=== PATIENT | male | born 1950 | race Caucasian/White ===

== ENCOUNTER 2016-10-13 21:40 | Inpatient (IN) | payer MEDICARE, MEDICAID ==
[~2016-10-13] VITALS: Ht 172.7 cm; Wt 80.0 kg
--- NOTE | 2016-10-13 23:33 | ERD ---
ER Documentation Chief Complaint Date/Time DATE: 10/13/16 TIME: 23:32 Chief Complaint painful/burning urination/retention x 3 weeks HPI Patient is a 66-year-old male with history of unknown prostate condition who presents to the ER with 3 weeks of gradual onset, constant, moderate, progressive generalized abdominal pain. He reports a few episodes of vomiting intermittently. He denies fever. He states that he is having increased urinary frequency and difficulty emptying his bladder. He denies hematuria. The patient was seen in a hospital in [facility] approximately 1 week ago. He just arrived by plane today from [facility]. He denies acute change of symptoms, but states that they have been getting progressively worse over the last week. ROS All systems reviewed and are negative except as per history of present illness. Medications Home Meds No Active Prescriptions or Reported Meds Allergies Allergies: Coded Allergies: No Known Drug Allergies (Verified Allergy, Unknown, 10/13/16) PMhx/Soc Past medical history: Unknown prostate condition Past surgical history: Denies Social history: Denies tobacco or alcohol Medical and Surgical Hx: pt denies Surgical Hx Hx Cardiac Disorders: Yes (HTN) Hx Alcohol Use: Yes (used to drink heavily ) Hx Substance Use: No Hx Tobacco Use: No Smoking Status: Never smoker FmHx Family History: No coronary disease, No diabetes Physical Exam Vitals Vital Signs Date Time Temp Pulse Resp B/P Pulse Ox O2 Delivery O2 Flow Rate FiO2 10/14/16 01:05 98.2 74 20 178/79 100 10/13/16 22:11 98.2 90 20 203/89 100 Physical Exam Const: Alert, no acute distress Head: Atraumatic Eyes: Normal Conjunctiva, no pallor, no icterus ENT: Normal External Ears, Nose and Mouth. Mucous membranes moist Neck: Full range of motion. No JVD Resp: Clear to auscultation bilaterally, no wheezes, no rales Cardio: Regular rate and rhythm, no murmurs Abd: Soft, non tender, non distended. No guarding, no rebound Skin: No petechiae or rashes Back: No midline or flank tenderness Ext: No cyanosis, 2+ pitting edema bilateral shins Neur: Awake and alert, cranial nerves II through XII intact bilaterally, strength and sensation full in 4 extremities. Psych: Normal Mood and Affect Result Diagram: 7/20/17 2325 7/20/17 2325 Results 24 hrs Laboratory Tests Test 10/13/16 23:25 White Blood Count 11.610^3/ul Red Blood Count 3.2010^6/ul Hemoglobin 9.6g/dl Hematocrit 25.5% Mean Corpuscular Volume 79.7fl Mean Corpuscular Hemoglobin 30.0pg Mean Corpuscular Hemoglobin Concent 37.6g/dl Red Cell Distribution Width 11.8% Platelet Count 40672^3/UL Mean Platelet Volume 8.1fl Neutrophils % 83.4% Lymphocytes % 8.6% Monocytes % 7.1% Eosinophils % 0.3% Basophils % 0.3% Neutrophils # 9.710^3/ul Lymphocytes # 1.010^3/ul Monocytes # 0.810^3/ul Eosinophils # 0.010^3/ul Basophils # 0.010^3/ul Nucleated Red Blood Cells # 0.010^3/ul Urine Color STRAW Urine Clarity CLEAR Urine pH 7.0 Urine Specific [place] 1.003 Urine Ketones NEGATIVEmg/dL Urine Nitrite NEGATIVEmg/dL Urine Bilirubin NEGATIVEmg/dL Urine Urobilinogen NEGATIVEmg/dL Urine Leukocyte Esterase NEGATIVELeu/ul Urine Microscopic RBC 2/HPF Urine Microscopic WBC 2/HPF Urine Hemoglobin 1+mg/dL Urine Glucose 1+mg/dL Urine Total Protein 3+mg/dl Sodium Level 122mmol/L Potassium Level 2.6mmol/L Chloride Level 85mmol/L Carbon Dioxide Level 25mmol/L Anion Gap 15 Blood Urea Nitrogen 17mg/dl Creatinine 2.12mg/dl Glucose Level 113mg/dl Calcium Level 8.3mg/dl Total Bilirubin 0.1mg/dl Direct Bilirubin 0.00mg/dl Indirect Bilirubin 0.1mg/dl Aspartate Amino Transf (AST/SGOT) 33IU/L Alanine Aminotransferase (ALT/SGPT) 33IU/L Alkaline Phosphatase 129IU/L Total Protein 6.4g/dl Albumin 2.9g/dl Globulin 3.50g/dl Albumin/Globulin Ratio 0.82 Lipase 371U/L Current Medications Medications (Trade) Dose Ordered Sig/Saul Route PRN Reason Start Time Stop Time Status Last Admin Dose Admin Potassium Chloride 250 ml @ 62.5 mls/hr ONCE ONCE IVPB 10/14/16 01:00 10/14/16 04:59 10/14/16 01:46 Magnesium Sulfate 50 ml @ 25 mls/hr ONCE ONCE IVPB 10/14/16 01:00 10/14/16 02:59 10/14/16 01:46 Sodium Chloride (NS) 500 ml @ 500 mls/hr Q1H ONCE IV 10/14/16 01:30 10/14/16 02:29 10/14/16 01:46 Ondansetron HCl (Zofran Inj) 4 mg ER BRIDGE PRN IV NAUSEA AND/OR VOMITING 10/14/16 01:30 10/15/16 01:29 Acetaminophen (Tylenol Tab) 650 mg ER BRIDGE PRN PO MILD PAIN/FEVER 10/14/16 01:30 10/15/16 01:29 Procedures/MDM MDM: Patient is a 66-year-old male who presents with complaint of lower abdominal pain and difficulty urinating for several weeks. He is found to have urinary retention with a PVR of 750 cc after Castelan placement. He has significant electrolyte abnormalities, including low potassium and sodium. His creatinine is elevated without significant BUN elevation, suggestive of obstructive uropathy. He was given judicious IV saline in case of other conditions contributing to his hyponatremia. He was given IV potassium and magnesium repletion. He will be admitted for further workup and treatment of his electrolyte abnormalities. He will need urologic consultation either during his admission or as an outpatient to address his urinary obstruction, which is likely due to BPH. Urinalysis is pending to assess for UTI. Departure Diagnosis: Primary Impression: Hyponatremia Additional Impressions: Hyperkalemia Urinary retention Ileus Prostatic hypertrophy Obstructive uropathy Condition: Stable SHELBY LUND MD Oct 13, 2016 23:33
[2016-10-13 23:59] LABS: ADD SCAN DIFF NO
[2016-10-14] VITALS (14 sets, daily range): BP systolic 133–181; BP diastolic 61–88; PULSE 65–78; RESP 18; TEMP 98.2; Ht 172.7 cm; Wt 80.0 kg
[2016-10-14 00:03] LABS: BASOPHILS % 0.3 % (0.0-2.0); EOSINOPHILS % 0.3 % (0.0-7.0); HEMATOCRIT 25.5 % (42.0-52.0); HEMOGLOBIN 9.6 g/dl (14.0-18.0); LYMPHOCYTES % 8.6 % (15.0-51.0); MEAN CORPUSCULAR VOLUME 79.7 fl (82.0-101.0); MEAN PLATELET VOLUME 8.1 fl (7.4-10.4); MONOCYTE # 0.8 10^3/ul (0.3-0.9); MONOCYTES % 7.1 % (0.0-11.0); NEUTROPHIL # 9.7 10^3/ul (1.6-7.5); NEUTROPHILS % 83.4 % (39.0-77.0); PLATELET COUNT 293 10^3/UL (140-415); RED CELL DISTRIBUTION WIDTH 11.8 % (11.5-14.5); WHITE BLOOD COUNT 11.6 10^3/ul (4.8-10.8)
[2016-10-14 00:13] LABS: MEAN CORPUSCULAR HGB CONC 37.6 g/dl (32.0-37.0)
[2016-10-14 00:45] LABS: ALBUMIN 2.9 g/dl (3.3-4.9); ALBUMIN/GLOBULIN RATIO 0.82; BILIRUBIN,INDIRECT 0.1 mg/dl (0-1.1); BILIRUBIN,TOTAL 0.1 mg/dl (0.2-1.3); CALCIUM 8.3 mg/dl (8.4-10.2); CREATININE 2.12 mg/dl (0.61-1.24); TOTAL PROTEIN 6.4 g/dl (6.1-8.1)
[2016-10-14 00:49] LABS: POTASSIUM 2.6 mmol/L (3.5-5.1)
[2016-10-14] MEDS ORDERED: MAGNESIUM SULFATE 2 GM/50 ML 50 ML IVPB ONE (01:00)
[2016-10-14] MEDS ORDERED: POTASSIUM CHLORIDE 250 ML IVPB ONE ×2 (01:00→11:00)
--- NOTE | 2016-10-14 01:10 | RADRPT ---
PROCEDURE: Abdomen x-ray CLINICAL INDICATION: Abdominal pain. TECHNIQUE: 2 frontal views of the abdomen. COMPARISON: None. FINDINGS: Mild to moderate small bowel ileus in the left abdomen. Recommend close radiographic follow up. So lid stool in the cecum and right colon. There is air in the rectum. Lung bases are clear. No unus ual calcifications are identified over the abdomen. IMPRESSION: Mild to moderate small bowel ileus. Recommend close radiographic follow up RPTAT: UU Physician Mili Date Time Electronically viewed and signed by Physician Mili on 10/14/2016 01:10 RS/
[2016-10-14 01:13] LABS: ADD UMIC YES; UR ASCORBIC ACID NEGATIVE (NEGATIVE); UR BILIRUBIN (Dip) NEGATIVE (NEGATIVE); UR BLOOD (Dip) 1+ mg/dL (NEGATIVE); UR CLARITY CLEAR (CLEAR); UR COLOR STRAW (YELLOW); UR GLUCOSE (Dip) 1+ mg/dL (NEGATIVE); UR KETONES (Dip) NEGATIVE (NEGATIVE); UR LEUKOCYTE ESTERASE (Dip) NEGATIVE Leu/ul (NEGATIVE); UR NITRITE (Dip) NEGATIVE (NEGATIVE); UR RBC 2 /HPF (0-5); UR SPECIFIC GRAVITY (Dip) 1.003 (1.003-1.030); UR TOTAL PROTEIN (Dip) 3+ mg/dl (NEGATIVE); UR UROBILINOGEN (Dip) NEGATIVE (NEGATIVE)
[2016-10-14] MEDS ORDERED: SOD CHLORIDE 0.9% 500 ML IV ONE ×2 (01:30→02:30)
[2016-10-14] MEDS ORDERED: ACETAMINOPHEN 325 MG TAB PO PRN (01:30)
[2016-10-14] MEDS ORDERED: ONDANSETRON 4 MG INJ IV PRN ×2 (01:30→05:30)
[2016-10-14] MEDS ORDERED: NACL 0.9% 3 ML SYG IV SCH (05:30)
[2016-10-14] MEDS ORDERED: BARIUM SULF 2% 450 ML BTL (BERRY SMOOTHIE) PO ONE (05:30)
[2016-10-14] MEDS ORDERED: DEXTROSE 5%-0.9% NACL 1,000 ML IV SCH (05:30)
[2016-10-14] MEDS ORDERED: ALBUTEROL/IPRATROPIUM (NEB) 3 ML AMP HHN PRN (05:30)
[2016-10-14] MEDS ORDERED: VITAMIN A & D 5 GM OINT PACKET TOP ONE (05:55)
[2016-10-14] MEDS: morphine 2 MG INJ IV PRN ×2 (05:56→10:07)
--- NOTE | 2016-10-14 06:53 | HP ---
Date/Time of Note Date/Time of Note DATE: 10/14/16 TIME: 06:41 Assessment/Plan VTE Prophylaxis VTE Prophylaxis Intervention: SCD's Lines/Catheters IV Catheter Type (from Nrs): Peripheral IV Assessment/Plan Assessment/Plan 1. Abdominal pain, likely secondary to ileus, and possibly pancreatitis given elevated lipase -Likely cause of ileus is his hypokalemia. His abdomen is soft and there is no physical exam finding of bowel obstruction. Plan however is to obtain a CT abdomen/pelvis with oral and IV contrast. In the meantime we will correct his potassium and that will provide pain medication as needed. 2. Mild pancreatitis -We will keep n.p.o. with IV fluid. Pain medications will be provided as needed 3. Urinary hesitation, likely secondary to BPH - will start him on Flomax and will await the results of the CAT scan which will probably going to show an enlarged prostate. 3. Hypertensive urgency -Blood pressure is better controlled and we will continue to adjust antihypertensives as needed. 4. Hypokalemia -Replete 5. Hyponatremia -Continue normal saline IV fluid for now HPI/ROS Admit Date/Time Admit Date/Time Oct 14, 2016 at 01:16 Hx of Present Illness This is a 66-year-old male with a history of hypertension who presented to the emergency department complaining of abdominal pain and urinary symptoms. He said he is symptoms started a month ago while he was in [place], [facility]. His abdominal pain is mainly localized in the lower abdominal region. He said he has been, at times having difficulty with urination, mainly hesitation. When asked about he has been vomiting, he initially said no but then he said only small amounts. He denied fever, chills, hematuria, shortness of breath. He said that his last bowel movement was 2 days ago. It is not clear whether or not he was evaluated by a doctor when he was in [facility] but he stated that it costs too much money to be evaluated over there and that why he decided to come here. When he presented to the ER here at [facility], he was found to have a potassium of 2.6. KUB shows ileus. Currently he said he is almost completely pain-free and he actually looks comfortable. PMH/Family/Social Past Medical History Medical History: hypertension Social History Smoking Status: Former smoker Exam/Review of Systems Vital Signs Vitals Vital Signs Date Time Temp Pulse Resp B/P Pulse Ox O2 Delivery O2 Flow Rate FiO2 10/14/16 04:51 75 10/14/16 04:34 98.2 20 161/74 100 Intake and Output 10/13/16 10/13/16 10/14/16 15:00 23:00 07:00 Output Total 2200 ml Balance -2200 ml Exam Constitutional: alert, oriented, well developed Head: atraumatic, normocephalic Eyes: EOMI, PERRL Respiratory: clear to auscultation, normal air movement Cardiovascular: nl pulses, regular rate and rhythm Gastrointestinal: non-tender, soft Extremities: normal pulses Labs Result Diagram: 10/13/16232410/13/162324 Medications Medications Current Medications Ondansetron HCl (Zofran Inj) 4 mg Q6H PRN IV NAUSEA AND/OR VOMITING; Start at 05:30 Morphine Sulfate (morphine) 2 mg Q4H PRN IV PAIN LEVEL 7-10 Last administered on 10/14/16 05:56; Admin Dose 2 MG; Start 10/14/16 at 05:30 Famotidine 20 mg 20 mg DAILY IV ; Start 10/14/16 at 09:00 Dextrose/Sodium Chloride (D5-NS) 1,000 ml @ 100 mls/hr Q10H IV Last administered on 10/14/16 05:38; Admin Dose 100 MLS/HR; Start 10/14/16 at 05:30 Hydralazine HCl (Apresoline) 10 mg Q4H PRN IV SBP > 160; Start 10/14/16 at 05: 30 CHIRAG FITZPATRICK MD Oct 14, 2016 06:53
[2016-10-14 08:40] LABS: ADD SCAN DIFF NO
[2016-10-14 08:47] LABS: BASOPHILS % 0.4 % (0.0-2.0); EOSINOPHILS % 0.4 % (0.0-7.0); HEMATOCRIT 24.2 % (42.0-52.0); HEMOGLOBIN 9.1 g/dl (14.0-18.0); LYMPHOCYTES # 0.8 10^3/ul (0.8-2.9); LYMPHOCYTES % 9.9 % (15.0-51.0); MEAN CORPUSCULAR HEMOGLOBIN 30.2 pg (29.0-33.0); MEAN CORPUSCULAR VOLUME 80.4 fl (82.0-101.0); MEAN PLATELET VOLUME 8.3 fl (7.4-10.4); MONOCYTE # 0.7 10^3/ul (0.3-0.9); NEUTROPHIL # 6.8 10^3/ul (1.6-7.5); NEUTROPHILS % 80.9 % (39.0-77.0); PLATELET COUNT 297 10^3/UL (140-415); RED BLOOD COUNT 3.01 10^6/ul (4.70-6.10); RED CELL DISTRIBUTION WIDTH 11.9 % (11.5-14.5); WHITE BLOOD COUNT 8.4 10^3/ul (4.8-10.8)
[2016-10-14 08:56] LABS: MEAN CORPUSCULAR HGB CONC 37.6 g/dl (32.0-37.0)
[2016-10-14] MEDS ORDERED: FAMOTIDINE 20 MG INJ IV SCH (09:00)
[2016-10-14 09:17] LABS: ALBUMIN 2.7 g/dl (3.3-4.9); ALBUMIN/GLOBULIN RATIO 0.81; BILIRUBIN,INDIRECT 0.1 mg/dl (0-1.1); BILIRUBIN,TOTAL 0.1 mg/dl (0.2-1.3); CALCIUM 8.5 mg/dl (8.4-10.2); CREATININE 2.02 mg/dl (0.61-1.24); MAGNESIUM 2.1 mg/dl (1.7-2.5); POTASSIUM 3.3 mmol/L (3.5-5.1)
[2016-10-14] MEDS: hydrALAzine 20 MG INJ IV PRN ×2 (09:27→13:52)
[2016-10-14 10:35] LABS: THYROID STIMULATING HORMONE 0.922 MIU/L (0.465-4.680)
[2016-10-14 11:09] LABS: POTASSIUM,URINE RANDOM 11.6 mmol/L (25-125)
[2016-10-14] MEDS ORDERED: LABETALOL HCL 20MG INJ IV PRN (11:30)
[2016-10-14 12:45] LABS: IRON 15 ug/dl (35-150)
[2016-10-14 12:54] LABS: TOTAL IRON BINDING CAPACITY 198 ug/dl (241-421)
--- NOTE | 2016-10-14 14:03 | RADRPT ---
PROCEDURE: CT abdomen and pelvis without intravenous contrast. CLINICAL INDICATION: Abdominal pain, evaluate for bowel obstruction TECHNIQUE: CT of the abdomen/pelvis was performed utilizing axial images with reconstructions in s agittal and coronal planes. The administered radiation dose is CTDI 9.91 mGy, DLP 631.37 mGy-cm. One or more of the following dose reduction techniques were used: Automated exposure control, Adjustmen t of the mA and/or kV according to patient size, or Use of iterative reconstruction technique. COMPARISON: There are no similar studies submitted for comparison. FINDINGS: Lung bases: Respiratory motion artifact limits evaluation of the lung bases. The lung bases demonst rate mild posterior dependent atelectasis and mild nonspecific posterior pleural thickening. Trace l eft pleural effusion is also suspected. .The heart is normal size without pericardial effusion. CT ABDOMEN: Evaluation of the abdominal viscera is limited without intravenous contrast. Gastrointestinal tract: There is no bowel obstruction. A normal-appearing appendix is seen in the ri ght lower quadrant. No abnormal colonic wall thickening is identified.There is no pneumoperitoneum. There are a few scattered colonic diverticuli without evidence of acute diverticulitis. Liver: The liver is normal in size.There is no intrahepatic ductal dilatation. Gallbladder: The gallbladder contains small dependent gallstones. Pancreas: The pancreas is grossly unremarkable. Spleen: The spleen is normal in size. Kidneys: The kidneys are normal in size and contour. Punctate calcification is seen in the interpola r left kidney near the corticomedullary junction and in the left kidney superior pole; possibly ollie l stones versus vascular calcifications. There is no evidence of hydronephrosis. Adrenal glands: The bilateral adrenal glands are unremarkable. Retroperitoneum: There are increased number of slightly prominent, but sub centimeter para-aortic ly mph nodes. The aorta is normal in caliber. There are scattered atherosclerotic calcifications of th e aorta and iliac arteries bilaterally. CT PELVIS: Pelvic organs: The prostate gland is mildly enlarged, but otherwise unremarkable. Bladder: Urinary bladder contains a Castelan catheter. Air fluid level within the urinary bladder is p resumably related to recent Castelan catheter insertion. There is no pelvic free fluid.No pelvic adenopathy is identified. Osseous structures: No destructive lytic or blastic osseous lesion is identified. There are multilev el degenerative changes of the visualized spine. Degenerative disk disease related osteophytes and ligamentous calcification combine to cause moderate bony spinal canal stenosis at L2-L3 and L3-L4. IMPRESSION: Evaluation of the abdominal viscera is limited without intravenous contrast. 1. No evidence of acute abdominal pathology. 2. Increased number of prominent, but subcentimeter short axis para-aortic lymph nodes, possibly re active in etiology. 3. Degenerative changes of the spine. Degenerative disk disease related posterior osteophytes and l igamentous hypertrophy and calcification combine to cause moderate bony spinal canal stenosis at L2- L3 and L3-L4. 4. Two punctate left renal calcifications which may represent small calculi versus vascular calcifi cations. No hydronephrosis. 5. Nonspecific pleural thickening in the bilateral posterior lower lung regions with trace pleural f luid on the left. RPTAT: PP Physician Debbie Date Time Electronically viewed and signed by Physician Debbie on 10/14/2016 14:03 MIKO/
--- NOTE | 2016-10-14 14:30 | PN ---
Date/Time of Note Date/Time of Note DATE: 10/14/16 TIME: 14:28 Assessment/Plan VTE Prophylaxis VTE Prophylaxis Intervention: SCD's Lines/Catheters IV Catheter Type (from Nrsg): Peripheral IV Urinary Cath still in place: Yes Reason Cath still needed: urinary retention Assessment/Plan Chief Complaint/Hosp Course Patient is a 66-year-old [place] and male who presents to [facility] for abdominal pain and urinary hesitation. Assessment Left upper quadrant abdominal pain, questionable gastritis Elevated lipase Urinary hesitation BPH, confirmed with CT scan Hypertensive urgency, possible chronic issue Acute kidney injury versus chronic kidney disease, Hypokalemia Hyponatremia Plan -CT scan negative for bowel obstruction, will allow patient to start with clears -Left upper quadrant pain consistent with area of the stomach and with nausea and vomiting, questionable gastritis -Nephrology consulted for acute kidney injury versus chronic kidney disease, fractional excretion of sodium is 4.8 and may be explained by patient's urinary retention and BPH -Castelan catheter in for now, starting Flomax, reevaluate tomorrow -Pain medication necessary -Protonix twice daily for possible gastritis for now -Electrolytes now within normal limits -Follow-up with repeat labs tomorrow morning Anastacio Reddy DO Problems: Exam/Review of Systems Vital Signs Vitals Vital Signs Date Time Temp Pulse Resp B/P Pulse Ox O2 Delivery O2 Flow Rate FiO2 10/14/16 13:37 69 170/79 10/14/16 12:07 97.8 18 100 Intake and Output 10/13/16 10/13/16 10/14/16 15:00 23:00 07:00 Output Total 2200 ml Balance -2200 ml Results Result Diagram: 10/14/1623 10/14/16 0723 Results 24 hrs Laboratory Tests Test 10/13/16 23:25 10/14/16 07:23 10/14/16 10:00 10/14/16 11:54 White Blood Count 11.6 H 8.4 # Red Blood Count 3.20 L 3.01 L Hemoglobin 9.6 L 9.1 L Hematocrit 25.5 L 24.2 L Mean Corpuscular Volume 79.7 L 80.4 L Mean Corpuscular Hemoglobin 30.0 30.2 Mean Corpuscular Hemoglobin Concent 37.6 H 37.6 H Red Cell Distribution Width 11.8 11.9 Platelet Count 293 297 Mean Platelet Volume 8.1 8.3 Neutrophils % 83.4 H 80.9 H Lymphocytes % 8.6 L 9.9 L Monocytes % 7.1 8.0 Eosinophils % 0.3 0.4 Basophils % 0.3 0.4 Neutrophils # 9.7 H 6.8 Lymphocytes # 1.0 0.8 Monocytes # 0.8 0.7 Eosinophils # 0.0 0.0 Basophils # 0.0 0.0 Nucleated Red Blood Cells # 0.0 0.0 Urine Color STRAW Urine Clarity CLEAR Urine pH 7.0 Urine Specific [place] 1.003 Urine Ketones NEGATIVE Urine Nitrite NEGATIVE Urine Bilirubin NEGATIVE Urine Urobilinogen NEGATIVE Urine Leukocyte Esterase NEGATIVE Urine Microscopic RBC 2 Urine Microscopic WBC 2 Urine Hemoglobin 1+ H Urine Glucose 1+ H Urine Total Protein 3+ H Sodium Level 122 L 130 L Potassium Level 2.6 *L 3.3 L Chloride Level 85 L 91 L Carbon Dioxide Level 25 27 Anion Gap 15 15 Blood Urea Nitrogen 17 16 Creatinine 2.12 H 2.02 H Glucose Level 113 103 Calcium Level 8.3 L 8.5 Total Bilirubin 0.1 L 0.1 L Direct Bilirubin 0.00 0.00 Indirect Bilirubin 0.1 0.1 Aspartate Amino Transf (AST/SGOT) 33 30 Alanine Aminotransferase (ALT/SGPT) 33 30 Alkaline Phosphatase 129 H 116 Total Protein 6.4 6.0 L Albumin 2.9 L 2.7 L Globulin 3.50 H 3.30 H Albumin/Globulin Ratio 0.82 0.81 Lipase 371 H Hemoglobin A1c 5.5 Magnesium Level 2.1 Thyroid Stimulating Hormone (TSH) 0.922 Urine Osmolality 147 L Urine Random Creatinine 16.36 L Urine Random Sodium 49 Urine Random Potassium 11.6 L Osmolality 271 L Iron Level 15 L Total Iron Binding Capacity 198 L Percent Iron Saturation 8 L Carcinoembryonic Antigen 1.6 Medications Medications Current Medications Ondansetron HCl (Zofran Inj) 4 mg Q6H PRN IV NAUSEA AND/OR VOMITING; Start at 05:30 Hydralazine HCl 10 mg 10 mg Q4H PRN IV SBP > 160 Last administered on t 13:52; Admin Dose 10 MG; Start 10/14/16 at 05:30 Potassium Chloride (KCl 40 MEQ/250 ML NS) 250 ml @ 62.5 mls/hr ONCE ONCE IVPB Last administered on 10/14/16 12:21; Admin Dose 62.5 MLS/HR; Start 10/14/16 at 11:00; Stop 10/14/16 at 14:59 Labetalol HCl (Labetalol) 10 mg Q4H PRN IV SBP>160 ; hold if HR <60 Last administered on 10/14/16 12:21; Admin Dose 10 MG; Start 10/14/16 at 11:30 Tamsulosin HCl (Flomax) 0.4 mg HS PO ; Start 10/14/16 at 21:00 Amlodipine Besylate (Norvasc) 10 mg DAILY PO ; Start 10/14/16 at 14:30 Acetaminophen/ Hydrocodone Bitart ([place] (5/325)) 1 tab Q4H PRN PO pain 4-10; Start 10/14/16 at 14:30 Pantoprazole (Protonix Tab) 40 mg BID@06,18 PO ; Start 10/14/16 at 14:30 ANASTACIO REDDY Oct 14, 2016 14:30
[2016-10-14] MEDS: PANTOPRAZOLE (EC) 40 MG TAB PO SCH ×2 (15:11→21:05)
[2016-10-14] MEDS: AMLODIPINE 10 MG TAB PO SCH (15:11)
[2016-10-14] MEDS: HYDROCODONE/APAP (5/325) TAB PO PRN (15:17)
[2016-10-14] MEDS: TAMSULOSIN (SR) 0.4 MG CAP PO SCH (21:05)
[2016-10-14] MEDS ORDERED: SOD FERRIC GLUC COMPLX 125 MG in SOD CHLORIDE 0.9% 100 ML IVPB SCH (23:00)
[2016-10-15] VITALS (13 sets, daily range): BP systolic 112–162; BP diastolic 50–77; PULSE 61–72; RESP 16–20
[2016-10-15] MEDS ORDERED: MAGNESIUM CITRATE 300 ML BTL PO ONE (06:00)
[2016-10-15] MEDS: PANTOPRAZOLE (EC) 40 MG TAB PO SCH ×2 (06:01→17:27)
[2016-10-15 07:50] LABS: CALCIUM 7.9 mg/dl (8.4-10.2); CREATININE 2.25 mg/dl (0.61-1.24); MAGNESIUM 1.6 mg/dl (1.7-2.5); PHOSPHORUS 4.2 mg/dl (2.5-4.9)
[2016-10-15] MEDS: AMLODIPINE 10 MG TAB PO SCH (09:03)
[2016-10-15] MEDS: BENAZEPRIL 20 MG TAB GTB SCH (09:03)
[2016-10-15] MEDS ORDERED: POTASSIUM CHLORIDE (SR) 20 MEQ TAB PO STA (09:40)
[2016-10-15 09:59] LABS: BASOPHILS % 0.5 % (0.0-2.0); EOSINOPHILS # 0.1 10^3/ul (0.0-0.5); HEMATOCRIT 23.7 % (42.0-52.0); HEMOGLOBIN 8.3 g/dl (14.0-18.0); LYMPHOCYTES # 0.8 10^3/ul (0.8-2.9); MEAN CORPUSCULAR HEMOGLOBIN 29.4 pg (29.0-33.0); MEAN PLATELET VOLUME 8.5 fl (7.4-10.4); MONOCYTE # 0.5 10^3/ul (0.3-0.9); MONOCYTES % 8.4 % (0.0-11.0); NEUTROPHIL # 4.5 10^3/ul (1.6-7.5); NEUTROPHILS % 75.8 % (39.0-77.0); PLATELET COUNT 265 10^3/UL (140-415); RED BLOOD COUNT 2.82 10^6/ul (4.70-6.10); RED CELL DISTRIBUTION WIDTH 12.4 % (11.5-14.5); WHITE BLOOD COUNT 5.9 10^3/ul (4.8-10.8)
[2016-10-15 13:04] LABS: ANA SCREEN NEGATIVE (NEGATIVE)
[2016-10-15] MEDS ORDERED: MAGNESIUM HYDROXIDE 30ML CUP PO ONE (14:00)
[2016-10-15] MEDS ORDERED: MAGNESIUM HYDROXIDE 30ML CUP PO PRN (14:00)
--- NOTE | 2016-10-15 14:00 | PN ---
Date/Time of Note Date/Time of Note DATE: 10/15/16 TIME: 13:57 Assessment/Plan VTE Prophylaxis VTE Prophylaxis Intervention: SCD's Lines/Catheters IV Catheter Type (from Nrs): Peripheral IV Urinary Cath still in place: Yes Reason Cath still needed: urinary retention Assessment/Plan Chief Complaint/Hosp Course Patient is a 66-year-old [place] and male who presents to [facility] for abdominal pain and urinary hesitation. Assessment Left upper quadrant abdominal pain, questionable gastritis Elevated lipase Urinary hesitation BPH, confirmed with CT scan Hypertensive urgency, possible chronic issue Acute kidney injury versus chronic kidney disease, Hypokalemia Hyponatremia Plan -Abdominal pain has significantly improved, very likely gastritis, continue Protonix for now. -Patient likely has chronic kidney disease and was unaware. Patient will need renal follow-up in the outpatient setting -We will DC Castelan, will attempt to let patient urinate on his own, however if patient is able unable to urinate well reinsert Castelan and patient may need urology follow-up. -Pain medication as necessary -Follow-up with repeat labs in the morning -Monitor patient's blood pressure overnight as patient's blood pressure was uncontrolled yesterday. -Likely DC tomorrow if blood pressure remains stable. Anastacio Reddy DO Problems: Subjective 24 Hr Interval Summary Free Text/Dictation no more abdominal pain. constipated. Exam/Review of Systems Vital Signs Vitals Vital Signs Date Time Temp Pulse Resp B/P Pulse Ox O2 Delivery O2 Flow Rate FiO2 10/15/16 12:12 65 10/15/16 12:11 97.2 18 130/66 100 Intake and Output 10/14/16 10/14/16 10/15/16 15:00 23:00 07:00 Intake Total 900 ml 770 ml 300 ml Output Total 2250 ml 800 ml 800 ml Balance -1350 ml -30 ml -500 ml Exam Physical exam General: Patient is laying in bed and answers questions appropriately Mentation: Patient is alert and oriented 4, Head: Normocephalic atraumatic Eyes: EOMI, pupils reactive to light Neck: Supple, nontender, midline Respiratory: Clear to auscultation bilaterally Cardiovascular: regular rate, no obvious murmurs Gastrointestinal: non-tender to palpation, bowel sounds heard. Neurological: Moves all extremities spontaneously Skin: No new skin lesions Results Result Diagram: 10/15/16 0629 10/15/16 0629 Results 24 hrs Laboratory Tests Test 10/15/16 06:29 10/15/16 12:40 White Blood Count 5.9 # Red Blood Count 2.82 L Hemoglobin 8.3 L Hematocrit 23.7 L Mean Corpuscular Volume 84.0 Mean Corpuscular Hemoglobin 29.4 Mean Corpuscular Hemoglobin Concent 35.0 Red Cell Distribution Width 12.4 Platelet Count 265 Mean Platelet Volume 8.5 Neutrophils % 75.8 Lymphocytes % 14.0 L Monocytes % 8.4 Eosinophils % 1.0 Basophils % 0.5 Nucleated Red Blood Cells % 0.0 Neutrophils # 4.5 Lymphocytes # 0.8 Monocytes # 0.5 Eosinophils # 0.1 Basophils # 0.0 Nucleated Red Blood Cells # 0.0 Sodium Level 131 L Potassium Level 3.0 L Chloride Level 96 L Carbon Dioxide Level 25 Anion Gap 13 Blood Urea Nitrogen 14 Creatinine 2.25 H Glucose Level 101 Calcium Level 7.9 L Phosphorus Level 4.2 Magnesium Level 1.6 L Stool Occult Blood NEGATIVE Medications Medications Current Medications Ondansetron HCl (Zofran Inj) 4 mg Q6H PRN IV NAUSEA AND/OR VOMITING; Start at 05:30 Hydralazine HCl (Apresoline) 10 mg Q4H PRN IV SBP > 160 Last administered on 13:52; Admin Dose 10 MG; Start 10/14/16 at 05:30 Labetalol HCl (Labetalol) 10 mg Q4H PRN IV SBP>160 ; hold if HR <60 Last administered on 10/14/16 12:21; Admin Dose 10 MG; Start 10/14/16 at 11:30 Tamsulosin HCl (Flomax) 0.4 mg HS PO Last administered on 10/14/16 21:05; Admin Dose 0.4 MG; Start 10/14/16 at 21:00 Amlodipine Besylate (Norvasc) 10 mg DAILY PO Last administered on 10/15/16 09: 03; Admin Dose 10 MG; Start 10/14/16 at 14:30 Acetaminophen/ Hydrocodone Bitart ([place] (5/325)) 1 tab Q4H PRN PO pain 4-10 Last administered on 10/14/16 15:17; Admin Dose 1 TAB; Start 10/14/16 at 14:30 Pantoprazole (Protonix Tab) 40 mg BID@06,18 PO Last administered on 10/15/16 06:01; Admin Dose 40 MG; Start 10/14/16 at 14:30 Benazepril HCl 20 mg 20 mg DAILY GTB Last administered on 10/15/16 09:03; Admin Dose 20 MG; Start 10/15/16 at 09:00 Ferric Sodium Gluconate Complex/ Sodium Chloride ([place]/NS) 110 ml @ 100 mls/hr Q24H IVPB Last administered on 10/15/16 06:00; Admin Dose 100 MLS/HR; Start 10/14/16 at 23:00; Stop 10/17/16 at 00:05 Clonidine (Catapres) 0.1 mg Q6 PO Last administered on 10/15/16 11:34; Admin Dose 0.1 MG; Start 10/15/16 at 06:00 ANASTACIO REDDY Oct 15, 2016 14:00
--- NOTE | 2016-10-15 18:30 | CONS ---
Date/Time of Note Date/Time of Note DATE: 10/15/16 TIME: 18:22 Assessment/Plan Assessment/Plan Chief Complaint/Hosp Course Hbg has dropped with Hydration MUST R/O MALIGNANCY Problems: Additional Assessment/Plan DC IV, Pt started on EPO, May need TX Cont'd Hospitalization Reason: CT ABD: pARAAORTIC lYMPH nODES, fURTHER PLANS PER PMD Consultation Date/Type/Reason Admit Date/Time Oct 14, 2016 at 01:16 Initial Consult Date October 12, 2016 Reason for Consultation CKD Referring Provider: JONY CARRION Exam/Review of Systems Vital Signs Vitals Vital Signs Date Time Temp Pulse Resp B/P Pulse Ox O2 Delivery O2 Flow Rate FiO2 10/15/16 17:26 65 122/60 10/15/16 16:02 98.2 19 100 Intake and Output 10/14/16 10/14/16 10/15/16 15:00 23:00 07:00 Intake Total 900 ml 770 ml 300 ml Output Total 2250 ml 800 ml 800 ml Balance -1350 ml -30 ml -500 ml Exam Constitutional: alert, oriented, well developed Psych: confusion (less so), nl mood/affect, no complaints Head: atraumatic, normocephalic Eyes: EOMI, PERRL, nl conjunctiva, nl lids, nl sclera ENMT: nl external ears & nose, nl lips & teeth, nl nasal mucosa & septum Neck: non-tender, supple Respiratory: clear to auscultation, normal air movement Cardiovascular: nl pulses, regular rate and rhythm Gastrointestinal: nl liver, spleen, non-tender, soft Musculoskeletal: nl extremities to inspection, nl gait and stance Extremities: normal pulses Neurological: WASH TEST CHECKER II-XII intact, nl mental status, nl speech, nl strength Skin: nl turgor, No rash or lesions Lymph: nl lymph nodes Results Hc has dropped, Creat did not change with IVF MG HAS DROPPED, WILL BE REPLACED Result Diagram: 10/15/1662810/15/16 0629 Results 24 hrs Laboratory Tests Test 10/15/16 06:29 10/15/16 12:40 White Blood Count 5.9 # Red Blood Count 2.82 L Hemoglobin 8.3 L Hematocrit 23.7 L Mean Corpuscular Volume 84.0 Mean Corpuscular Hemoglobin 29.4 Mean Corpuscular Hemoglobin Concent 35.0 Red Cell Distribution Width 12.4 Platelet Count 265 Mean Platelet Volume 8.5 Neutrophils % 75.8 Lymphocytes % 14.0 L Monocytes % 8.4 Eosinophils % 1.0 Basophils % 0.5 Nucleated Red Blood Cells % 0.0 Neutrophils # 4.5 Lymphocytes # 0.8 Monocytes # 0.5 Eosinophils # 0.1 Basophils # 0.0 Nucleated Red Blood Cells # 0.0 Sodium Level 131 L Potassium Level 3.0 L Chloride Level 96 L Carbon Dioxide Level 25 Anion Gap 13 Blood Urea Nitrogen 14 Creatinine 2.25 H Glucose Level 101 Calcium Level 7.9 L Phosphorus Level 4.2 Magnesium Level 1.6 L Stool Occult Blood NEGATIVE Medications Medications Current Medications Ondansetron HCl (Zofran Inj) 4 mg Q6H PRN IV NAUSEA AND/OR VOMITING; Start at 05:30 Hydralazine HCl (Apresoline) 10 mg Q4H PRN IV SBP > 160 Last administered on 13:52; Admin Dose 10 MG; Start 10/14/16 at 05:30 Labetalol HCl (Labetalol) 10 mg Q4H PRN IV SBP>160 ; hold if HR <60 Last administered on 10/14/16 12:21; Admin Dose 10 MG; Start 10/14/16 at 11:30 Tamsulosin HCl (Flomax) 0.4 mg HS PO Last administered on 10/14/16 21:05; Admin Dose 0.4 MG; Start 10/14/16 at 21:00 Amlodipine Besylate (Norvasc) 10 mg DAILY PO Last administered on 10/15/16 09: 03; Admin Dose 10 MG; Start 10/14/16 at 14:30 Acetaminophen/ Hydrocodone Bitart ([place] (5/325)) 1 tab Q4H PRN PO pain 4-10 Last administered on 10/14/16 15:17; Admin Dose 1 TAB; Start 10/14/16 at 14:30 Pantoprazole (Protonix Tab) 40 mg BID@06,18 PO Last administered on 10/15/16 17:27; Admin Dose 40 MG; Start 10/14/16 at 14:30 Benazepril HCl 20 mg 20 mg DAILY GTB Last administered on 10/15/16 09:03; Admin Dose 20 MG; Start 7/22/17 at 09:00 Ferric Sodium Gluconate Complex/ Sodium Chloride (Ferrlecit/NS) 110 ml @ 100 mls/hr Q24H IVPB Last administered on 10/15/16 06:00; Admin Dose 100 MLS/HR; Start 10/14/16 at 23:00; Stop 10/17/16 at 00:05 Clonidine (Catapres) 0.1 mg Q6 PO Last administered on 10/15/16 17:27; Admin Dose 0.1 MG; Start 10/15/16 at 06:00 Magnesium Hydroxide (Milk Of Mag) 30 ml DAILY PRN PO CONSTIPATION; Start at 14:00 CLARISSE BLUE MD Oct 15, 2016 18:30
[2016-10-15] MEDS ORDERED: MAGNESIUM SULFATE 4 GM/100 ML 100 ML IVPB ONE (20:00)
[2016-10-15] MEDS: TAMSULOSIN (SR) 0.4 MG CAP PO SCH (20:45)
[2016-10-16] VITALS (11 sets, daily range): BP systolic 106–123; BP diastolic 57–85; PULSE 58–88; RESP 16–20
[2016-10-16] MEDS: PANTOPRAZOLE (EC) 40 MG TAB PO SCH ×2 (05:08→18:05)
[2016-10-16 07:23] LABS: BASOPHILS % 0.7 % (0.0-2.0); EOSINOPHILS # 0.1 10^3/ul (0.0-0.5); EOSINOPHILS % 2.8 % (0.0-7.0); HEMATOCRIT 22.3 % (42.0-52.0); HEMOGLOBIN 7.7 g/dl (14.0-18.0); LYMPHOCYTES # 0.9 10^3/ul (0.8-2.9); LYMPHOCYTES % 20.4 % (15.0-51.0); MEAN CORPUSCULAR HEMOGLOBIN 29.1 pg (29.0-33.0); MEAN CORPUSCULAR HGB CONC 34.5 g/dl (32.0-37.0); MEAN CORPUSCULAR VOLUME 84.2 fl (82.0-101.0); MEAN PLATELET VOLUME 8.5 fl (7.4-10.4); MONOCYTE # 0.4 10^3/ul (0.3-0.9); NEUTROPHIL # 2.8 10^3/ul (1.6-7.5); NEUTROPHILS % 65.6 % (39.0-77.0); PLATELET COUNT 255 10^3/UL (140-415); RED BLOOD COUNT 2.65 10^6/ul (4.70-6.10); RED CELL DISTRIBUTION WIDTH 12.9 % (11.5-14.5); WHITE BLOOD COUNT 4.3 10^3/ul (4.8-10.8)
[2016-10-16 08:12] LABS: CREATININE 2.57 mg/dl (0.61-1.24); MAGNESIUM 2.9 mg/dl (1.7-2.5); POTASSIUM 3.7 mmol/L (3.5-5.1)
[2016-10-16] MEDS: BENAZEPRIL 20 MG TAB GTB SCH (09:25)
[2016-10-16] MEDS: AMLODIPINE 10 MG TAB PO SCH (09:25)
[2016-10-16] MEDS ORDERED: SODIUM CHLORIDE 1 GM TAB PO SCH (13:00)
[2016-10-16] MEDS ORDERED: CLON0.1T14 PO (14:18)
[2016-10-16] MEDS ORDERED: BENA20TA48 PO (14:18)
[2016-10-16] MEDS ORDERED: AMLO2.5T78 PO (14:18)
[2016-10-16] MEDS ORDERED: PANT40TA4 PO (14:18)
[2016-10-16] MEDS ORDERED: TAMS-14 PO (14:18)
--- NOTE | 2016-10-16 14:23 | PDOCDIS ---
Discharge Instructions DIAGNOSIS Discharge Diagnosis Gastritis, Urinary retention, BPH, chronic kidney disease, hypertension CONDITION Patient Condition: Stable HOME CARE INSTRUCTIONS: Diet Instructions: Reduced Sodium ACTIVITY: Activity Restrictions: Slowly Increase Activity FOLLOW UP/APPOINTMENTS Follow-up Plan Please follow up with a primary care physician as well as a glass checker/ oncologist. enlarged para-aortic lymph nodes were seen on CT. Take flomax for urinary rentention, pantoprazole for gastritis, (clonidine, amlodipine, benazepril) for hypertension. JONY CARRION Oct 16, 2016 14:23
[2016-10-16] MEDS ORDERED: CEPH500C PO (14:30)
--- NOTE | 2016-10-16 14:36 | DS ---
Date/Time of Note Date/Time of Note DATE: 10/16/16 TIME: 14:34 Discharge Summary Admission/Discharge Info Admit Date/Time Oct 14, 2016 at 01:16 Discharge Date/Time Discharge Diagnosis Gastritis, Urinary retention, BPH, chronic kidney disease, hypertension Patient Condition: Stable Hx of Present Illness This is a 66-year-old male with a history of hypertension who presented to the emergency department complaining of abdominal pain and urinary symptoms. He said he is symptoms started a month ago [place] [facility]. His abdominal pain is mainly localized in the lower abdominal region. He said he has been, at times having difficulty with urination, mainly hesitation. When asked about he has been vomiting, he initially said no but then he said only small amounts. He denied fever, chills, hematuria, shortness of breath. He said that his last bowel movement was 2 days ago. It is not clear whether or not he was evaluated by a doctor when he was in [facility] but he stated that it costs too much money to be evaluated over there and that why he decided to come here. When he presented to the ER here at [facility], he was found to have a potassium of 2.6. KUB shows ileus. Currently he said he is almost completely pain-free and he actually looks comfortable. Hospital Course Patient is a 66-year-old male presents to [facility] for abdominal pain and urinary hesitation. Nephrology was consulted for patient 's hyponatremia as well as acute kidney injury versus CKD. Patient initially had a Castelan catheter but which was eventually removed after initiation of Flomax. Patient's hypokalemia and hyponatremia also improved significantly with supplementation. Patient's abdominal pain also went away upon initiation of pantoprazole. It is highly likely that the patient's abdominal pain in the left upper quadrant is gastritis and will be discharged with a course of pantoprazole. CT findings did not find BPH as well as enlarged subcentimeter short axis para-aortic lymph nodes, possibly reactive in etiology. A hematology and oncology consultation was offered to the patient who stated that he would rather follow up in the outpatient setting. It was explained to the patient's daughter that the patient would need prompt urological and oncological follow-up to evaluate for elevated PSA as well as enlarged lymph nodes. Patient's daughter does understand and will work on getting patient insurance as soon as possible. Patient apparently had [employer] but was [place] of the [place] for [place] long and it was revoked. Upon discharge patient is urinating well with no issue and hemodynamically stable and will be discharged with medications for BPH, hypertension, gastritis. Home Meds Active Scripts Cephalexin* (Cephalexin*) 500 Mg Capsule, 500 MG PO Q12 for 7 Days, #14 CAP Prov:JONY CARRION 10/16/16 Clonidine Hcl* (Catapres*) 0.1 Mg Tablet, 0.1 MG PO Q12 for 30 Days, #60 TAB 2 Refills Prov:JONY CARRION 10/16/16 Amlodipine Besylate* (Amlodipine Besylate*) 2.5 Mg Tablet, 2.5 MG PO BID for 30 Days, #60 TAB Prov:JONY CARRION 10/16/16 Pantoprazole* (Pantoprazole*) 40 Mg Tablet.dr, 40 MG PO BID@06,18 for 30 Days, # 60 2 Refills Prov:JONY CARRION 10/16/16 Benazepril Hcl* (Benazepril Hcl*) 20 Mg Tablet, 20 MG PO DAILY for 30 Days, #30 TAB 2 Refills Prov:MURALIJONY 10/16/16 Tamsulosin Hcl* (Flomax*) 0.4 Mg Cap.er.24h, 0.4 MG PO HS for 30 Days, #30 CAP 2 Refills Prov:JONY CARRION J 10/16/16 Follow-up Plan Please follow up with your primary care provider for nephrology, oncology, and urology referrals. Primary Care Provider Care Physician No Primary Time spent on discharge: > 30 minutes Pending Labs Laboratory Tests Test 10/16/16 06:19 White Blood Count 4.310^3/ul (4.8-10.8) Red Blood Count 2.6510^6/ul (4.70-6.10) Hemoglobin 7.7g/dl (14.0-18.0) Hematocrit 22.3% (42.0-52.0) Mean Corpuscular Volume 84.2fl (82.0-101.0) Mean Corpuscular Hemoglobin 29.1pg (29.0-33.0) Mean Corpuscular Hemoglobin Concent 34.5g/dl (32.0-37.0) Red Cell Distribution Width 12.9% (11.5-14.5) Platelet Count 12986^3/UL (140-415) Mean Platelet Volume 8.5fl (7.4-10.4) Neutrophils % 65.6% (39.0-77.0) Lymphocytes % 20.4% (15.0-51.0) Monocytes % 10.0% (0.0-11.0) Eosinophils % 2.8% (0.0-7.0) Basophils % 0.7% (0.0-2.0) Nucleated Red Blood Cells % 0.0/100WBC (0.0-0.0) Neutrophils # 2.810^3/ul (1.6-7.5) Lymphocytes # 0.910^3/ul (0.8-2.9) Monocytes # 0.410^3/ul (0.3-0.9) Eosinophils # 0.110^3/ul (0.0-0.5) Basophils # 0.010^3/ul (0.0-0.1) Nucleated Red Blood Cells # 0.010^3/ul (0.0-0.0) Sodium Level 131mmol/L (135-144) Potassium Level 3.7mmol/L (3.5-5.1) Chloride Level 96mmol/L (97-110) Carbon Dioxide Level 26mmol/L (21-31) Anion Gap 13 (8-16) Blood Urea Nitrogen 14mg/dl (7-20) Creatinine 2.57mg/dl (0.61-1.24) Glucose Level 90mg/dl (70-220) Calcium Level 8.0mg/dl (8.4-10.2) Magnesium Level 2.9mg/dl (1.7-2.5) JONY CARRION Oct 16, 2016 14:36
[2016-10-16] MEDS: HYDROCODONE/APAP (5/325) TAB PO PRN (18:05)
--- NOTE | 2016-10-16 20:02 | CONS ---
Date/Time of Note Date/Time of Note DATE: 10/16/16 TIME: 20:02 Assessment/Plan Assessment/Plan Chief Complaint/Hosp Course Hbg has dropped with Hydration MUST R/O MALIGNANCY Problems: Additional Assessment/Plan Would condsider Kidney Bx & Blood Tx Await further plans per PMD Cont'd Hospitalization Reason: Case discussed with Dr Carrion Consultation Date/Type/Reason Admit Date/Time Oct 14, 2016 at 01:16 Initial Consult Date October 12, 2016 Type of Consultation: Renal Referring Provider: JONY CARRION 24 HR Interval Summary Free Text/Dictation Pt seems more responsive and comfortable Exam/Review of Systems Vital Signs Vitals Vital Signs Date Time Temp Pulse Resp B/P Pulse Ox O2 Delivery O2 Flow Rate FiO2 10/16/16 16:04 97.0 64 20 118/64 97 Intake and Output 10/15/16 10/15/16 10/16/16 15:00 23:00 07:00 Intake Total 910 ml 450 ml Output Total 600 ml Balance 910 ml -150 ml Exam Constitutional: alert, oriented, well developed Psych: nl mood/affect, no complaints Head: atraumatic, normocephalic Eyes: EOMI, PERRL, nl conjunctiva, nl lids, nl sclera ENMT: nl external ears & nose, nl lips & teeth, nl nasal mucosa & septum Neck: non-tender, supple Respiratory: clear to auscultation, normal air movement Cardiovascular: nl pulses, regular rate and rhythm Gastrointestinal: nl liver, spleen, non-tender, soft Musculoskeletal: nl extremities to inspection, nl gait and stance Extremities: normal pulses Neurological: LUNG SPLITTER II-XII intact, nl mental status, nl speech, nl strength Skin: nl turgor, No rash or lesions Lymph: nl lymph nodes Additional Comments 24 Hour Urine Study is not yet back Results Further drop in Hct & rise in Screat noted Result Diagram: 10/16/16 0619 10/16/16 0619 Results 24 hrs Laboratory Tests Test 10/16/16 06:19 White Blood Count 4.3 #L Red Blood Count 2.65 L Hemoglobin 7.7 L Hematocrit 22.3 L Mean Corpuscular Volume 84.2 Mean Corpuscular Hemoglobin 29.1 Mean Corpuscular Hemoglobin Concent 34.5 Red Cell Distribution Width 12.9 Platelet Count 255 Mean Platelet Volume 8.5 Neutrophils % 65.6 Lymphocytes % 20.4 Monocytes % 10.0 Eosinophils % 2.8 Basophils % 0.7 Nucleated Red Blood Cells % 0.0 Neutrophils # 2.8 Lymphocytes # 0.9 Monocytes # 0.4 Eosinophils # 0.1 Basophils # 0.0 Nucleated Red Blood Cells # 0.0 Sodium Level 131 L Potassium Level 3.7 Chloride Level 96 L Carbon Dioxide Level 26 Anion Gap 13 Blood Urea Nitrogen 14 Creatinine 2.57 H Glucose Level 90 Calcium Level 8.0 L Magnesium Level 2.9 #H Medications Medications Current Medications Ondansetron HCl (Zofran Inj) 4 mg Q6H PRN IV NAUSEA AND/OR VOMITING; Start at 05:30 Hydralazine HCl (Apresoline) 10 mg Q4H PRN IV SBP > 160 Last administered on 13:52; Admin Dose 10 MG; Start 10/14/16 at 05:30 Labetalol HCl (Labetalol) 10 mg Q4H PRN IV SBP>160 ; hold if HR <60 Last administered on 10/14/16 12:21; Admin Dose 10 MG; Start 10/14/16 at 11:30 Tamsulosin HCl (Flomax) 0.4 mg HS PO Last administered on 10/15/16 20:45; Admin Dose 0.4 MG; Start 10/14/16 at 21:00 Acetaminophen/ Hydrocodone Bitart ([place] (5/325)) 1 tab Q4H PRN PO pain 4-10 Last administered on 10/16/16 18:05; Admin Dose 1 TAB; Start 10/14/16 at 14:30 Pantoprazole (Protonix Tab) 40 mg BID@06,18 PO Last administered on 10/16/16 18:05; Admin Dose 40 MG; Start 10/14/16 at 14:30 Benazepril HCl (Lotensin) 20 mg DAILY GTB Last administered on 10/16/16 09:25 ; Admin Dose 20 MG; Start 10/15/16 at 09:00 Clonidine (Catapres) 0.1 mg Q6 PO Last administered on 10/15/16 17:27; Admin Dose 0.1 MG; Start 10/15/16 at 06:00 Magnesium Hydroxide (Milk Of Mag) 30 ml DAILY PRN PO CONSTIPATION Last administered on 10/16/16 18:05; Admin Dose 30 ML; Start 10/15/16 at 14:00 Amlodipine Besylate (Norvasc) 2.5 mg BID PO ; Start 10/17/16 at 09:00 Sodium Chloride (Nacl) 1 gm TID PO Last administered on 10/16/16 13:54; Admin Dose 1 GM; Start 10/16/16 at 13:00; Stop 10/19/16 at 09:00 CLARISSE BLUE MD Oct 16, 2016 20:02
[2016-10-17] MEDS ORDERED: AMLODIPINE 2.5 MG TAB PO SCH (09:00)
== END 2016-10-16 20:35 | disposition home or self-care (01) | DRG 392 ==
LOC: E/R 21:40 → MS4 10-14 01:16
PROVIDERS: ADMIT Internal Medicine; ATTEND Internal Medicine
DX: K29.70 Gastritis, unspecified, without bleeding (principal); E87.1 Hypo-osmolality and hyponatremia; I12.9 Hypertensive chronic kidney disease with stage 1 through stage 4 chronic kidney disease, or unspecified chronic kidney disease; K56.7 Ileus, unspecified; I16.0 Hypertensive urgency; N40.1 Benign prostatic hyperplasia with lower urinary tract symptoms; R39.11 Hesitancy of micturition; E87.6 Hypokalemia; N18.9 Chronic kidney disease, unspecified
CPT/HCPCS: 36415; 74000; 74176; 80048; 80053; 81001; 82270; 82378; 82436; 82533; 83036; 83540; 83690; 83735; 83930; 83935; 84100; 84133; 84153; 84154; 84155; 84300; 84443; 85025; 86038; 96374; 96375; J0360; J2270; J2916; J3475; J3480; J7040; J7042

== ENCOUNTER 2017-03-10 00:56 | Inpatient (IN) | payer BC, MEDICAID ==
[~2017-03-10] VITALS: Ht 180.3 cm; Wt 84.1 kg
[2017-03-10] VITALS (10 sets, daily range): BP systolic 119–143; BP diastolic 57–68; PULSE 68–85; RESP 17–20; TEMP 98; Ht 180.3 cm; Wt 84.1 kg
[~2017-03-10 00:56] MED LIST: AMLO2.5T78 PO; BENA20TA48 PO; CEPH500C PO; CLON0.1T14 PO; PANT40TA4 PO; TAMS-14 PO
--- NOTE | 2017-03-10 01:50 | RADRPT ---
PROCEDURE: XR Chest. CLINICAL INDICATION: Shortness of breath. TECHNIQUE: Single frontal chest x-ray. COMPARISON: None. FINDINGS: Show heart is enlarged.. Pulmonary vessels are top normal caliber. There is bibasilar atelectasis v ersus infiltrate. There is no pleural effusion. There is no pneumothorax. There are degenerative c hanges of the thoracic spine.. IMPRESSION: Cardiomegaly. No definite CHF. Bibasilar atelectasis versus infiltrates. RPTAT: HMVK .Sam Brunson MD, Date Time Electronically viewed and signed by .Sam Brunson MD, on 03/10/2017 01:50 .K/
[2017-03-10 02:12] LABS: BASOPHILS % 0.7 % (0.0-2.0); EOSINOPHILS # 0.1 10^3/ul (0.0-0.5); EOSINOPHILS % 2.5 % (0.0-7.0); HEMATOCRIT 25.6 % (42.0-52.0); HEMOGLOBIN 8.6 g/dl (14.0-18.0); LYMPHOCYTES # 0.9 10^3/ul (0.8-2.9); LYMPHOCYTES % 16.6 % (15.0-51.0); MEAN CORPUSCULAR HEMOGLOBIN 29.1 pg (29.0-33.0); MEAN CORPUSCULAR HGB CONC 33.6 g/dl (32.0-37.0); MEAN CORPUSCULAR VOLUME 86.5 fl (82.0-101.0); MEAN PLATELET VOLUME 8.7 fl (7.4-10.4); MONOCYTE # 0.6 10^3/ul (0.3-0.9); MONOCYTES % 9.9 % (0.0-11.0); NEUTROPHILS % 69.9 % (39.0-77.0); PLATELET COUNT 286 10^3/UL (140-415); RED BLOOD COUNT 2.96 10^6/ul (4.70-6.10); RED CELL DISTRIBUTION WIDTH 12.5 % (11.5-14.5); WHITE BLOOD COUNT 5.7 10^3/ul (4.8-10.8)
[2017-03-10 02:39] LABS: ALBUMIN 2.5 g/dl (3.3-4.9); ALBUMIN/GLOBULIN RATIO 0.83; BILIRUBIN,INDIRECT 0.1 mg/dl (0-1.1); BILIRUBIN,TOTAL 0.1 mg/dl (0.2-1.3); CALCIUM 7.8 mg/dl (8.4-10.2); CREATININE 5.7 mg/dl (0.61-1.24); POTASSIUM 4.8 mmol/L (3.5-5.1); TOTAL PROTEIN 5.5 g/dl (6.1-8.1)
[2017-03-10 02:50] LABS: TROPONIN-I 0.032 ng/ml (0.00-0.12)
[2017-03-10] MEDS ORDERED: METOCLOPRAMIDE 10 MG INJ IV ONE (03:00)
[2017-03-10] MEDS ORDERED: ACETAMINOPHEN 325 MG TAB PO PRN ×2 (04:30)
[2017-03-10] MEDS ORDERED: DOCUSATE SODIUM 100 MG CAP PO PRN (04:30)
[2017-03-10] MEDS ORDERED: ONDANSETRON 4 MG TAB PO PRN (04:30)
[2017-03-10] MEDS ORDERED: BISACODYL (EC) 5 MG TAB PO PRN (04:30)
[2017-03-10] MEDS ORDERED: ONDANSETRON 4 MG INJ IV PRN (04:30)
[2017-03-10] MEDS ORDERED: FUROSEMIDE 40 MG INJ IV ONE (04:30)
[2017-03-10] MEDS ORDERED: NACL 0.9% 3 ML SYG IV SCH (04:30)
--- NOTE | 2017-03-10 04:45 | ERD ---
ER Documentation Chief Complaint Chief Complaint SOB HPI 66-year-old male with a history of hypertension, CKD, and BPH presenting to the ER complaining of progressive shortness of breath, worse today. He denies any associated chest pain. He complains of decreased urine output with no urine output today. He recently had an AV fistula surgery about 1 month ago on the left upper extremity. He denies fevers, chills, cough, hemoptysis. He is unable to lay flat secondary to shortness of breath. ROS All systems reviewed and are negative except as per history of present illness. Medications Home Meds Active Scripts Cephalexin* (Cephalexin*) 500 Mg Capsule, 500 MG PO Q12 for 7 Days, #14 CAP Prov:JONY CARRION 10/16/16 Clonidine Hcl* (Catapres*) 0.1 Mg Tablet, 0.1 MG PO Q12 for 30 Days, #60 TAB 2 Refills Prov:JONY CARRION 10/16/16 Amlodipine Besylate* (Amlodipine Besylate*) 2.5 Mg Tablet, 2.5 MG PO BID for 30 Days, #60 TAB Prov:JONY CARRION 10/16/16 Pantoprazole* (Pantoprazole*) 40 Mg Tablet.dr, 40 MG PO BID@06,18 for 30 Days, # 60 2 Refills Prov:JONY CARRION 10/16/16 Benazepril Hcl* (Benazepril Hcl*) 20 Mg Tablet, 20 MG PO DAILY for 30 Days, #30 TAB 2 Refills Prov:JONY CARRION 10/16/16 Tamsulosin Hcl* (Flomax*) 0.4 Mg Cap.er.24h, 0.4 MG PO HS for 30 Days, #30 CAP 2 Refills Prov:JONY CARRION 10/16/16 Allergies Allergies: Coded Allergies: No Known Drug Allergies (Verified Allergy, Unknown, 10/13/16) PMhx/Soc History of Surgery: Yes (BACK, LEFT AV FISTULA) Anesthesia Reaction: No Hx Neurological Disorder: No Hx Respiratory Disorders: No Hx Cardiac Disorders: Yes (HTN) Hx Psychiatric Problems: No Hx Miscellaneous Medical Probl: Yes (PROSTATE) Hx Alcohol Use: No Hx Substance Use: No Hx Tobacco Use: Yes (25 YEARS AGO) Smoking Status: Former smoker FmHx Family History: No diabetes Physical Exam Vitals Vital Signs Date Time Temp Pulse Resp B/P Pulse Ox O2 Delivery O2 Flow Rate FiO2 03/10/17 03:52 98.0 89 14 152/85 100 Nasal Cannula 03/10/17 02:39 83 18 159/81 98 Room Air 03/10/17 01:17 98.0 -17.7792 15 152/74 98 03/10/17 01:01 Nasal Cannula 2 03/10/17 00:59 98.0 78 15 152/74 98 Physical Exam Const: Mild respiratory distress. Ill-appearing. Nontoxic. Not diaphoretic Head: Atraumatic Eyes: Normal Conjunctiva ENT: Normal External Ears, Nose and Mouth. Neck: Full range of motion..~ No meningismus. Resp: Clear to auscultation bilaterally, however diminished breath sounds Cardio: Regular rate and rhythm, no murmurs Abd: Soft, non tender, mildly distended. Normal bowel sounds Skin: No petechiae or rashes Back: No midline or flank tenderness Ext: No cyanosis, 2+ pitting edema to bilateral lower extremities. Left upper extremity AV fistula with palpable thrill Neur: Awake and alert Psych: Normal Mood and Affect Result Diagram: 03/10/179 03/10/17 013 Results 24 hrs Laboratory Tests Test 03/10/17 01:39 White Blood Count 5.710^3/ul Red Blood Count 2.9610^6/ul Hemoglobin 8.6g/dl Hematocrit 25.6% Mean Corpuscular Volume 86.5fl Mean Corpuscular Hemoglobin 29.1pg Mean Corpuscular Hemoglobin Concent 33.6g/dl Red Cell Distribution Width 12.5% Platelet Count 98965^3/UL Mean Platelet Volume 8.7fl Neutrophils % 69.9% Lymphocytes % 16.6% Monocytes % 9.9% Eosinophils % 2.5% Basophils % 0.7% Nucleated Red Blood Cells % 0.0/100WBC Neutrophils # 4.010^3/ul Lymphocytes # 0.910^3/ul Monocytes # 0.610^3/ul Eosinophils # 0.110^3/ul Basophils # 0.010^3/ul Nucleated Red Blood Cells # 0.010^3/ul Sodium Level 127mmol/L Potassium Level 4.8mmol/L Chloride Level 93mmol/L Carbon Dioxide Level 28mmol/L Anion Gap 11 Blood Urea Nitrogen 63mg/dl Creatinine 5.70mg/dl Glucose Level 98mg/dl Calcium Level 7.8mg/dl Phosphorus Level 5.1mg/dl Magnesium Level 4.1mg/dl Iron Level 59ug/dl Total Iron Binding Capacity 270ug/dl Percent Iron Saturation 22% SAT Ferritin 58.1ng/ml Total Bilirubin 0.1mg/dl Direct Bilirubin 0.00mg/dl Indirect Bilirubin 0.1mg/dl Aspartate Amino Transf (AST/SGOT) 29IU/L Alanine Aminotransferase (ALT/SGPT) 29IU/L Alkaline Phosphatase 86IU/L Troponin I 0.032ng/ml B-Type Natriuretic Peptide 2190PG/ML Total Protein 5.5g/dl Albumin 2.5g/dl Globulin 3.00g/dl Albumin/Globulin Ratio 0.83 Current Medications Medications (Trade) Dose Ordered Sig/Saul Route PRN Reason Start Time Stop Time Status Last Admin Dose Admin Metoclopramide HCl (Reglan) 10 mg ONCE ONCE IV 03/10/17 03:00 03/10/17 03:01 DC 03/10/17 02:36 Procedures/MDM Labs CBC: Anemia, likely of chronic disease CMP: Hyponatremia, hypochloremia, elevated BUN and creatinine. Troponin within normal limits BNP elevated UA: no evidence of infection EKG: Rate/Rhythm: Atrial flutter at 77 bpm QRS, ST, T-waves: No changes consistent w/ acute ischemia Impression: Atrial flutter, normal rate, no evidence of ischemia MDM Patient is presenting with signs of fluid overload and respiratory distress.Vitals are unremarkable other than mild hypertension Based on my workup, I do believe the patient likely needs dialysis, especially secondary to his oliguria. Since he was making some urine, the admitting physician, Dr. Adorno, requested we attempt a dose of IV Lasix to see if he can make more urine. I have a lower suspicion for pulmonary embolism or acute coronary syndrome at this time. However patient not stable and will need further inpatient workup and management for his fluid overload. Critical Care Time: 35 minutes Treatments/Evaluations: Close monitoring and treatment of unstable vital signs, cardiorespiratory, and neurologic status, while maintaining tight balance of fluid, respiratory, and cardiac interventions. This time includes discussing the case with the patient and the patients family. This time does not include all procedures stated elsewhere in this record. This time also includes reviewing old records, labs and radiological studies. This time includes examining and re-examining the patient. Additionally, this time also includes arranging care with admitting and consulting physicians. Departure Diagnosis: Primary Impression: Dyspnea Dyspnea type: orthopnea Qualified Code: R06.01 - Orthopnea Additional Impressions: Fluid overload Hypervolemia type: other Qualified Code: E87.79 - Other hypervolemia Hyponatremia with excess extracellular fluid volume Chronic kidney disease Chronic kidney disease stage: unspecified stage Qualified Code: N18.9 - Chronic kidney disease, unspecified CKD stage Oliguria Condition: Serious BETHANY WILCOX MD Mar 10, 2017 04:45 Bisacodyl (Dulcolax) 5 mg DAILY PRN PO CONSTIPATION 03/10/17 04:30 UNV BETHANY WILCOX MD Mar 10, 2017 04:45
[2017-03-10 05:05] LABS: IRON 59 ug/dl (35-150)
[2017-03-10 05:06] LABS: MAGNESIUM 4.1 mg/dl (1.7-2.5); PHOSPHORUS 5.1 mg/dl (2.5-4.9)
[2017-03-10 05:14] LABS: TOTAL IRON BINDING CAPACITY 270 ug/dl (241-421)
[2017-03-10 05:28] LABS: ADD UMIC YES; UR ASCORBIC ACID NEGATIVE (NEGATIVE); UR BILIRUBIN (Dip) NEGATIVE (NEGATIVE); UR BLOOD (Dip) NEGATIVE (NEGATIVE); UR CLARITY CLEAR (CLEAR); UR COLOR STRAW (YELLOW); UR GLUCOSE (Dip) 2+ mg/dL (NEGATIVE); UR KETONES (Dip) NEGATIVE (NEGATIVE); UR LEUKOCYTE ESTERASE (Dip) NEGATIVE Leu/ul (NEGATIVE); UR NITRITE (Dip) NEGATIVE (NEGATIVE); UR RBC 5 /HPF (0-5); UR SPECIFIC GRAVITY (Dip) 1.011 (1.003-1.030); UR TOTAL PROTEIN (Dip) 3+ mg/dl (NEGATIVE); UR UROBILINOGEN (Dip) NEGATIVE (NEGATIVE)
[2017-03-10] MEDS ORDERED: PANTOPRAZOLE (EC) 40 MG TAB PO SCH (06:00)
[2017-03-10] MEDS: AMLODIPINE 2.5 MG TAB PO SCH ×2 (08:25→20:35)
--- NOTE | 2017-03-10 09:08 | RADRPT ---
PROCEDURE: Renal US. CLINICAL INDICATION: Acute on chronic renal insufficiency TECHNIQUE: Multiple sonographic images of the kidneys were obtained. COMPARISON: No prior studies are available for comparison. FINDINGS: The kidneys are well visualized. The right kidney measures 10.0 cm. The left kidney measures 10.5 cm . Increased renal cortical echogenicity. No evidence of shadowing renal calculi. No hydronephrosis. Nondistended urinary bladder with Castelan catheter. IMPRESSION: Echogenic kidneys consistent with medical renal disease. RPTAT:AAJJ Physician Veronica Date Time Electronically viewed and signed by Physician Veronica on 03/10/2017 09:07 /
--- NOTE | 2017-03-10 09:16 | HP ---
Date/Time of Note Date/Time of Note DATE: 03/10/17 TIME: 08:57 Assessment/Plan VTE Prophylaxis VTE Prophylaxis Intervention: SCD's Lines/Catheters IV Catheter Type (from [facility] Saline Lock Urinary Cath still in place: Yes Assessment/Plan Chief Complaint/Hosp Course This is a 58-year-old male being admitted to the telemetry floor for: #1 acute urinary retention: Intrinsic versus postrenal. Patient does have a history of chronic kidney disease however at the current time I do feel like there is a 2 component to him not being able to urinate especially there is been a significant worsening of his renal function since his last admission. Castelan catheter was inserted which resulted in approximately 300 cc of dilute urine and prior to the patient did have a distended abdomen according to the patient. At the current time will order urgent renal ultrasound. Will obtain urine studies. Will consult nephrology as well as urology. Patient did have an elevated PSA level of 9.6 during his last admission in September 2016. We will repeat the level. Continue Flomax. #2 chronic kidney disease: Patient's renal function is significantly worse from his last admission creatinine which was 2.57 at that time. At the current time will avoid nephrotoxic agents. Will hold benazepril. Will consult nephrology. Patient has a left AV fistula will need to discuss with nephrology regarding its maturation. #3 questionable history of BPH: On previous CAT scan which was done in September 2016 there were no signs of any prostate enlargement. Patient did though have an elevated PSA of 9.6. As he is having urinary symptoms at this time which do appear to be multifactorial nature I will consult urology and nephrology. Will continue Flomax and continuous Castelan catheter. #4 hypertension: We will continue patient's home blood pressure medications however we will hold the HAMLET inhibitor at this time secondary to patient's worsening renal function. #5 elevated BNP: Patient has a BNP level approximately 2000. He does not appear to be in any respiratory distress at this time and on auscultation appears to be very mild rales at the bases. I do not feel like he is any overt heart failure at this time. Nonetheless we will order echocardiogram. Will consult cardiology. #6 abnormal chest x-ray: There is signs of possible atelectasis versus infiltrates. The current time patient is afebrile and normal white blood cell count. I do not think he has any pneumonia at this time and I will hold off on antibiotics however we will continue to monitor for any worsening of his symptoms. #7 DVT GI prophylaxis: SCDs, no GI prophylaxis, continue home PPI Further treatment strategy will be implemented as per the clinical course Problems: HPI/ROS Admit Date/Time Admit Date/Time Mar 10, 2017 at 04:09 Hx of Present Illness Chief complaint: Unable to urinate, swelling of hands and feet This is a 66-year-old male who presents to the ED complaining of unable to urinate and swelling of the hands and feet. Patient reports that he has been having difficulty urinating despite the use of Flomax. He had a left upper extremity AV fistula placed approximately 1 month ago however he has not required dialysis at this point. He states that he is still producing urine however it is been difficult for him to push out. Upon his arrival to the ED a Castelan catheter was placed resulting in approximately 200-300 cc of clear urine. He stated that his abdomen was distended as well and it has now improved since he was able to urinate. Denies any fevers chills or nausea vomiting or diarrhea Allergies: NKDA Medications: See May Const: As per HPI Eyes : No pain discharge or redness or change in visual acuity ENT: No pain, sore throat, congestion, congestion, dysphagia or discharge Respiratory: No shortness of breath, cough, sputum, wheezing, or pleuritic pain Cardiovascular: No chest pain, palpitation, PND, or edema GI : no change in appetite, abdominal pain, nausea, vomiting, diarrhea, constipation, or change in the color his stool Genitourinary: As per HPI Musculoskeletal: No joint pain, back pain, neck pain, restricted range of motion in neck or joints Skin: No rash, bruising or hives Neuro: No headache, dizziness, syncope, seizure, focal weakness Endocrine: No polyuria, polydipsia, temperature intolerance Psych: No hallucination, depression, anxiety or suicidal ideation PMH/Family/Social Past Medical History Chronic kidney disease, questionable BPH, hypertension, history of elevated PSA level Past Surgical History Left AV fistula, back surgery Family History Significant Family History: no pertinent family hx Social History Alcohol Use: none Smoking Status: Former smoker Drug Use: none Exam/Review of Systems Vital Signs Vitals Vital Signs Date Time Temp Pulse Resp B/P Pulse Ox O2 Delivery O2 Flow Rate FiO2 12/15/17 08:07 78 03/10/17 07:54 97.8 17 139/66 98 03/10/17 05:15 Nasal Cannula 2.0 Exam Exam General: Lying in bed in no acute distress HEENT: Atraumatic, normocephalic. The pupils are equal, round and reactive. Extraocular motor are intact Neck: Supple with full range of motion. No rigidity or meningismus Chest: Nontender Lungs: Clear to auscultation bilaterally no crackles rales or wheezing Heart: Normal S1-S2, Regular rhythm and rate. No overt murmurs appreciated Abdomen: Soft , nontender, nondistended , bowel sounds are present. No guarding no rebound tenderness , No masses or organomegaly. No costovertebral temporal angle mass Extremities: Nonpitting edema noted of the bilateral hands as well as feet up to the level of the ankles, left AV fistula Neurologic: Normal mental status, speech normal, cranial nerves II through XII are intact, motor and sensory are intact, no focal weakness Additional Comments PROCEDURE: XR Chest. CLINICAL INDICATION: Shortness of breath. TECHNIQUE: Single frontal chest x-ray. COMPARISON: None. FINDINGS: Show heart is enlarged.. Pulmonary vessels are top normal caliber. There is bibasilar atelectasis versus infiltrate. There is no pleural effusion. There is no pneumothorax. There are degenerative changes of the thoracic spine.. IMPRESSION: Cardiomegaly. No definite CHF. Bibasilar atelectasis versus infiltrates. RPTAT: HMVK .Sam Brunson MD, Date Time Electronically viewed and signed by .Sam Brunson MD, on 03/10/2017 01:50 .K/ CC: BETHANY WILCOX MD Labs Result Diagram: 03/10/17 0139 03/10/179 Medications Medications Current Medications Amlodipine Besylate (Norvasc) 2.5 mg BID PO Last administered on 03/10/17t 08: 25; Admin Dose 2.5 MG; Start 03/10/17 at 09:00 Clonidine (Catapres) 0.1 mg Q12 PO Last administered on 03/10/17 08:26; Admin Dose 0.1 MG; Start 03/10/17 at 09:00 Pantoprazole (Protonix Tab) 40 mg BID@06,18 PO Last administered on 03/10/17 08:25; Admin Dose 40 MG; Start 03/10/17 at 06:00 Tamsulosin HCl (Flomax) 0.4 mg HS PO ; Start 03/10/17 at 21:00 Ondansetron HCl (Zofran Tab) 4 mg Q6H PRN PO NAUSEA AND/OR VOMITING; Start at 04:30 Acetaminophen (Tylenol Tab) 650 mg Q6H PRN PO PAIN LEVEL 1-3 OR FEVER; Start 03/10/17 at 04:30 Docusate Sodium (Colace) 100 mg Q12H PRN PO CONSTIPATION; Start 03/10/17 at 04 :30 Bisacodyl (Dulcolax) 5 mg DAILY PRN PO CONSTIPATION; Start 03/10/17 at 04:30 Influenza Virus Vaccine (Fluzone) 0.5 ml ONCE ONCE IM* ; Start 03/12/17 at 09: 00; Stop 03/12/17 at 09:01 KASEY DUFFY Mar 10, 2017 09:07
--- NOTE | 2017-03-10 16:36 | DS ---
Date/Time of Note Date/Time of Note DATE: 03/10/17 TIME: 16:32 Discharge Summary Admission/Discharge Info Admit Date/Time Mar 10, 2017 at 04:09 Discharge Date/Time Discharge Diagnosis acute on chronic renal failure, acute urinary retention likely 2/2 BPH Patient Condition: Stable Consults nephrology Procedures . MICHAEL IMPRESSION: Echogenic kidneys consistent with medical renal disease. OF NOTE: Pt had a TTE performed but the results were pending at time of discharge LABS Cr 5.6 BNP 2000 PSA 0.4 UA with 3+ protein, 2+ glucose. urine p/c pending at time of discharge Hx of Present Illness Chief complaint: Unable to urinate, swelling of hands and feet This is a 66-year-old male who presents to the ED complaining of unable to urinate and swelling of the hands and feet. Patient reports that he has been having difficulty urinating despite the use of Flomax. He had a left upper extremity AV fistula placed approximately 1 month ago however he has not required dialysis at this point. He states that he is still producing urine however it is been difficult for him to push out. Upon his arrival to the ED a Oreilly catheter was placed resulting in approximately 200-300 cc of clear urine. He stated that his abdomen was distended as well and it has now improved since he was able to urinate. Denies any fevers chills or nausea vomiting or diarrhea Allergies: NKDA Medications: See [facility] Hospital Course Pt had oreilly placed in the ER, abd pain resolved. For some reason UOP not checked. Pt had TTE the results of which were still pending at transfer. Unclear what pt's baseline Cr is. Home ACEI and PPI are on hold. Of note, pt without any swelling by the afternoon of 03.10. Given possible TIO on CKD, no dieresis for possible CHF was done. Urine p/c and urine lytes ordered, results pending at time of transfer. For hyponatremia, pt is on total FW restriction and TSH and cortisol are pending, as are serum and urine osms. After ~10 hours in the hospital, I was contacted by the case liner that pt is capitated to another hospital. He is medically stable for xfer to another acute care hospital for further management Patient is medically stable for transfer Home Meds Active Scripts Cephalexin* (Cephalexin*) 500 Mg Capsule, 500 MG PO Q12 for 7 Days, #14 CAP Prov:JONY CARRION 10/16/16 Clonidine Hcl* (Catapres*) 0.1 Mg Tablet, 0.1 MG PO Q12 for 30 Days, #60 TAB 2 Refills Prov:JONY CARRION 10/16/16 Amlodipine Besylate* (Amlodipine Besylate*) 2.5 Mg Tablet, 2.5 MG PO BID for 30 Days, #60 TAB Prov:JONY CARRION 10/16/16 Pantoprazole* (Pantoprazole*) 40 Mg Tablet.dr, 40 MG PO BID@06,18 for 30 Days, # 60 2 Refills Prov:JONY CARRION 10/16/16 Benazepril Hcl* (Benazepril Hcl*) 20 Mg Tablet, 20 MG PO DAILY for 30 Days, #30 TAB 2 Refills Prov:JONY CARRION 10/16/16 Tamsulosin Hcl* (Flomax*) 0.4 Mg Cap.er.24h, 0.4 MG PO HS for 30 Days, #30 CAP 2 Refills Prov:JONY CARRION 10/16/16 Follow-up Plan Pt to be transferred to where he is [facility] Primary Care Provider Care Physician No Primary Pending Labs Laboratory Tests Test 03/10/17 01:39 03/10/17 04:55 03/10/17 10:15 White Blood Count 5.710^3/ul (4.8-10.8) Red Blood Count 2.9610^6/ul (4.70-6.10) Hemoglobin 8.6g/dl (14.0-18.0) Hematocrit 25.6% (42.0-52.0) Mean Corpuscular Volume 86.5fl (82.0-101.0) Mean Corpuscular Hemoglobin 29.1pg (29.0-33.0) Mean Corpuscular Hemoglobin Concent 33.6g/dl (32.0-37.0) Red Cell Distribution Width 12.5% (11.5-14.5) Platelet Count 07281^3/UL (140-415) Mean Platelet Volume 8.7fl (7.4-10.4) Neutrophils % 69.9% (39.0-77.0) Lymphocytes % 16.6% (15.0-51.0) Monocytes % 9.9% (0.0-11.0) Eosinophils % 2.5% (0.0-7.0) Basophils % 0.7% (0.0-2.0) Nucleated Red Blood Cells % 0.0/100WBC (0.0-0.0) Neutrophils # 4.010^3/ul (1.6-7.5) Lymphocytes # 0.910^3/ul (0.8-2.9) Monocytes # 0.610^3/ul (0.3-0.9) Eosinophils # 0.110^3/ul (0.0-0.5) Basophils # 0.010^3/ul (0.0-0.1) Nucleated Red Blood Cells # 0.010^3/ul (0.0-0.0) Sodium Level 127mmol/L (135-144) Potassium Level 4.8mmol/L (3.5-5.1) Chloride Level 93mmol/L (97-110) Carbon Dioxide Level 28mmol/L (21-31) Anion Gap 11 (8-16) Blood Urea Nitrogen 63mg/dl (7-20) Creatinine 5.70mg/dl (0.61-1.24) Glucose Level 98mg/dl (70-220) Calcium Level 7.8mg/dl (8.4-10.2) Phosphorus Level 5.1mg/dl (2.5-4.9) Magnesium Level 4.1mg/dl (1.7-2.5) Iron Level 59ug/dl (35-150) Total Iron Binding Capacity 270ug/dl (241-421) Percent Iron Saturation 22% SAT (22-52) Ferritin 58.1ng/ml (11.1-264.0) Total Bilirubin 0.1mg/dl (0.2-1.3) Direct Bilirubin 0.00mg/dl (0.00-0.20) Indirect Bilirubin 0.1mg/dl (0-1.1) Aspartate Amino Transf (AST/SGOT) 29IU/L (15-46) Alanine Aminotransferase (ALT/SGPT) 29IU/L (13-69) Alkaline Phosphatase 86IU/L (42-121) Troponin I 0.032ng/ml (0.00-0.12) B-Type Natriuretic Peptide 2190PG/ML (0-125) Total Protein 5.5g/dl (6.1-8.1) Albumin 2.5g/dl (3.3-4.9) Globulin 3.00g/dl (1.3-3.2) Albumin/Globulin Ratio 0.83 Urine Color STRAW (YELLOW) Urine Clarity CLEAR (CLEAR) Urine pH 8.0 (5.0-9.0) Urine Specific [place] 1.011 (1.003-1.030) Urine Ketones NEGATIVEmg/dL (NEGATIVE) Urine Nitrite NEGATIVEmg/dL (NEGATIVE) Urine Bilirubin NEGATIVEmg/dL (NEGATIVE) Urine Urobilinogen NEGATIVEmg/dL (NEGATIVE) Urine Leukocyte Esterase NEGATIVELeu/ul (NEGATIVE) Urine Microscopic RBC 5/HPF (0-5) Urine Microscopic WBC 0/HPF (0-5) Urine Hemoglobin NEGATIVEmg/dL (NEGATIVE) Urine Glucose 2+mg/dL (NEGATIVE) Urine Total Protein 3+mg/dl (NEGATIVE) Prostate Specific Antigen 0.4ng/ml (0.0-4.0) CURTIS DUBOSE MD Mar 10, 2017 16:36
--- NOTE | 2017-03-10 19:03 | RADRPT ---
Echocardiogram Report Patient Name: NATASHA BATISTA Gender: Male Date: 1950 Study Date: 10-Mar-2017 Algebra Teacher: [facility] Location: 5537 Ref. Physician: KASEY DUFFY Quality: Good Procedures: Transthoracic echocardiogram with complete 2D, M-Mode, and doppler examination. Indications: Elevated BNP, volume overload. 2D/M Mode Doppler Measurement Value Normal Ranges Measurement Value Normal Ranges LVIDd 2D 4.8 3.5 - 5.6 cm AV Peak Kwan 1.8 m/sec LVIDs 2D 2.7 2.1 - 4.1 cm AV Peak PG 12.8 mmHg LVPWd 2D 0.9 0.6 - 1.1 cm LVOT Peak Kwan 1.2 m/sec IVSd 2D 0.9 0.6 - 1.1 cm LVOT Peak PG 5.4 mmHg AoR Diam 2D 3.0 2.0 - 3.7 cm MV E Peak Kwan 1.1 m/sec EDV 2D 109.7 cm3 MV A Peak Kwan 1.2 m/sec ESV 2D 20.6 cm3 MV E/A 0.9 LA Dimen 2D 3.8 2.3 - 4.0 cm MV Decel Time 161 msec MV Decel [place] 7 MV E/A 0.9 TR Peak Kwan 3.2 m/sec TR Peak PG 39.9 mmHg RVSP 43.0 mmHg Findings Left Ventricle: Lower limits of normal systolic function. Normal left ventricular cavity size. Normal left ventricular wall thickness. Ejection fraction is visually estimated at 5055 %. Tissue Doppler/Mitral Doppler indices are consistent with impaired relaxation (Stage I diastolic dysfunction). Right Ventricle: Normal right ventricular size. Normal right ventricular systolic function. Left Atrium: The left atrium is normal in size. Right Atrium: The right atrium is normal in size. Mitral Valve: Mitral valve leaflets appear mildly thickened. Mild mitral annular calcification. Mild mitral valve regurgitation. Aortic Valve: No significant aortic stenosis or insufficiency. Aortic cusps appear mildly calcified. Tricuspid Valve: Normal appearance of the tricuspid valve. Estimated peak PA systolic pressure 43 mmHg. There is mild tricuspid regurgitation. Pulmonic Valve: Pulmonic valve not well visualized. Pericardium: Normal pericardium with no significant pericardial effusion. Aorta: Normal aortic root. IVC: Normal size and normal respiratory collapse consistent with normal right atrial pressure. Conclusions 1.Lower limits of normal systolic function. Normal left ventricular cavity size. Normal left ventricular wall thickness. Ejection fraction is visually estimated at 50-55 %. Tissue Doppler/Mitral Doppler indices are consistent with impaired relaxation (Stage I diastolic dysfunction). 2.Mitral valve leaflets appear mildly thickened. Mild mitral annular calcification. Mild mitral valve regurgitation. 3.Normal appearance of the tricuspid valve. Estimated peak PA systolic pressure 43 mmHg. There is mild tricuspid regurgitation. Electronically Signed By: David Tidwell 10-Mar-2017 19:02:29 -0800 Patient Name: NATASHA BATISTA Study Date: 10-Mar-2017 [id number]
[2017-03-10 19:58] LABS: TROPONIN-I 0.029 ng/ml (0.00-0.12)
[2017-03-10 20:05] LABS: CK-MB 0.86 ng/ml (0.0-2.4)
[2017-03-10] MEDS ORDERED: TAMSULOSIN (SR) 0.4 MG CAP PO SCH (21:00)
--- NOTE | 2017-03-11 11:24 | CONS ---
DATE OF ADMISSION: 03/10/2017 DATE OF CONSULTATION: 03/10/2017 REASON FOR CONSULTATION: Shortness of breath, congestive heart failure. REQUESTING PHYSICIAN: ____ from the hospitalist service. HISTORY OF PRESENT ILLNESS: Mr. Rojas is a 66-year-old male with a history of chronic kidney disea se, possible BPH, hypertension who initially presented with complaints of abdominal pain, swelling o f the upper and lower extremities, difficulty urinating. Initially upon arrival in the emergency de partment, temperature of 98, blood pressure 153/74, pulse 78, respiratory 15, saturating 98%. Patie nt's labs showed white count 5.7, hemoglobin 8.6, platelet count 286, Sodium 127, potassium 4.8, cre atinine 5.7, BUN of 63. Troponin negative. PSA 0.4. UA negative. The patient underwent a chest x -ray revealing cardiomegaly, no definite CHF, bibasilar atelectasis versus infiltrate and a renal ul trasound that revealed echogenic kidneys consistent with medical renal disease. The patient's elect rocardiogram revealed sinus rhythm at a rate of 77 with first degree AV block with nonspecific ST-T wave abnormalities. The patient, of note, has had an AV fistula placed, but has not been initiated on dialysis at this point and upon EEG did have a catheter placed with initial 200 to 300 mL of uri ne that came out. Patient denied chest pain. The patient subsequently has been admitted to the city hospital or and since admit to the floor continues to have mild shortness of breath and abdominal pain. Mustapha es chest pains and on telemetry revealing sinus rhythm, no significant arrhythmias or pauses. PAST MEDICAL HISTORY: As above in HPI. MEDICATIONS CURRENTLY IN HOSPITAL: 1. Tamsulosin 0.4 mg at bedtime. 2. Norvasc 2.5 mg p.o. b.i.d. 3. Clonidine 0.1 q.12h. 4. Zofran p.r.n. 5. Tylenol p.r.n. 6. Zofran p.r.n. 7. Tylenol p.r.n. 8. Colace p.r.n. 9. Dulcolax p.r.n. ALLERGIES: NO KNOWN DRUG ALLERGIES. SOCIAL HISTORY: No tobacco, social ETOH, no illicit drug use. FAMILY HISTORY: No history of sudden cardiac or early CAD. REVIEW OF SYSTEMS: As above in HPI. CONSTITUTIONAL: No fevers, chills. PULMONARY: Positive shortness of breath. CARDIOVASCULAR: No current chest pain. GASTROINTESTINAL: No vomiting. GENITOURINARY: No hematuria. MUSCULOSKELETAL: Degenerative joint disease. PSYCHIATRIC: The patient denies depression. NEUROLOGIC: No documented history of CVA. ENDOCRINE: No documented history of diabetes mellitus. PHYSICAL EXAMINATION: VITAL SIGNS: Temperature of 98, blood pressure 119/57, pulse 78, respiratory 20, saturating 94%. GENERAL: The patient is alert, awake, in no acute distress. NECK: JVP approximately 8 cm water. CHEST: Fair air movement throughout. HEART: Regular rate and rhythm. Normal S1, S2, I/ systolic murmur, nondisplaced PMI. ABDOMEN: Positive bowel sounds, soft. EXTREMITIES: 1 to 2+ edema bilaterally, 1+ pulses bilaterally, posterior tibial. LABORATORIES: Most recently from today, magnesium of 4.1, PSA level 0.4. IMAGING STUDIES: As above in HPI, no further imaging studies for my review at this time. ECG: As above in HPI. No further electrocardiograms for my review at this time. IMPRESSION: 1. Shortness of breath and increased BNP, assess for congestive heart failure. 2. Abnormal electrocardiogram, assess for acute coronary syndrome. 3. Hypertension, currently under reasonable control on current antihypertensive regimen. 4. Benign prostatic hypertrophy. 5. Chronic kidney disease. Appears to be acute on chronic renal failure and not initiated yet on h emodialysis. 6. Increased BNP, associated with increased volume state. 7. Hyponatremia likely hypovolemic, hyponatremia given patient's physical exam. RECOMMENDATIONS: 1. At this time, would maintain the patient on telemetry monitoring. Follow rhythm and rate control closely. 2. Would complete patient's rule out for myocardial infarction to ensure the patient's EKG abnormal ities are chronic in nature and not due to any recent acute coronary syndromes. 3. Check a 2D echo to further assess patient's ejection fraction, wall motion and major HI. We charis l continue the patient's current antihypertensives at this time during further evaluation of his hea rt function. 4. The patient will likely require initiation of hemodialysis today for removal of volume with gent le Lasix diuresis as possible. 5. Nephrology consultation. 6. Check serial EKGs to assess ____ ongoing changes. EKG in the morning, EKG for any complaints of chest pain or change in rhythm. 7. Check a fasting lipid panel for general risk stratification and initiate lipid-lowering medicati on as necessary. Thank you for allowing me to take part in the care of this patient. I will continue to follow very closely with you with further recommendations to be made as the patient progresses through his [facility] clinical course. Dictated By: DILIP ORDAZ/SHMUEL Conf#: [id number] DID#: [id number] CC: KASEY DUFFY MD;*EndCC*
[2017-03-12] MEDS ORDERED: INFLUENZA VIRUS VACCINE 0.5 ML (DISPENSING) IM* ONE (09:00)
[2017-03-13 20:42] LABS: PSA, FREE 0.2 ng/mL
== END 2017-03-10 22:35 | disposition short-term general hospital (02) | DRG 683 ==
LOC: E/R 00:56 → MS4 04:09
PROVIDERS: ADMIT Family Medicine; ATTEND Family Medicine
DX: N17.9 Acute kidney failure, unspecified (principal); I13.0 Hypertensive heart and chronic kidney disease with heart failure and stage 1 through stage 4 chronic kidney disease, or unspecified chronic kidney disease; I50.9 Heart failure, unspecified; I12.9 Hypertensive chronic kidney disease with stage 1 through stage 4 chronic kidney disease, or unspecified chronic kidney disease; N18.9 Chronic kidney disease, unspecified; Z87.891 Personal history of nicotine dependence; N40.1 Benign prostatic hyperplasia with lower urinary tract symptoms; R33.8 Other retention of urine
CPT/HCPCS: 36415; 71010; 76775; 80053; 81001; 82550; 82553; 82728; 83540; 83735; 83880; 84100; 84153; 84154; 84484; 85025; 93005; 93306; 96374; J1940; J2765

== ENCOUNTER 2017-08-07 04:07 | Emergency (ER) | END 2017-08-07 07:05 | disposition home or self-care (01) ==

== ENCOUNTER 2018-05-15 16:10 | Inpatient (IN) | payer BC ==
[~2018-05-15] VITALS: Ht 165.1 cm; Wt 58.9 kg
[~2018-05-15 16:10] MED LIST changes: +BALS60OI TOP; +BENA20TA4 PO; -BENA20TA48 PO; +NAPR-688 PO; +Vancomycin Oral Syringe PO
[2018-05-16] VITALS (40 sets, daily range): BP systolic 125–185; BP diastolic 62–93; PULSE 86–119; RESP 13–28; Ht 165.1 cm; Wt 58.9 kg
--- NOTE | 2018-05-16 05:13 | HP ---
Date/Time of Note Date/Time of Note DATE: 05/16/18 TIME: 04:57 Assessment/Plan VTE Prophylaxis Pharmacological prophylaxis: heparin Assessment/Plan Hospital Course 67 yo male with h/o A Fib, dementia, ESRD multiple recent admissions for pneumonia who has been transferred from [facility] for management of acute respiratory failure. He was intubated there for respiratory distress 2/2 volume overload and possible pneumonia. He was found to have new onset systolic CHF PULM: Acute respiratory failure 2/2 volume overload and pneumonia - Wean mechanical ventilation per pulm CV: Systolic CHF, new onset - Continue Toprol 25, losartan 25 - Ischemia evaluation if possible eventually Atrial Fibrillation - Continue heparin drip RENAL: ESRD - HD per renal ID: Pneumonia - Continue vanco/zosyn NEURO - Dementia, known from prior admission. CT head at [facility] unremarkable HEME Anemia of CKD Poor prognosis. We should attempt to find collateral HPI/ROS Admit Date/Time Admit Date/Time May 16, 2018 at 04:30 Hx of Present Illness 67 yo male with h/o dementia, ESRD, A Fib, systolic CHF transferred for management of respiratory failure and new onset heart failure Patient was admitted to [facility] 05/11 after presenting in fluid overload with respiratory failure. He was intubated in the emergency room. Imaging showed bilateral pulmonary effusions. He was in atrial fibrillation. He was treated with broad spectrum antibiotics (vanco/zosyn) and given HD t reatments. TTE showed EF of 35%. This is new for him as notes mention EF was previously normal. He has been unable to be extubated. He has been transferred her for further management and consideration of revascularization This patinet is know to this hosptial from previous admission one month ago where he was treated for severe pneumoina and C Diff colitis. He was noted to have severe encephelopathy/dementia during that visit. He was discharged to a long-term facility at that time. Currently, the patient is intubated and on a heparin drip for atrial fibrillation. He is off of sedation. Does not respond to commands. PMH/Family/Social Past Medical History Dementia ESRD A Fib Coded Allergies: No Known Allergy (Unverified , 03/15/18) Past Surgical History Past Surgical Hx: no surgical history Family History Significant Family History: no pertinent family hx, other Social History Alcohol Use: none Smoking Status: Unknown if ever smoked Drug Use: none Exam/Review of Systems Exam Exam Intubated on MV NG in place Permacath in chest RUE is swollen Patient does not respond to commands. Responds to noxious stimlui Breath sounds clear b/l Tachy, irreg irreg No leg edema Abdomen soft nt hayder ROSE,SHELBY Granado MD May 16, 2018 05:11
[2018-05-16] MEDS ORDERED: NACL 0.9% 3 ML SYG IV SCH (05:30)
[2018-05-16] MEDS ORDERED: HEPARIN 25000 UNITS/250 ML 250 ML IV SCH (05:30)
[2018-05-16] MEDS ORDERED: VANCOMYCIN IV PER PHARMACY XX SCH (05:30)
[2018-05-16] MEDS ORDERED: PIPER-TAZO 2.25 GM (PMX) 50 ML IVPB SCH (06:54)
[2018-05-16] MEDS ORDERED: VANCOMYCIN 1 GM 250 ML IVPB SCH ×3 (07:00→12:00)
[2018-05-16] MEDS ORDERED: HEPARIN 1000 UNITS/ML 10 ML INJ IV PRN ×2 (07:30)
[2018-05-16] MEDS ORDERED: HEPARIN 25000 UNITS/D5W 250 ML IV SCH (07:30)
[2018-05-16] MEDS ORDERED: FAMOTIDINE 20 MG INJ IV SCH (09:00)
--- NOTE | 2018-05-16 09:22 | RADRPT ---
Echocardiogram Report Patient Name: SHARLA CASTILLOatient ID: [id number] : 1950 (67y 12m)Study Date: 05/16/2018 7:36:43 AM Gender: MAccession #: [id number] Tech: Julian Laird MILY Location: Ref.Physician: SHELBY ROSE Height(Cm): BSA: Weight(Kg): Quality: AdequateAccount #: Procedures: Echocardiographic Report: Transthoracic echocardiogram with complete 2D, M-Mode, and doppler examination. Indications: Congestive Heart Failure. Measurements: 2D/M Mode Doppler Measurement Value Normal Range Measurement Value Normal Range LVIDd 2D 4.2 [ 4.2 - 5.8 ] cm AV Peak Kwan 1.4 [ 100.0 - 170.0 ] cm/sec LVIDs 2D 3.1 [ 2.5 - 4.0 ] cm AV Peak PG 8.0 [ 2.0 - 9.0 ] mmHg LVPWd 2D 1.1 [ 0.6 - 1.0 ] cm LVOT Peak Kwan 0.9 [ 70.0 - 110.0 ] cm/sec IVSd 2D 1.1 [ 0.6 - 1.0 ] cm LVOT Peak PG 3.0 [ 2.0 - 6.0 ] mmHg AoR Diam 2D 3.1 [ 2.6 - 3.4 ] cm TR Peak Kwan 3.0 [ 100.0 - 280.0 ] cm/sec EDV 2D 77.3 [ 62.0 - 150.0 ] ml TR Peak PG 35.0 mmHg ESV 2D 39.1 [ 21.0 - 61.0 ] ml RVSP 45.0 [ 10.0 - 36.0 ] mmHg EF 2D 49.4 [ 52.0 - 72.0 ] percent RA Pressure 10.0 mmHg LA Dimen 2D 3.2 [ 3.0 - 4.0 ] cm Findings: Left Ventricle: Normal left ventricular cavity size. Mild concentric left ventricular hypertrophy. Ejection fraction is visually estimated at 40-45 %. Multiple segmental wall motion abnormalities. Right Ventricle: Normal right ventricular size. Normal right ventricular systolic function. Left Atrium: The left atrium is normal in size. Right Atrium: The right atrium is normal in size. Mitral Valve: Mitral valve leaflets appear mildly thickened. Mild mitral annular calcification. Trace mitral regurgitation. Aortic Valve: No significant aortic stenosis or insufficiency. Aortic cusps appear mildly calcified. Tricuspid Valve: Normal appearance of the tricuspid valve. Estimated peak PA systolic pressure 45 mmHg. There is mild tricuspid regurgitation. Pulmonic Valve: Normal pulmonic valve appearance. Pericardium: Normal pericardium with no significant pericardial effusion. Aorta: Normal aortic root. IVC: Normal size and normal respiratory collapse consistent with normal right atrial pressure. Inferior vena cava without respiratory collapse, however, patient on ventilator. Conclusions: Normal left ventricular cavity size. Mild concentric left ventricular hypertrophy. Ejection fraction is visually estimated at 40-45 %. Multiple segmental wall motion abnormalities. Mitral valve leaflets appear mildly thickened. Mild mitral annular calcification. Trace mitral regurgitation. No significant aortic stenosis or insufficiency. Aortic cusps appear mildly calcified. Normal appearance of the tricuspid valve. Estimated peak PA systolic pressure 45 mmHg. There is mild tricuspid regurgitation. Electronically Signed By: Gen Rodas 2018-05-16 09:21:55 PST
--- NOTE | 2018-05-16 11:14 | CONS ---
Assessment/Plan Assessment/Plan Hospital Course (Demo Recall) Chronic afib with RVR: Rates ~100-110 off meds here. On heparin drip during transfer Acute on chronic systolic CHF/cardiomyopathy: EF at [facility] 35%, here 40- 45%. Possible ischemic component vs tachycardia induced. Currently not a candidate for cardiac cath as he did not have ACS/HI and we need to see if his mentation improves to provide any real termite treater benefit. Acute on chronic respiratory failure: due to CHF. Remains intubated ESRD on HD Alcoholic liver cirrhosis HTN -start coreg 6.25mg BID -stop heparin drip -start Eliquis 2.5mg BID tonight -no ASA for now -no statin with liver cirrhosis unless proven CAD or ACS -ischemia workup depending on recovery of mental status after extubation Consultation Date/Type/Reason Admit Date/Time May 16, 2018 at 04:30 Date of Consultation: May 16, 2018 Type of Consult Cardiology Reason for Consultation CHF, afib Requesting Provider: MYRIAM WRAY NP Date/Time of Note DATE: 05/16/18 TIME: 11:02 Hx of Present Illness 67 yo M with a h/o chronic afib not on anticoagulation, chronic CHF, ESRD on HD, alcoholic liver cirrhosis, HTN, dementia, who presented from his living facility to [facility] where he was found to have afib with RVR, CHF, respiratory failure requiring intubation. Per notes his EF was found to be 35% at that time (previously reported to be normal). Here the echo was read as EF of 40-45%. He was hospitalized here 02/2018 for similar presentation and per notes his mentation never recovered. He is currently intubated. He is not on sedation. He opens his eyes and moves his extremities but not to command. unable to obtain Past Medical History per [facility] Home Meds Active Scripts Balsam Ramya/[place] Oil (Venelex Ointment) 60 Gm Oint..gm., 1 APPLIC TOP DAILY, #1 TUB Prov:PABLO JULES 04/10/18 [Vancomycin Oral Syringe] 50 MG/ML SOLN No Conflict Check, 250 MG PO Q6 for 5 Days Prov:PABLO JULES 04/10/18 Medications Current Medications IV Flush (NS 3 ml) 3 ml PER PROTOCOL IV ; Start 05/16/18 at 05:30 Hydromorphone HCl (Dilaudid) 0.5 mg Q4H PRN IV .SEVERE PAIN 7-10; Start 05/16/18 at 05:30 Vancomycin HCl (Vanco Iv Per Pharmacy) VANCOMYCIN PER PHARMACY PER PROTOCOL XX ; Start 05/16/18 at 05:30 Piperacillin Sod/ Tazobactam Sod 50 ml @ 100 mls/hr Q12 IVPB Last administered on 05/16/18at 08:05; Admin Dose 100 MLS/HR; Start 05/16/18 at 06:54 Heparin Sodium (Porcine) 250 ml @ 7 mls/hr Q24H IV Last administered on 05/16/18at 08:16; Admin Dose 7 MLS/HR; Start 05/16/18 at 07:30 Heparin Sodium (Porcine) (Heparin (1000 Units/ml)) 3,500 unit PRN PRN IV PENDING LAB VALUE; Start 05/16/18 at 07:30 Famotidine (Pepcid Iv) 20 mg DAILY IV ; Start 05/17/18 at 09:00 Allergies: Coded Allergies: No Known Allergy (Unverified , 03/15/18) Past Surgical History Past Surgical Hx: no surgical history Social History Alcohol Use: none Smoking Status: Unknown if ever smoked Drug Use: none Exam/Review of Systems Exam Vitals Vital Signs Date Temp Pulse Resp B/P (MAP) Pulse Ox O2 O2 Flow FiO2 Time Delivery Rate 05/16/18 102 22 100 30 09:55 05/16/18 143/84 Mechanical 06:00 (103) Ventilator 05/16/18 97.1 05:00 Constitutional: No alert, No distress Head: normocephalic, atraumatic ENMT: intubated Neck: supple; No jvd Respiratory: diminished breath sounds; No clear to auscultation Cardiovascular: No regular rate and rhythm (IRIR, tachycardic low 100s), No edema, No systolic murmur Gastrointestinal: soft, non-tender; No distended Neurological: No nl mental status, No nl speech Skin: No rash or lesions Results Result Diagram: 05/16/1831 05/16/1831 Results 24hrs Laboratory Tests Test 05/16/18 05:18 05/16/18 05:30 05/16/18 05:31 05/16/18 10:03 Blood Gas Blood arterial Specimen Source Arterial Blood 05/16/2018 6:00:4 Date Drawn 8 AM Arterial Blood pH 7.390 (Temp corrected) Arterial Blood 46.3 H pCO2 (Temp correct) Arterial Blood 104.6 H pO2 (Temp corrected) Arterial Blood 27.4 H HCO3 Arterial Blood 2.0 Base Excess Arterial Blood 97.5 Oxygen Saturation Kayden Test ACCEPTAB Arterial Blood Left Radial Gas Puncture Site Arterial 0.3 Blood Carboxyhemo globin Arterial Blood 0.5 Methemoglobin Blood Gas A-a O2 54.9 H Differential Oxyhemoglobin 96.7 Percent Blood Gas 37.0 Temperature Blood Gas 18.0 Respiration Rate Blood Gas Actual 20 Respiration Rate Blood Gas VENT - AC Modality FiO2 30.0 Blood Gas Tidal 450.0 Volume Blood Gas Low 5.0 PEEP Setting Blood Gas D YING [facility] Notified Whom Blood Gas 05/16/2018 6:11:1 Notified Time 9 AM Hepatitis B NEGATIVE Surface Antigen White Blood Count 5.7 # Red Blood Count 3.49 L Hemoglobin 9.5 L Hematocrit 30.8 L Mean Corpuscular 88.3 Volume Mean Corpuscular 27.2 L Hemoglobin Mean Corpuscular 30.8 L Hemoglobin Concen t Red Cell 19.7 H Distribution Width Platelet Count 159 Mean Platelet 9.3 Volume Immature 0.400 Granulocytes % Neutrophils % 80.4 H Lymphocytes % 6.3 L Monocytes % 7.9 Eosinophils % 4.6 Basophils % 0.4 Nucleated Red 0.0 Blood Cells % Immature 0.020 Granulocytes # Neutrophils # 4.6 Lymphocytes # 0.4 L Monocytes # 0.5 Eosinophils # 0.3 Basophils # 0.0 Nucleated Red 0.0 Blood Cells # Prothrombin Time 13.8 # Prothrombin Time 1.1 Ratio INR International 1.05 Normalized Ratio Activated 40.5 H Partial Thrombopl ast Time Sodium Level 138 Potassium Level 4.2 Chloride Level 98 Carbon Dioxide 26 Level Anion Gap 14 H Blood Urea 21 H Nitrogen Creatinine 3.11 H Est Glomerular 20 L Filtrat Rate mL/min Glucose Level 91 Calcium Level 8.5 Total Bilirubin 0.0 L Direct Bilirubin 0.00 Indirect 0.0 Bilirubin Aspartate Amino 19 Transf (AST/SGOT) Alanine 21 Aminotransferase (ALT/SGPT) Alkaline 76 Phosphatase Total Protein 6.3 Albumin 2.9 L Globulin 3.40 H Albumin/Globulin 0.85 Ratio Random Vancomycin 5.3 Level Medications Medication Current Medications IV Flush (NS 3 ml) 3 ml PER PROTOCOL IV ; Start 05/16/18 at 05:30 Hydromorphone HCl (Dilaudid) 0.5 mg Q4H PRN IV .SEVERE PAIN 7-10; Start 05/16/18 at 05:30 Vancomycin HCl (Vanco Iv Per Pharmacy) VANCOMYCIN PER PHARMACY PER PROTOCOL XX ; Start 05/16/18 at 05:30 Piperacillin Sod/ Tazobactam Sod 50 ml @ 100 mls/hr Q12 IVPB Last administered on 05/16/18at 08:05; Admin Dose 100 MLS/HR; Start 05/16/18 at 06:54 Heparin Sodium (Porcine) 250 ml @ 7 mls/hr Q24H IV Last administered on 05/16/18at 08:16; Admin Dose 7 MLS/HR; Start 05/16/18 at 07:30 Heparin Sodium (Porcine) (Heparin (1000 Units/ml)) 3,500 unit PRN PRN IV PENDING LAB VALUE; Start 05/16/18 at 07:30 Famotidine (Pepcid Iv) 20 mg DAILY IV ; Start 05/17/18 at 09:00 GERARDO STALLWORTH May 16, 2018 11:14
--- NOTE | 2018-05-16 11:18 | PN ---
Date/Time of Note Date/Time of Note DATE: 05/16/18 TIME: 11:14 Assessment/Plan VTE Prophylaxis Risk score (from Ns)>0 risk: 11 SCD applied (from Ns): Yes Pharmacological prophylaxis: apixaban Assessment/Plan Hospital Course SUBJECTIVE: The patient remains mechanically ventilated. Remains off sedation. OBJECTIVE: Physical Exam General: Adequately build 67 year-old male lying in bed in no apparent distress. HEENT: Normocephalic, atraumatic. Eyes: Anicteric sclerae, conjunctivae clear. ENT: Nasal septum midline, oral mucosa is dry. Neck supple. Respiratory: Bilaterally clear breath sounds. No use of accessory muscles of respiration. No adventitious breath sounds. Cardiovascular: S1, S2 heard. Irregular. Abdomen: Soft, nontender, and nondistended. Bowel sounds positive in all 4 quadrants. Genitourinary: Deferred. Extremities: No cyanosis, no clubbing, no edema. Peripheral pulses palpable. Neurologic: The patient is somnolent. Labs & Vitals per chart ASSESSMENT & PLAN 67-year-old male with comorbidities including paroxysmal atrial fibrillation, hypertension, cirrhosis, end-stage renal disease on hemodialysis, and substance abuse. The patient was transferred from [facility] where he was intubated for respiratory failure. The patient was transferred to [facility] because of insurance reasons. 1. Acute respiratory failure. -Hypoxic. -Etiology could be multifactorial including underlying congestive heart failure and possible underlying pneumonia. -Ventilator management as per pulmonary. -Continue inhaled bronchodilators. -Empiric antimicrobials for any aspiration pneumonitis. 2. Paroxysmal atrial fibrillation. -Started on Eliquis for stroke prophylaxis. -Cardiology consult has been obtained. 3. Acute on chronic congestive heart failure exacerbation, systolic dysfunction. -Continue ultrafiltration. 4. End-stage renal disease on hemodialysis. -Hemodialysis as per nephrology. 5. Cardiomyopathy. -Ejection fraction of 40-45% -Continue the patient on beta-blockers and ARB's. 6. Hypertension -Continue antihypertensives. 7. History of liver cirrhosis. 8. History of substance abuse -Obtain urine drug screen. 9. Normocytic anemia -Most probably anemia chronic disease. -Monitor H&H closely. 9. Fluids, electrolytes, and nutrition. -N.p.o. 10. DVT prophylaxis. -Factor Xa inhibitors. 11. Plan. -Continue antimicrobials -Ventilator weaning as per pulmonary. -Continue cardiology recommendations. The patient was seen in collaboration with Dr. Medina. Critical care time: 35 minutes. Result Diagram: 05/16/18 0531 05/16/18 0531 Results 24hrs Laboratory Tests Test 05/16/18 05:18 05/16/18 05:30 05/16/18 05:31 05/16/18 10:03 Blood Gas Blood arterial Specimen Source Arterial Blood 05/16/2018 6:00:4 Date Drawn 8 AM Arterial Blood pH 7.390 (Temp corrected) Arterial Blood 46.3 H pCO2 (Temp correct) Arterial Blood 104.6 H pO2 (Temp corrected) Arterial Blood 27.4 H HCO3 Arterial Blood 2.0 Base Excess Arterial Blood 97.5 Oxygen Saturation Kayden Test ACCEPTAB Arterial Blood Left Radial Gas Puncture Site Arterial 0.3 Blood Carboxyhemo globin Arterial Blood 0.5 Methemoglobin Blood Gas A-a O2 54.9 H Differential Oxyhemoglobin 96.7 Percent Blood Gas 37.0 Temperature Blood Gas 18.0 Respiration Rate Blood Gas Actual 20 Respiration Rate Blood Gas VENT - AC Modality FiO2 30.0 Blood Gas Tidal 450.0 Volume Blood Gas Low 5.0 PEEP Setting Blood Gas D YING [facility] Notified Whom Blood Gas 05/16/2018 6:11:1 Notified Time 9 AM Hepatitis B NEGATIVE Surface Antigen White Blood Count 5.7 # Red Blood Count 3.49 L Hemoglobin 9.5 L Hematocrit 30.8 L Mean Corpuscular 88.3 Volume Mean Corpuscular 27.2 L Hemoglobin Mean Corpuscular 30.8 L Hemoglobin Concen t Red Cell 19.7 H Distribution Width Platelet Count 159 Mean Platelet 9.3 Volume Immature 0.400 Granulocytes % Neutrophils % 80.4 H Lymphocytes % 6.3 L Monocytes % 7.9 Eosinophils % 4.6 Basophils % 0.4 Nucleated Red 0.0 Blood Cells % Immature 0.020 Granulocytes # Neutrophils # 4.6 Lymphocytes # 0.4 L Monocytes # 0.5 Eosinophils # 0.3 Basophils # 0.0 Nucleated Red 0.0 Blood Cells # Prothrombin Time 13.8 # Prothrombin Time 1.1 Ratio INR International 1.05 Normalized Ratio Activated 40.5 H Partial Thrombopl ast Time Sodium Level 138 Potassium Level 4.2 Chloride Level 98 Carbon Dioxide 26 Level Anion Gap 14 H Blood Urea 21 H Nitrogen Creatinine 3.11 H Est Glomerular 20 L Filtrat Rate mL/min Glucose Level 91 Calcium Level 8.5 Total Bilirubin 0.0 L Direct Bilirubin 0.00 Indirect 0.0 Bilirubin Aspartate Amino 19 Transf (AST/SGOT) Alanine 21 Aminotransferase (ALT/SGPT) Alkaline 76 Phosphatase Total Protein 6.3 Albumin 2.9 L Globulin 3.40 H Albumin/Globulin 0.85 Ratio Random Vancomycin 5.3 Level Exam/Review of Systems Exam Vitals Vital Signs Date Temp Pulse Resp B/P (MAP) Pulse Ox O2 O2 Flow FiO2 Time Delivery Rate 05/16/18 102 22 100 30 09:55 05/16/18 143/84 Mechanical 06:00 (103) Ventilator 05/16/18 97.1 05:00 Results Results 24hrs Laboratory Tests Test 05/16/18 05:18 05/16/18 05:30 05/16/18 05:31 05/16/18 10:03 Blood Gas Blood arterial Specimen Source Arterial Blood 05/16/2018 6:00:4 Date Drawn 8 AM Arterial Blood pH 7.390 (Temp corrected) Arterial Blood 46.3 H pCO2 (Temp correct) Arterial Blood 104.6 H pO2 (Temp corrected) Arterial Blood 27.4 H HCO3 Arterial Blood 2.0 Base Excess Arterial Blood 97.5 Oxygen Saturation Kayden Test ACCEPTAB Arterial Blood Left Radial Gas Puncture Site Arterial 0.3 Blood Carboxyhemo globin Arterial Blood 0.5 Methemoglobin Blood Gas A-a O2 54.9 H Differential Oxyhemoglobin 96.7 Percent Blood Gas 37.0 Temperature Blood Gas 18.0 Respiration Rate Blood Gas Actual 20 Respiration Rate Blood Gas VENT - AC Modality FiO2 30.0 Blood Gas Tidal 450.0 Volume Blood Gas Low 5.0 PEEP Setting Blood Gas D YING [facility] Notified Whom Blood Gas 05/16/2018 6:11:1 Notified Time 9 AM Hepatitis B NEGATIVE Surface Antigen White Blood Count 5.7 # Red Blood Count 3.49 L Hemoglobin 9.5 L Hematocrit 30.8 L Mean Corpuscular 88.3 Volume Mean Corpuscular 27.2 L Hemoglobin Mean Corpuscular 30.8 L Hemoglobin Concen t Red Cell 19.7 H Distribution Width Platelet Count 159 Mean Platelet 9.3 Volume Immature 0.400 Granulocytes % Neutrophils % 80.4 H Lymphocytes % 6.3 L Monocytes % 7.9 Eosinophils % 4.6 Basophils % 0.4 Nucleated Red 0.0 Blood Cells % Immature 0.020 Granulocytes # Neutrophils # 4.6 Lymphocytes # 0.4 L Monocytes # 0.5 Eosinophils # 0.3 Basophils # 0.0 Nucleated Red 0.0 Blood Cells # Prothrombin Time 13.8 # Prothrombin Time 1.1 Ratio INR International 1.05 Normalized Ratio Activated 40.5 H Partial Thrombopl ast Time Sodium Level 138 Potassium Level 4.2 Chloride Level 98 Carbon Dioxide 26 Level Anion Gap 14 H Blood Urea 21 H Nitrogen Creatinine 3.11 H Est Glomerular 20 L Filtrat Rate mL/min Glucose Level 91 Calcium Level 8.5 Total Bilirubin 0.0 L Direct Bilirubin 0.00 Indirect 0.0 Bilirubin Aspartate Amino 19 Transf (AST/SGOT) Alanine 21 Aminotransferase (ALT/SGPT) Alkaline 76 Phosphatase Total Protein 6.3 Albumin 2.9 L Globulin 3.40 H Albumin/Globulin 0.85 Ratio Random Vancomycin 5.3 Level Medications Medication Current Medications IV Flush (NS 3 ml) 3 ml PER PROTOCOL IV ; Start 05/16/18 at 05:30 Hydromorphone HCl (Dilaudid) 0.5 mg Q4H PRN IV .SEVERE PAIN 7-10; Start 05/16/18 at 05:30 Vancomycin HCl (Vanco Iv Per Pharmacy) VANCOMYCIN PER PHARMACY PER PROTOCOL XX ; Start 05/16/18 at 05:30 Piperacillin Sod/ Tazobactam Sod 50 ml @ 100 mls/hr Q12 IVPB Last administered on 05/16/18at 08:05; Admin Dose 100 MLS/HR; Start 05/16/18 at 06:54 Famotidine (Pepcid Iv) 20 mg DAILY IV ; Start 05/17/18 at 09:00 Apixaban (Eliquis) 2.5 mg BID PO ; Start 05/16/18 at 21:00; Status UNV Carvedilol (Coreg) 6.25 mg BID PO ; Start 05/16/18 at 11:30; Status UNV Losartan Potassium (Cozaar) 25 mg DAILY PO ; Start 05/16/18 at 11:30; Status UNV MYRIAM WRAY NP May 16, 2018 11:18
[2018-05-16] MEDS ORDERED: LOSARTAN 25 MG TAB PO SCH (11:30)
--- NOTE | 2018-05-16 12:06 | CONS ---
DATE OF ADMISSION: 05/16/2018 DATE OF CONSULTATION: 05/16/2018 TYPE OF CONSULTATION: Nephrology. REASON FOR CONSULTATION: End-stage renal disease. PHYSICIAN REQUESTING CONSULT: Dr. Cardenas HISTORY OF PRESENT ILLNESS: This is a 67-year-old male with a past medical history of end-stage ollie l disease, access of a PermCath and left AV fistula, history of dementia, AFib, heart failure who was brought into [facility] emergency room for respiratory failure. The patient was initially admitted to [facility] on 05/11 after presenting with fluid overload respiratory status. The patient was intubated in the emergency room, showed bilateral pleural effusions. He was in fibrillat ion. The patient was treated with antibiotics, had hemodialysis. Patient had an echo at that time t hat showed ejection fraction 35%. The patient is unable to be extubated and was transferred to [facility] for further management. In terms of patient's renal history, the patient has end-stage renal disease on hemodialysis 3 times weekly. Last dialysis was yesterday. The patient is currently intubated, unable to provide history. History is obtained by reviewing medical records and speaking to hospital staff. PAST MEDICAL HISTORY: History of end-stage renal disease, history of hypertension, history of heart failure, previous history of sepsis, history of Clostridium difficile, history of dementia. PAST SURGICAL HISTORY: Status post AV fistula, status post PermCath placement. FAMILY HISTORY: No family history of kidney disease. SOCIAL HISTORY: Lives in a skilled nurse facility. MEDICATIONS: The patient's medications have been reviewed. REVIEW OF SYSTEMS: Unable to do adequate review of systems. The patient is altered. Pertinent posi tives stated in HPI, as obtained by reviewing medical records, speaking to hospital staff, otherwise negative. PHYSICAL EXAMINATION: VITAL SIGNS: Blood pressure is 143/84, respirations 16, pulse 110, temperature 97.1. HEENT: Head is normocephalic. NECK: Supple. HEART: Regular rate. LUNGS: Show diminished breath sounds at the base. ABDOMEN: Soft, nontender to palpation. No rebound or guarding. EXTREMITIES: Negative for clubbing, cyanosis, no edema. DERMATOLOGIC: No rashes. MUSCULOSKELETAL: No joint effusion. NEUROLOGIC: No change in exam. MEDICATIONS: The patient's medications have been reviewed. LABORATORY DATA: Shows white count 5.7, hemoglobin 9.5, platelet count 159. Sodium 138, potassium 4 .2, BUN 21, creatinine 3.11. ASSESSMENT AND PLAN: This is a 67-year-old male who presents with: 1. End-stage renal disease. The patient's access is a Perm-A-Cath. Plan is for hemodialysis today. We will dialyze for 3 hours 2k bath, calcium 2.5. Will ultrafiltrate as tolerated. 2. Anemia. Monitor hemoglobin and hematocrit levels. Will give Epogen as needed. 3. Mineral bone disorder, monitor calcium and phosphorus levels. 4. Hypertension. Continue current blood pressure regimen. Continue ultrafiltration dialysis. 5. Ventilator dependent respiratory failure. Vent settings have been reviewed. Continue to monitor . Follow up with pulmonary. 6. Volume overload. Etiology is secondary to end-stage renal disease, congestive heart failure. Co ntinue ultrafiltration dialysis. 7. Heart failure. Etiology may be ischemic. Continue medical management. Follow up with cardiolog y. 8. Sepsis secondary to pneumonia. Continue current antibiotic regimen. 9. Acute encephalopathy and dementia, etiology toxic metabolic. Continue to monitor. 10. History of arrhythmia. Continue current treatment plan. 11. The patient has right upper extremity swelling. Will check a Doppler ultrasound to rule out DVT . Thank you Dr. Herrera, for this interesting consult. It will be a pleasure to follow patient with yo u throughout the hospital course. Dictated By: SHERRY CONCEPCION DO NR/NTS Conf#: [id number] DID#: [id number] CC: GERARDO STALLWORTH MD; DILIP OSUNA MD;*EndCC*
[2018-05-16] MEDS: APIXABAN 5 MG TABLET PO SCH ×2 (12:16→21:22)
[2018-05-16] MEDS ORDERED: LIDOCAINE 1% (MPF) 5 ML VIAL SC ONE (15:00)
[2018-05-16] MEDS: PIPER-TAZO 2.25 GM (PMX) 50 ML IVPB SCH ×2 (16:40→21:23)
--- NOTE | 2018-05-16 18:59 | CONS ---
DATE OF ADMISSION: 05/16/2018 DATE OF CONSULTATION: 05/16/2018 REASON FOR CONSULT: Ventilator management. Thank you, Dr. Osuna, for this consultation. HISTORY OF PRESENT ILLNESS: This is a 67-year-old gentleman with end-stage renal failure on hemodial ysis, AFib, CHF, who was originally admitted to [facility] where he required intubation, mechanical ventilation on 05/11/2018. The patient now transferred here to [facility] for continuing care on mechanical ventilation this morning. He was awake and alert, placed on CP AP trial and safely extubated. PAST MEDICAL HISTORY: As above. MEDICATIONS: Per chart. ALLERGIES: NONE. SOCIAL HISTORY: Nonsmoker. No alcohol. REVIEW OF SYSTEMS: A 12-point review of systems negative other than that mentioned above. PHYSICAL EXAMINATION: GENERAL: Well-nourished, well-developed gentleman, comfortable at rest. VITAL SIGNS: Currently afebrile, pulse is 100, blood pressure of 170/70, O2 sat 96% on now 2 L nasal cannula, previously on mechanical ventilation. NECK: Supple. No JVD. No lymphadenopathy. CARDIAC: S1, S2. No added sounds. No murmurs. CHEST: Diminished air entry bilaterally. ABDOMEN: Soft, nontender. No guarding or rebound. EXTREMITIES: No cyanosis, clubbing or edema. NEUROLOGIC: Generalized weakness. No focal deficits. LABORATORY DATA: White count 5.7, hemoglobin 9.5, platelets of 159. BUN 21, creatinine 3.11. INR 1 .05. IMPRESSION: 1. Status post hypoxemic respiratory failure secondary to possible volume overload and pneumonia. 2. Ischemic cardiomyopathy. 3. End-stage renal failure. RECOMMENDATIONS: 1. Extubation and incentive spirometry. 2. Advance diet as tolerated. 3. Physical therapy eval. 4. Hemodialysis per Nephrology. 5. DVT and GI prophylaxis. 6. Establish outpatient dialysis schedule again. Dictated By: LALIT TYLER MD SV/SHMUEL Conf#: [id number] DID#: [id number] CC: DILIP OSUNA MD;*EndCC*
[2018-05-16] MEDS ORDERED: HEPARIN 1000 UNITS/ML 10 ML INJ CATHETER ONE (21:30)
[2018-05-17] VITALS (22 sets, daily range): BP systolic 97–180; BP diastolic 53–86; PULSE 80–102; RESP 14–31
[2018-05-17] MEDS: PIPER-TAZO 2.25 GM (PMX) 50 ML IVPB SCH ×2 (05:26→13:30)
--- NOTE | 2018-05-17 07:51 | PN ---
DATE: 05/17/2018 SUBJECTIVE: The patient had hemodialysis yesterday, tolerated well. The patient was noted to be hyp ertensive overnight. No other acute events noted. No hemoptysis, hematemesis, or hematochezia. OBJECTIVE: VITAL SIGNS: Blood pressure is 159/63, respirations 19, pulse 94, temperature 98.2. HEENT: Head is normocephalic. NECK: Supple. HEART: Regular rate. LUNGS: Show diminished breath sounds at the base. ABDOMEN: Soft, nontender to palpation. No rebound or guarding. EXTREMITIES: Negative for clubbing, cyanosis, no edema. DERMATOLOGIC: No rashes. MUSCULOSKELETAL: No joint effusion. NEUROLOGIC: No change in exam. MEDICATIONS: Reviewed. LABORATORY DATA: Shows a white count of 6.6, hemoglobin 10.2, platelet count 178. Sodium 140, potas sium 3.6, BUN 15, creatinine 2.43. ASSESSMENT AND PLAN: 1. End-stage renal disease. The patient had dialysis yesterday, tolerated well. Plan is for dialys is again tomorrow. 2. Anemia. Continue to monitor hemoglobin and hematocrit level. We will give Epogen as needed. 3. Mineral bone disorder, monitor calcium and phosphorus levels. 4. Hypertension. We will start the patient on Norvasc. Continue Coreg. Continue ultrafiltration d ialysis. Continue Cozaar. 5. Respiratory failure. The patient is status post extubation, currently stable. Continue to monit or. Follow up with pulmonary. 6. Volume overload. Continue ultrafiltration dialysis. 7. Heart failure, possibly ischemic. Continue to monitor. Follow up with Cardiology. 8. Sepsis secondary to pneumonia. The patient is completing antibiotic course. 9. Acute encephalopathy and dementia, etiology is toxic metabolic. 10. Arrhythmia. Continue current treatment plan. 11. Right upper extremity swelling. The patient is status post Doppler ultrasound negative for deep vein thrombosis. Please note I spent over 30 minutes of critical care time with this patient. Dictated By: SHERRY CONCEPCION DO NR/NTS Conf#: [id number] DID#: [id number] CC: DILIP OSUNA MD; GERARDO STALLWORTH MD;*EndCC*
--- NOTE | 2018-05-17 08:44 | PN ---
Date/Time of Note Date/Time of Note DATE: 05/17/18 TIME: 08:43 Assessment/Plan VTE Prophylaxis Risk score (from Ns)>0 risk: 8 SCD applied (from Ns): Yes Pharmacological prophylaxis: apixaban Lines/Catheters IV C[facility]ter Type (from [facility]): PERMACATH Urinary Cath still in place: No Assessment/Plan Hospital Course SUBJECTIVE: The patient was extubated on 05/16/2018. The patient is awake and alert. Follows commands. Denies any pain. OBJECTIVE: Physical Exam General: Adequately build 67 year-old male lying in bed in no apparent distress. HEENT: Normocephalic, atraumatic. Eyes: Anicteric sclerae, conjunctivae clear. ENT: Nasal septum midline, oral mucosa is dry. Neck supple. Respiratory: Bilaterally diminished breath sounds. No use of accessory muscles of respiration. No adventitious breath sounds. Cardiovascular: S1, S2 heard. Irregular. Abdomen: Soft, nontender, and nondistended. Bowel sounds positive in all 4 quadrants. Genitourinary: Deferred. Extremities: No cyanosis, no clubbing, no edema. Peripheral pulses palpable. Neurologic: Patient is awake and alert. Moves all 4 extremities. Follows commands. Labs & Vitals per chart ASSESSMENT & PLAN 67-year-old male with comorbidities including paroxysmal atrial fibrillation, hypertension, cirrhosis, end-stage renal disease on hemodialysis, and substance abuse. The patient was transferred from [facility] where he was intubated for respiratory failure. The patient was transferred to [facility] because of insurance reasons. 1. Acute respiratory failure. -Hypoxic. -Etiology could be multifactorial including underlying congestive heart failure and possible underlying pneumonia. -S/P intubation at the transferring facility. Extubated on 05/16/2018. -Continue inhaled bronchodilators. -Empiric antimicrobials for any aspiration pneumonitis. 2. Paroxysmal atrial fibrillation. -Started on Eliquis for stroke prophylaxis. -Cardiology following. 3. Acute on chronic congestive heart failure exacerbation, systolic dysfunction. -Continue ultrafiltration. 4. End-stage renal disease on hemodialysis. -Hemodialysis as per nephrology. 5. Cardiomyopathy. -Ejection fraction of 40-45% -Continue the patient on beta-blockers and ARB's. 6. Hypertension -Continue antihypertensives. 7. History of liver cirrhosis. 8. History of substance abuse -Urine drug screen pending. 9. Normocytic anemia -Most probably anemia chronic disease. -Monitor H&H closely. 9. Fluids, electrolytes, and nutrition. -Await swallow evaluation. 10. DVT prophylaxis. -Factor Xa inhibitors. 11. Plan. -Continue antimicrobials. -Speech therapy for swallow evaluation. -Physical therapy evaluation. -Continue cardiology recommendations. -May transfer out of ICU for cleared by cardiology. The patient was seen in collaboration with Dr. Medina. Critical care time: 35 minutes. Result Diagram: 05/17/18 0434 05/17/18 0434 Results 24hrs Laboratory Tests Test 05/16/18 10:03 05/16/18 13:30 05/17/18 04:34 Random Vancomycin Level 5.3 Blood Gas Specimen Source Blood arterial Arterial Blood Date Drawn 05/16/2018 1:26:39 PM Arterial Blood pH 7.418 (Temp corrected) Arterial Blood pCO2 42.6 (Temp correct) Arterial Blood pO2 123.4 H (Temp corrected) Arterial Blood HCO3 26.9 H Arterial Blood Base Excess 2.1 Arterial Blood 98.1 H Oxygen Saturation Kayden Test ACCEPTAB Arterial Blood Gas Right Radial Puncture Site Arterial 0.3 Blood Carboxyhemoglobin Arterial Blood Methemoglobin 0.4 Blood Gas A-a O2 40.4 H Differential Oxyhemoglobin Percent 97.4 Blood Gas Temperature 37.0 Blood Gas Actual 17 Respiration Rate Blood Gas Modality VENT - CPAP FiO2 30.0 Blood Gas Low PEEP Setting 5.0 Blood Gas Pressure Support 10 Blood Gas Notified Whom TM Blood Gas Notified Time 05/16/2018 1:35:20 PM White Blood Count 6.6 Red Blood Count 3.77 L Hemoglobin 10.2 L Hematocrit 33.2 L Mean Corpuscular Volume 88.1 Mean Corpuscular Hemoglobin 27.1 L Mean Corpuscular 30.7 L Hemoglobin Concent Red Cell Distribution Width 19.9 H Platelet Count 178 Mean Platelet Volume 9.0 Immature Granulocytes % 0.600 H Neutrophils % 80.5 H Lymphocytes % 8.4 L Monocytes % 8.1 Eosinophils % 1.8 Basophils % 0.6 Nucleated Red Blood Cells % 0.0 Immature Granulocytes # 0.040 H Neutrophils # 5.3 Lymphocytes # 0.6 L Monocytes # 0.5 Eosinophils # 0.1 Basophils # 0.0 Nucleated Red Blood Cells # 0.0 Prothrombin Time 15.0 H Prothrombin Time Ratio 1.2 INR International 1.17 Normalized Ratio Activated 43.3 H Partial Thromboplast Time Sodium Level 140 Potassium Level 3.7 Chloride Level 105 Carbon Dioxide Level 25 Anion Gap 10 Blood Urea Nitrogen 15 Creatinine 2.43 H Est Glomerular Filtrat 27 L Rate mL/min Glucose Level 72 Hemoglobin A1c 4.9 Calcium Level 8.5 Phosphorus Level 2.9 Magnesium Level 2.4 Total Bilirubin 0.2 Direct Bilirubin 0.00 Indirect Bilirubin 0.2 Aspartate Amino 27 Transf (AST/SGOT) Alanine 21 Aminotransferase (ALT/SGPT) Alkaline Phosphatase 100 Ammonia < 9 L Total Protein 6.3 Albumin 2.8 L Globulin 3.50 H Albumin/Globulin Ratio 0.80 Exam/Review of Systems Exam Vitals Vital Signs Date Temp Pulse Resp B/P (MAP) Pulse Ox O2 O2 Flow FiO2 Time Delivery Rate 05/17/18 94 19 159/63 100 Room Air 07:00 (95) 05/17/18 98.2 04:00 05/16/18 3.0 16:00 05/16/18 30 13:34 Intake and Output 05/16/18 05/16/18 05/17/18 1515:00 23:00 07:00 IntakeIntake Total 150 ml 100 ml 0 ml OutputOutput Total 0 ml 2500 ml 0 ml BalanceBalance 150 ml -2400 ml 0 ml Results Results 24hrs Laboratory Tests Test 05/16/18 10:03 05/16/18 13:30 05/17/18 04:34 Random Vancomycin Level 5.3 Blood Gas Specimen Source Blood arterial Arterial Blood Date Drawn 05/16/2018 1:26:39 PM Arterial Blood pH 7.418 (Temp corrected) Arterial Blood pCO2 42.6 (Temp correct) Arterial Blood pO2 123.4 H (Temp corrected) Arterial Blood HCO3 26.9 H Arterial Blood Base Excess 2.1 Arterial Blood 98.1 H Oxygen Saturation Kayden Test ACCEPTAB Arterial Blood Gas Right Radial Puncture Site Arterial 0.3 Blood Carboxyhemoglobin Arterial Blood Methemoglobin 0.4 Blood Gas A-a O2 40.4 H Differential Oxyhemoglobin Percent 97.4 Blood Gas Temperature 37.0 Blood Gas Actual 17 Respiration Rate Blood Gas Modality VENT - CPAP FiO2 30.0 Blood Gas Low PEEP Setting 5.0 Blood Gas Pressure Support 10 Blood Gas Notified Whom TM Blood Gas Notified Time 05/16/2018 1:35:20 PM White Blood Count 6.6 Red Blood Count 3.77 L Hemoglobin 10.2 L Hematocrit 33.2 L Mean Corpuscular Volume 88.1 Mean Corpuscular Hemoglobin 27.1 L Mean Corpuscular 30.7 L Hemoglobin Concent Red Cell Distribution Width 19.9 H Platelet Count 178 Mean Platelet Volume 9.0 Immature Granulocytes % 0.600 H Neutrophils % 80.5 H Lymphocytes % 8.4 L Monocytes % 8.1 Eosinophils % 1.8 Basophils % 0.6 Nucleated Red Blood Cells % 0.0 Immature Granulocytes # 0.040 H Neutrophils # 5.3 Lymphocytes # 0.6 L Monocytes # 0.5 Eosinophils # 0.1 Basophils # 0.0 Nucleated Red Blood Cells # 0.0 Prothrombin Time 15.0 H Prothrombin Time Ratio 1.2 INR International 1.17 Normalized Ratio Activated 43.3 H Partial Thromboplast Time Sodium Level 140 Potassium Level 3.7 Chloride Level 105 Carbon Dioxide Level 25 Anion Gap 10 Blood Urea Nitrogen 15 Creatinine 2.43 H Est Glomerular Filtrat 27 L Rate mL/min Glucose Level 72 Hemoglobin A1c 4.9 Calcium Level 8.5 Phosphorus Level 2.9 Magnesium Level 2.4 Total Bilirubin 0.2 Direct Bilirubin 0.00 Indirect Bilirubin 0.2 Aspartate Amino 27 Transf (AST/SGOT) Alanine 21 Aminotransferase (ALT/SGPT) Alkaline Phosphatase 100 Ammonia < 9 L Total Protein 6.3 Albumin 2.8 L Globulin 3.50 H Albumin/Globulin Ratio 0.80 Medications Medication Current Medications IV Flush (NS 3 ml) 3 ml PER PROTOCOL IV ; Start 05/16/18 at 05:30 Hydromorphone HCl (Dilaudid) 0.5 mg Q4H PRN IV .SEVERE PAIN 7-10; Start 05/16/18 at 05:30 Vancomycin HCl (Vanco Iv Per Pharmacy) VANCOMYCIN PER PHARMACY PER PROTOCOL XX ; Start 05/16/18 at 05:30 Famotidine (Pepcid Iv) 20 mg DAILY IV ; Start 05/17/18 at 09:00 Apixaban (Eliquis) 2.5 mg BID PO Last administered on 05/16/18at 21:22; Admin Dose 2.5 MG; Start 05/16/18 at 11:30 Carvedilol (Coreg) 6.25 mg BID PO Last administered on 05/16/18at 21:22; Admin Dose 6.25 MG; Start 05/16/18 at 11:30 Piperacillin Sod/ Tazobactam Sod 50 ml @ 100 mls/hr Q8 IVPB Last administered on 05/17/18at 05:26; Admin Dose 100 MLS/HR; Start 05/16/18 at 15:00 Amlodipine Besylate (Norvasc) 10 mg DAILY NGT ; Start 05/17/18 at 09:00 Losartan Potassium (Cozaar) 100 mg DAILY PO ; Start 05/17/18 at 09:00 MYRIAM WRAY NP May 17, 2018 08:44
[2018-05-17] MEDS: AMLODIPINE 10 MG TAB NGT SCH (09:09)
[2018-05-17] MEDS: LOSARTAN 25 MG TAB PO SCH (09:10)
[2018-05-17] MEDS: APIXABAN 5 MG TABLET PO SCH (09:10)
[2018-05-17] MEDS: FAMOTIDINE 20 MG INJ IV SCH (09:10)
--- NOTE | 2018-05-17 12:27 | CONS ---
Consult Date/Type/Reason Admit Date/Time May 16, 2018 at 04:30 Initial Consult Date 05/16/18 Type of Consult Pulmonary Requesting Provider: MYRIAM WRAY NP Date/Time of Note DATE: 05/17/18 TIME: 12:25 Subjective Patient remained stable. No new events. Comfortable post extubation. Chest x- ray shows moderate left pleural effusion. Objective Vital Signs Date Temp Pulse Resp B/P (MAP) Pulse Ox O2 O2 Flow FiO2 Time Delivery Rate 05/17/18 96 19 153/83 100 Room Air 10:00 (106) 05/17/18 98.3 08:00 05/16/18 3.0 16:00 05/16/18 30 13:34 Intake and Output 05/16/18 05/16/18 05/17/18 1515:00 23:00 07:00 IntakeIntake Total 150 ml 100 ml 0 ml OutputOutput Total 0 ml 2500 ml 0 ml BalanceBalance 150 ml -2400 ml 0 ml Exam PHYSICAL EXAMINATION: GENERAL: Well-nourished, well-developed gentleman, comfortable at rest. VITAL SIGNS: NECK: Supple. No JVD. No lymphadenopathy. CARDIAC: S1, S2. No added sounds. No murmurs. CHEST: Diminished air entry bilaterally. ABDOMEN: Soft, nontender. No guarding or rebound. EXTREMITIES: No cyanosis, clubbing or edema. NEUROLOGIC: Generalized weakness. No focal deficits. Vent Setting Ventilator Support Mode: CPAP, PS, SPONT Fraction of Inspired Oxygen pe: 30 Positive End Expiratory Pressu: 5.0 Results/Medications Result Diagram: 05/17/18 0434 05/17/18 0434 Results 24 hrs Laboratory Tests Test 05/16/18 13:30 05/17/18 04:34 Blood Gas Specimen Source Blood arterial Arterial Blood Date Drawn 05/16/2018 1:26:39 PM Arterial Blood pH (Temp corrected) 7.418 Arterial Blood pCO2 (Temp correct) 42.6 Arterial Blood pO2 (Temp corrected) 123.4 H Arterial Blood HCO3 26.9 H Arterial Blood Base Excess 2.1 Arterial Blood Oxygen Saturation 98.1 H Kayden Test ACCEPTAB Arterial Blood Gas Puncture Site Right Radial Arterial Blood Carboxyhemoglobin 0.3 Arterial Blood Methemoglobin 0.4 Blood Gas A-a O2 Differential 40.4 H Oxyhemoglobin Percent 97.4 Blood Gas Temperature 37.0 Blood Gas Actual Respiration Rate 17 Blood Gas Modality VENT - CPAP FiO2 30.0 Blood Gas Low PEEP Setting 5.0 Blood Gas Pressure Support 10 Blood Gas Notified Whom TM Blood Gas Notified Time 05/16/2018 1:35:20 PM White Blood Count 6.6 Red Blood Count 3.77 L Hemoglobin 10.2 L Hematocrit 33.2 L Mean Corpuscular Volume 88.1 Mean Corpuscular Hemoglobin 27.1 L Mean Corpuscular Hemoglobin Concent 30.7 L Red Cell Distribution Width 19.9 H Platelet Count 178 Mean Platelet Volume 9.0 Immature Granulocytes % 0.600 H Neutrophils % 80.5 H Lymphocytes % 8.4 L Monocytes % 8.1 Eosinophils % 1.8 Basophils % 0.6 Nucleated Red Blood Cells % 0.0 Immature Granulocytes # 0.040 H Neutrophils # 5.3 Lymphocytes # 0.6 L Monocytes # 0.5 Eosinophils # 0.1 Basophils # 0.0 Nucleated Red Blood Cells # 0.0 Prothrombin Time 15.0 H Prothrombin Time Ratio 1.2 INR International Normalized Ratio 1.17 Activated Partial Thromboplast Time 43.3 H Sodium Level 140 Potassium Level 3.7 Chloride Level 105 Carbon Dioxide Level 25 Anion Gap 10 Blood Urea Nitrogen 15 Creatinine 2.43 H Est Glomerular Filtrat Rate mL/min 27 L Glucose Level 72 Hemoglobin A1c 4.9 Calcium Level 8.5 Phosphorus Level 2.9 Magnesium Level 2.4 Total Bilirubin 0.2 Direct Bilirubin 0.00 Indirect Bilirubin 0.2 Aspartate Amino Transf (AST/SGOT) 27 Alanine Aminotransferase (ALT/SGPT) 21 Alkaline Phosphatase 100 Ammonia < 9 L Total Protein 6.3 Albumin 2.8 L Globulin 3.50 H Albumin/Globulin Ratio 0.80 Medications Current Medications IV Flush (NS 3 ml) 3 ml PER PROTOCOL IV ; Start 05/16/18 at 05:30 Hydromorphone HCl (Dilaudid) 0.5 mg Q4H PRN IV .SEVERE PAIN 7-10; Start 05/16/18 at 05:30 Vancomycin HCl (Vanco Iv Per Pharmacy) VANCOMYCIN PER PHARMACY PER PROTOCOL XX ; Start 05/16/18 at 05:30 Famotidine (Pepcid Iv) 20 mg DAILY IV Last administered on 05/17/18at 09:10; Admin Dose 20 MG; Start 05/17/18 at 09:00 Apixaban (Eliquis) 2.5 mg BID PO Last administered on 05/17/18 09:10; Admin Dose 2.5 MG; Start 05/16/18 at 11:30 Carvedilol (Coreg) 6.25 mg BID PO Last administered on 05/17/18 09:10; Admin Dose 6.25 MG; Start 05/16/18 at 11:30 Piperacillin Sod/ Tazobactam Sod 50 ml @ 100 mls/hr Q8 IVPB Last administered on 05/17/18 05:26; Admin Dose 100 MLS/HR; Start 05/16/18 at 15:00 Amlodipine Besylate (Norvasc) 10 mg DAILY NGT Last administered on 05/17/18 09:09; Admin Dose 10 MG; Start 05/17/18 at 09:00 Losartan Potassium (Cozaar) 100 mg DAILY PO Last administered on 05/17/18 09:10; Admin Dose 100 MG; Start 05/17/18 at 09:00 Assessment/Plan Hospital Course (Demo Recall) IMPRESSION: 1. Status post hypoxemic respiratory failure secondary to possible volume overload and pneumonia. Left pleural effusion on x-ray today. 2. Ischemic cardiomyopathy. 3. End-stage renal failure. RECOMMENDATIONS: 1. Extubation and incentive spirometry. 2. Advance diet as tolerated. 3. Physical therapy eval. 4. Hemodialysis per Nephrology. 5. DVT and GI prophylaxis. 6. Thoracentesis right pleural effusion. Stable for transfer to telemetry. Critical care time 40 minutes. LALIT TYLER MD, [facility] May 17, 2018 12:27
--- NOTE | 2018-05-17 16:04 | CONS ---
Assessment/Plan Assessment/Plan Hospital Course (Demo Recall) Chronic afib with RVR: Rates controlled. Will be on Eliquis once procedures are completed Acute on chronic systolic CHF/cardiomyopathy: EF at [facility] 35%, here 40-45%. Possible ischemic component vs tachycardia induced. Currently not a candidate for cardiac cath as he did not have ACS/MO and we need to see if his mentation improves to provide any real custodial benefit. Acute on chronic respiratory failure: due to CHF. Now extubated 05/17 ESRD on HD Alcoholic liver cirrhosis HTN -coreg 6.25mg BID -losartan 100mg -amlodipine 10mg -hold Eliquis 2.5mg BID until thoracentesis is completed -no statin with liver cirrhosis unless proven CAD or ACS -ischemia workup depending on recovery of mental status, can also be done as outpt Consultation Date/Type/Reason Admit Date/Time May 16, 2018 at 04:30 Initial Consult Date 05/16/18 Type of Consult Cardiology Requesting Provider: MYRIAM WRAY NP Date/Time of Note DATE: 05/17/18 TIME: 16:02 24 HR Interval Summary Free Text/Dictation Extubated this am. Doing well. Pleasantly confused. Exam/Review of Systems Exam Vitals Vital Signs Date Temp Pulse Resp B/P (MAP) Pulse Ox O2 O2 Flow FiO2 Time Delivery Rate 05/17/18 88 15 147/79 100 Room Air 13:00 (101) 05/17/18 97.7 12:00 05/16/18 3.0 16:00 05/16/18 30 13:34 Intake and Output 05/16/18 05/16/18 05/17/18 1515:00 23:00 07:00 IntakeIntake Total 150 ml 100 ml 0 ml OutputOutput Total 0 ml 2500 ml 0 ml BalanceBalance 150 ml -2400 ml 0 ml Constitutional: alert; No oriented Neck: supple; No jvd Respiratory: diminished breath sounds; No clear to auscultation Cardiovascular: systolic murmur (2/6 LARRY); No regular rate and rhythm (IRIR), No edema Gastrointestinal: soft, non-tender; No distended Neurological: No nl mental status, No nl speech Results Result Diagram: 05/17/18 0434 05/17/18 0434 Results 24hrs Laboratory Tests Test 05/17/18 04:34 White Blood Count 6.6 Red Blood Count 3.77 L Hemoglobin 10.2 L Hematocrit 33.2 L Mean Corpuscular Volume 88.1 Mean Corpuscular Hemoglobin 27.1 L Mean Corpuscular Hemoglobin Concent 30.7 L Red Cell Distribution Width 19.9 H Platelet Count 178 Mean Platelet Volume 9.0 Immature Granulocytes % 0.600 H Neutrophils % 80.5 H Lymphocytes % 8.4 L Monocytes % 8.1 Eosinophils % 1.8 Basophils % 0.6 Nucleated Red Blood Cells % 0.0 Immature Granulocytes # 0.040 H Neutrophils # 5.3 Lymphocytes # 0.6 L Monocytes # 0.5 Eosinophils # 0.1 Basophils # 0.0 Nucleated Red Blood Cells # 0.0 Prothrombin Time 15.0 H Prothrombin Time Ratio 1.2 INR International Normalized Ratio 1.17 Activated Partial Thromboplast Time 43.3 H Sodium Level 140 Potassium Level 3.7 Chloride Level 105 Carbon Dioxide Level 25 Anion Gap 10 Blood Urea Nitrogen 15 Creatinine 2.43 H Est Glomerular Filtrat Rate mL/min 27 L Glucose Level 72 Hemoglobin A1c 4.9 Calcium Level 8.5 Phosphorus Level 2.9 Magnesium Level 2.4 Total Bilirubin 0.2 Direct Bilirubin 0.00 Indirect Bilirubin 0.2 Aspartate Amino Transf (AST/SGOT) 27 Alanine Aminotransferase (ALT/SGPT) 21 Alkaline Phosphatase 100 Ammonia < 9 L Total Protein 6.3 Albumin 2.8 L Globulin 3.50 H Albumin/Globulin Ratio 0.80 Medications Medication Current Medications IV Flush (NS 3 ml) 3 ml PER PROTOCOL IV ; Start 05/16/18 at 05:30 Hydromorphone HCl (Dilaudid) 0.5 mg Q4H PRN IV .SEVERE PAIN 7-10; Start 05/16/18 at 05:30 Vancomycin HCl (Vanco Iv Per Pharmacy) VANCOMYCIN PER PHARMACY PER PROTOCOL XX ; Start 05/16/18 at 05:30 Famotidine (Pepcid Iv) 20 mg DAILY IV Last administered on 05/17/18at 09:10; Admin Dose 20 MG; Start 05/17/18 at 09:00 Apixaban (Eliquis) 2.5 mg BID PO Last administered on 05/17/18at 09:10; Admin Dose 2.5 MG; Start 05/16/18 at 11:30 Carvedilol (Coreg) 6.25 mg BID PO Last administered on 05/17/18 09:10; Admin Dose 6.25 MG; Start 05/16/18 at 11:30 Piperacillin Sod/ Tazobactam Sod 50 ml @ 100 mls/hr Q8 IVPB Last administered on 05/17/18 13:30; Admin Dose 100 MLS/HR; Start 05/16/18 at 15:00 Amlodipine Besylate (Norvasc) 10 mg DAILY NGT Last administered on 05/17/18 09:09; Admin Dose 10 MG; Start 05/17/18 at 09:00 Losartan Potassium (Cozaar) 100 mg DAILY PO Last administered on 05/17/18 09:10; Admin Dose 100 MG; Start 05/17/18 at 09:00 GERARDO STALLWORTH May 17, 2018 16:04
[2018-05-17] MEDS ORDERED: LIDOCAINE 1% (MPF) 5 ML VIAL ONE (19:46)
[2018-05-18] VITALS (27 sets, daily range): BP systolic 118–188; BP diastolic 56–85; PULSE 73–109; RESP 16–22
[2018-05-18] MEDS: PIPER-TAZO 2.25 GM (PMX) 50 ML IVPB SCH ×4 (00:10→22:16)
[2018-05-18] MEDS ORDERED: LORAZEPAM 2 MG INJ IV PRN (06:00)
--- NOTE | 2018-05-18 07:56 | PN ---
Date/Time of Note Date/Time of Note DATE: 05/18/18 TIME: 07:54 Assessment/Plan VTE Prophylaxis Risk score (from Ns)>0 risk: 8 SCD applied (from Ns): Yes Pharmacological prophylaxis: apixaban Lines/Catheters IV Catheter Type (from [facility]): Permacath Urinary Cath still in place: No Assessment/Plan Hospital Course SUBJECTIVE: The patient was extubated on 05/16/2018. The patient is awake and alert. Follows commands. Denies any pain. OBJECTIVE: Physical Exam General: Adequately build 67 year-old male lying in bed in no apparent distress. HEENT: Normocephalic, atraumatic. Eyes: Anicteric sclerae, conjunctivae clear. ENT: Nasal septum midline, oral mucosa is dry. Neck supple. Respiratory: Bilaterally diminished breath sounds. No use of accessory muscles of respiration. No adventitious breath sounds. Cardiovascular: S1, S2 heard. Irregular. Abdomen: Soft, nontender, and nondistended. Bowel sounds positive in all 4 quadrants. Genitourinary: Deferred. Extremities: No cyanosis, no clubbing, no edema. Peripheral pulses palpable. Neurologic: Patient is awake and alert. Moves all 4 extremities. Follows commands. Labs & Vitals per chart ASSESSMENT & PLAN 67-year-old male with comorbidities including paroxysmal atrial fibrillation, hypertension, cirrhosis, end-stage renal disease on hemodialysis, and substance abuse. The patient was transferred from [facility] where he was intubated for respiratory failure. The patient was transferred to [facility] because of insurance reasons. 1. Acute respiratory failure. -Hypoxic. -Etiology could be multifactorial including underlying congestive heart failure and possible underlying pneumonia. -S/P intubation at the transferring facility. Extubated on 05/16/2018. -Continue inhaled bronchodilators. -Empiric antimicrobials for any aspiration pneumonitis. 2. Paroxysmal atrial fibrillation. -Started on Eliquis for stroke prophylaxis. -Cardiology following. 3. Acute on chronic congestive heart failure exacerbation, systolic dysfunction. -Continue ultrafiltration. 4. End-stage renal disease on hemodialysis. -Hemodialysis as per nephrology. 5. Cardiomyopathy. -Ejection fraction of 40-45% -Continue the patient on beta-blockers and ARB's. 6. Hypertension -Continue antihypertensives. 7. History of liver cirrhosis. 8. Dysphagia. -NPO. 9. Normocytic anemia -Most probably anemia chronic disease. -Monitor H&H closely. 10. Right pleural effusion. -Status post right-sided thoracentesis with drainage of 1 L of fluid on 05/17/2018. 11. Right-sided pneumothorax status post thoracentesis. -Improving with conservative management. 12. Fluids, electrolytes, and nutrition. -NPO. 13. DVT prophylaxis. -Factor Xa inhibitors. 14. Plan. -Continue antimicrobials. -Physical therapy evaluation. -Continue cardiology recommendations. -Continue speech therapy. The patient was seen in collaboration with Dr. Medina. Result Diagram: 05/18/1851805/18/18518 Results 24hrs Laboratory Tests Test 05/17/18 17:45 05/18/18 05:19 Body Fluid Type PLEURAL FLUID Body Fluid Volume 950.0 Body Fluid Color YELLOW Body Fluid Appearance SLIGHTLY HAZY Body Fluid WBC 76 Body Fluid RBC (Auto) 0 Body Fluid Polynuclear WBCs (%) 10.6 Body Fluid Mononuclear Cells % Auto 89.4 Body Fluid Glucose 66 Body Fluid Total Protein 2.2 Body Fluid Lactate Dehydrogenase 376 White Blood Count 9.7 # Red Blood Count 4.39 L Hemoglobin 12.2 L Hematocrit 39.4 L Mean Corpuscular Volume 89.7 Mean Corpuscular Hemoglobin 27.8 L Mean Corpuscular Hemoglobin Concent 31.0 L Red Cell Distribution Width 19.9 H Platelet Count 240 # Mean Platelet Volume 9.2 Immature Granulocytes % 0.800 H Neutrophils % 77.8 H Lymphocytes % 12.6 L Monocytes % 7.5 Eosinophils % 0.4 Basophils % 0.9 Nucleated Red Blood Cells % 0.0 Immature Granulocytes # 0.080 H Neutrophils # 7.6 H Lymphocytes # 1.2 Monocytes # 0.7 Eosinophils # 0.0 Basophils # 0.1 Nucleated Red Blood Cells # 0.0 Sodium Level 141 Potassium Level 4.2 Chloride Level 107 Carbon Dioxide Level 17 L Anion Gap 17 #H Blood Urea Nitrogen 29 #H Creatinine 3.61 #H Est Glomerular Filtrat Rate mL/min 17 L Glucose Level 59 #L Calcium Level 9.0 Phosphorus Level 5.3 #H Magnesium Level 2.7 H Exam/Review of Systems Exam Vitals Vital Signs Date Temp Pulse Resp B/P (MAP) Pulse Ox O2 O2 Flow FiO2 Time Delivery Rate 05/18/18 108 04:00 05/18/18 98.5 18 124/60 98 04:00 (81) 2/21/19 Room Air 18:44 05/17/18 2.0 07:00 05/16/18 30 13:34 Intake and Output 05/17/18 05/17/18 05/18/18 1515:00 23:00 07:00 IntakeIntake Total 90 ml 50 ml OutputOutput Total 0 ml BalanceBalance 90 ml 50 ml Results Results 24hrs Laboratory Tests Test 05/17/18 17:45 05/18/18 05:19 Body Fluid Type PLEURAL FLUID Body Fluid Volume 950.0 Body Fluid Color YELLOW Body Fluid Appearance SLIGHTLY HAZY Body Fluid WBC 76 Body Fluid RBC (Auto) 0 Body Fluid Polynuclear WBCs (%) 10.6 Body Fluid Mononuclear Cells % Auto 89.4 Body Fluid Glucose 66 Body Fluid Total Protein 2.2 Body Fluid Lactate Dehydrogenase 376 White Blood Count 9.7 # Red Blood Count 4.39 L Hemoglobin 12.2 L Hematocrit 39.4 L Mean Corpuscular Volume 89.7 Mean Corpuscular Hemoglobin 27.8 L Mean Corpuscular Hemoglobin Concent 31.0 L Red Cell Distribution Width 19.9 H Platelet Count 240 # Mean Platelet Volume 9.2 Immature Granulocytes % 0.800 H Neutrophils % 77.8 H Lymphocytes % 12.6 L Monocytes % 7.5 Eosinophils % 0.4 Basophils % 0.9 Nucleated Red Blood Cells % 0.0 Immature Granulocytes # 0.080 H Neutrophils # 7.6 H Lymphocytes # 1.2 Monocytes # 0.7 Eosinophils # 0.0 Basophils # 0.1 Nucleated Red Blood Cells # 0.0 Sodium Level 141 Potassium Level 4.2 Chloride Level 107 Carbon Dioxide Level 17 L Anion Gap 17 #H Blood Urea Nitrogen 29 #H Creatinine 3.61 #H Est Glomerular Filtrat Rate mL/min 17 L Glucose Level 59 #L Calcium Level 9.0 Phosphorus Level 5.3 #H Magnesium Level 2.7 H Medications Medication Current Medications IV Flush (NS 3 ml) 3 ml PER PROTOCOL IV ; Start 05/16/18 at 05:30 Hydromorphone HCl (Dilaudid) 0.5 mg Q4H PRN IV .SEVERE PAIN 7-10; Start 05/16/18 at 05:30 Vancomycin HCl (Vanco Iv Per Pharmacy) VANCOMYCIN PER PHARMACY PER PROTOCOL XX ; Start 05/16/18 at 05:30 Famotidine (Pepcid Iv) 20 mg DAILY IV Last administered on 05/17/18 09:10; Admin Dose 20 MG; Start 05/17/18 at 09:00 Carvedilol (Coreg) 6.25 mg BID PO Last administered on 05/17/18 09:10; Admin Dose 6.25 MG; Start 05/16/18 at 11:30 Piperacillin Sod/ Tazobactam Sod 50 ml @ 100 mls/hr Q8 IVPB Last administered on 05/18/18 00:10; Admin Dose 100 MLS/HR; Start 05/16/18 at 15:00 Amlodipine Besylate (Norvasc) 10 mg DAILY NGT Last administered on 05/17/18 09 :09; Admin Dose 10 MG; Start 05/17/18 at 09:00 Losartan Potassium (Cozaar) 100 mg DAILY PO Last administered on 05/17/18 09:10; Admin Dose 100 MG; Start 05/17/18 at 09:00 Lorazepam (Ativan) 0.5 mg ONCE PRN IV agitation; Start 05/18/18 at 06:00; Stop 05/18/18 at 10:00 MYRIAM WRAY NP May 18, 2018 07:56
--- NOTE | 2018-05-18 08:16 | PN ---
DATE: 05/18/2018 SUBJECTIVE: The patient was transferred from the intensive care unit to telemetry. No other events noted. The patient remains confused. NG tube was out. Pending replacement. No other events noted. OBJECTIVE: VITAL SIGNS: Blood pressure is 124/80, respirations 18, pulse 108, temperature 98.5. HEENT: Head is normocephalic. NECK: Supple. HEART: Regular rate. LUNGS: Show diminished breath sounds at the base. ABDOMEN: Soft, nontender to palpation without rebound or guarding. EXTREMITIES: Negative for clubbing, cyanosis, no edema. DERMATOLOGIC: No rashes. MUSCULOSKELETAL: No joint effusion. NEUROLOGIC: No change in exam. MEDICATIONS: The patient's medications have been reviewed. LABORATORY DATA: Shows a white count 9.7, hemoglobin 12.2, platelet count 240. Sodium 141, potassiu m 4.2, BUN 29, creatinine 3.61, phosphorus 5.3, magnesium 2.7. ASSESSMENT AND PLAN: 1. End-stage renal disease. The patient had hemodialysis yesterday, tolerated well. Plan is for di alysis again today. We will dialyze 3 hours 3k bath, calcium 2.5, ultrafiltrate as tolerated. 2. Anemia. Monitor hemoglobin and hematocrit levels. Continue Epogen. 3. Mineral bone disorder. Monitor calcium and phosphorus levels. 4. Hypertension. Blood pressure has improved. Continue blood pressure regimen. Continue ultrafilt ration with hemodialysis. 5. Respiratory failure, currently status post extubation, stable. Continue to monitor. 6. Volume overload secondary to end-stage renal disease. Continue ultrafiltration dialysis. 7. Heart failure possible ischemic. Continue to monitor. Follow up with Cardiology. 8. Sepsis secondary to pneumonia. Continue current antibiotic regimen. 9. Acute encephalopathy and dementia, etiology is toxic metabolic. 10. Chronic atrial fibrillation. Continue medical management. Dictated By: SHERRY CONCEPCION DO NR/NTS Conf#: [id number] DID#: [id number] CC: GERARDO STALLWORTH MD; DILIP OSUNA MD; SHERRY CONCEPCOIN DO;*EndCC*
[2018-05-18] MEDS: LOSARTAN 25 MG TAB PO SCH (09:00)
[2018-05-18] MEDS: AMLODIPINE 10 MG TAB NGT SCH (09:00)
[2018-05-18] MEDS: FAMOTIDINE 20 MG INJ IV SCH (09:26)
--- NOTE | 2018-05-18 10:03 | CONS ---
Assessment/Plan Assessment/Plan Hospital Course (Demo Recall) Chronic afib with RVR: Rates controlled. Will be on Eliquis once procedures are completed Acute on chronic systolic CHF/cardiomyopathy: EF at [facility] 35%, here 40-45%. Possible ischemic component vs tachycardia induced. Currently not a candidate for cardiac cath as he did not have ACS/NE and we need to see if his mentation improves to provide any real assisted benefit. Acute on chronic respiratory failure: due to CHF. Now extubated 05/17 ESRD on HD Alcoholic liver cirrhosis HTN -coreg 6.25mg BID -losartan 100mg -amlodipine 10mg -hold Eliquis 2.5mg BID. If pneumothorax stable and no chest tube needed, can restart tomorrow -no statin with liver cirrhosis unless proven CAD or ACS -ischemia workup depending on recovery of mental status, can also be done as outpt Consultation Date/Type/Reason Admit Date/Time May 16, 2018 at 04:30 Initial Consult Date 05/16/18 Type of Consult Cardiology Requesting Provider: MYRIAM WRAY NP Date/Time of Note DATE: 05/18/18 TIME: 10:01 24 HR Interval Summary Free Text/Dictation s/p thora with small pneumothorax. Confused overnight and pulled out NG tube. Not getting meds due to this. Remains confused Exam/Review of Systems Exam Vitals Vital Signs Date Temp Pulse Resp B/P (MAP) Pulse Ox O2 O2 Flow FiO2 Time Delivery Rate 05/18/18 105 08:43 05/18/18 98.0 22 142/65 Room Air 08:04 (90) 05/18/18 98 04:00 05/17/18 2.0 07:00 05/16/18 30 13:34 Intake and Output 05/17/18 05/17/18 05/18/18 1515:00 23:00 07:00 IntakeIntake Total 90 ml 50 ml OutputOutput Total 0 ml BalanceBalance 90 ml 50 ml Constitutional: alert; No oriented Head: normocephalic, atraumatic Neck: supple; No jvd Respiratory: diminished breath sounds; No clear to auscultation Cardiovascular: systolic murmur (2/6 LARRY); No regular rate and rhythm (IRIR), No edema Gastrointestinal: soft, non-tender Neurological: nl mental status, nl speech Results Result Diagram: 05/18/1851805/18/18518 Results 24hrs Laboratory Tests Test 05/17/18 17:45 05/18/18 05:19 Body Fluid Type PLEURAL FLUID Body Fluid Volume 950.0 Body Fluid Color YELLOW Body Fluid Appearance SLIGHTLY HAZY Body Fluid WBC 76 Body Fluid RBC (Auto) 0 Body Fluid Polynuclear WBCs (%) 10.6 Body Fluid Mononuclear Cells % Auto 89.4 Body Fluid Glucose 66 Body Fluid Total Protein 2.2 Body Fluid Lactate Dehydrogenase 376 White Blood Count 9.7 # Red Blood Count 4.39 L Hemoglobin 12.2 L Hematocrit 39.4 L Mean Corpuscular Volume 89.7 Mean Corpuscular Hemoglobin 27.8 L Mean Corpuscular Hemoglobin Concent 31.0 L Red Cell Distribution Width 19.9 H Platelet Count 240 # Mean Platelet Volume 9.2 Immature Granulocytes % 0.800 H Neutrophils % 77.8 H Lymphocytes % 12.6 L Monocytes % 7.5 Eosinophils % 0.4 Basophils % 0.9 Nucleated Red Blood Cells % 0.0 Immature Granulocytes # 0.080 H Neutrophils # 7.6 H Lymphocytes # 1.2 Monocytes # 0.7 Eosinophils # 0.0 Basophils # 0.1 Nucleated Red Blood Cells # 0.0 Sodium Level 141 Potassium Level 4.2 Chloride Level 107 Carbon Dioxide Level 17 L Anion Gap 17 #H Blood Urea Nitrogen 29 #H Creatinine 3.61 #H Est Glomerular Filtrat Rate mL/min 17 L Glucose Level 59 #L Calcium Level 9.0 Phosphorus Level 5.3 #H Magnesium Level 2.7 H Medications Medication Current Medications IV Flush (NS 3 ml) 3 ml PER PROTOCOL IV ; Start 05/16/18 at 05:30 Hydromorphone HCl (Dilaudid) 0.5 mg Q4H PRN IV .SEVERE PAIN 7-10; Start 05/16/18 at 05:30 Vancomycin HCl (Vanco Iv Per Pharmacy) VANCOMYCIN PER PHARMACY PER PROTOCOL XX ; Start 05/16/18 at 05:30 Famotidine (Pepcid Iv) 20 mg DAILY IV Last administered on 05/18/18at 09:26; Admin Dose 20 MG; Start 05/17/18 at 09:00 Carvedilol (Coreg) 6.25 mg BID PO Last administered on 05/17/18at 09:10; Admin Dose 6.25 MG; Start 05/16/18 at 11:30 Piperacillin Sod/ Tazobactam Sod 50 ml @ 100 mls/hr Q8 IVPB Last administered on 05/18/18at 09:20; Admin Dose 100 MLS/HR; Start 05/16/18 at 15:00 Amlodipine Besylate (Norvasc) 10 mg DAILY NGT Last administered on 05/17/18at 09:09; Admin Dose 10 MG; Start 05/17/18 at 09:00 Losartan Potassium (Cozaar) 100 mg DAILY PO Last administered on 05/17/18at 09:10; Admin Dose 100 MG; Start 05/17/18 at 09:00 GERARDO STALLWORTH May 18, 2018 10:03
--- NOTE | 2018-05-18 15:05 | CONS ---
Consult Date/Type/Reason Admit Date/Time May 16, 2018 at 04:30 Initial Consult Date 05/16/18 Type of Consult Pulmonary Requesting Provider: MYRIAM WRAY NP Date/Time of Note DATE: 05/18/18 TIME: 15:02 Subjective Remains stable, breathing better. Objective Vital Signs Date Temp Pulse Resp B/P (MAP) Pulse Ox O2 O2 Flow FiO2 Time Delivery Rate 05/18/18 101 130/66 13:04 (87) 05/18/18 98.4 20 96 Room Air 11:21 05/17/18 2.0 07:00 05/16/18 30 13:34 Intake and Output 05/17/18 05/17/18 05/18/18 1515:00 23:00 07:00 IntakeIntake Total 90 ml 50 ml OutputOutput Total 0 ml BalanceBalance 90 ml 50 ml Exam PHYSICAL EXAMINATION: GENERAL: Well-nourished, well-developed gentleman, comfortable at rest. VITAL SIGNS: NECK: Supple. No JVD. No lymphadenopathy. CARDIAC: S1, S2. No added sounds. No murmurs. CHEST: Diminished air entry bilaterally. ABDOMEN: Soft, nontender. No guarding or rebound. EXTREMITIES: No cyanosis, clubbing or edema. NEUROLOGIC: Generalized weakness. No focal deficits. Vent Setting Ventilator Support Mode: CPAP, PS, SPONT Fraction of Inspired Oxygen pe: 30 Positive End Expiratory Pressu: 5.0 Results/Medications Result Diagram: 05/18/1851805/18/18518 Results 24 hrs Laboratory Tests Test 05/17/18 17:45 05/18/18 05:19 Body Fluid Type PLEURAL FLUID Body Fluid Volume 950.0 Body Fluid Color YELLOW Body Fluid Appearance SLIGHTLY HAZY Body Fluid WBC 76 Body Fluid RBC (Auto) 0 Body Fluid Polynuclear WBCs (%) 10.6 Body Fluid Mononuclear Cells % Auto 89.4 Body Fluid Glucose 66 Body Fluid Total Protein 2.2 Body Fluid Lactate Dehydrogenase 376 White Blood Count 9.7 # Red Blood Count 4.39 L Hemoglobin 12.2 L Hematocrit 39.4 L Mean Corpuscular Volume 89.7 Mean Corpuscular Hemoglobin 27.8 L Mean Corpuscular Hemoglobin Concent 31.0 L Red Cell Distribution Width 19.9 H Platelet Count 240 # Mean Platelet Volume 9.2 Immature Granulocytes % 0.800 H Neutrophils % 77.8 H Lymphocytes % 12.6 L Monocytes % 7.5 Eosinophils % 0.4 Basophils % 0.9 Nucleated Red Blood Cells % 0.0 Immature Granulocytes # 0.080 H Neutrophils # 7.6 H Lymphocytes # 1.2 Monocytes # 0.7 Eosinophils # 0.0 Basophils # 0.1 Nucleated Red Blood Cells # 0.0 Sodium Level 141 Potassium Level 4.2 Chloride Level 107 Carbon Dioxide Level 17 L Anion Gap 17 #H Blood Urea Nitrogen 29 #H Creatinine 3.61 #H Est Glomerular Filtrat Rate mL/min 17 L Glucose Level 59 #L Calcium Level 9.0 Phosphorus Level 5.3 #H Magnesium Level 2.7 H Medications Current Medications IV Flush (NS 3 ml) 3 ml PER PROTOCOL IV ; Start 05/16/18 at 05:30 Hydromorphone HCl (Dilaudid) 0.5 mg Q4H PRN IV .SEVERE PAIN 7-10; Start 05/16/18 at 05:30 Vancomycin HCl (Vanco Iv Per Pharmacy) VANCOMYCIN PER PHARMACY PER PROTOCOL XX ; Start 05/16/18 at 05:30 Famotidine (Pepcid Iv) 20 mg DAILY IV Last administered on 05/18/18at 09:26; Admin Dose 20 MG; Start 05/17/18 at 09:00 Carvedilol (Coreg) 6.25 mg BID PO Last administered on 05/17/18at 09:10; Admin Dose 6.25 MG; Start 05/16/18 at 11:30 Piperacillin Sod/ Tazobactam Sod 50 ml @ 100 mls/hr Q8 IVPB Last administered on 05/18/18at 09:20; Admin Dose 100 MLS/HR; Start 05/16/18 at 15:00 Amlodipine Besylate (Norvasc) 10 mg DAILY NGT Last administered on 05/17/18at 09:09; Admin Dose 10 MG; Start 05/17/18 at 09:00 Losartan Potassium (Cozaar) 100 mg DAILY PO Last administered on 05/17/18at 09:10; Admin Dose 100 MG; Start 05/17/18 at 09:00 Assessment/Plan Hospital Course (Demo Recall) IMPRESSION: 1. Status post hypoxemic respiratory failure secondary to possible volume overload and pneumonia. s/p left thoracentesis. 2. Ischemic cardiomyopathy. 3. End-stage renal failure. RECOMMENDATIONS: 1. Extubation and incentive spirometry. 2. Advance diet as tolerated. 3. Physical therapy eval. 4. Hemodialysis per Nephrology. 5. DVT and GI prophylaxis. 6. pleural fluid studies noted. Cytology pending. Stable for transfer to telemetry. Critical care time 40 minutes. LALIT TYLER MD, [facility] May 18, 2018 15:05
[2018-05-18] MEDS ORDERED: HEPARIN 1000 UNITS/ML 10 ML INJ CATHETER SCH (20:30)
[2018-05-19] VITALS (11 sets, daily range): BP systolic 142–198; BP diastolic 71–88; PULSE 87–99; RESP 16–22
[2018-05-19] MEDS: PIPER-TAZO 2.25 GM (PMX) 50 ML IVPB SCH ×3 (05:20→22:46)
[2018-05-19] MEDS: AMLODIPINE 10 MG TAB NGT SCH (08:16)
[2018-05-19] MEDS: LOSARTAN 25 MG TAB PO SCH (08:16)
--- NOTE | 2018-05-19 08:16 | PN ---
Date/Time of Note Date/Time of Note DATE: 05/19/18 TIME: 08:16 Assessment/Plan VTE Prophylaxis Risk score (from Nsg)>0 risk: 8 SCD applied (from Nsg): Yes Pharmacological prophylaxis: apixaban Lines/Catheters IV Catheter Type (from Nrsg): permacath Urinary Cath still in place: No Assessment/Plan Hospital Course SUBJECTIVE: The patient is awake and alert. Follows commands. Denies any pain. OBJECTIVE: Physical Exam General: Adequately build 67 year-old male lying in bed in no apparent distress. HEENT: Normocephalic, atraumatic. Eyes: Anicteric sclerae, conjunctivae clear. ENT: Nasal septum midline, oral mucosa is dry. Neck supple. Respiratory: Bilaterally diminished breath sounds. No use of accessory muscles of respiration. No adventitious breath sounds. Cardiovascular: S1, S2 heard. Irregular. Abdomen: Soft, nontender, and nondistended. Bowel sounds positive in all 4 quadrants. Genitourinary: Deferred. Extremities: No cyanosis, no clubbing, no edema. Peripheral pulses palpable. Neurologic: Patient is awake and alert. Moves all 4 extremities. Follows commands. Labs & Vitals per chart ASSESSMENT & PLAN 67-year-old male with comorbidities including paroxysmal atrial fibrillation, hypertension, cirrhosis, end-stage renal disease on hemodialysis, and substance abuse. The patient was transferred from [facility] where he was intubated for respiratory failure. The patient was transferred to [facility] because of insurance reasons. 1. Acute respiratory failure. -Hypoxic. -Etiology could be multifactorial including underlying congestive heart failure and possible underlying pneumonia. -S/P intubation at the transferring facility. Extubated on 05/16/2018. -Continue inhaled bronchodilators. 2. Paroxysmal atrial fibrillation. -Started on Eliquis for stroke prophylaxis. -Cardiology following. 3. Acute on chronic congestive heart failure exacerbation, systolic dysfunction. -Continue ultrafiltration. 4. End-stage renal disease on hemodialysis. -Hemodialysis as per nephrology. 5. Cardiomyopathy. -Ejection fraction of 40-45% -Continue the patient on beta-blockers and ARB's. 6. Hypertension -Continue antihypertensives. 7. History of liver cirrhosis. 8. Dysphagia. -Pured diet. 9. Normocytic anemia -Most probably anemia chronic disease. -Monitor H&H closely. 10. Right pleural effusion. -Status post right-sided thoracentesis with drainage of 1 L of fluid on 05/17. 11. Right-sided pneumothorax status post thoracentesis. -Improving with conservative management. 12. Fluids, electrolytes, and nutrition. -Pured diet. 13. DVT prophylaxis. -Factor Xa inhibitors. 14. Plan. -Continue antimicrobials. -Continue cardiology recommendations. -Poor progress with physical therapy. -May need placement upon discharge. The patient was seen in collaboration with Dr. Medina. Result Diagram: 05/19/1819 05/19/1819 Results 24hrs Laboratory Tests Test 05/19/18 05:19 White Blood Count 6.1 # Red Blood Count 3.82 L Hemoglobin 10.3 L Hematocrit 33.4 L Mean Corpuscular Volume 87.4 Mean Corpuscular Hemoglobin 27.0 L Mean Corpuscular Hemoglobin Concent 30.8 L Red Cell Distribution Width 19.7 H Platelet Count 237 Mean Platelet Volume 8.9 Immature Granulocytes % 0.700 H Neutrophils % 69.1 Lymphocytes % 16.0 Monocytes % 10.6 Eosinophils % 2.8 Basophils % 0.8 Nucleated Red Blood Cells % 0.0 Immature Granulocytes # 0.040 H Neutrophils # 4.2 Lymphocytes # 1.0 Monocytes # 0.6 Eosinophils # 0.2 Basophils # 0.1 Nucleated Red Blood Cells # 0.0 Sodium Level 138 Potassium Level 3.7 Chloride Level 102 Carbon Dioxide Level 24 Anion Gap 12 Blood Urea Nitrogen 17 # Creatinine 2.95 H Est Glomerular Filtrat Rate mL/min 21 L Glucose Level 75 Calcium Level 9.0 Phosphorus Level 4.1 Magnesium Level 2.3 Random Vancomycin Level 10.4 Exam/Review of Systems Exam Vitals Vital Signs Date Temp Pulse Resp B/P (MAP) Pulse Ox O2 O2 Flow FiO2 Time Delivery Rate 05/19/18 98.4 99 19 198/88 96 07:31 (124) 05/18/18 Room Air 20:57 05/17/18 2.0 07:00 05/16/18 30 13:34 Intake and Output 05/18/18 05/18/18 05/19/18 1515:00 23:00 07:00 IntakeIntake Total 150 ml 50 ml OutputOutput Total 2600 ml 0 ml BalanceBalance -2450 ml 50 ml Results Results 24hrs Laboratory Tests Test 05/19/18 05:19 White Blood Count 6.1 # Red Blood Count 3.82 L Hemoglobin 10.3 L Hematocrit 33.4 L Mean Corpuscular Volume 87.4 Mean Corpuscular Hemoglobin 27.0 L Mean Corpuscular Hemoglobin Concent 30.8 L Red Cell Distribution Width 19.7 H Platelet Count 237 Mean Platelet Volume 8.9 Immature Granulocytes % 0.700 H Neutrophils % 69.1 Lymphocytes % 16.0 Monocytes % 10.6 Eosinophils % 2.8 Basophils % 0.8 Nucleated Red Blood Cells % 0.0 Immature Granulocytes # 0.040 H Neutrophils # 4.2 Lymphocytes # 1.0 Monocytes # 0.6 Eosinophils # 0.2 Basophils # 0.1 Nucleated Red Blood Cells # 0.0 Sodium Level 138 Potassium Level 3.7 Chloride Level 102 Carbon Dioxide Level 24 Anion Gap 12 Blood Urea Nitrogen 17 # Creatinine 2.95 H Est Glomerular Filtrat Rate mL/min 21 L Glucose Level 75 Calcium Level 9.0 Phosphorus Level 4.1 Magnesium Level 2.3 Random Vancomycin Level 10.4 Medications Medication Current Medications IV Flush (NS 3 ml) 3 ml PER PROTOCOL IV ; Start 05/16/18 at 05:30 Hydromorphone HCl (Dilaudid) 0.5 mg Q4H PRN IV .SEVERE PAIN 7-10; Start 05/16/18 at 05:30 Vancomycin HCl (Vanco Iv Per Pharmacy) VANCOMYCIN PER PHARMACY PER PROTOCOL XX ; Start 05/16/18 at 05:30 Famotidine (Pepcid Iv) 20 mg DAILY IV Last administered on 05/18/18at 09:26; Admin Dose 20 MG; Start 05/17/18 at 09:00 Carvedilol (Coreg) 6.25 mg BID PO Last administered on 05/18/18at 22:15; Admin Dose 6.25 MG; Start 05/16/18 at 11:30 Piperacillin Sod/ Tazobactam Sod 50 ml @ 100 mls/hr Q8 IVPB Last administered on 05/19/18at 05:20; Admin Dose 100 MLS/HR; Start 05/16/18 at 15:00 Amlodipine Besylate (Norvasc) 10 mg DAILY NGT Last administered on 05/17/18at 09:09; Admin Dose 10 MG; Start 05/17/18 at 09:00 Losartan Potassium (Cozaar) 100 mg DAILY PO Last administered on 05/17/18at 09:10; Admin Dose 100 MG; Start 05/17/18 at 09:00 MYRIAM WRAY NP May 19, 2018 08:16
[2018-05-19] MEDS: FAMOTIDINE 20 MG INJ IV SCH (08:17)
[2018-05-19] MEDS ORDERED: VANCOMYCIN 1 GM 250 ML IVPB ONE (10:00)
--- NOTE | 2018-05-19 10:51 | CONS ---
Consult Date/Type/Reason Admit Date/Time May 16, 2018 at 04:30 Initial Consult Date 05/16/18 Requesting Provider: MYRIAM WRAY DIRECTOR OF AGRONOMY Date/Time of Note DATE: 05/19/18 TIME: 10:50 Subjective The patient remains confused. tolerated hd last night. poc reviewed with dr. chandler and hd nurse. OBJECTIVE: HEENT: Head is normocephalic. NECK: Supple. HEART: Regular rate. LUNGS: Show diminished breath sounds at the base. ABDOMEN: Soft, nontender to palpation without rebound or guarding. EXTREMITIES: Negative for clubbing, cyanosis, no edema. DERMATOLOGIC: No rashes. MUSCULOSKELETAL: No joint effusion. NEUROLOGIC: No change in exam. Objective Vitals Vital Signs Date Temp Pulse Resp B/P (MAP) Pulse Ox O2 O2 Flow FiO2 Time Delivery Rate 05/19/18 99 147/71 10:15 (96) 05/19/18 98.4 19 96 07:31 05/18/18 Room Air 20:57 05/17/18 2.0 07:00 05/16/18 30 13:34 Intake and Output 05/18/18 05/18/18 05/19/18 1515:00 23:00 07:00 IntakeIntake Total 150 ml 50 ml OutputOutput Total 2600 ml 0 ml BalanceBalance -2450 ml 50 ml Results/Medications Result Diagram: 05/19/1851805/19/18518 Results 24 hrs Laboratory Tests Test 05/19/18 05:19 White Blood Count 6.1 # Red Blood Count 3.82 L Hemoglobin 10.3 L Hematocrit 33.4 L Mean Corpuscular Volume 87.4 Mean Corpuscular Hemoglobin 27.0 L Mean Corpuscular Hemoglobin Concent 30.8 L Red Cell Distribution Width 19.7 H Platelet Count 237 Mean Platelet Volume 8.9 Immature Granulocytes % 0.700 H Neutrophils % 69.1 Lymphocytes % 16.0 Monocytes % 10.6 Eosinophils % 2.8 Basophils % 0.8 Nucleated Red Blood Cells % 0.0 Immature Granulocytes # 0.040 H Neutrophils # 4.2 Lymphocytes # 1.0 Monocytes # 0.6 Eosinophils # 0.2 Basophils # 0.1 Nucleated Red Blood Cells # 0.0 Sodium Level 138 Potassium Level 3.7 Chloride Level 102 Carbon Dioxide Level 24 Anion Gap 12 Blood Urea Nitrogen 17 # Creatinine 2.95 H Est Glomerular Filtrat Rate mL/min 21 L Glucose Level 75 Calcium Level 9.0 Phosphorus Level 4.1 Magnesium Level 2.3 Random Vancomycin Level 10.4 Home Meds Active Scripts Naproxen* (Naproxen*) 500 Mg Tablet, 500 MG PO BID PRN for PAIN AND/OR INFLAMMATION, #60 TAB Prov:JONY FIGUEROA MD 08/07/17 Cephalexin* (Cephalexin*) 500 Mg Capsule, 500 MG PO Q12 for 7 Days, #14 CAP Prov:JONY CARRION 10/16/16 Clonidine Hcl* (Catapres*) 0.1 Mg Tablet, 0.1 MG PO Q12 for 30 Days, #60 TAB 2 Refills Prov:JONY CARRION 10/16/16 Amlodipine Besylate* (Amlodipine Besylate*) 2.5 Mg Tablet, 2.5 MG PO BID for 30 Days, #60 TAB Prov:JONY CARRION 10/16/16 Pantoprazole* (Pantoprazole*) 40 Mg Tablet.dr, 40 MG PO BID@,18 for 30 Days, #60 2 Refills Prov:JONY CARRION 10/16/16 Benazepril Hcl* (Benazepril Hcl*) 20 Mg Tablet, 20 MG PO DAILY for 30 Days, #30 TAB 2 Refills Prov:JONY CARRION 10/16/16 Tamsulosin Hcl* (Flomax*) 0.4 Mg Cap.er.24h, 0.4 MG PO HS for 30 Days, #30 CAP 2 Refills Prov:JONY CARRION 10/16/16 Medications Current Medications IV Flush (NS 3 ml) 3 ml PER PROTOCOL IV ; Start 05/16/18 at 05:30 Hydromorphone HCl (Dilaudid) 0.5 mg Q4H PRN IV .SEVERE PAIN 7-10; Start 05/16/18 at 05:30 Vancomycin HCl (Vanco Iv Per Pharmacy) VANCOMYCIN PER PHARMACY PER PROTOCOL XX ; Start 05/16/18 at 05:30 Famotidine (Pepcid Iv) 20 mg DAILY IV Last administered on 05/19/18at 08:17; Admin Dose 20 MG; Start 05/17/18 at 09:00 Carvedilol (Coreg) 6.25 mg BID PO Last administered on 05/19/18at 08:16; Admin Dose 6.25 MG; Start 05/16/18 at 11:30 Piperacillin Sod/ Tazobactam Sod 50 ml @ 100 mls/hr Q8 IVPB Last administered on 05/19/18at 05:20; Admin Dose 100 MLS/HR; Start 05/16/18 at 15:00 Amlodipine Besylate (Norvasc) 10 mg DAILY NGT Last administered on 05/19/18at 08:16; Admin Dose 10 MG; Start 05/17/18 at 09:00 Losartan Potassium (Cozaar) 100 mg DAILY PO Last administered on 05/19/18at 08:16; Admin Dose 100 MG; Start 05/17/18 at 09:00 Vancomycin HCl 250 ml @ 125 mls/hr ONCE ONCE IVPB ; Start 05/19/18 at 10:00; Stop 05/19/18 at 11:59 Assessment/Plan Hospital Course (Demo Recall) 1. End-stage renal disease. The patient had hemodialysis yesterday, tolerated well. Plan is for dialysis again tomorrow. We will dialyze 3 hours 3k bath, calcium 2.5, ultrafiltrate as tolerated. 2. Anemia. Monitor hemoglobin and hematocrit levels. Continue Epogen. 3. Mineral bone disorder. Monitor calcium and phosphorus levels. 4. Hypertension. Blood pressure has improved. Continue blood pressure re gimen. Continue ultrafiltration with hemodialysis. 5. Respiratory failure, currently status post extubation, stable. Continue to monitor. 6. Volume overload secondary to end-stage renal disease. Continue ultrafiltration dialysis. 7. Heart failure possible ischemic. Continue to monitor. Follow up with Cardiology. 8. Sepsis secondary to pneumonia. Continue current antibiotic regimen. 9. Acute encephalopathy and dementia, etiology is toxic metabolic. 10. Chronic atrial fibrillation. Continue medical management. JOSE M AVERY MD May 19, 2018 10:51
--- NOTE | 2018-05-19 11:52 | CONS ---
Consult Date/Type/Reason Admit Date/Time May 16, 2018 at 04:30 Initial Consult Date 05/16/18 Type of Consult Pulmonary Requesting Provider: MYRIAM WRAY NP Date/Time of Note DATE: 05/19/18 TIME: 11:51 Subjective Patient stable no new events. Objective Vital Signs Date Temp Pulse Resp B/P (MAP) Pulse Ox O2 O2 Flow FiO2 Time Delivery Rate 05/19/18 98.4 90 19 167/75 96 11:25 (105) 05/18/18 Room Air 20:57 05/17/18 2.0 07:00 05/16/18 30 13:34 Intake and Output 05/18/18 05/18/18 05/19/18 1515:00 23:00 07:00 IntakeIntake Total 150 ml 50 ml OutputOutput Total 2600 ml 0 ml BalanceBalance -2450 ml 50 ml Exam PHYSICAL EXAMINATION: GENERAL: Well-nourished, well-developed gentleman, comfortable at rest. VITAL SIGNS: NECK: Supple. No JVD. No lymphadenopathy. CARDIAC: S1, S2. No added sounds. No murmurs. CHEST: Diminished air entry bilaterally. ABDOMEN: Soft, nontender. No guarding or rebound. EXTREMITIES: No cyanosis, clubbing or edema. NEUROLOGIC: Generalized weakness. No focal deficits. Vent Setting Ventilator Support Mode: CPAP, PS, SPONT Fraction of Inspired Oxygen pe: 30 Positive End Expiratory Pressu: 5.0 Results/Medications Result Diagram: 05/19/18 0519 05/19/18 0519 Results 24 hrs Laboratory Tests Test 05/19/18 05:19 White Blood Count 6.1 # Red Blood Count 3.82 L Hemoglobin 10.3 L Hematocrit 33.4 L Mean Corpuscular Volume 87.4 Mean Corpuscular Hemoglobin 27.0 L Mean Corpuscular Hemoglobin Concent 30.8 L Red Cell Distribution Width 19.7 H Platelet Count 237 Mean Platelet Volume 8.9 Immature Granulocytes % 0.700 H Neutrophils % 69.1 Lymphocytes % 16.0 Monocytes % 10.6 Eosinophils % 2.8 Basophils % 0.8 Nucleated Red Blood Cells % 0.0 Immature Granulocytes # 0.040 H Neutrophils # 4.2 Lymphocytes # 1.0 Monocytes # 0.6 Eosinophils # 0.2 Basophils # 0.1 Nucleated Red Blood Cells # 0.0 Sodium Level 138 Potassium Level 3.7 Chloride Level 102 Carbon Dioxide Level 24 Anion Gap 12 Blood Urea Nitrogen 17 # Creatinine 2.95 H Est Glomerular Filtrat Rate mL/min 21 L Glucose Level 75 Calcium Level 9.0 Phosphorus Level 4.1 Magnesium Level 2.3 Random Vancomycin Level 10.4 Medications Current Medications IV Flush (NS 3 ml) 3 ml PER PROTOCOL IV ; Start 05/16/18 at 05:30 Hydromorphone HCl (Dilaudid) 0.5 mg Q4H PRN IV .SEVERE PAIN 7-10; Start 05/16/18 at 05:30 Vancomycin HCl (Vanco Iv Per Pharmacy) VANCOMYCIN PER PHARMACY PER PROTOCOL XX ; Start 05/16/18 at 05:30 Famotidine (Pepcid Iv) 20 mg DAILY IV Last administered on 05/19/18at 08:17; Admin Dose 20 MG; Start 05/17/18 at 09:00 Carvedilol (Coreg) 6.25 mg BID PO Last administered on 05/19/18at 08:16; Admin Dose 6.25 MG; Start 05/16/18 at 11:30 Piperacillin Sod/ Tazobactam Sod 50 ml @ 100 mls/hr Q8 IVPB Last administered on 05/19/18at 05:20; Admin Dose 100 MLS/HR; Start 05/16/18 at 15:00 Amlodipine Besylate (Norvasc) 10 mg DAILY NGT Last administered on 05/19/18at 08:16; Admin Dose 10 MG; Start 05/17/18 at 09:00 Losartan Potassium (Cozaar) 100 mg DAILY PO Last administered on 05/19/18at 08:16; Admin Dose 100 MG; Start 05/17/18 at 09:00 Vancomycin HCl 250 ml @ 125 mls/hr ONCE ONCE IVPB Last administered on 05/19/18at 10:58; Admin Dose 125 MLS/HR; Start 05/19/18 at 10:00; Stop 05/19/18 at 11:59 Assessment/Plan Hospital Course (Demo Recall) IMPRESSION: 1. Status post hypoxemic respiratory failure secondary to possible volume overload and pneumonia. s/p left thoracentesis. 2. Ischemic cardiomyopathy. 3. End-stage renal failure. RECOMMENDATIONS: 1. Extubation and incentive spirometry. 2. Advance diet as tolerated. 3. Physical therapy eval. 4. Hemodialysis per Nephrology. 5. DVT and GI prophylaxis. 6. pleural fluid studies noted. Cytology pending. PT encourage out of bed LALIT TYLER MD, [facility] May 19, 2018 11:52
--- NOTE | 2018-05-19 12:52 | CONS ---
Assessment/Plan Assessment/Plan Hospital Course (Demo Recall) Chronic afib with RVR: Rates controlled. Now on Eliquis Acute on chronic systolic CHF/cardiomyopathy: EF at [facility] 35%, here 40- 45%. Possible ischemic component vs tachycardia induced. Currently not a candidate for cardiac cath as he did not have ACS/NV and we need to see if his mentation improves to provide any real correction benefit. Acute on chronic respiratory failure: due to CHF. Now extubated 05/17 ESRD on HD Alcoholic liver cirrhosis HTN -coreg 6.25mg BID -losartan 100mg -amlodipine 10mg -restart Eliquis 2.5mg BID -no statin with liver cirrhosis unless proven CAD or ACS -doubt significant recovery of mental status and pt is not cooperative so he is not a cath candidate. Can be reevaluated as outpt Consultation Date/Type/Reason Admit Date/Time May 16, 2018 at 04:30 Initial Consult Date 05/16/18 Type of Consult Cardiology Requesting Provider: MYRIAM WRAY NP Date/Time of Note DATE: 05/19/18 TIME: 12:50 24 HR Interval Summary Free Text/Dictation No events. Pneumothorax stable. No plan for procedures per notes. Still confused. Now taking PO Exam/Review of Systems Exam Vitals Vital Signs Date Temp Pulse Resp B/P (MAP) Pulse Ox O2 O2 Flow FiO2 Time Delivery Rate 05/19/18 98.4 90 19 167/75 96 11:25 (105) 05/18/18 Room Air 20:57 05/17/18 2.0 07:00 05/16/18 30 13:34 Intake and Output 05/18/18 05/18/18 05/19/18 1515:00 23:00 07:00 IntakeIntake Total 150 ml 50 ml OutputOutput Total 2600 ml 0 ml BalanceBalance -2450 ml 50 ml Constitutional: alert; No oriented Neck: No jvd Respiratory: diminished breath sounds; No clear to auscultation Cardiovascular: systolic murmur (2/6 LARRY); No regular rate and rhythm, No edema Gastrointestinal: soft, non-tender; No distended Neurological: nl mental status; No nl speech Results Result Diagram: 05/19/1851805/19/18518 Results 24hrs Laboratory Tests Test 05/19/18 05:19 White Blood Count 6.1 # Red Blood Count 3.82 L Hemoglobin 10.3 L Hematocrit 33.4 L Mean Corpuscular Volume 87.4 Mean Corpuscular Hemoglobin 27.0 L Mean Corpuscular Hemoglobin Concent 30.8 L Red Cell Distribution Width 19.7 H Platelet Count 237 Mean Platelet Volume 8.9 Immature Granulocytes % 0.700 H Neutrophils % 69.1 Lymphocytes % 16.0 Monocytes % 10.6 Eosinophils % 2.8 Basophils % 0.8 Nucleated Red Blood Cells % 0.0 Immature Granulocytes # 0.040 H Neutrophils # 4.2 Lymphocytes # 1.0 Monocytes # 0.6 Eosinophils # 0.2 Basophils # 0.1 Nucleated Red Blood Cells # 0.0 Sodium Level 138 Potassium Level 3.7 Chloride Level 102 Carbon Dioxide Level 24 Anion Gap 12 Blood Urea Nitrogen 17 # Creatinine 2.95 H Est Glomerular Filtrat Rate mL/min 21 L Glucose Level 75 Calcium Level 9.0 Phosphorus Level 4.1 Magnesium Level 2.3 Random Vancomycin Level 10.4 Medications Medication Current Medications IV Flush (NS 3 ml) 3 ml PER PROTOCOL IV ; Start 05/16/18 at 05:30 Hydromorphone HCl (Dilaudid) 0.5 mg Q4H PRN IV .SEVERE PAIN 7-10; Start 05/16/18 at 05:30 Vancomycin HCl (Vanco Iv Per Pharmacy) VANCOMYCIN PER PHARMACY PER PROTOCOL XX ; Start 05/16/18 at 05:30 Famotidine (Pepcid Iv) 20 mg DAILY IV Last administered on 05/19/18 08:17; Admin Dose 20 MG; Start 05/17/18 at 09:00 Carvedilol (Coreg) 6.25 mg BID PO Last administered on 05/19/18 08:16; Admin Dose 6.25 MG; Start 05/16/18 at 11:30 Piperacillin Sod/ Tazobactam Sod 50 ml @ 100 mls/hr Q8 IVPB Last administered on 05/19/18 05:20; Admin Dose 100 MLS/HR; Start 05/16/18 at 15:00 Amlodipine Besylate (Norvasc) 10 mg DAILY NGT Last administered on 05/19/18 08:16; Admin Dose 10 MG; Start 05/17/18 at 09:00 Losartan Potassium (Cozaar) 100 mg DAILY PO Last administered on 2/23/19at 08:16; Admin Dose 100 MG; Start 05/17/18 at 09:00 Apixaban (Eliquis) 2.5 mg BID PO ; Start 05/19/18 at 21:00 GERARDO STALLWORTH May 19, 2018 12:52
[2018-05-19] MEDS ORDERED: hydrALAzine 20 MG INJ IV ONE (19:00)
[2018-05-19] MEDS: APIXABAN 5 MG TABLET PO SCH (21:39)
[2018-05-19] MEDS: HYDROmorphONE 0.5 MG/0.5 ML SYG IV PRN (23:28)
[2018-05-20] VITALS (9 sets, daily range): BP systolic 102–142; BP diastolic 58–75; PULSE 72–100; RESP 18
[2018-05-20] MEDS: PIPER-TAZO 2.25 GM (PMX) 50 ML IVPB SCH ×3 (06:36→21:33)
--- NOTE | 2018-05-20 06:42 | PN ---
Date/Time of Note Date/Time of Note DATE: 05/20/18 TIME: 06:40 Assessment/Plan VTE Prophylaxis Risk score (from Nsg)>0 risk: 10 SCD applied (from Nsg): Yes Pharmacological prophylaxis: apixaban Lines/Catheters IV Catheter Type (from Nrsg): permacath Urinary Cath still in place: No Assessment/Plan Hospital Course SUBJECTIVE: The patient is awake and alert. Follows commands. Denies any pain. OBJECTIVE: Physical Exam General: Adequately build 67 year-old male lying in bed in no apparent distress. HEENT: Normocephalic, atraumatic. Eyes: Anicteric sclerae, conjunctivae clear. ENT: Nasal septum midline, oral mucosa is dry. Neck supple. Respiratory: Bilaterally diminished breath sounds. No use of accessory muscles of respiration. No adventitious breath sounds. Cardiovascular: S1, S2 heard. Irregular. Abdomen: Soft, nontender, and nondistended. Bowel sounds positive in all 4 quadrants. Genitourinary: Deferred. Extremities: No cyanosis, no clubbing, no edema. Peripheral pulses palpable. Neurologic: Patient is awake and alert. Moves all 4 extremities. Follows commands. Labs & Vitals per chart ASSESSMENT & PLAN 67-year-old male with comorbidities including paroxysmal atrial fibrillation, hypertension, cirrhosis, end-stage renal disease on hemodialysis, and substance abuse. The patient was transferred from [facility] where he was intubated for respiratory failure. The patient was transferred to [facility] because of insurance reasons. 1. Acute respiratory failure. -Hypoxic. -Etiology could be multifactorial including underlying congestive heart failure and possible underlying pneumonia. -S/P intubation at the transferring facility. Extubated on 05/16/2018. -Continue inhaled bronchodilators. 2. Paroxysmal atrial fibrillation. -Started on Eliquis for stroke prophylaxis. -Cardiology following. 3. Acute on chronic congestive heart failure exacerbation, systolic dysfunction. -Continue ultrafiltration. 4. End-stage renal disease on hemodialysis. -Hemodialysis as per nephrology. 5. Cardiomyopathy. -Ejection fraction of 40-45% -Continue the patient on beta-blockers and ARB's. 6. Hypertension -Continue antihypertensives. 7. History of liver cirrhosis. 8. Dysphagia. -Pured diet. 9. Normocytic anemia -Most probably anemia chronic disease. -Monitor H&H closely. 10. Right pleural effusion. -Status post right-sided thoracentesis with drainage of 1 L of fluid on 05/17. 11. Right-sided pneumothorax status post thoracentesis. -Improving with conservative management. 12. Fluids, electrolytes, and nutrition. -Pured diet. 13. DVT prophylaxis. -Factor Xa inhibitors. 14. Plan. -Continue antimicrobials for possible underlying pneumonia (likely with aspirat ion). -Continue cardiology recommendations. -Poor progress with physical therapy. -May need placement upon discharge. The patient was seen in collaboration with Dr. Medina. Result Diagram: 05/20/1814 05/19/1819 Results 24hrs Laboratory Tests Test 05/20/18 05:14 White Blood Count 5.3 Red Blood Count 3.86 L Hemoglobin 10.5 L Hematocrit 33.6 L Mean Corpuscular Volume 87.0 Mean Corpuscular Hemoglobin 27.2 L Mean Corpuscular Hemoglobin Concent 31.3 L Red Cell Distribution Width 19.4 H Platelet Count 245 Mean Platelet Volume 8.9 Immature Granulocytes % 0.800 H Neutrophils % 61.1 Lymphocytes % 18.7 Monocytes % 11.2 H Eosinophils % 7.4 H Basophils % 0.8 Nucleated Red Blood Cells % 0.0 Immature Granulocytes # 0.040 H Neutrophils # 3.2 Lymphocytes # 1.0 Monocytes # 0.6 Eosinophils # 0.4 Basophils # 0.0 Nucleated Red Blood Cells # 0.0 Exam/Review of Systems Exam Vitals Vital Signs Date Temp Pulse Resp B/P (MAP) Pulse Ox O2 O2 Flow FiO2 Time Delivery Rate 05/20/18 79 04:00 05/20/18 97.7 18 142/67 99 04:00 (92) 05/18/18 Room Air 20:57 05/17/18 2.0 07:00 05/16/18 30 13:34 Intake and Output 05/19/18 05/19/18 05/20/18 1515:00 23:00 07:00 IntakeIntake Total 50 ml 750 ml 50 ml BalanceBalance 50 ml 750 ml 50 ml Results Results 24hrs Laboratory Tests Test 05/20/18 05:14 White Blood Count 5.3 Red Blood Count 3.86 L Hemoglobin 10.5 L Hematocrit 33.6 L Mean Corpuscular Volume 87.0 Mean Corpuscular Hemoglobin 27.2 L Mean Corpuscular Hemoglobin Concent 31.3 L Red Cell Distribution Width 19.4 H Platelet Count 245 Mean Platelet Volume 8.9 Immature Granulocytes % 0.800 H Neutrophils % 61.1 Lymphocytes % 18.7 Monocytes % 11.2 H Eosinophils % 7.4 H Basophils % 0.8 Nucleated Red Blood Cells % 0.0 Immature Granulocytes # 0.040 H Neutrophils # 3.2 Lymphocytes # 1.0 Monocytes # 0.6 Eosinophils # 0.4 Basophils # 0.0 Nucleated Red Blood Cells # 0.0 Medications Medication Current Medications IV Flush (NS 3 ml) 3 ml PER PROTOCOL IV ; Start 05/16/18 at 05:30 Hydromorphone HCl (Dilaudid) 0.5 mg Q4H PRN IV .SEVERE PAIN 7-10 Last administered on 05/19/18 23:28; Admin Dose 0.5 MG; Start 05/16/18 at 05:30 Vancomycin HCl (Vanco Iv Per Pharmacy) VANCOMYCIN PER PHARMACY PER PROTOCOL XX ; Start 05/16/18 at 05:30 Famotidine (Pepcid Iv) 20 mg DAILY IV Last administered on 05/19/18 08:17; Admin Dose 20 MG; Start 05/17/18 at 09:00 Carvedilol (Coreg) 6.25 mg BID PO Last administered on 05/19/18 21:39; Admin Dose 6.25 MG; Start 05/16/18 at 11:30 Piperacillin Sod/ Tazobactam Sod 50 ml @ 100 mls/hr Q8 IVPB Last administered on 05/20/18 06:36; Admin Dose 100 MLS/HR; Start 05/16/18 at 15:00 Amlodipine Besylate (Norvasc) 10 mg DAILY NGT Last administered on 05/19/18 08:16; Admin Dose 10 MG; Start 05/17/18 at 09:00 Losartan Potassium (Cozaar) 100 mg DAILY PO Last administered on 05/19/18 08:16; Admin Dose 100 MG; Start 05/17/18 at 09:00 Apixaban (Eliquis) 2.5 mg BID PO Last administered on 05/19/18 21:39; Admin Dose 2.5 MG; Start 05/19/18 at 21:00 MYRIAM WRAY NP May 20, 2018 06:42
[2018-05-20] MEDS: FAMOTIDINE 20 MG INJ IV SCH (08:38)
[2018-05-20] MEDS: APIXABAN 5 MG TABLET PO SCH ×2 (08:38→20:18)
[2018-05-20] MEDS: AMLODIPINE 10 MG TAB NGT SCH (08:38)
[2018-05-20] MEDS: LOSARTAN 25 MG TAB PO SCH (08:38)
--- NOTE | 2018-05-20 09:22 | CONS ---
Consult Date/Type/Reason Admit Date/Time May 16, 2018 at 04:30 Initial Consult Date 05/16/18 Requesting Provider: MYRIAM WRAY NP Date/Time of Note DATE: 05/20/18 TIME: 09:21 Subjective The patient remains confused. tolerated hd last monday night. poc reviewed with dr. chandler and hd nurse. OBJECTIVE: HEENT: Head is normocephalic. NECK: Supple. HEART: Regular rate. LUNGS: Show diminished breath sounds at the base. ABDOMEN: Soft, nontender to palpation without rebound or guarding. EXTREMITIES: Negative for clubbing, cyanosis, no edema. DERMATOLOGIC: No rashes. MUSCULOSKELETAL: No joint effusion. NEUROLOGIC: No change in exam. Objective Vitals Vital Signs Date Temp Pulse Resp B/P (MAP) Pulse Ox O2 O2 Flow FiO2 Time Delivery Rate 05/20/18 87 09:03 05/20/18 98.0 18 110/59 98 07:55 (76) 05/18/18 Room Air 20:57 05/17/18 2.0 07:00 05/16/18 30 13:34 Intake and Output 05/19/18 05/19/18 05/20/18 1414:59 22:59 06:59 IntakeIntake Total 50 ml 750 ml 50 ml BalanceBalance 50 ml 750 ml 50 ml Results/Medications Result Diagram: 05/20/18 0514 05/20/18 0514 Results 24 hrs Laboratory Tests Test 05/20/18 05:14 White Blood Count 5.3 Red Blood Count 3.86 L Hemoglobin 10.5 L Hematocrit 33.6 L Mean Corpuscular Volume 87.0 Mean Corpuscular Hemoglobin 27.2 L Mean Corpuscular Hemoglobin Concent 31.3 L Red Cell Distribution Width 19.4 H Platelet Count 245 Mean Platelet Volume 8.9 Immature Granulocytes % 0.800 H Neutrophils % 61.1 Lymphocytes % 18.7 Monocytes % 11.2 H Eosinophils % 7.4 H Basophils % 0.8 Nucleated Red Blood Cells % 0.0 Immature Granulocytes # 0.040 H Neutrophils # 3.2 Lymphocytes # 1.0 Monocytes # 0.6 Eosinophils # 0.4 Basophils # 0.0 Nucleated Red Blood Cells # 0.0 Sodium Level 142 Potassium Level 3.6 Chloride Level 106 Carbon Dioxide Level 26 Anion Gap 10 Blood Urea Nitrogen 24 H Creatinine 3.93 H Est Glomerular Filtrat Rate mL/min 15 L Glucose Level 91 Calcium Level 9.0 Phosphorus Level 5.3 H Magnesium Level 2.4 Home Meds Active Scripts Naproxen* (Naproxen*) 500 Mg Tablet, 500 MG PO BID PRN for PAIN AND/OR INFLAMMATION, #60 TAB Prov:JONY FIGUEROA MD 08/07/17 Cephalexin* (Cephalexin*) 500 Mg Capsule, 500 MG PO Q12 for 7 Days, #14 CAP Prov:JONY CARRION 10/16/16 Clonidine Hcl* (Catapres*) 0.1 Mg Tablet, 0.1 MG PO Q12 for 30 Days, #60 TAB 2 Refills Prov:JONY CARRION 10/16/16 Amlodipine Besylate* (Amlodipine Besylate*) 2.5 Mg Tablet, 2.5 MG PO BID for 30 Days, #60 TAB Prov:JONY CARRION 10/16/16 Pantoprazole* (Pantoprazole*) 40 Mg Tablet.dr, 40 MG PO BID@06,18 for 30 Days, #60 2 Refills Prov:JONY CARRION 10/16/16 Benazepril Hcl* (Benazepril Hcl*) 20 Mg Tablet, 20 MG PO DAILY for 30 Days, #30 TAB 2 Refills Prov:JONY CARRION 10/16/16 Tamsulosin Hcl* (Flomax*) 0.4 Mg Cap.er.24h, 0.4 MG PO HS for 30 Days, #30 CAP 2 Refills Prov:JONY CARRION 10/16/16 Medications Current Medications IV Flush (NS 3 ml) 3 ml PER PROTOCOL IV ; Start 05/16/18 at 05:30 Hydromorphone HCl (Dilaudid) 0.5 mg Q4H PRN IV .SEVERE PAIN 7-10 Last a dministered on 05/19/18at 23:28; Admin Dose 0.5 MG; Start 05/16/18 at 05:30 Vancomycin HCl (Vanco Iv Per Pharmacy) VANCOMYCIN PER PHARMACY PER PROTOCOL XX ; Start 05/16/18 at 05:30 Famotidine (Pepcid Iv) 20 mg DAILY IV Last administered on 05/20/18at 08:38; Admin Dose 20 MG; Start 05/17/18 at 09:00 Carvedilol (Coreg) 6.25 mg BID PO Last administered on 05/20/18 08:38; Admin Dose 6.25 MG; Start 05/16/18 at 11:30 Piperacillin Sod/ Tazobactam Sod 50 ml @ 100 mls/hr Q8 IVPB Last administered on 05/20/18 06:36; Admin Dose 100 MLS/HR; Start 05/16/18 at 15:00 Amlodipine Besylate (Norvasc) 10 mg DAILY NGT Last administered on 05/20/18 08:38; Admin Dose 10 MG; Start 05/17/18 at 09:00 Losartan Potassium (Cozaar) 100 mg DAILY PO Last administered on 05/20/18 08:38; Admin Dose 100 MG; Start 05/17/18 at 09:00 Apixaban (Eliquis) 2.5 mg BID PO Last administered on 05/20/18 08:38; Admin Dose 2.5 MG; Start 05/19/18 at 21:00 Assessment/Plan Hospital Course (Demo Recall) 1. End-stage renal disease. on hd today. We will dialyze 3 hours 3k bath, calcium 2.5, ultrafiltrate as tolerated. assess daily for hd needs. all meds dosed ok. 2. Anemia. Monitor hemoglobin and hematocrit levels. Continue Epogen. 3. Mineral bone disorder. Monitor calcium and phosphorus levels. 4. Hypertension. Blood pressure has improved. Continue blood pressure regimen. Continue ultrafiltration with hemodialysis. 5. Respiratory failure, currently status post extubation, stable. Continue to monitor. 6. Volume overload secondary to end-stage renal disease. Continue ultrafiltration dialysis. 7. Heart failure possible ischemic. Continue to monitor. Follow up with Cardiology. 8. Sepsis secondary to pneumonia. Continue current antibiotic regimen. 9. Acute encephalopathy and dementia, etiology is toxic metabolic. 10. Chronic atrial fibrillation. Continue medical management. JOSE M AVERY MD May 20, 2018 09:22
[2018-05-20] MEDS: HYDROmorphONE 0.5 MG/0.5 ML SYG IV PRN ×2 (10:21→14:55)
--- NOTE | 2018-05-20 12:18 | CONS ---
Assessment/Plan Assessment/Plan Hospital Course (Demo Recall) Chronic afib with RVR: Rates controlled. Now on Eliquis Acute on chronic systolic CHF/cardiomyopathy: EF at [facility] [place] 35%, here 40- 45%. Possible ischemic component vs tachycardia induced. Currently not a candidate for cardiac cath as he did not have ACS/AL and we need to see if his mentation improves to provide any real retirement benefit. Acute on chronic respiratory failure: due to CHF. Now extubated 05/17 ESRD on HD Alcoholic liver cirrhosis HTN -coreg 6.25mg BID -losartan 100mg -amlodipine 10mg -Eliquis 2.5mg BID -no statin with liver cirrhosis unless proven CAD or ACS -doubt significant recovery of mental status and pt is not cooperative so he is not a cath candidate. Can be reevaluated as outpt ok for dispo Consultation Date/Type/Reason Admit Date/Time May 16, 2018 at 04:30 Initial Consult Date 05/16/18 Type of Consult Cardiology Requesting Provider: MYRIAM WRAY NP Date/Time of Note DATE: 05/20/18 TIME: 12:17 24 HR Interval Summary Free Text/Dictation No events. Remains confused Exam/Review of Systems Exam Vitals Vital Signs Date Temp Pulse Resp B/P (MAP) Pulse Ox O2 O2 Flow FiO2 Time Delivery Rate 05/20/18 98.2 76 18 134/74 96 10:55 (94) 05/18/18 Room Air 20:57 05/17/18 2.0 07:00 05/16/18 30 13:34 Intake and Output 05/19/18 05/19/18 05/20/18 1515:00 23:00 07:00 IntakeIntake Total 50 ml 750 ml 450 ml BalanceBalance 50 ml 750 ml 450 ml Constitutional: alert; No oriented Neck: supple; No jvd Respiratory: diminished breath sounds; No clear to auscultation Cardiovascular: systolic murmur (2/6 LARRY); No regular rate and rhythm, No edema Gastrointestinal: soft, non-tender; No distended Neurological: nl mental status; No nl speech Results Result Diagram: 05/20/18 0514 05/20/18 0514 Results 24hrs Laboratory Tests Test 05/20/18 05:14 White Blood Count 5.3 Red Blood Count 3.86 L Hemoglobin 10.5 L Hematocrit 33.6 L Mean Corpuscular Volume 87.0 Mean Corpuscular Hemoglobin 27.2 L Mean Corpuscular Hemoglobin Concent 31.3 L Red Cell Distribution Width 19.4 H Platelet Count 245 Mean Platelet Volume 8.9 Immature Granulocytes % 0.800 H Neutrophils % 61.1 Lymphocytes % 18.7 Monocytes % 11.2 H Eosinophils % 7.4 H Basophils % 0.8 Nucleated Red Blood Cells % 0.0 Immature Granulocytes # 0.040 H Neutrophils # 3.2 Lymphocytes # 1.0 Monocytes # 0.6 Eosinophils # 0.4 Basophils # 0.0 Nucleated Red Blood Cells # 0.0 Sodium Level 142 Potassium Level 3.6 Chloride Level 106 Carbon Dioxide Level 26 Anion Gap 10 Blood Urea Nitrogen 24 H Creatinine 3.93 H Est Glomerular Filtrat Rate mL/min 15 L Glucose Level 91 Calcium Level 9.0 Phosphorus Level 5.3 H Magnesium Level 2.4 Medications Medication Current Medications IV Flush (NS 3 ml) 3 ml PER PROTOCOL IV ; Start 05/16/18 at 05:30 Hydromorphone HCl (Dilaudid) 0.5 mg Q4H PRN IV .SEVERE PAIN 7-10 Last administered on 05/20/18 10:21; Admin Dose 0.5 MG; Start 05/16/18 at 05:30 Vancomycin HCl (Vanco Iv Per Pharmacy) VANCOMYCIN PER PHARMACY PER PROTOCOL XX ; Start 05/16/18 at 05:30 Famotidine (Pepcid Iv) 20 mg DAILY IV Last administered on 05/20/18 08:38; Admin Dose 20 MG; Start 05/17/18 at 09:00 Carvedilol (Coreg) 6.25 mg BID PO Last administered on 05/20/18 08:38; Admin Dose 6.25 MG; Start 05/16/18 at 11:30 Piperacillin Sod/ Tazobactam Sod 50 ml @ 100 mls/hr Q8 IVPB Last administered on 05/20/18 06:36; Admin Dose 100 MLS/HR; Start 05/16/18 at 15:00 Amlodipine Besylate (Norvasc) 10 mg DAILY NGT Last administered on 05/20/18 08:38; Admin Dose 10 MG; Start 05/17/18 at 09:00 Losartan Potassium (Cozaar) 100 mg DAILY PO Last administered on 05/20/18 08:38; Admin Dose 100 MG; Start 05/17/18 at 09:00 Apixaban (Eliquis) 2.5 mg BID PO Last administered on 05/20/18at 08:38; Admin Dose 2.5 MG; Start 05/19/18 at 21:00 GERARDO STALLWORTH May 20, 2018 12:18
--- NOTE | 2018-05-20 12:27 | CONS ---
Consult Date/Type/Reason Admit Date/Time May 16, 2018 at 04:30 Initial Consult Date 05/16/18 Type of Consult Pulmonary Requesting Provider: MYRIAM WRAY NP Date/Time of Note DATE: 05/20/18 TIME: 12:22 Subjective Comfortable. Objective Vital Signs Date Temp Pulse Resp B/P (MAP) Pulse Ox O2 O2 Flow FiO2 Time Delivery Rate 05/20/18 98.2 76 18 134/74 96 10:55 (94) 05/18/18 Room Air 20:57 05/17/18 2.0 07:00 05/16/18 30 13:34 Intake and Output 05/19/18 05/19/18 05/20/18 1515:00 23:00 07:00 IntakeIntake Total 50 ml 750 ml 450 ml BalanceBalance 50 ml 750 ml 450 ml Exam PHYSICAL EXAMINATION: GENERAL: Well-nourished, well-developed gentleman, comfortable at rest. VITAL SIGNS: NECK: Supple. No JVD. No lymphadenopathy. CARDIAC: S1, S2. No added sounds. No murmurs. CHEST: Diminished air entry bilaterally. ABDOMEN: Soft, nontender. No guarding or rebound. EXTREMITIES: No cyanosis, clubbing or edema. NEUROLOGIC: Generalized weakness. No focal deficits. Vent Setting Ventilator Support Mode: CPAP, PS, SPONT Fraction of Inspired Oxygen pe: 30 Positive End Expiratory Pressu: 5.0 Results/Medications Result Diagram: 05/20/1851305/20/1814 Results 24 hrs Laboratory Tests Test 05/20/18 05:14 White Blood Count 5.3 Red Blood Count 3.86 L Hemoglobin 10.5 L Hematocrit 33.6 L Mean Corpuscular Volume 87.0 Mean Corpuscular Hemoglobin 27.2 L Mean Corpuscular Hemoglobin Concent 31.3 L Red Cell Distribution Width 19.4 H Platelet Count 245 Mean Platelet Volume 8.9 Immature Granulocytes % 0.800 H Neutrophils % 61.1 Lymphocytes % 18.7 Monocytes % 11.2 H Eosinophils % 7.4 H Basophils % 0.8 Nucleated Red Blood Cells % 0.0 Immature Granulocytes # 0.040 H Neutrophils # 3.2 Lymphocytes # 1.0 Monocytes # 0.6 Eosinophils # 0.4 Basophils # 0.0 Nucleated Red Blood Cells # 0.0 Sodium Level 142 Potassium Level 3.6 Chloride Level 106 Carbon Dioxide Level 26 Anion Gap 10 Blood Urea Nitrogen 24 H Creatinine 3.93 H Est Glomerular Filtrat Rate mL/min 15 L Glucose Level 91 Calcium Level 9.0 Phosphorus Level 5.3 H Magnesium Level 2.4 Medications Current Medications IV Flush (NS 3 ml) 3 ml PER PROTOCOL IV ; Start 05/16/18 at 05:30 Hydromorphone HCl (Dilaudid) 0.5 mg Q4H PRN IV .SEVERE PAIN 7-10 Last administered on 05/20/18 10:21; Admin Dose 0.5 MG; Start 05/16/18 at 05:30 Vancomycin HCl (Vanco Iv Per Pharmacy) VANCOMYCIN PER PHARMACY PER PROTOCOL XX ; Start 05/16/18 at 05:30 Famotidine (Pepcid Iv) 20 mg DAILY IV Last administered on 05/20/18 08:38; Admin Dose 20 MG; Start 05/17/18 at 09:00 Carvedilol (Coreg) 6.25 mg BID PO Last administered on 05/20/18 08:38; Admin Dose 6.25 MG; Start 05/16/18 at 11:30 Piperacillin Sod/ Tazobactam Sod 50 ml @ 100 mls/hr Q8 IVPB Last administered on 05/20/18 06:36; Admin Dose 100 MLS/HR; Start 05/16/18 at 15:00 Amlodipine Besylate (Norvasc) 10 mg DAILY NGT Last administered on 05/20/18 08:38; Admin Dose 10 MG; Start 05/17/18 at 09:00 Losartan Potassium (Cozaar) 100 mg DAILY PO Last administered on 05/20/18 08:38; Admin Dose 100 MG; Start 05/17/18 at 09:00 Apixaban (Eliquis) 2.5 mg BID PO Last administered on 05/20/18 08:38; Admin Dose 2.5 MG; Start 05/19/18 at 21:00 Assessment/Plan Hospital Course (Demo Recall) IMPRESSION: 1. Status post hypoxemic respiratory failure secondary to possible volume overload and pneumonia. s/p left thoracentesis. 2. Ischemic cardiomyopathy. 3. End-stage renal failure. RECOMMENDATIONS: 1. Extubation and incentive spirometry. 2. Advance diet as tolerated. 3. Physical therapy eval. 4. Hemodialysis per Nephrology. 5. DVT and GI prophylaxis. 6. pleural fluid studies noted. Cytology pending. PT encourage out of bed dc planning ? LALIT TYLER MD, FCCP May 20, 2018 12:27
[2018-05-21] VITALS (18 sets, daily range): BP systolic 105–184; BP diastolic 58–99; PULSE 80–98; RESP 16–20
[2018-05-21] MEDS: PIPER-TAZO 2.25 GM (PMX) 50 ML IVPB SCH ×3 (06:12→21:33)
[2018-05-21] MEDS: AMLODIPINE 10 MG TAB NGT SCH ×2 (09:00→09:42)
[2018-05-21] MEDS: LOSARTAN 25 MG TAB PO SCH ×2 (09:00→09:42)
[2018-05-21] MEDS: APIXABAN 5 MG TABLET PO SCH ×3 (09:00→21:33)
[2018-05-21] MEDS: FAMOTIDINE 20 MG INJ IV SCH ×2 (09:00→09:41)
--- NOTE | 2018-05-21 15:24 | PN ---
Date/Time of Note Date/Time of Note DATE: 05/21/18 TIME: 15:20 Assessment/Plan VTE Prophylaxis Risk score (from Ns)>0 risk: 6 SCD applied (from Ns): Yes SCD contraindicated: low risk/ambulating Pharmacological prophylaxis: LMWH Lines/Catheters IV [facility]from [facility] RCW permacath Urinary Cath still in place: No Assessment/Plan Hospital Course Assessment and plan 1. Acute Hypoxic respiratory failure, stable improved treat comorbidities 2. Pneumonia stable resolved finish antibiotics 3. Fluid overload stable continue medical management 4. Cardiomyopathy EF 35% ischemic versus tachycardia induced, carotid does not need cath. Continue rate control follow-up with cardiology 5. A. fib RVR stable rate controlled continue anticoagulation if adherence is not an issue 6. Alcoholism? 7. Dementia? Versus mild cognitive impairment 8. Acute toxic metabolic encephalopathy. Multifactorial stable follow 9. Failure to thrive transfer back to [facility]. Needs palliative care consider hospice 10. Cirrhosis? 11. Anemia 12. Pneumothorax, right, minimal 10%, serial x-ray as indicated 13. Pl effusion sp thoracentesis appears benign third spacing transudate etc. 14. ESRD mod stable continue dialysis unless adherence is an issue Subjective: Events noted. Not oriented. No fever nausea vomiting or GI bleed Objective: Vital signs stable Physical exam No pallor adenopathy droop Reg no murmur rub gallop Dimin but fairly clear Bs+ nd nt no RRG Mild edema hypotonia Result Diagram: 05/21/1844605/21/187 Results 24hrs Laboratory Tests Test 05/21/18 04:47 White Blood Count 5.5 Red Blood Count 3.52 L Hemoglobin 9.6 L Hematocrit 30.9 L Mean Corpuscular Volume 87.8 Mean Corpuscular Hemoglobin 27.3 L Mean Corpuscular Hemoglobin Concent 31.1 L Red Cell Distribution Width 19.0 H Platelet Count 238 Mean Platelet Volume 8.7 Immature Granulocytes % 0.500 H Neutrophils % 67.4 Lymphocytes % 15.7 Monocytes % 10.3 Eosinophils % 5.6 Basophils % 0.5 Nucleated Red Blood Cells % 0.0 Immature Granulocytes # 0.030 Neutrophils # 3.7 Lymphocytes # 0.9 Monocytes # 0.6 Eosinophils # 0.3 Basophils # 0.0 Nucleated Red Blood Cells # 0.0 Sodium Level 138 Potassium Level 4.0 Chloride Level 103 Carbon Dioxide Level 25 Anion Gap 10 Blood Urea Nitrogen 27 H Creatinine 4.85 H Est Glomerular Filtrat Rate mL/min 12 L Glucose Level 87 Calcium Level 8.5 Phosphorus Level 6.1 H Magnesium Level 2.2 Exam/Review of Systems Exam Vitals Vital Signs Date Temp Pulse Resp B/P (MAP) Pulse Ox O2 O2 Flow FiO2 Time Delivery Rate 05/21/18 98.0 80 20 116/64 96 Room Air 14:14 (81) 05/17/18 2.0 07:00 Intake and Output 05/20/18 05/20/18 05/21/18 1515:00 23:00 07:00 IntakeIntake Total 50 ml 500 ml 50 ml BalanceBalance 50 ml 500 ml 50 ml Results Results 24hrs Laboratory Tests Test 05/21/18 04:47 White Blood Count 5.5 Red Blood Count 3.52 L Hemoglobin 9.6 L Hematocrit 30.9 L Mean Corpuscular Volume 87.8 Mean Corpuscular Hemoglobin 27.3 L Mean Corpuscular Hemoglobin Concent 31.1 L Red Cell Distribution Width 19.0 H Platelet Count 238 Mean Platelet Volume 8.7 Immature Granulocytes % 0.500 H Neutrophils % 67.4 Lymphocytes % 15.7 Monocytes % 10.3 Eosinophils % 5.6 Basophils % 0.5 Nucleated Red Blood Cells % 0.0 Immature Granulocytes # 0.030 Neutrophils # 3.7 Lymphocytes # 0.9 Monocytes # 0.6 Eosinophils # 0.3 Basophils # 0.0 Nucleated Red Blood Cells # 0.0 Sodium Level 138 Potassium Level 4.0 Chloride Level 103 Carbon Dioxide Level 25 Anion Gap 10 Blood Urea Nitrogen 27 H Creatinine 4.85 H Est Glomerular Filtrat Rate mL/min 12 L Glucose Level 87 Calcium Level 8.5 Phosphorus Level 6.1 H Magnesium Level 2.2 Medications Medication Current Medications IV Flush (NS 3 ml) 3 ml PER PROTOCOL IV ; Start 05/16/18 at 05:30 Hydromorphone HCl (Dilaudid) 0.5 mg Q4H PRN IV .SEVERE PAIN 7-10 Last administered on 05/20/18at 14:55; Admin Dose 0.5 MG; Start 05/16/18 at 05:30 Vancomycin HCl (Vanco Iv Per Pharmacy) VANCOMYCIN PER PHARMACY PER PROTOCOL XX ; Start 05/16/18 at 05:30 Famotidine (Pepcid Iv) 20 mg DAILY IV Last administered on 05/20/18 08:38; Admin Dose 20 MG; Start 05/17/18 at 09:00 Carvedilol (Coreg) 6.25 mg BID PO Last administered on 05/20/18 20:18; Admin Dose 6.25 MG; Start 05/16/18 at 11:30 Piperacillin Sod/ Tazobactam Sod 50 ml @ 100 mls/hr Q8 IVPB Last administered on 05/21/18 14:01; Admin Dose 100 MLS/HR; Start 05/16/18 at 15:00 Amlodipine Besylate (Norvasc) 10 mg DAILY NGT Last administered on 05/20/18 08:38; Admin Dose 10 MG; Start 05/17/18 at 09:00 Losartan Potassium (Cozaar) 100 mg DAILY PO Last administered on 05/20/18 08:38; Admin Dose 100 MG; Start 05/17/18 at 09:00 Apixaban (Eliquis) 2.5 mg BID PO Last administered on 05/20/18 20:18; Admin Dose 2.5 MG; Start 05/19/18 at 21:00 PETTY JARAMILLO MD May 21, 2018 15:23
[2018-05-21] MEDS ORDERED: LEVALBUTEROL (NEB) 0.63 MG/3 ML AMP HHN PRN (15:30)
--- NOTE | 2018-05-21 15:30 | PN ---
DATE: 05/21/2018 SUBJECTIVE: The patient is stable. No events overnight. OBJECTIVE: VITAL SIGNS: Blood pressure is 105/58, respiration 18, pulse 98, temperature 97.5. HEENT: Head is normocephalic. NECK: Supple. HEART: Regular rate. LUNGS: Show diminished breath sounds at the base. ABDOMEN: Soft, nontender to palpation without rebound or guarding. EXTREMITIES: Negative for clubbing, cyanosis. No edema. DERMATOLOGIC: No rashes. MUSCULOSKELETAL: No joint effusions. NEUROLOGIC: No change in exam. MEDICATIONS: Have been reviewed. LABORATORY DATA: Have been reviewed. ASSESSMENT AND PLAN: 1. End-stage renal disease. The patient's last hemodialysis was approximately 2 days ago. Plan for dialysis today. We will dialyze for 3 hours of 3k bath, calcium 2.5. 2. Anemia. Monitor hemoglobin and hematocrit levels. We will give Epogen with hemodialysis. 3. Mineral bone disorder. Monitor calcium and phosphorus levels. 4. Hypertension. Continue current blood pressure regimen. Continue ultrafiltration dialysis. 5. Respiratory failure. The patient is status post extubation, currently stable. Continue to monit or. 6. Volume overload secondary to end-stage renal disease. Continue ultrafiltration dialysis. 7. History of heart failure. Continue medical management. 8. Sepsis secondary to pneumonia. Continue current antibiotic regimen. 9. Acute encephalopathy and dementia. Etiology is toxic metabolic. Continue to monitor. 10. Chronic atrial fibrillation. Continue medical management. Dictated By: SHERRY CONCEPCION DO NR/NTS Conf#: [id number] DID#: [id number] CC: GERARDO STALLWORTH MD; PETTY JARAMILLO MD; DILIP OSUNA MD;*EndCC*
[2018-05-21] MEDS: THIAMINE 100 MG TAB PO SCH (18:11)
[2018-05-21] MEDS: SENNA/DOCUSATE NA (8.6MG/50MG) TAB PO SCH (21:33)
[2018-05-21] MEDS ORDERED: LORAZEPAM 2 MG INJ IV ONE (23:00)
[2018-05-21] MEDS ORDERED: HALOPERIDOL 5 MG INJ IM ONE (23:00)
[2018-05-22 02:00] VITALS: BP 152/80; PULSE 89; RESP 18
[2018-05-22] MEDS: PIPER-TAZO 2.25 GM (PMX) 50 ML IVPB SCH ×3 (05:43→21:00)
[2018-05-22 08:03] VITALS: BP 149/73; PULSE 84; RESP 16
[2018-05-22] MEDS: AMLODIPINE 10 MG TAB NGT SCH (08:09)
[2018-05-22] MEDS: FAMOTIDINE 20 MG INJ IV SCH (08:09)
[2018-05-22] MEDS: APIXABAN 5 MG TABLET PO SCH ×2 (08:10→20:59)
[2018-05-22] MEDS: LOSARTAN 25 MG TAB PO SCH (08:10)
[2018-05-22] MEDS: THIAMINE 100 MG TAB PO SCH (08:11)
--- NOTE | 2018-05-22 08:27 | PN ---
DATE: 05/22/2018 SUBJECTIVE: The patient is stable, no events overnight. OBJECTIVE: VITAL SIGNS: Blood pressure is 149/73, respirations 16, pulse 84, temperature 97.9. HEENT: Head is normocephalic. NECK: Supple. HEART: Regular rate. LUNGS: Show diminished breath sounds at the base. ABDOMEN: Soft, nontender to palpation without rebound or guarding. EXTREMITIES: Negative for clubbing, cyanosis, no edema. DERMATOLOGIC: No rashes. MUSCULOSKELETAL: No joint effusion. NEUROLOGIC: No change in exam. MEDICATIONS: Reviewed. LABORATORY DATA: Reviewed. ASSESSMENT AND PLAN: 1. End-stage renal disease. The patient had hemodialysis yesterday, tolerated well. Plan is for di alysis tomorrow. 2. Anemia. Continue to monitor hemoglobin and hematocrit levels. We will give Epogen with dialysis . 3. Mineral bone disorder, monitor calcium and phosphorus levels. 4. Hypertension. Continue current blood pressure regimen. 5. Volume overload, improving. Continue ultrafiltration dialysis. 6. Congestive heart failure. Continue medical management. 7. Sepsis secondary to pneumonia. Continue current antibiotic regimen. 8. Acute respiratory failure, improving. Continue current medical management. 9. Acute encephalopathy on top of dementia, etiology is toxic metabolic. Continue to monitor. 10. Chronic atrial fibrillation. Continue current treatment plan. Dictated By: SHERRY CONCEPCION DO NR/NTS Conf#: [id number] DID#: [id number] CC: DILIP OSUNA MD; PETTY JARAMILLO MD; GERARDO STALLWORTH MD;*EndCC*
--- NOTE | 2018-05-22 08:35 | CONS ---
Assessment/Plan Assessment/Plan Hospital Course (Demo Recall) Chronic afib with RVR: Rates controlled. Now on Eliquis Acute on chronic systolic CHF/cardiomyopathy: EF at [place] 35%, here 40- 45%. Possible ischemic component vs tachycardia induced. Currently not a candidate for cardiac cath as he did not have ACS/ID and he remains confused at baseline. Also refusing meds at times Acute on chronic respiratory failure: due to CHF. Now extubated 05/17 ESRD on HD Alcoholic liver cirrhosis HTN -coreg 6.25mg BID -losartan 100mg -amlodipine 10mg -Eliquis 2.5mg BID -no statin with liver cirrhosis unless proven CAD or ACS -doubt significant recovery of mental status and pt is not cooperative so he is not a cath candidate. Can be reevaluated as outpt -ok for d/c Consultation Date/Type/Reason Admit Date/Time May 16, 2018 at 04:30 Initial Consult Date 05/16/18 Type of Consult Cardiology Requesting Provider: MYRIAM WRAY NP Date/Time of Note DATE: 05/22/18 TIME: 08:34 24 HR Interval Summary Free Text/Dictation No events. Remains confused. Exam/Review of Systems Exam Vitals Vital Signs Date Temp Pulse Resp B/P (MAP) Pulse Ox O2 O2 Flow FiO2 Time Delivery Rate 05/22/18 97.9 84 16 149/73 99 08:03 (98) 05/21/18 Room Air 19:11 Intake and Output 05/21/18 05/21/18 05/22/18 1414:59 22:59 06:59 IntakeIntake Total 610 ml 210 ml 440 ml BalanceBalance 610 ml 210 ml 440 ml Constitutional: alert; No oriented Psych: no complaints Head: normocephalic, atraumatic Neck: No jvd Respiratory: clear to auscultation Cardiovascular: regular rate and rhythm, systolic murmur (2/6 LARRY); No edema Gastrointestinal: soft, non-tender; No distended Neurological: nl mental status, nl speech Results Result Diagram: 05/22/18 0533 05/22/18 0533 Results 24hrs Laboratory Tests Test 05/22/18 05:33 White Blood Count 5.2 Red Blood Count 3.36 L Hemoglobin 9.0 L Hematocrit 29.0 L Mean Corpuscular Volume 86.3 Mean Corpuscular Hemoglobin 26.8 L Mean Corpuscular Hemoglobin Concent 31.0 L Red Cell Distribution Width 19.1 H Platelet Count 230 Mean Platelet Volume 8.8 Immature Granulocytes % 0.400 Neutrophils % 65.9 Lymphocytes % 18.7 Monocytes % 9.4 Eosinophils % 4.8 Basophils % 0.8 Nucleated Red Blood Cells % 0.0 Immature Granulocytes # 0.020 Neutrophils # 3.4 Lymphocytes # 1.0 Monocytes # 0.5 Eosinophils # 0.3 Basophils # 0.0 Nucleated Red Blood Cells # 0.0 Prothrombin Time 15.0 H Prothrombin Time Ratio 1.2 INR International Normalized Ratio 1.17 Sodium Level 138 Potassium Level 3.8 Chloride Level 102 Carbon Dioxide Level 26 Anion Gap 10 Blood Urea Nitrogen 15 # Creatinine 3.30 #H Est Glomerular Filtrat Rate mL/min 19 L Glucose Level 82 Calcium Level 8.2 L Phosphorus Level 4.2 Magnesium Level 2.0 Total Bilirubin 0.2 Direct Bilirubin 0.00 Indirect Bilirubin 0.2 Aspartate Amino Transf (AST/SGOT) 32 Alanine Aminotransferase (ALT/SGPT) 26 Alkaline Phosphatase 79 Ammonia < 9 L Total Protein 6.2 Albumin 2.8 L Globulin 3.40 H Albumin/Globulin Ratio 0.82 Vitamin B12 Level 835 Folate 4.9 Thyroid Stimulating Hormone (TSH) 2.060 Random Vancomycin Level 14.2 Medications Medication Current Medications IV Flush (NS 3 ml) 3 ml PER PROTOCOL IV ; Start 05/16/18 at 05:30 Hydromorphone HCl (Dilaudid) 0.5 mg Q4H PRN IV .SEVERE PAIN 7-10 Last administered on 05/20/18at 14:55; Admin Dose 0.5 MG; Start 05/16/18 at 05:30 Vancomycin HCl (Vanco Iv Per Pharmacy) VANCOMYCIN PER PHARMACY PER PROTOCOL XX ; Start 05/16/18 at 05:30 Famotidine (Pepcid Iv) 20 mg DAILY IV Last administered on 05/22/18at 08:09; Admin Dose 20 MG; Start 05/17/18 at 09:00 Carvedilol (Coreg) 6.25 mg BID PO Last administered on 05/22/18at 08:10; Admin Dose 6.25 MG; Start 05/16/18 at 11:30 Piperacillin Sod/ Tazobactam Sod 50 ml @ 100 mls/hr Q8 IVPB Last administered on 05/22/18 05:43; Admin Dose 100 MLS/HR; Start 05/16/18 at 15:00 Amlodipine Besylate (Norvasc) 10 mg DAILY NGT Last administered on 05/22/18 08:09; Admin Dose 10 MG; Start 05/17/18 at 09:00 Losartan Potassium (Cozaar) 100 mg DAILY PO Last administered on 05/22/18 08:10; Admin Dose 100 MG; Start 05/17/18 at 09:00 Apixaban (Eliquis) 2.5 mg BID PO Last administered on 05/22/18 08:10; Admin Dose 2.5 MG; Start 05/19/18 at 21:00 Senna/Docusate Sodium (Senokot-S) 2 tab HS PO Last administered on 05/21/18 21:33; Admin Dose 2 TAB; Start 05/21/18 at 21:00 Thiamine HCl (Vitamin B1) 100 mg DAILY PO Last administered on 05/22/18 08:11; Admin Dose 100 MG; Start 05/21/18 at 15:30 Levalbuterol (Xopenex Neb) 0.63 mg Q4H RESP THERAPY PRN HHN WHEEZING AND SOB; Start 05/21/18 at 15:30 Epoetin Bhupendra (Epogen (Esrd)) 10,000 units TuTa@17 SC ; Start 05/22/18 at 17:00 GERARDO STALLWORTH May 22, 2018 08:35
--- NOTE | 2018-05-22 10:51 | PN ---
Date/Time of Note Date/Time of Note DATE: 05/22/18 TIME: 10:49 Assessment/Plan VTE Prophylaxis Risk score (from Ns)>0 risk: 9 SCD applied (from Ns): Yes SCD contraindicated: low risk/ambulating Pharmacological prophylaxis: LMWH Lines/Catheters IV Catheter Type (from [facility]): RCW permacath Urinary Cath still in place: No Assessment/Plan Hospital Course Assessment and plan 1. Acute Hypoxic respiratory failure, stable/ improved treat comorbidities 2. Pneumonia stable/ resolved finish antibiotics 3. Fluid overload stable continue medical management 4. Cardiomyopathy EF 35% ischemic vs tachycardia induced, doesnt req cath. Continue rate control follow-up with cardiology 5. A. fib RVR stable, rate controlled cont anticoagulation if adherence is not an issue 6. Alcoholism? 7. Dementia? Vs mild cognitive impairment 8. Acute toxic metabolic encephalopathy. Multifactorial stable follow 9. Failure to thrive transfer back to [facility]. Needs palliative care consider hospice 10. Cirrhosis? 11. Anemia 12. Pneumothorax, right, minimal 10%, serial x-ray as indicated 13. Pl effusion sp thoracentesis appears benign third spacing transudate etc. 14. ESRD mod stable continue dialysis unless adherence is an issue 15. Dysphagia: Subjective: /5 events noted. Not oriented. No fever nausea vomiting or GI bleed 05/22: Impulsive behavior noted. Occasional agitation trying to get out of bed. Tolerating dialysis. Eating no distress. Dysphagia noted to a small extent. Objective: Vital signs stable: ST eval: Suspect delayed initiation of the pharyngeal swallow. Mod red. hyolaryngeal excursion, per palpation. Suspect pharyngeal weakness and residue. Implemented alternating solids /liquids to clear suspected residue. Pt tolerated pureed solids without s/s aspiration, NTL with wet vocal quality x2 and no other s/s aspiration with 6 oz provided by single cup sips. Vocal quality cleared with repeat swallow. Physical exam No pallor Reg no murmur rub gallop Dimin but fairly clear Bs+ nd nt no RRG Mild edema hypotonia Result Diagram: 05/22/1853205/22/1833 Results 24hrs Laboratory Tests Test 05/22/18 05:33 White Blood Count 5.2 Red Blood Count 3.36 L Hemoglobin 9.0 L Hematocrit 29.0 L Mean Corpuscular Volume 86.3 Mean Corpuscular Hemoglobin 26.8 L Mean Corpuscular Hemoglobin Concent 31.0 L Red Cell Distribution Width 19.1 H Platelet Count 230 Mean Platelet Volume 8.8 Immature Granulocytes % 0.400 Neutrophils % 65.9 Lymphocytes % 18.7 Monocytes % 9.4 Eosinophils % 4.8 Basophils % 0.8 Nucleated Red Blood Cells % 0.0 Immature Granulocytes # 0.020 Neutrophils # 3.4 Lymphocytes # 1.0 Monocytes # 0.5 Eosinophils # 0.3 Basophils # 0.0 Nucleated Red Blood Cells # 0.0 Prothrombin Time 15.0 H Prothrombin Time Ratio 1.2 INR International Normalized Ratio 1.17 Sodium Level 138 Potassium Level 3.8 Chloride Level 102 Carbon Dioxide Level 26 Anion Gap 10 Blood Urea Nitrogen 15 # Creatinine 3.30 #H Est Glomerular Filtrat Rate mL/min 19 L Glucose Level 82 Calcium Level 8.2 L Phosphorus Level 4.2 Magnesium Level 2.0 Total Bilirubin 0.2 Direct Bilirubin 0.00 Indirect Bilirubin 0.2 Aspartate Amino Transf (AST/SGOT) 32 Alanine Aminotransferase (ALT/SGPT) 26 Alkaline Phosphatase 79 Ammonia < 9 L Total Protein 6.2 Albumin 2.8 L Globulin 3.40 H Albumin/Globulin Ratio 0.82 Vitamin B12 Level 835 Folate 4.9 Thyroid Stimulating Hormone (TSH) 2.060 Random Vancomycin Level 14.2 Exam/Review of Systems Exam Vitals Vital Signs Date Temp Pulse Resp B/P (MAP) Pulse Ox O2 O2 Flow FiO2 Time Delivery Rate 05/22/18 97.9 84 16 149/73 99 08:03 (98) 05/21/18 Room Air 19:11 Intake and Output 05/21/18 05/21/18 05/22/18 1515:00 23:00 07:00 IntakeIntake Total 610 ml 210 ml 440 ml BalanceBalance 610 ml 210 ml 440 ml Results Results 24hrs Laboratory Tests Test 05/22/18 05:33 White Blood Count 5.2 Red Blood Count 3.36 L Hemoglobin 9.0 L Hematocrit 29.0 L Mean Corpuscular Volume 86.3 Mean Corpuscular Hemoglobin 26.8 L Mean Corpuscular Hemoglobin Concent 31.0 L Red Cell Distribution Width 19.1 H Platelet Count 230 Mean Platelet Volume 8.8 Immature Granulocytes % 0.400 Neutrophils % 65.9 Lymphocytes % 18.7 Monocytes % 9.4 Eosinophils % 4.8 Basophils % 0.8 Nucleated Red Blood Cells % 0.0 Immature Granulocytes # 0.020 Neutrophils # 3.4 Lymphocytes # 1.0 Monocytes # 0.5 Eosinophils # 0.3 Basophils # 0.0 Nucleated Red Blood Cells # 0.0 Prothrombin Time 15.0 H Prothrombin Time Ratio 1.2 INR International Normalized Ratio 1.17 Sodium Level 138 Potassium Level 3.8 Chloride Level 102 Carbon Dioxide Level 26 Anion Gap 10 Blood Urea Nitrogen 15 # Creatinine 3.30 #H Est Glomerular Filtrat Rate mL/min 19 L Glucose Level 82 Calcium Level 8.2 L Phosphorus Level 4.2 Magnesium Level 2.0 Total Bilirubin 0.2 Direct Bilirubin 0.00 Indirect Bilirubin 0.2 Aspartate Amino Transf (AST/SGOT) 32 Alanine Aminotransferase (ALT/SGPT) 26 Alkaline Phosphatase 79 Ammonia < 9 L Total Protein 6.2 Albumin 2.8 L Globulin 3.40 H Albumin/Globulin Ratio 0.82 Vitamin B12 Level 835 Folate 4.9 Thyroid Stimulating Hormone (TSH) 2.060 Random Vancomycin Level 14.2 Medications Medication Current Medications IV Flush (NS 3 ml) 3 ml PER PROTOCOL IV ; Start 05/16/18 at 05:30 Hydromorphone HCl (Dilaudid) 0.5 mg Q4H PRN IV .SEVERE PAIN 7-10 Last administered on 05/20/18at 14:55; Admin Dose 0.5 MG; Start 05/16/18 at 05:30 Vancomycin HCl (Vanco Iv Per Pharmacy) VANCOMYCIN PER PHARMACY PER PROTOCOL XX ; Start 05/16/18 at 05:30 Famotidine (Pepcid Iv) 20 mg DAILY IV Last administered on 05/22/18at 08:09; Admin Dose 20 MG; Start 05/17/18 at 09:00 Carvedilol (Coreg) 6.25 mg BID PO Last administered on 05/22/18 08:10; Admin Dose 6.25 MG; Start 05/16/18 at 11:30 Piperacillin Sod/ Tazobactam Sod 50 ml @ 100 mls/hr Q8 IVPB Last administered on 05/22/18at 05:43; Admin Dose 100 MLS/HR; Start 05/16/18 at 15:00 Amlodipine Besylate (Norvasc) 10 mg DAILY NGT Last administered on 05/22/18at 08:09; Admin Dose 10 MG; Start 05/17/18 at 09:00 Losartan Potassium (Cozaar) 100 mg DAILY PO Last administered on 05/22/18at 08:10; Admin Dose 100 MG; Start 05/17/18 at 09:00 Apixaban (Eliquis) 2.5 mg BID PO Last administered on 05/22/18at 08:10; Admin Dose 2.5 MG; Start 05/19/18 at 21:00 Senna/Docusate Sodium (Senokot-S) 2 tab HS PO Last administered on 05/21/18at 21:33; Admin Dose 2 TAB; Start 05/21/18 at 21:00 Thiamine HCl (Vitamin B1) 100 mg DAILY PO Last administered on 05/22/18at 08:11; Admin Dose 100 MG; Start 05/21/18 at 15:30 Levalbuterol (Xopenex Neb) 0.63 mg Q4H RESP THERAPY PRN HHN WHEEZING AND SOB; Start 05/21/18 at 15:30 Epoetin Bhupendra (Epogen (Esrd)) 10,000 units TuThSa@17 SC ; Start 05/22/18 at 17:00 Vancomycin HCl 250 ml @ 125 mls/hr Q24H IVPB ; Start 05/22/18 at 11:00; Stop 05/22/18 at 23:59 PETTY JARAMILLO MD May 22, 2018 10:51
[2018-05-22] MEDS ORDERED: VANCOMYCIN 1 GM 250 ML IVPB SCH (11:00)
[2018-05-22 14:13] VITALS: BP 110/57; PULSE 83; RESP 18
--- NOTE | 2018-05-22 14:43 | DS ---
Date/Time of Note Date/Time of Note DATE: 05/22/18 TIME: 14:36 Discharge Summary Admission/Discharge Info Admit Date/Time May 16, 2018 at 04:30 Discharge Date/Time Patient Condition: Stable Consults Erika Oleary Procedures CXR #4 05/21 IMPRESSION: 1. Small right apical pneumothorax decreased in size with the examination of 05/18/2018. 2. Increased right lower lobe opacification secondary to the combination of a small to moderate right-sided pleural effusion and atelectasis. 3. Aortic atherosclerosis. 4. Stable position of a right IJ line. Hx of Present Illness 67-year-old gentleman admitted from [facility] with hypoxia Hospital Course Hospitalist coverage/hospital course Admitted with acute respiratory failure intubated ICU presently extubated. Treated for combination of pneumonia and fluid overload. He has finished antibiotics. Due to pleural effusion and thoracentesis was done. Patient did end up having a pneumothorax. This pneumothorax has essentially resolved. Recommend repeating chest x-ray once a week. Patient continued dialysis. Fluid overload is a combination of multiorgan dysfunction. As patient has been optimized medically with medication and diet, I would recommend palliative care involvement. A/P 1. Acute Hypoxic respiratory failure, stable/ improved treat comorbidities 2. Pneumonia stable/ resolved finish antibiotics 3. Fluid overload stable continue medical management 4. Cardiomyopathy EF 35% ischemic vs tachycardia induced, doesnt req cath. Cont rate control follow-up with cardiology 5. A. fib RVR stable, rate controlled cont anticoagulation if adherence is not an issue 6. Alcoholism? 7. Dementia? Vs mild cognitive impairment 8. Acute toxic metabolic encephalopathy. Stable and improved multifactorial stable follow 9. Failure to thrive transfer back to [facility]. Needs palliative care consider hospice 10. Cirrhosis? 11. Anemia 12. Pneumothorax, right, minimal/ 10%, serial x-ray as indicated 13. Pl effusion sp thoracentesis appears benign third spacing transudate etc. 14. ESRD stable cont HD unless adherence is an issue 15. Dysphagia: See below Subjective: 05/21 events noted. Not oriented. No fever nausea vomiting or GI bleed 05/22: Impulsive behavior noted. Occasional agitation trying to get out of bed. Tolerating dialysis. Eating no distress. Dysphagia noted to a small extent. Objective: Vital signs stable: ST eval: Suspect delayed initiation of the pharyngeal swallow. Mod red. hyolaryngeal excursion, per palpation. Suspect pharyngeal weakness and residue. Implemented alternating solids /liquids to clear suspected residue. Pt tolerated pureed solids without s/s aspiration, NTL with wet vocal quality x2 and no other s/s aspiration with 6 oz provided by single cup sips. Vocal quality cleared with repeat swallow. Physical exam No pallor Reg no murmur rub gallop Dimin but fairly clear Bs+ nd nt no RRG Mild edema hypotonia Home Meds Active Scripts Naproxen* (Naproxen*) 500 Mg Tablet, 500 MG PO BID PRN for PAIN AND/OR I NFLAMMATION, #60 TAB Prov:JONY FIGUEROA MD 08/07/17 Cephalexin* (Cephalexin*) 500 Mg Capsule, 500 MG PO Q12 for 7 Days, #14 CAP Prov:JONY CARRION 10/16/16 Clonidine Hcl* (Catapres*) 0.1 Mg Tablet, 0.1 MG PO Q12 for 30 Days, #60 TAB 2 Refills Prov:JONY CARRION 10/16/16 Amlodipine Besylate* (Amlodipine Besylate*) 2.5 Mg Tablet, 2.5 MG PO BID for 30 Days, #60 TAB Prov:JONY CARRION 10/16/16 Pantoprazole* (Pantoprazole*) 40 Mg Tablet.dr, 40 MG PO BID@06,18 for 30 Days, #60 2 Refills Prov:JONY CARRION 10/16/16 Benazepril Hcl* (Benazepril Hcl*) 20 Mg Tablet, 20 MG PO DAILY for 30 Days, #30 TAB 2 Refills Prov:JONY CARRION 10/16/16 Tamsulosin Hcl* (Flomax*) 0.4 Mg Cap.er.24h, 0.4 MG PO HS for 30 Days, #30 CAP 2 Refills Prov:JONY CARRION 10/16/16 Primary Care Provider Time spent on discharge: > 30 minutes Pending Labs Laboratory Tests Test 05/22/18 05:33 White Blood Count 5.2 10^3/ul (4.8-10.8) Red Blood Count 3.36 10^6/ul (4.70-6.10) Hemoglobin 9.0 g/dl (14.0-18.0) Hematocrit 29.0 % (42.0-52.0) Mean Corpuscular Volume 86.3 fl (82.0-101.0) Mean Corpuscular Hemoglobin 26.8 pg (29.0-33.0) Mean Corpuscular Hemoglobin Concent 31.0 g/dl (32.0-37.0) Red Cell Distribution Width 19.1 % (11.5-14.5) Platelet Count 230 10^3/UL (140-415) Mean Platelet Volume 8.8 fl (7.4-10.4) Immature Granulocytes % 0.400 % (0.001-0.429) Neutrophils % 65.9 % (39.0-77.0) Lymphocytes % 18.7 % (15.0-51.0) Monocytes % 9.4 % (0.0-11.0) Eosinophils % 4.8 % (0.0-7.0) Basophils % 0.8 % (0.0-2.0) Nucleated Red Blood Cells % 0.0 /100WBC (0.0-0.0) Immature Granulocytes # 0.020 10^3/ul (0.0-0.031) Neutrophils # 3.4 10^3/ul (1.6-7.5) Lymphocytes # 1.0 10^3/ul (0.8-2.9) Monocytes # 0.5 10^3/ul (0.3-0.9) Eosinophils # 0.3 10^3/ul (0.0-0.5) Basophils # 0.0 10^3/ul (0.0-0.1) Nucleated Red Blood Cells # 0.0 10^3/ul (0.0-0.0) Prothrombin Time 15.0 Sec (11.9-14.9) Prothrombin Time Ratio 1.2 INR International Normalized Ratio 1.17 Sodium Level 138 mmol/L (135-144) Potassium Level 3.8 mmol/L (3.5-5.1) Chloride Level 102 mmol/L (97-110) Carbon Dioxide Level 26 mmol/L (21-31) Anion Gap 10 (5-13) Blood Urea Nitrogen 15 mg/dl (7-20) Creatinine 3.30 mg/dl (0.61-1.24) Est Glomerular Filtrat Rate mL/min 19 mL/min (>60) Glucose Level 82 mg/dl (70-220) Calcium Level 8.2 mg/dl (8.4-10.2) Phosphorus Level 4.2 mg/dl (2.5-4.9) Magnesium Level 2.0 mg/dl (1.7-2.5) Total Bilirubin 0.2 mg/dl (0.2-1.3) Direct Bilirubin 0.00 mg/dl (0.00-0.20) Indirect Bilirubin 0.2 mg/dl (0-1.1) Aspartate Amino Transf (AST/SGOT) 32 IU/L (15-46) Alanine Aminotransferase (ALT/SGPT) 26 IU/L (13-69) Alkaline Phosphatase 79 IU/L (42-121) Ammonia < 9 umol/l (9-30) Total Protein 6.2 g/dl (6.1-8.1) Albumin 2.8 g/dl (3.3-4.9) Globulin 3.40 g/dl (1.3-3.2) Albumin/Globulin Ratio 0.82 Vitamin B12 Level 835 pg/ml (239-931) Folate 4.9 ng/ml (2.8-20.0) Thyroid Stimulating Hormone (TSH) 2.060 MIU/L (0.465-4.680) Random Vancomycin Level 14.2 ug/ml PETTY JARAMILLO MD May 22, 2018 14:43
--- NOTE | 2018-05-22 14:45 | PDOCDIS ---
Discharge Instructions CONDITION [id number] Patient Condition: [id number] Stable HOME CARE INSTRUCTIONS: [id number] Diet Instructions: [id number] Reduced Sodium ACTIVITY: [id number] Activity Restrictions: [id number] Slowly Increase Activity Do not Drive FOLLOW UP/APPOINTMENTS Follow-up Plan continue dialysis as before. appt primary 1wk cardio 1-2wks nephrology 2-3wks Palliative Care referral PETTY JARAMILLO MD May 22, 2018 14:45
[2018-05-22] MEDS ORDERED: METO-335 PO (14:48)
[2018-05-22] MEDS ORDERED: LACT1CAP28 PO (14:48)
[2018-05-22] MEDS ORDERED: LOSA25TA2 PO (14:48)
[2018-05-22] MEDS ORDERED: APIX5TAB PO (14:48)
[2018-05-22] MEDS ORDERED: LEVA0.634 HHN (14:48)
[2018-05-22] MEDS ORDERED: FAMO20TA18 PO (14:48)
[2018-05-22] MEDS ORDERED: THIA100T56 PO (14:48)
[2018-05-22] MEDS ORDERED: SENOKOTS PO (14:48)
[2018-05-22] MEDS ORDERED: AMLO2.5T78 PO (14:49)
[2018-05-22] MEDS ORDERED: CARV6.25 PO (15:04)
[2018-05-22] MEDS: EPOETIN 10000 UNITS/1 ML INJ (ESRD) SC SCH (17:34)
[2018-05-22 20:00] VITALS: BP 156/74; PULSE 90; RESP 18
[2018-05-22] MEDS: SENNA/DOCUSATE NA (8.6MG/50MG) TAB PO SCH (20:59)
[2018-05-22] MEDS: FAMOTIDINE 20 MG TAB PO SCH (21:00)
[2018-05-22] MEDS: LACTOBACILLUS RHAMNOSUS CAP PO SCH (21:00)
[2018-05-22] MEDS: HYDROmorphONE 0.5 MG/0.5 ML SYG IV PRN (23:19)
[2018-05-23] VITALS (18 sets, daily range): BP systolic 128–194; BP diastolic 60–115; PULSE 79–90; RESP 16–20
[2018-05-23] MEDS: PIPER-TAZO 2.25 GM (PMX) 50 ML IVPB SCH ×2 (06:55→14:32)
[2018-05-23] MEDS: APIXABAN 5 MG TABLET PO SCH ×2 (08:27→21:14)
[2018-05-23] MEDS: LACTOBACILLUS RHAMNOSUS CAP PO SCH ×2 (08:27→21:15)
[2018-05-23] MEDS: THIAMINE 100 MG TAB PO SCH (08:27)
[2018-05-23] MEDS: AMLODIPINE 10 MG TAB NGT SCH (09:00)
[2018-05-23] MEDS: LOSARTAN 25 MG TAB PO SCH (09:00)
--- NOTE | 2018-05-23 09:13 | PN ---
DATE: 05/23/2018 SUBJECTIVE: The patient is stable, no events overnight. OBJECTIVE: VITAL SIGNS: Blood pressure is 128/60, respirations 18, pulse 84, temperature 98.3. HEENT: Head is normocephalic. NECK: Supple. HEART: Regular rate. LUNGS: Show diminished breath sounds at the base. ABDOMEN: Soft, nontender to palpation. No rebound or guarding. EXTREMITIES: Negative for clubbing, cyanosis, no edema. DERMATOLOGIC: No rashes. MUSCULOSKELETAL: No joint effusion. NEUROLOGIC: No change in exam. MEDICATIONS: Reviewed. LABORATORY DATA: From 05/23/18 has been reviewed. ASSESSMENT AND PLAN: 1. End-stage renal disease. Plan is for hemodialysis today. We will dialyze 3 hours 3k bath, calci um 2.5. 2. Anemia. Monitor hemoglobin and hematocrit levels. Continue Epogen. 3. Mineral bone disorder. Monitor calcium and phosphorus levels. 4. Hypertension. Continue current blood pressure regimen. 5. Volume overload, improving. Continue ultrafiltration dialysis. 6. Congestive heart failure. Continue medical management. 7. Sepsis secondary to pneumonia. Continue current antibiotic regimen. 8. Acute respiratory failure, improved. 9. Acute encephalopathy and dementia, etiology is toxic metabolic. 10. Chronic atrial fibrillation. Continue current treatment plan. Dictated By: SHERRY CONCEPCION DO NR/NTS Conf#: [id number] DID#: [id number] CC: GERARDO STALLWORTH MD; PETTY JARAMILLO MD; DILIP OSUNA MD;*EndCC*
--- NOTE | 2018-05-23 10:53 | CONS ---
Assessment/Plan Assessment/Plan Hospital Course (Demo Recall) Chronic afib with RVR: Rates controlled. Now on Eliquis Acute on chronic systolic CHF/cardiomyopathy: EF at [facility] 35%, here 40- 45%. Possible ischemic component vs tachycardia induced. Currently not a candidate for cardiac cath as he did not have ACS/OK and he remains confused at baseline. Also refusing meds at times Acute on chronic respiratory failure: due to CHF. Now extubated 05/17 ESRD on HD Alcoholic liver cirrhosis HTN -coreg 6.25mg BID -losartan 100mg -amlodipine 10mg -Eliquis 2.5mg BID -no statin with liver cirrhosis unless proven CAD or ACS -doubt significant recovery of mental status and pt is not cooperative so he is not a cath candidate. Can be reevaluated as outpt -ok for d/c Consultation Date/Type/Reason Admit Date/Time May 16, 2018 at 04:30 Initial Consult Date 05/16/18 Type of Consult Cardiology Requesting Provider: MYRIAM WRAY NP Date/Time of Note DATE: 05/23/18 TIME: 10:52 24 HR Interval Summary Free Text/Dictation No events. Plan for d/c to SNF Exam/Review of Systems Exam Vitals Vital Signs Date Temp Pulse Resp B/P (MAP) Pulse Ox O2 O2 Flow FiO2 Time Delivery Rate 05/23/18 80 156/70 10:29 (98) 05/23/18 97.4 16 99 08:27 05/21/18 Room Air 19:11 Intake and Output 05/22/18 05/22/18 05/23/18 1515:00 23:00 07:00 IntakeIntake Total 250 ml 850 ml BalanceBalance 250 ml 850 ml Constitutional: alert; No oriented Psych: no complaints Head: normocephalic, atraumatic Neck: No jvd Respiratory: clear to auscultation Cardiovascular: regular rate and rhythm, systolic murmur (2/6 LARRY); No edema Gastrointestinal: soft, non-tender; No distended Neurological: nl mental status, nl speech Results Result Diagram: 05/23/18 0507 05/23/18 0507 Results 24hrs Laboratory Tests Test 05/23/18 05:07 White Blood Count 6.1 Red Blood Count 3.27 L Hemoglobin 9.0 L Hematocrit 28.2 L Mean Corpuscular Volume 86.2 Mean Corpuscular Hemoglobin 27.5 L Mean Corpuscular Hemoglobin Concent 31.9 L Red Cell Distribution Width 19.0 H Platelet Count 241 Mean Platelet Volume 8.8 Immature Granulocytes % 0.800 H Neutrophils % 65.9 Lymphocytes % 19.1 Monocytes % 8.6 Eosinophils % 4.9 Basophils % 0.7 Nucleated Red Blood Cells % 0.0 Immature Granulocytes # 0.050 H Neutrophils # 4.1 Lymphocytes # 1.2 Monocytes # 0.5 Eosinophils # 0.3 Basophils # 0.0 Nucleated Red Blood Cells # 0.0 Sodium Level 137 Potassium Level 4.1 Chloride Level 103 Carbon Dioxide Level 24 Anion Gap 10 Blood Urea Nitrogen 25 H Creatinine 4.59 #H Est Glomerular Filtrat Rate mL/min 13 L Glucose Level 71 Calcium Level 8.3 L Medications Medication Current Medications IV Flush (NS 3 ml) 3 ml PER PROTOCOL IV ; Start 05/16/18 at 05:30 Hydromorphone HCl (Dilaudid) 0.5 mg Q4H PRN IV .SEVERE PAIN 7-10 Last administered on 05/22/18at 23:19; Admin Dose 0.5 MG; Start 05/16/18 at 05:30 Vancomycin HCl (Vanco Iv Per Pharmacy) VANCOMYCIN PER PHARMACY PER PROTOCOL XX ; Start 05/16/18 at 05:30 Carvedilol (Coreg) 6.25 mg BID PO Last administered on 05/22/18at 20:59; Admin Dose 6.25 MG; Start 05/16/18 at 11:30 Piperacillin Sod/ Tazobactam Sod 50 ml @ 100 mls/hr Q8 IVPB Last administered on 05/23/18at 06:55; Admin Dose 100 MLS/HR; Start 05/16/18 at 15:00 Amlodipine Besylate (Norvasc) 10 mg DAILY NGT Last administered on 05/22/18 08:09; Admin Dose 10 MG; Start 05/17/18 at 09:00 Losartan Potassium (Cozaar) 100 mg DAILY PO Last administered on 05/22/18at 08:10; Admin Dose 100 MG; Start 05/17/18 at 09:00 Apixaban (Eliquis) 2.5 mg BID PO Last administered on 05/23/18 08:27; Admin Dose 2.5 MG; Start 05/19/18 at 21:00 Senna/Docusate Sodium (Senokot-S) 2 tab HS PO Last administered on 05/22/18at 20:59; Admin Dose 2 TAB; Start 05/21/18 at 21:00 Thiamine HCl (Vitamin B1) 100 mg DAILY PO Last administered on 05/23/18 08:27; Admin Dose 100 MG; Start 05/21/18 at 15:30 Levalbuterol (Xopenex Neb) 0.63 mg Q4H RESP THERAPY PRN HHN WHEEZING AND SOB; Start 05/21/18 at 15:30 Epoetin Bhupendra (Epogen (Esrd)) 10,000 units TuThSa@17 SC Last administered on 05/22/18 17:34; Admin Dose 10,000 UNITS; Start 05/22/18 at 17:00 Famotidine (Pepcid) 20 mg HS PO Last administered on 05/22/18at 21:00; Admin Dose 20 MG; Start 05/22/18 at 21:00 Lactobacillus Acidophilus/ Rhamnosus (Culturelle) 1 cap BID PO Last administered on 05/23/18at 08:27; Admin Dose 1 CAP; Start 05/22/18 at 21:00 GERARDO STALLWORTH May 23, 2018 10:53
[2018-05-23] MEDS ORDERED: ONDANSETRON 4 MG INJ IV PRN ×2 (14:30→16:00)
--- NOTE | 2018-05-23 15:32 | PN ---
Date/Time of Note Date/Time of Note DATE: 05/23/18 TIME: 15:28 Assessment/Plan VTE Prophylaxis Risk score (from Ns)>0 risk: 2 SCD applied (from Nsg): Yes Pharmacological prophylaxis: LMWH Lines/Catheters IV [facility]ter Type (from [facility]): PERMACATH Urinary Cath still in place: No Assessment/Plan Hospital Course Hospitalist coverage/hospital course Admitted with acute respiratory failure intubated ICU presently extubated. Treated for combination of pneumonia and fluid overload. He has finished antibiotics. Due to pleural effusion and thoracentesis was done. Patient did end up having a pneumothorax. This pneumothorax has essentially resolved. Recommend repeating chest x-ray once a week. Patient continued dialysis. Fluid overload is a combination of multiorgan dysfunction. As patient has been optimized medically with medication and diet, I would recommend palliative care involvement. A/P 1. Acute Hypoxic respiratory failure, stable/ improved, treat comorbidities 2. Pneumonia stable/ resolved finished antibiotics 3. Fluid overload stable cont medical management 4. Cardiomyopathy EF 35%, ischemic vs tachycardia induced, doesnt req cath. Cont rate control, follow-up with cardiology 5. A. fib RVR stable, rate controlled, cont anticoagulation, if adherence is not an issue 6. Alcoholism? 7. Dementia? vs mild cognitive impairment 8. Acute toxic metabolic encephalopathy. Stable/ improved. multifactorial, s table follow 9. Failure to thrive transfer back to snf tomorrow. Needs palliative care, consider hospice 10. Cirrhosis? 11. Anemia 12. Pneumothorax, right, minimal/ 10%, serial x-ray as indicated 13. Pl effusion, sp thoracentesis. Appears benign/third spacing transudate etc. 14. ESRD stable cont HD, unless adherence is an issue 15. Dysphagia: See below. Patient for video swallow tomorrow 16. Nonadherence. Would not recommend cardiac cath/ aicd etc. 17. Nausea. Rule out constipation. Doubt uremia or gastritis. Possible reflux S: 05/21 events noted. Not oriented. No fever nausea vomiting or GI bleed 05/22: Impulsive behavior noted. Occasional agitation trying to get out of bed. Tolerating dialysis. Eating no distress. Dysphagia noted to a small extent. 05/23: No distress dyspnea. Positive nausea. No fever or diarrhea. Constipation? O: Vital signs stable: ST eval: Suspect delayed initiation of the pharyngeal swallow. Mod red. hyolaryngeal excursion, per palpation. Suspect pharyngeal weakness and residue. Implemented alternating solids /liquids to clear suspected residue. Pt tolerated pureed solids without s/s aspiration, NTL with wet vocal quality x2 and no other s/s aspiration with 6 oz provided by single cup sips. Vocal quality cleared with repeat swallow. PE No pallor/ icterus Reg no murmur rub gallop ctab Bs+ nd nt no RRG Mild edema hypotonia Result Diagram: 05/23/18 0507 05/23/18 0507 Results 24hrs Laboratory Tests Test 05/23/18 05:07 White Blood Count 6.1 Red Blood Count 3.27 L Hemoglobin 9.0 L Hematocrit 28.2 L Mean Corpuscular Volume 86.2 Mean Corpuscular Hemoglobin 27.5 L Mean Corpuscular Hemoglobin Concent 31.9 L Red Cell Distribution Width 19.0 H Platelet Count 241 Mean Platelet Volume 8.8 Immature Granulocytes % 0.800 H Neutrophils % 65.9 Lymphocytes % 19.1 Monocytes % 8.6 Eosinophils % 4.9 Basophils % 0.7 Nucleated Red Blood Cells % 0.0 Immature Granulocytes # 0.050 H Neutrophils # 4.1 Lymphocytes # 1.2 Monocytes # 0.5 Eosinophils # 0.3 Basophils # 0.0 Nucleated Red Blood Cells # 0.0 Sodium Level 137 Potassium Level 4.1 Chloride Level 103 Carbon Dioxide Level 24 Anion Gap 10 Blood Urea Nitrogen 25 H Creatinine 4.59 #H Est Glomerular Filtrat Rate mL/min 13 L Glucose Level 71 Calcium Level 8.3 L Exam/Review of Systems Exam Vitals Vital Signs Date Temp Pulse Resp B/P (MAP) Pulse Ox O2 O2 Flow FiO2 Time Delivery Rate 05/23/18 86 14:40 05/23/18 16 139/73 98 Room Air 14:25 (95) 05/23/18 97.4 08:27 Intake and Output 05/22/18 05/22/18 05/23/18 1515:00 23:00 07:00 IntakeIntake Total 250 ml 850 ml BalanceBalance 250 ml 850 ml Results Results 24hrs Laboratory Tests Test 05/23/18 05:07 White Blood Count 6.1 Red Blood Count 3.27 L Hemoglobin 9.0 L Hematocrit 28.2 L Mean Corpuscular Volume 86.2 Mean Corpuscular Hemoglobin 27.5 L Mean Corpuscular Hemoglobin Concent 31.9 L Red Cell Distribution Width 19.0 H Platelet Count 241 Mean Platelet Volume 8.8 Immature Granulocytes % 0.800 H Neutrophils % 65.9 Lymphocytes % 19.1 Monocytes % 8.6 Eosinophils % 4.9 Basophils % 0.7 Nucleated Red Blood Cells % 0.0 Immature Granulocytes # 0.050 H Neutrophils # 4.1 Lymphocytes # 1.2 Monocytes # 0.5 Eosinophils # 0.3 Basophils # 0.0 Nucleated Red Blood Cells # 0.0 Sodium Level 137 Potassium Level 4.1 Chloride Level 103 Carbon Dioxide Level 24 Anion Gap 10 Blood Urea Nitrogen 25 H Creatinine 4.59 #H Est Glomerular Filtrat Rate mL/min 13 L Glucose Level 71 Calcium Level 8.3 L Medications Medication Current Medications IV Flush (NS 3 ml) 3 ml PER PROTOCOL IV ; Start 05/16/18 at 05:30 Hydromorphone HCl (Dilaudid) 0.5 mg Q4H PRN IV .SEVERE PAIN 7-10 Last administered on 05/22/18at 23:19; Admin Dose 0.5 MG; Start 05/16/18 at 05:30 Vancomycin HCl (Vanco Iv Per Pharmacy) VANCOMYCIN PER PHARMACY PER PROTOCOL XX ; Start 05/16/18 at 05:30 Carvedilol (Coreg) 6.25 mg BID PO Last administered on 05/22/18at 20:59; Admin Dose 6.25 MG; Start 05/16/18 at 11:30 Piperacillin Sod/ Tazobactam Sod 50 ml @ 100 mls/hr Q8 IVPB Last administered on 05/23/18at 14:32; Admin Dose 100 MLS/HR; Start 05/16/18 at 15:00 Amlodipine Besylate (Norvasc) 10 mg DAILY NGT Last administered on 05/22/18at 08:09; Admin Dose 10 MG; Start 05/17/18 at 09:00 Losartan Potassium (Cozaar) 100 mg DAILY PO Last administered on 05/22/18at 08:10; Admin Dose 100 MG; Start 05/17/18 at 09:00 Apixaban (Eliquis) 2.5 mg BID PO Last administered on 05/23/18at 08:27; Admin Dose 2.5 MG; Start 05/19/18 at 21:00 Senna/Docusate Sodium (Senokot-S) 2 tab HS PO Last administered on 05/22/18 20:59; Admin Dose 2 TAB; Start 05/21/18 at 21:00 Thiamine HCl (Vitamin B1) 100 mg DAILY PO Last administered on 05/23/18 08:27; Admin Dose 100 MG; Start 05/21/18 at 15:30 Levalbuterol (Xopenex Neb) 0.63 mg Q4H RESP THERAPY PRN HHN WHEEZING AND SOB; Start 05/21/18 at 15:30 Epoetin Bhupendra (Epogen (Esrd)) 10,000 units TuThSa@17 SC Last administered on 05/22/18 17:34; Admin Dose 10,000 UNITS; Start 05/22/18 at 17:00 Famotidine (Pepcid) 20 mg HS PO Last administered on 05/22/18 21:00; Admin Dose 20 MG; Start 05/22/18 at 21:00 Lactobacillus Acidophilus/ Rhamnosus (Culturelle) 1 cap BID PO Last administered on 05/23/18 08:27; Admin Dose 1 CAP; Start 05/22/18 at 21:00 Ondansetron HCl (Zofran Inj) 4 mg Q6H PRN IV NAUSEA AND/OR VOMITING Last administered on 05/23/18 14:31; Admin Dose 4 MG; Start 05/23/18 at 14:30 PETTY JARAMILLO MD May 23, 2018 15:32
[2018-05-23] MEDS ORDERED: PROCHLORPERAZINE 10 MG INJ IM ONE (16:00)
[2018-05-23] MEDS: FAMOTIDINE 20 MG TAB PO SCH (21:14)
[2018-05-23] MEDS: SENNA/DOCUSATE NA (8.6MG/50MG) TAB PO SCH (21:14)
[2018-05-23] MEDS: HYDROmorphONE 0.5 MG/0.5 ML SYG IV PRN (21:42)
[2018-05-24 02:00] VITALS: BP 127/63; PULSE 83; RESP 18
[2018-05-24] MEDS: HYDROmorphONE 0.5 MG/0.5 ML SYG IV PRN (02:55)
[2018-05-24 08:21] VITALS: BP 171/71; PULSE 85; RESP 18
--- NOTE | 2018-05-24 08:22 | CONS ---
Assessment/Plan Assessment/Plan Hospital Course (Demo Recall) Chronic afib with RVR: Rates controlled. Now on Eliquis Acute on chronic systolic CHF/cardiomyopathy: EF at [facility] 35%, here 40- 45%. Possible ischemic component vs tachycardia induced. Currently not a candidate for cardiac cath as he did not have ACS/AK and he remains confused at baseline. Also refusing meds at times. Outpt stress testing if mentation normalizes Acute on chronic respiratory failure: due to CHF. Now extubated 05/17 ESRD on HD Alcoholic liver cirrhosis HTN -coreg 6.25mg BID -losartan 100mg -amlodipine 10mg -Eliquis 2.5mg BID -no statin with liver cirrhosis unless proven CAD or ACS -ok for d/c Consultation Date/Type/Reason Admit Date/Time May 16, 2018 at 04:30 Initial Consult Date 05/16/18 Type of Consult Cardiology Requesting Provider: MYRIAM WRAY NP Date/Time of Note DATE: 05/24/18 TIME: 08:21 24 HR Interval Summary Free Text/Dictation More alert and interactive this am. No complaints Exam/Review of Systems Exam Vitals Vital Signs Date Temp Pulse Resp B/P (MAP) Pulse Ox O2 O2 Flow FiO2 Time Delivery Rate 05/24/18 98.5 83 18 127/63 99 02:00 (84) 05/23/18 Room Air 17:25 Intake and Output 05/23/18 05/23/18 05/24/18 1515:00 23:00 07:00 IntakeIntake Total 100 ml 800 ml OutputOutput Total 2000 ml BalanceBalance 100 ml -1200 ml Constitutional: alert; No oriented Psych: no complaints, nl mood/affect Head: normocephalic, atraumatic Neck: supple; No jvd Respiratory: clear to auscultation; No crackles/rales Cardiovascular: regular rate and rhythm; No edema Gastrointestinal: soft, non-tender; No distended Neurological: nl mental status, nl speech Results Result Diagram: 05/24/183 05/24/18 0433 Results 24hrs Laboratory Tests Test 05/24/18 04:33 White Blood Count 6.1 Red Blood Count 3.17 L Hemoglobin 8.9 L Hematocrit 28.5 L Mean Corpuscular Volume 89.9 Mean Corpuscular Hemoglobin 28.1 L Mean Corpuscular Hemoglobin Concent 31.2 L Red Cell Distribution Width 19.4 H Platelet Count 239 Mean Platelet Volume 9.0 Immature Granulocytes % 0.800 H Neutrophils % 68.9 Lymphocytes % 15.8 Monocytes % 9.1 Eosinophils % 4.7 Basophils % 0.7 Nucleated Red Blood Cells % 0.0 Immature Granulocytes # 0.050 H Neutrophils # 4.2 Lymphocytes # 1.0 Monocytes # 0.6 Eosinophils # 0.3 Basophils # 0.0 Nucleated Red Blood Cells # 0.0 Sodium Level 137 Potassium Level 4.2 Chloride Level 105 Carbon Dioxide Level 24 Anion Gap 8 Blood Urea Nitrogen 15 # Creatinine 3.09 #H Est Glomerular Filtrat Rate mL/min 20 L Glucose Level 72 Calcium Level 8.3 L Total Bilirubin 0.0 L Direct Bilirubin 0.00 Indirect Bilirubin 0.0 Aspartate Amino Transf (AST/SGOT) 27 Alanine Aminotransferase (ALT/SGPT) 18 Alkaline Phosphatase 77 Total Protein 6.0 L Albumin 2.8 L Globulin 3.20 Albumin/Globulin Ratio 0.87 Lipase 434 H Medications Medication Current Medications IV Flush (NS 3 ml) 3 ml PER PROTOCOL IV ; Start 05/16/18 at 05:30 Hydromorphone HCl (Dilaudid) 0.5 mg Q4H PRN IV .SEVERE PAIN 7-10 Last administered on 05/24/18at 02:55; Admin Dose 0.5 MG; Start 05/16/18 at 05:30 Vancomycin HCl (Vanco Iv Per Pharmacy) VANCOMYCIN PER PHARMACY PER PROTOCOL XX ; Start 05/16/18 at 05:30 Carvedilol (Coreg) 6.25 mg BID PO Last administered on 05/23/18at 21:16; Admin Dose 6.25 MG; Start 05/16/18 at 11:30 Amlodipine Besylate (Norvasc) 10 mg DAILY NGT Last administered on 05/22/18 08:09; Admin Dose 10 MG; Start 05/17/18 at 09:00 Losartan Potassium (Cozaar) 100 mg DAILY PO Last administered on 05/22/18 08:10; Admin Dose 100 MG; Start 05/17/18 at 09:00 Apixaban (Eliquis) 2.5 mg BID PO Last administered on 05/23/18 21:14; Admin Dose 2.5 MG; Start 05/19/18 at 21:00 Senna/Docusate Sodium (Senokot-S) 2 tab HS PO Last administered on 05/23/18 21:14; Admin Dose 2 TAB; Start 05/21/18 at 21:00 Thiamine HCl (Vitamin B1) 100 mg DAILY PO Last administered on 05/23/18 08:27; Admin Dose 100 MG; Start 05/21/18 at 15:30 Levalbuterol (Xopenex Neb) 0.63 mg Q4H RESP THERAPY PRN HHN WHEEZING AND SOB; Start 05/21/18 at 15:30 Epoetin Bhupendra (Epogen (Esrd)) 10,000 units TuThSa@17 SC Last administered on 05/22/18 17:34; Admin Dose 10,000 UNITS; Start 05/22/18 at 17:00 Famotidine (Pepcid) 20 mg HS PO Last administered on 05/23/18at 21:14; Admin Dose 20 MG; Start 05/22/18 at 21:00 Lactobacillus Acidophilus/ Rhamnosus (Culturelle) 1 cap BID PO Last administered on 05/23/18at 21:15; Admin Dose 1 CAP; Start 05/22/18 at 21:00 Ondansetron HCl (Zofran Inj) 4 mg Q4H PRN IV NAUSEA AND/OR VOMITING; Start 05/23/18 at 16:00 GERARDO STALLWORTH May 24, 2018 08:22
--- NOTE | 2018-05-24 08:39 | PN ---
DATE: 05/24/2018 SUBJECTIVE: The patient is stable, no events overnight. No fevers, chills, nausea, vomiting. OBJECTIVE: VITAL SIGNS: Blood pressure is 127/63, respiration 18, pulse 83, temperature 98.5. HEENT: Head is normocephalic. NECK: Supple. HEART: Regular rate. LUNGS: Show diminished breath sounds at the base. ABDOMEN: Soft, nontender to palpation without rebound or guarding. EXTREMITIES: Negative for clubbing, cyanosis, no edema. DERMATOLOGIC: No rashes. MUSCULOSKELETAL: No joint effusion. NEUROLOGIC: No change in exam. MEDICATIONS: Reviewed. LABORATORY DATA: Has been reviewed. ASSESSMENT AND PLAN: 1. End-stage renal disease. The patient had hemodialysis yesterday, tolerated well. Plan for dialy sis again tomorrow. 2. Anemia. Monitor hemoglobin and hematocrit levels. Will give Epogen as needed. 3. Mineral bone disorder, monitor calcium and phosphorus levels. 4. Hypertension. Continue current blood pressure regimen. 5. , improving, continue ultrafiltration dialysis. 6. Congestive heart failure. Continue medical management. 7. Sepsis secondary to pneumonia. Patient has completed an antibiotic course. 8. Acute respiratory failure, improved. 9. Acute encephalopathy and dementia, etiology is toxic metabolic. Continue to monitor. 10. Atrial fibrillation. Continue current treatment plan. Dictated By: SHERRY CONCEPCION DO NR/NTS Conf#: [id number] DID#: [id number] CC: DILIP OSUNA MD; PETTY JARAMILLO MD; GERARDO STALLWORTH MD;*EndCC*
[2018-05-24] MEDS: AMLODIPINE 10 MG TAB NGT SCH (08:47)
[2018-05-24] MEDS: APIXABAN 5 MG TABLET PO SCH ×2 (08:48→20:27)
[2018-05-24] MEDS: THIAMINE 100 MG TAB PO SCH (08:48)
[2018-05-24] MEDS: LOSARTAN 25 MG TAB PO SCH (08:48)
[2018-05-24] MEDS: LACTOBACILLUS RHAMNOSUS CAP PO SCH ×2 (08:48→20:26)
--- NOTE | 2018-05-24 18:03 | PN ---
Date/Time of Note Date/Time of Note DATE: 05/24/18 TIME: 18:00 Assessment/Plan VTE Prophylaxis Risk score (from Nsg)>0 risk: 9 SCD applied (from Nsg): Yes SCD contraindicated: low risk/ambulating Pharmacological prophylaxis: LMWH Lines/Catheters IV [facility]from [facility] Permacath Urinary Cath still in place: No Assessment/Plan Hospital Course Hospitalist coverage/hospital course Admitted with acute respiratory failure intubated ICU presently extubated. Treated for combination of pneumonia and fluid overload. He has finished anti biotics. Due to pleural effusion and thoracentesis was done. Patient did end up having a pneumothorax. This pneumothorax has essentially resolved. Recommend repeating chest x-ray once a week. Patient continued dialysis. Fluid overload is a combination of multiorgan dysfunction. As patient has been optimized medically with medication and diet, I would recommend palliative care involvement. A/P 1. Acute Hypoxic respiratory failure, stable/ improved, treat comorbidities 2. Pneumonia stable/ resolved finished antibiotics 3. Fluid overload stable cont medical management 4. Cardiomyopathy EF 35%, ischemic vs tachycardia induced, doesnt req cath. Cont rate control, follow-up with cardiology; +/- stress. 5. A. fib RVR stable, rate controlled, cont anticoagulation, if adherence is not an issue 6. Alcoholism? 7. Dementia? vs mild cognitive impairment. was on Hospice?? 8. Acute toxic metabolic encephalopathy. Stable/ improved. multifactorial, stable follow 9. Failure to thrive transfer back to snf once bed available. eloped from prior SNF? Needs palliative care, consider hospice 10. Cirrhosis? 11. Anemia 12. Pneumothorax, right, minimal/ 10%, serial x-ray as indicated 13. Pl effusion, sp thoracentesis. Appears benign/third spacing transudate etc. 14. ESRD stable cont HD, unless adherence is an issue 15. Dysphagia: See below. video swallow ordered 16. Nonadherence. Would not recommend cardiac cath/ aicd etc. 17. Nausea. Rule out constipation. Doubt uremia or gastritis. Possible reflux 18. Diarrhea; 2nd to meds/ lactose S: 05/21 events noted. Not oriented. No fever nausea vomiting or GI bleed 05/22: Impulsive behavior noted. Occasional agitation trying to get out of bed. Tolerating dialysis. Eating no distress. Dysphagia noted to a small extent. 05/23: No distress dyspnea. Positive nausea. No fever or diarrhea. Constipation? 05/24: No distress fever. Now having diarrhea. No abd pain. Having milk/ lactose O: Vital signs stable: ST eval: Suspect delayed initiation of the pharyngeal swallow. Mod red. hyolaryngeal excursion, per palpation. Suspect pharyngeal weakness and residue. Implemented alternating solids /liquids to clear suspected residue. Pt tolerated pureed solids without s/s aspiration, NTL with wet vocal quality x2 and no other s/s aspiration with 6 oz provided by single cup sips. Vocal quality cleared with repeat swallow. PE No pallor/ icterus Reg no murmur rub gallop ctab Bs+ nd nt no RRG Mild edema hypotonia Result Diagram: 05/24/1843205/24/18432 Results 24hrs Laboratory Tests Test 05/24/18 04:33 White Blood Count 6.1 Red Blood Count 3.17 L Hemoglobin 8.9 L Hematocrit 28.5 L Mean Corpuscular Volume 89.9 Mean Corpuscular Hemoglobin 28.1 L Mean Corpuscular Hemoglobin Concent 31.2 L Red Cell Distribution Width 19.4 H Platelet Count 239 Mean Platelet Volume 9.0 Immature Granulocytes % 0.800 H Neutrophils % 68.9 Lymphocytes % 15.8 Monocytes % 9.1 Eosinophils % 4.7 Basophils % 0.7 Nucleated Red Blood Cells % 0.0 Immature Granulocytes # 0.050 H Neutrophils # 4.2 Lymphocytes # 1.0 Monocytes # 0.6 Eosinophils # 0.3 Basophils # 0.0 Nucleated Red Blood Cells # 0.0 Sodium Level 137 Potassium Level 4.2 Chloride Level 105 Carbon Dioxide Level 24 Anion Gap 8 Blood Urea Nitrogen 15 # Creatinine 3.09 #H Est Glomerular Filtrat Rate mL/min 20 L Glucose Level 72 Calcium Level 8.3 L Total Bilirubin 0.0 L Direct Bilirubin 0.00 Indirect Bilirubin 0.0 Aspartate Amino Transf (AST/SGOT) 27 Alanine Aminotransferase (ALT/SGPT) 18 Alkaline Phosphatase 77 Total Protein 6.0 L Albumin 2.8 L Globulin 3.20 Albumin/Globulin Ratio 0.87 Lipase 434 H Exam/Review of Systems Exam Vitals Vital Signs Date Temp Pulse Resp B/P (MAP) Pulse Ox O2 O2 Flow FiO2 Time Delivery Rate 05/24/18 98.4 85 18 171/71 96 Room Air 08:21 (104) Intake and Output 05/23/18 05/23/18 05/24/18 1515:00 23:00 07:00 IntakeIntake Total 100 ml 800 ml OutputOutput Total 2000 ml BalanceBalance 100 ml -1200 ml Results Results 24hrs Laboratory Tests Test 05/24/18 04:33 White Blood Count 6.1 Red Blood Count 3.17 L Hemoglobin 8.9 L Hematocrit 28.5 L Mean Corpuscular Volume 89.9 Mean Corpuscular Hemoglobin 28.1 L Mean Corpuscular Hemoglobin Concent 31.2 L Red Cell Distribution Width 19.4 H Platelet Count 239 Mean Platelet Volume 9.0 Immature Granulocytes % 0.800 H Neutrophils % 68.9 Lymphocytes % 15.8 Monocytes % 9.1 Eosinophils % 4.7 Basophils % 0.7 Nucleated Red Blood Cells % 0.0 Immature Granulocytes # 0.050 H Neutrophils # 4.2 Lymphocytes # 1.0 Monocytes # 0.6 Eosinophils # 0.3 Basophils # 0.0 Nucleated Red Blood Cells # 0.0 Sodium Level 137 Potassium Level 4.2 Chloride Level 105 Carbon Dioxide Level 24 Anion Gap 8 Blood Urea Nitrogen 15 # Creatinine 3.09 #H Est Glomerular Filtrat Rate mL/min 20 L Glucose Level 72 Calcium Level 8.3 L Total Bilirubin 0.0 L Direct Bilirubin 0.00 Indirect Bilirubin 0.0 Aspartate Amino Transf (AST/SGOT) 27 Alanine Aminotransferase (ALT/SGPT) 18 Alkaline Phosphatase 77 Total Protein 6.0 L Albumin 2.8 L Globulin 3.20 Albumin/Globulin Ratio 0.87 Lipase 434 H Medications Medication Current Medications IV Flush (NS 3 ml) 3 ml PER PROTOCOL IV ; Start 05/16/18 at 05:30 Hydromorphone HCl (Dilaudid) 0.5 mg Q4H PRN IV .SEVERE PAIN 7-10 Last administered on 05/24/18at 02:55; Admin Dose 0.5 MG; Start 05/16/18 at 05:30 Carvedilol (Coreg) 6.25 mg BID PO Last administered on 05/24/18at 08:49; Admin Dose 6.25 MG; Start 05/16/18 at 11:30 Amlodipine Besylate (Norvasc) 10 mg DAILY NGT Last administered on 05/24/18at 08:47; Admin Dose 10 MG; Start 05/17/18 at 09:00 Losartan Potassium (Cozaar) 100 mg DAILY PO Last administered on 05/24/18 08:48; Admin Dose 100 MG; Start 05/17/18 at 09:00 Apixaban (Eliquis) 2.5 mg BID PO Last administered on 05/24/18 08:48; Admin Dose 2.5 MG; Start 05/19/18 at 21:00 Senna/Docusate Sodium (Senokot-S) 2 tab HS PO Last administered on 05/23/18 21:14; Admin Dose 2 TAB; Start 05/21/18 at 21:00 Thiamine HCl (Vitamin B1) 100 mg DAILY PO Last administered on 05/24/18 08:48; Admin Dose 100 MG; Start 05/21/18 at 15:30 Levalbuterol (Xopenex Neb) 0.63 mg Q4H RESP THERAPY PRN HHN WHEEZING AND SOB; Start 05/21/18 at 15:30 Epoetin Bhupendra (Epogen (Esrd)) 10,000 units TuThSa@17 SC Last administered on 05/22/18 17:34; Admin Dose 10,000 UNITS; Start 05/22/18 at 17:00 Famotidine (Pepcid) 20 mg HS PO Last administered on 05/23/18 21:14; Admin Dose 20 MG; Start 05/22/18 at 21:00 Lactobacillus Acidophilus/ Rhamnosus (Culturelle) 1 cap BID PO Last administered on 05/24/18 08:48; Admin Dose 1 CAP; Start 05/22/18 at 21:00 Ondansetron HCl (Zofran Inj) 4 mg Q4H PRN IV NAUSEA AND/OR VOMITING; Start 05/23/18 at 16:00 PETTY JARAMILLO MD May 24, 2018 18:03
[2018-05-24] MEDS: EPOETIN 10000 UNITS/1 ML INJ (ESRD) SC SCH (18:20)
[2018-05-24 19:40] VITALS: BP 157/67; PULSE 88; RESP 18
[2018-05-24] MEDS: FAMOTIDINE 20 MG TAB PO SCH (20:26)
[2018-05-24] MEDS: SENNA/DOCUSATE NA (8.6MG/50MG) TAB PO SCH (20:26)
[2018-05-25] VITALS (19 sets, daily range): BP systolic 142–197; BP diastolic 60–84; PULSE 80–95; RESP 17–20
[2018-05-25] MEDS: THIAMINE 100 MG TAB PO SCH (08:35)
[2018-05-25] MEDS: LACTOBACILLUS RHAMNOSUS CAP PO SCH ×2 (08:35→20:41)
[2018-05-25] MEDS: AMLODIPINE 10 MG TAB NGT SCH (08:35)
[2018-05-25] MEDS: APIXABAN 5 MG TABLET PO SCH ×2 (08:35→20:41)
--- NOTE | 2018-05-25 08:54 | PN ---
DATE: 05/25/2018 SUBJECTIVE: The patient is stable, no events overnight. Patient is pending hemodialysis. No other events noted. OBJECTIVE: VITAL SIGNS: Blood pressure is 167/74, respiration 18, pulse 88, temperature 98.2. HEENT: Head is normocephalic. NECK: Supple. HEART: Regular rate. LUNGS: Show diminished breath sounds at base. ABDOMEN: Soft, nontender to palpation without rebound or guarding. EXTREMITIES: Negative for clubbing, cyanosis, no edema. DERMATOLOGIC: No rashes. MUSCULOSKELETAL: No joint effusion. NEUROLOGIC: No change in exam. MEDICATIONS: Reviewed. LABORATORY DATA: Has been reviewed. ASSESSMENT AND PLAN: 1. End-stage renal disease. Plan is for hemodialysis today. We will dialyze 3 hours 3k bath, danellei um 2.5. 2. Anemia. Monitor hemoglobin and hematocrit levels. Will give Epogen as needed. 3. Mineral bone disorder, monitor calcium and phosphorus levels. 4. Hypertension. Continue current blood pressure regimen. 5. Congestive heart failure. Continue medical management. 6. Sepsis secondary to pneumonia. The patient has completed antibiotic course. 7. Acute respiratory failure, improved. 8. Acute encephalopathy on top of dementia, etiology toxic metabolic. Continue to monitor. 9. Atrial fibrillation. Continue current treatment plan. Dictated By: SHERRY ROMERO/NTS Conf#: [id number] DID#: [id number] CC: DILIP OSUNA MD;*EndCC*
[2018-05-25] MEDS: LOSARTAN 25 MG TAB PO SCH (09:00)
--- NOTE | 2018-05-25 13:27 | PN ---
Date/Time of Note Date/Time of Note DATE: 05/25/18 TIME: 13:26 Assessment/Plan VTE Prophylaxis Risk score (from Nsg)>0 risk: 2 SCD applied (from Nsg): Yes SCD contraindicated: low risk/ambulating Pharmacological prophylaxis: LMWH Lines/Catheters IV [facility]ter Type (from [email or web address] Mid Line Urinary Cath still in place: No Assessment/Plan Hospital Course Hospitalist coverage/hospital course Admitted with acute respiratory failure intubated ICU presently extubated. Treated for combination of pneumonia and fluid overload. He has finished antibi otics. Due to pleural effusion and thoracentesis was done. Patient did end up having a pneumothorax. This pneumothorax has essentially resolved. Recommend repeating chest x-ray once a week. Patient continued dialysis. Fluid overload is a combination of multiorgan dysfunction. As patient has been optimized medically with medication and diet, I would recommend palliative care involvement. A/P 1. Acute Hypoxic respiratory failure, stable/ resolved. treat comorbidities 2. Pneumonia stable/ resolved finished antibiotics 3. Fluid overload stable cont medical management 4. Cardiomyopathy EF 35%, ischemic vs tachycardia induced, doesnt req cath. Cont rate control, follow-up with cardiology; +/- stress. 5. A. fib RVR stable, rate controlled, cont anticoagulation, if adherence is not an issue 6. Alcoholism? 7. Dementia? vs [facility]. was on Hospice?? 8. Acute toxic metabolic encephalopathy. Stable/resolved. multifactorial. 9. Failure to thrive transfer back to snf once bed available. eloped from prior SNF? Needs palliative care, consider hospice 10. Cirrhosis? 11. Anemia 12. Pneumothorax, right, minimal/ 10%, serial x-ray as indicated 13. Pl effusion, sp thoracentesis. Appears benign/third spacing transudate etc. 14. ESRD stable cont HD, unless adherence is an issue 15. Dysphagia: See below. video swallow ordered 16. Nonadherence. Would not recommend cardiac cath/ aicd etc. 17. Nausea. Rule out constipation. Doubt uremia or gastritis. Possible reflux 18. Diarrhea; 2nd to meds/ lactose S: 05/21 events noted. Not oriented. No fever nausea vomiting or GI bleed 05/22: Impulsive behavior noted. Occasional agitation trying to get out of bed. Tolerating dialysis. Eating no distress. Dysphagia noted to a small extent. 05/23: No distress dyspnea. Positive nausea. No fever or diarrhea. Constipation? 2/28: No distress fever. Now having diarrhea. No abd pain. Having milk/ lactose 05/25: Multiple episodes of diarrhea overnight. No fever abdominal pain. No diarrhea this morning. C. difficile ordered O: Vital signs stable: ST eval: Suspect delayed initiation of the pharyngeal swallow. Mod red. hyolaryngeal excursion, per palpation. Suspect pharyngeal weakness and residue. Implemented alternating solids /liquids to clear suspected residue. Pt tolerated pureed solids without s/s aspiration, NTL with wet vocal quality x2 and no other s/s aspiration with 6 oz provided by single cup sips. Vocal quality cleared with repeat swallow. PE No pallor/ icterus Reg no murmur rub gallop ctab Bs+ nd nt no RRG Mild edema hypotonia Disposition: Placement pending to sniff Result Diagram: 05/24/1843205/24/18432 Exam/Review of Systems Exam Vitals Vital Signs Date Temp Pulse Resp B/P (MAP) Pulse Ox O2 O2 Flow FiO2 Time Delivery Rate 05/25/18 86 148/66 11:41 (93) 05/25/18 98.3 18 97 Room Air 08:32 Intake and Output 05/24/18 05/24/18 05/25/18 1515:00 23:00 07:00 IntakeIntake Total 840 ml 400 ml BalanceBalance 840 ml 400 ml Medications Medication Current Medications IV Flush (NS 3 ml) 3 ml PER PROTOCOL IV ; Start 05/16/18 at 05:30 Hydromorphone HCl (Dilaudid) 0.5 mg Q4H PRN IV .SEVERE PAIN 7-10 Last administered on 05/24/18at 02:55; Admin Dose 0.5 MG; Start 05/16/18 at 05:30 Carvedilol (Coreg) 6.25 mg BID PO Last administered on 05/25/18at 08:37; Admin Dose 6.25 MG; Start 05/16/18 at 11:30 Amlodipine Besylate (Norvasc) 10 mg DAILY NGT Last administered on 05/25/18at 08:35; Admin Dose 10 MG; Start 05/17/18 at 09:00 Losartan Potassium (Cozaar) 100 mg DAILY PO Last administered on 05/24/18at 08:48; Admin Dose 100 MG; Start 05/17/18 at 09:00 Apixaban (Eliquis) 2.5 mg BID PO Last administered on 05/25/18 08:35; Admin Dose 2.5 MG; Start 05/19/18 at 21:00 Senna/Docusate Sodium (Senokot-S) 2 tab HS PO Last administered on 05/24/18 20:26; Admin Dose 2 TAB; Start 05/21/18 at 21:00 Thiamine HCl (Vitamin B1) 100 mg DAILY PO Last administered on 05/25/18 08:35; Admin Dose 100 MG; Start 05/21/18 at 15:30 Levalbuterol (Xopenex Neb) 0.63 mg Q4H RESP THERAPY PRN HHN WHEEZING AND SOB; Start 05/21/18 at 15:30 Epoetin Bhupendra (Epogen (Esrd)) 10,000 units TuThSa@17 SC Last administered on 05/24/18 18:20; Admin Dose 10,000 UNITS; Start 05/22/18 at 17:00 Famotidine (Pepcid) 20 mg HS PO Last administered on 05/24/18 20:26; Admin Dose 20 MG; Start 05/22/18 at 21:00 Lactobacillus Acidophilus/ Rhamnosus (Culturelle) 1 cap BID PO Last administered on 05/25/18 08:35; Admin Dose 1 CAP; Start 05/22/18 at 21:00 Ondansetron HCl (Zofran Inj) 4 mg Q4H PRN IV NAUSEA AND/OR VOMITING; Start 05/23/18 at 16:00 Loperamide HCl (Imodium Cap) 2 mg QID PRN PO DIARRHEA; Start 05/25/18 at 23:00 PETTY JARAMILLO MD May 25, 2018 13:27
[2018-05-25] MEDS: HYDROmorphONE 0.5 MG/0.5 ML SYG IV PRN ×2 (13:51→20:42)
--- NOTE | 2018-05-25 13:54 | RADRPT ---
Vent Rate: 102 bpm RR Interval: 0 msec ND Interval: 0 msec QRS Duration: 80 msec QT Interval: 396 msec QTC Interval: 516 msec P-R-T Elmer: 0 - 76 - 0 degrees Atrial fibrillation with rapid ventricular response with premature ventricular or aberrantly conducted complexes T wave abnormality, consider inferior ischemia T wave abnormality, consider anterolateral ischemia Abnormal ECG Electronically Signed By: Jaswant Oleary
[2018-05-25] MEDS ORDERED: HEPARIN 1000 UNITS/ML 10 ML INJ CATHETER ONE (15:00)
[2018-05-25] MEDS: SENNA/DOCUSATE NA (8.6MG/50MG) TAB PO SCH (20:41)
[2018-05-25] MEDS: FAMOTIDINE 20 MG TAB PO SCH (20:42)
[2018-05-25] MEDS ORDERED: LOPERAMIDE 2 MG CAP PO PRN (23:00)
[2018-05-26] MEDS: HYDROmorphONE 0.5 MG/0.5 ML SYG IV PRN ×2 (02:13→23:50)
[2018-05-26 02:20] VITALS: BP 178/84; PULSE 90; RESP 18
[2018-05-26 02:40] VITALS: BP 151/71; PULSE 88; RESP 18
[2018-05-26 07:51] VITALS: BP 179/79; PULSE 93; RESP 18
[2018-05-26] MEDS: LOSARTAN 25 MG TAB PO SCH (08:28)
[2018-05-26] MEDS: APIXABAN 5 MG TABLET PO SCH ×2 (08:28→20:32)
[2018-05-26] MEDS: THIAMINE 100 MG TAB PO SCH (08:28)
[2018-05-26] MEDS: AMLODIPINE 10 MG TAB NGT SCH (08:28)
[2018-05-26] MEDS: LACTOBACILLUS RHAMNOSUS CAP PO SCH ×2 (08:28→20:32)
[2018-05-26 10:48] VITALS: BP 151/71; PULSE 86
[2018-05-26] MEDS: ACETAMINOPHEN 325 MG TAB PO PRN ×2 (10:48→18:48)
[2018-05-26] MEDS ORDERED: BARIUM SULFATE 135 ML (E-Z HD) PO ONE (11:29)
[2018-05-26 14:34] VITALS: BP 133/63; PULSE 81; RESP 18
--- NOTE | 2018-05-26 15:52 | PN ---
Date/Time of Note Date/Time of Note DATE: 05/26/18 TIME: 15:49 Assessment/Plan VTE Prophylaxis Risk score (from Nsg)>0 risk: 6 SCD applied (from Nsg): Yes SCD contraindicated: low risk/ambulating Pharmacological prophylaxis: LMWH Lines/Catheters [facility] Mid Line Urinary Cath still in place: No Assessment/Plan Hospital Course Hospitalist coverage/hospital course Admitted with acute respiratory failure intubated ICU presently extubated. Treated for combination of pneumonia and fluid overload. He has finished antibi otics. Due to pleural effusion and thoracentesis was done. Patient did end up having a pneumothorax. This pneumothorax has essentially resolved. Recommend repeating chest x-ray once a week. Patient continued dialysis. Fluid overload is a combination of multiorgan dysfunction. As patient has been optimized medically with medication and diet, I would recommend palliative care involvement. A/P 1. Acute Hypoxic respiratory failure, stable/ resolved. treat comorbidities 2. Pneumonia, resolved finished antibiotics 3. Fluid overload stable, cont medical management 4. Cardiomyopathy EF 35%, ischemic vs tachycardia induced, doesnt req cath. Cont rate control, follow-up with cardiology; +/- stress. 5. A. fib RVR stable, rate controlled, cont anticoagulation if adherence is not an issue 6. Alcoholism? 7. Dementia? vs [facility]. was on [facility]osp[facility]?? 8. Acute toxic metabolic encephalopathy. resolved. multifactorial. 9. Ftt, transfer back to snf once bed available. Needs palliative care, consider hospice 10. Cirrhosis? 11. Anemia 12. Pneumothorax, rt, minimal/ 10%, serial x-ray as indicated 13. Pl effusion, sp thoracentesis. Appears benign/third spacing transudate etc. 14. ESRD stable cont HD, unless adherence is an issue 15. Dysphagia: See below. video swallow done 16. Nonadherence. Would not recommend cardiac cath/ aicd etc. 17. Nausea- 05/23; probably related to constipation. Doubt uremia or gastritis. Possible reflux 18. Diarrhea- 05/24; 2nd to meds/ lactose S: 05/21 events noted. Not oriented. No fever nausea vomiting or GI bleed 05/22: Impulsive behavior noted. Occasional agitation trying to get out of bed. Tolerating dialysis. Eating no distress. Dysphagia noted to a small extent. 05/23: No distress dyspnea. Positive nausea. No fever or diarrhea. Constipation? 05/24: No distress fever. Now having diarrhea. No abd pain. Having milk/ lactose 05/25: Multiple episodes of diarrhea overnight. No fever abdominal pain. No diarrhea this morning. C. difficile ordered 05/26: Tolerating dialysis. Little more delirium today. No distress fever or diarrhea. O: Vss: ST eval: Suspect delayed initiation of the pharyngeal swallow. Mod red. hyolaryngeal excursion, per palpation. Suspect pharyngeal weakness and residue. Implemented alternating solids /liquids to clear suspected residue. Pt tolerated pureed solids without s/s aspiration, NTL with wet vocal quality x2 and no other s/s aspiration with 6 oz provided by single cup sips. Vocal quality cleared with repeat swallow. pt with mild/mod oral phase dysphagia as premature spillage and overflow into the pyriform sinuses with liquids;pt missing many dentition so slow mastication and transport with soft but able to do so. pharyngeal phase dysphagia; pt with mildly decreased laryngeal elevation noted and airway closure but inconsistent on trials given. min residue noted with puree and soft solids; able to clear with subsequent dry swallow between frames; Rec. continue puree diet;nctr thick and st to do full trial tray of ground next therapy session; trials of thin with st via spoon and single sip cup; prognosis good for advancing diet in the near future after trials with st. PE No pallor/ icterus Reg no m/r/g ctab Bs+ nd nt no RRG Mild edema hypotonia Disposition: Placement pending to snf Result Diagram: 05/24/18 04305/24/18 043 Exam/Review of Systems Exam Vitals Vital Signs Date Temp Pulse Resp B/P (MAP) Pulse Ox O2 O2 Flow FiO2 Time Delivery Rate 05/26/18 97.6 81 18 133/63 97 Room Air 14:34 (86) Intake and Output 05/25/18 05/25/18 05/26/18 1515:00 23:00 07:00 IntakeIntake Total 840 ml 770 ml OutputOutput Total 200 ml 2500 ml BalanceBalance 640 ml -1730 ml Medications Medication Current Medications IV Flush (NS 3 ml) 3 ml PER PROTOCOL IV ; Start 05/16/18 at 05:30 Hydromorphone HCl (Dilaudid) 0.5 mg Q4H PRN IV .SEVERE PAIN 7-10 Last administered on 05/26/18 02:13; Admin Dose 0.5 MG; Start 05/16/18 at 05:30 Carvedilol (Coreg) 6.25 mg BID PO Last administered on 05/26/18 08:28; Admin Dose 6.25 MG; Start 05/16/18 at 11:30 Amlodipine Besylate (Norvasc) 10 mg DAILY NGT Last administered on 05/26/18 08:28; Admin Dose 10 MG; Start 05/17/18 at 09:00 Losartan Potassium (Cozaar) 100 mg DAILY PO Last administered on 05/26/18 08:28; Admin Dose 100 MG; Start 05/17/18 at 09:00 Apixaban (Eliquis) 2.5 mg BID PO Last administered on 05/26/18 08:28; Admin Dose 2.5 MG; Start 05/19/18 at 21:00 Senna/Docusate Sodium (Senokot-S) 2 tab HS PO Last administered on 05/25/18 20:41; Admin Dose 2 TAB; Start 05/21/18 at 21:00 Thiamine HCl (Vitamin B1) 100 mg DAILY PO Last administered on 05/26/18 08:28; Admin Dose 100 MG; Start 05/21/18 at 15:30 Levalbuterol (Xopenex Neb) 0.63 mg Q4H RESP THERAPY PRN HHN WHEEZING AND SOB; Start 05/21/18 at 15:30 Epoetin Bhupendra (Epogen (Esrd)) 10,000 units TuThSa@17 SC Last administered on 05/24/18 18:20; Admin Dose 10,000 UNITS; Start 05/22/18 at 17:00 Famotidine (Pepcid) 20 mg HS PO Last administered on 05/25/18 20:42; Admin Dose 20 MG; Start 05/22/18 at 21:00 Lactobacillus Acidophilus/ Rhamnosus (Culturelle) 1 cap BID PO Last administered on 05/26/18 08:28; Admin Dose 1 CAP; Start 05/22/18 at 21:00 Ondansetron HCl (Zofran Inj) 4 mg Q4H PRN IV NAUSEA AND/OR VOMITING; Start 05/23/18 at 16:00 Loperamide HCl (Imodium Cap) 2 mg QID PRN PO DIARRHEA; Start 05/25/18 at 23:00 Acetaminophen (Tylenol Tab) 650 mg Q6H PRN PO MILD PAIN(1-3)OR ELEVATED TEMP Last administered on 05/26/18at 10:48; Admin Dose 650 MG; Start 05/26/18 at 10:30 PETTY JARAMILLO MD May 26, 2018 15:52
[2018-05-26] MEDS: EPOETIN 10000 UNITS/1 ML INJ (ESRD) SC SCH (16:52)
[2018-05-26 20:00] VITALS: BP 134/63; PULSE 90; RESP 18
[2018-05-26] MEDS: FAMOTIDINE 20 MG TAB PO SCH (20:32)
[2018-05-27 02:30] VITALS: BP 154/78; PULSE 89; RESP 18
[2018-05-27 09:05] VITALS: BP 186/99; PULSE 93; RESP 19
[2018-05-27] MEDS: AMLODIPINE 10 MG TAB NGT SCH (10:33)
[2018-05-27] MEDS: LOSARTAN 25 MG TAB PO SCH (10:36)
[2018-05-27] MEDS: THIAMINE 100 MG TAB PO SCH (10:36)
[2018-05-27] MEDS: APIXABAN 5 MG TABLET PO SCH ×2 (10:36→21:08)
[2018-05-27] MEDS: LACTOBACILLUS RHAMNOSUS CAP PO SCH ×2 (10:36→21:08)
--- NOTE | 2018-05-27 10:37 | PN ---
Date/Time of Note Date/Time of Note DATE: 05/27/18 TIME: 10:36 Assessment/Plan VTE Prophylaxis Risk score (from Nsg)>0 risk: 9 SCD applied (from Nsg): Yes Pharmacological prophylaxis: other Lines/Catheters IV Catheter Type (from Nrsg): Mid Line Urinary Cath still in place: No Assessment/Plan Hospital Course renal follow up SUBJECTIVE: The patient is stable, no events overnight. last hd was on 05/25. No other events noted. OBJECTIVE: HEENT: Head is normocephalic. NECK: Supple. HEART: Regular rate. LUNGS: Show diminished breath sounds at base. ABDOMEN: Soft, nontender to palpation without rebound or guarding. EXTREMITIES: Negative for clubbing, cyanosis, no edema. DERMATOLOGIC: No rashes. MUSCULOSKELETAL: No joint effusion. NEUROLOGIC: No change in exam. MEDICATIONS: Reviewed. LABORATORY DATA: Has been reviewed. ASSESSMENT AND PLAN: 1. End-stage renal disease. Plan is for hemodialysis in am 2. Anemia. Monitor hemoglobin and hematocrit levels. Will give Epogen as needed. 3. Mineral bone disorder, monitor calcium and phosphorus levels. 4. Hypertension. Continue current blood pressure regimen. 5. Congestive heart failure. Continue medical management. 6. Sepsis secondary to pneumonia. The patient has completed antibiotic course. 7. Acute respiratory failure, improved. 8. Acute encephalopathy on top of dementia, etiology toxic metabolic. Continue to monitor. 9. Atrial fibrillation. Continue current treatment plan. Result Diagram: 05/24/1843205/24/18432 Exam/Review of Systems Exam Vitals Vital Signs Date Temp Pulse Resp B/P (MAP) Pulse Ox O2 O2 Flow FiO2 Time Delivery Rate 05/27/18 98.4 93 19 186/99 97 Room Air 09:05 (128) 05/27/18 21 03:11 Intake and Output 05/26/18 05/26/18 05/27/18 1515:00 23:00 07:00 IntakeIntake Total 600 ml BalanceBalance 600 ml Medications Medication Current Medications IV Flush (NS 3 ml) 3 ml PER PROTOCOL IV ; Start 05/16/18 at 05:30 Hydromorphone HCl (Dilaudid) 0.5 mg Q4H PRN IV .SEVERE PAIN 7-10 Last administered on 05/26/18at 23:50; Admin Dose 0.5 MG; Start 05/16/18 at 05:30 Carvedilol (Coreg) 6.25 mg BID PO Last administered on 05/26/18 20:32; Admin Dose 6.25 MG; Start 05/16/18 at 11:30 Amlodipine Besylate (Norvasc) 10 mg DAILY NGT Last administered on 05/26/18 08:28; Admin Dose 10 MG; Start 05/17/18 at 09:00 Losartan Potassium (Cozaar) 100 mg DAILY PO Last administered on 05/26/18 08:28; Admin Dose 100 MG; Start 05/17/18 at 09:00 Apixaban (Eliquis) 2.5 mg BID PO Last administered on 05/26/18 20:32; Admin Dos e 2.5 MG; Start 05/19/18 at 21:00 Thiamine HCl (Vitamin B1) 100 mg DAILY PO Last administered on 05/26/18 08:28; Admin Dose 100 MG; Start 05/21/18 at 15:30 Levalbuterol (Xopenex Neb) 0.63 mg Q4H RESP THERAPY PRN HHN WHEEZING AND SOB; Start 05/21/18 at 15:30 Epoetin Bhupendra (Epogen (Esrd)) 10,000 units TuThSa@17 SC Last administered on 05/26/18 16:52; Admin Dose 10,000 UNITS; Start 05/22/18 at 17:00 Famotidine (Pepcid) 20 mg HS PO Last administered on 05/26/18 20:32; Admin Dose 20 MG; Start 05/22/18 at 21:00 Lactobacillus Acidophilus/ Rhamnosus (Culturelle) 1 cap BID PO Last administered on 05/26/18 20:32; Admin Dose 1 CAP; Start 05/22/18 at 21:00 Ondansetron HCl (Zofran Inj) 4 mg Q4H PRN IV NAUSEA AND/OR VOMITING; Start 05/23/18 at 16:00 Loperamide HCl (Imodium Cap) 2 mg QID PRN PO DIARRHEA; Start 05/25/18 at 23:00 Acetaminophen (Tylenol Tab) 650 mg Q6H PRN PO MILD PAIN(1-3)OR ELEVATED TEMP Last administered on 05/26/18 18:48; Admin Dose 650 MG; Start 05/26/18 at 10:30 Docusate Sodium (Colace) 100 mg MoWeFr@2100 PO ; Start 05/28/18 at 21:00 FRANKIE READ DO May 27, 2018 10:37
[2018-05-27] MEDS: HYDROmorphONE 0.5 MG/0.5 ML SYG IV PRN ×2 (12:02→17:57)
[2018-05-27 14:00] VITALS: BP 138/87; PULSE 85; RESP 18
--- NOTE | 2018-05-27 14:02 | PN ---
Date/Time of Note Date/Time of Note DATE: 05/27/18 TIME: 14:01 Assessment/Plan VTE Prophylaxis Risk score (from Nsg)>0 risk: 6 SCD applied (from Nsg): Yes SCD contraindicated: low risk/ambulating Pharmacological prophylaxis: LMWH Lines/Catheters [facility]from [facility] Mid Line Urinary Cath still in place: No Assessment/Plan Hospital Course Hospitalist coverage/hospital course Admitted with acute respiratory failure intubated ICU presently extubated. Treated for combination of pneumonia and fluid overload. He has finished antibi otics. Due to pleural effusion and thoracentesis was done. Patient did end up having a pneumothorax. This pneumothorax has essentially resolved. Recommend repeating chest x-ray once a week. Patient continued dialysis. Fluid overload is a combination of multiorgan dysfunction. As patient has been optimized medically with medication and diet, I would recommend palliative care involvement. A/P 1. Acute Hypoxic respiratory failure, stable/ resolved. treat comorbidities 2. Pneumonia, resolved finished antibiotics 3. Fluid overload stable, cont medical management 4. Cardiomyopathy EF 35%, ischemic vs tachycardia induced, doesnt req cath. Cont rate control, follow-up with cardiology; +/- stress. 5. A. fib RVR stable, rate controlled, cont anticoagulation if adherence is not an issue 6. Alcoholism? 7. Dementia? vs [facility]. was on Hospice?? 8. Acute toxic metabolic encephalopathy. resolved. multifactorial. 9. Ftt, transfer back to snf once bed available. Needs palliative care, consider hospice 10. Cirrhosis? 11. Anemia 12. Pneumothorax, rt, minimal/ 10%, serial x-ray as indicated 13. Pl effusion, sp thoracentesis. Appears benign/third spacing transudate etc. 14. ESRD stable cont HD, unless adherence is an issue 15. Dysphagia: See below. video swallow done: penetration but no aspiration. 16. Nonadherence. Would not recommend cardiac cath/ aicd etc. 17. Nausea- 05/23; probably related to constipation. Doubt uremia or gastritis. Possible reflux 18. Diarrhea- 05/24; 2nd to meds/ lactose S: 05/21 events noted. Not oriented. No fever nausea vomiting or GI bleed 05/22: Impulsive behavior noted. Occasional agitation trying to get out of bed. Tolerating dialysis. Eating no distress. Dysphagia noted to a small extent. 05/23: No distress dyspnea. Positive nausea. No fever or diarrhea. Constipation? 05/24: No distress fever. Now having diarrhea. No abd pain. Having milk/ lactose 05/25: Multiple episodes of diarrhea overnight. No fever abdominal pain. No diarrhea this morning. C. difficile ordered 05/26: Tolerating dialysis. Little more delirium today. No distress fever or diarrhea. 05/27: No events. No distress. Oriented to year but not month. O: Vss: ST eval: Suspect delayed initiation of the pharyngeal swallow. Mod red. hyolaryngeal excursion, per palpation. Suspect pharyngeal weakness and residue. Implemented alternating solids /liquids to clear suspected residue. Pt tolerated pureed solids without s/s aspiration, NTL with wet vocal quality x2 and no other s/s aspiration with 6 oz provided by single cup sips. Vocal quality cleared with repeat swallow. pt with mild/mod oral phase dysphagia as premature spillage and overflow into the pyriform sinuses with liquids;pt missing many dentition so slow mastication and transport with soft but able to do so. pharyngeal phase dysphagia; pt with mildly decreased laryngeal elevation noted and airway closure but inconsistent on trials given. min residue noted with puree and soft solids; able to clear with subsequent dry swallow between frames; Rec. continue puree diet;nctr thick and st to do full trial tray of ground next therapy session; trials of thin with st via spoon and single sip cup; prognosis good for advancing diet in the near future after trials with st. PE No pallor/ icterus Reg no m/r/g ctab Bs+ nd nt no RRG Mild edema hypotonia Disposition: Placement pending to snf Result Diagram: 05/24/1843205/24/18432 Exam/Review of Systems Exam Vitals Vital Signs Date Temp Pulse Resp B/P (MAP) Pulse Ox O2 O2 Flow FiO2 Time Delivery Rate 05/27/18 98.4 93 19 186/99 97 Room Air 09:05 (128) 05/27/18 21 03:11 Intake and Output 05/26/18 05/26/18 05/27/18 1515:00 23:00 07:00 IntakeIntake Total 600 ml BalanceBalance 600 ml Medications Medication Current Medications IV Flush (NS 3 ml) 3 ml PER PROTOCOL IV ; Start 05/16/18 at 05:30 Hydromorphone HCl (Dilaudid) 0.5 mg Q4H PRN IV .SEVERE PAIN 7-10 Last administered on 05/27/18 12:02; Admin Dose 0.5 MG; Start 05/16/18 at 05:30 Carvedilol (Coreg) 6.25 mg BID PO Last administered on 05/27/18 10:34; Admin Dose 6.25 MG; Start 05/16/18 at 11:30 Amlodipine Besylate (Norvasc) 10 mg DAILY NGT Last administered on 05/27/18 10:33; Admin Dose 10 MG; Start 05/17/18 at 09:00 Losartan Potassium (Cozaar) 100 mg DAILY PO Last administered on 05/27/18 10:36; Admin Dose 100 MG; Start 05/17/18 at 09:00 Apixaban (Eliquis) 2.5 mg BID PO Last administered on 05/27/18 10:36; Admin Dose 2.5 MG; Start 05/19/18 at 21:00 Thiamine HCl (Vitamin B1) 100 mg DAILY PO Last administered on 05/27/18 10:36; Admin Dose 100 MG; Start 05/21/18 at 15:30 Levalbuterol (Xopenex Neb) 0.63 mg Q4H RESP THERAPY PRN HHN WHEEZING AND SOB; Start 05/21/18 at 15:30 Epoetin Bhupendra (Epogen (Esrd)) 10,000 units TuThSa@17 SC Last administered on 05/26/18 16:52; Admin Dose 10,000 UNITS; Start 05/22/18 at 17:00 Famotidine (Pepcid) 20 mg HS PO Last administered on 05/26/18 20:32; Admin Dose 20 MG; Start 05/22/18 at 21:00 Lactobacillus Acidophilus/ Rhamnosus (Culturelle) 1 cap BID PO Last administered on 05/27/18 10:36; Admin Dose 1 CAP; Start 05/22/18 at 21:00 Ondansetron HCl (Zofran Inj) 4 mg Q4H PRN IV NAUSEA AND/OR VOMITING; Start 05/23/18 at 16:00 Loperamide HCl (Imodium Cap) 2 mg QID PRN PO DIARRHEA; Start 05/25/18 at 23:00 Acetaminophen (Tylenol Tab) 650 mg Q6H PRN PO MILD PAIN(1-3)OR ELEVATED TEMP La st administered on 05/26/18at 18:48; Admin Dose 650 MG; Start 05/26/18 at 10:30 Docusate Sodium (Colace) 100 mg MoWeFr@2100 PO ; Start 05/28/18 at 21:00 PETTY JARAMILLO MD May 27, 2018 14:02
[2018-05-27 20:43] VITALS: BP 165/77; PULSE 90; RESP 18
[2018-05-27] MEDS: FAMOTIDINE 20 MG TAB PO SCH (21:08)
[2018-05-28] VITALS (18 sets, daily range): BP systolic 136–171; BP diastolic 56–80; PULSE 85–100; RESP 18–20
[2018-05-28] MEDS: HYDROmorphONE 0.5 MG/0.5 ML SYG IV PRN (04:04)
--- NOTE | 2018-05-28 08:47 | PN ---
DATE: 05/28/2018 SUBJECTIVE: The patient is stable. No events overnight. OBJECTIVE: VITAL SIGNS: Blood pressure is 154/73, respirations 18, pulse 86, temperature 97.6. HEENT: Head is normocephalic. NECK: Supple. HEART: Regular rate. LUNGS: Show diminished breath sounds at the base. ABDOMEN: Soft, nontender to palpation without rebound or guarding. EXTREMITIES: Negative for clubbing, cyanosis, no edema. DERMATOLOGIC: No rashes. MUSCULOSKELETAL: No joint effusion. NEUROLOGIC: No change in exam. MEDICATIONS: Reviewed. LABORATORY DATA: Shows white count 7.7, hemoglobin 9.2, platelet count is 369. Sodium 136, potassiu m 5.5, BUN 25, creatinine 5.32. ASSESSMENT AND PLAN: 1. End-stage renal disease. Plan is for dialysis today. We will dialyze 3 hours 2k bath, calcium 2 .5. 2. Anemia. Continue to monitor hemoglobin and hematocrit levels. We will give Epogen as needed. 3. Mineral bone disorder, monitor calcium and phosphorus levels. 4. Hypertension. Continue current blood pressure regimen. 5. Congestive heart failure. Continue medical management. 6. Sepsis secondary to pneumonia. The patient is completing antibiotic course. 7. Acute respiratory failure, improved. 8. Acute encephalopathy on top of dementia, etiology is toxic metabolic. Continue to monitor. 9. Atrial fibrillation. Continue current treatment plan. Dictated By: SHERRY CONCEPCION DO NR/NTS Conf#: [id number] DID#: [id number] CC: GERARDO STALLWORTH MD; DILIP OSUNA MD; PETTY JARAMILLO MD;*EndCC*
[2018-05-28] MEDS: LACTOBACILLUS RHAMNOSUS CAP PO SCH (09:27)
[2018-05-28] MEDS: THIAMINE 100 MG TAB PO SCH (09:27)
[2018-05-28] MEDS: ACETAMINOPHEN 325 MG TAB PO PRN ×2 (09:27→19:59)
[2018-05-28] MEDS: LOSARTAN 25 MG TAB PO SCH (09:28)
[2018-05-28] MEDS: AMLODIPINE 10 MG TAB NGT SCH (09:28)
[2018-05-28] MEDS: APIXABAN 5 MG TABLET PO SCH (09:31)
[2018-05-28] MEDS ORDERED: HEPARIN 1000 UNITS/ML 10 ML INJ CATHETER SCH (16:00)
--- NOTE | 2018-05-28 18:07 | DS ---
Date/Time of Note Date/Time of Note DATE: 05/28/18 TIME: 18:05 Discharge Summary Admission/Discharge Info Admit Date/Time May 16, 2018 at 04:30 Discharge Date/Time Discharge Diagnosis 1. Acute respiratory failure. Hypoxic. 2. Paroxysmal atrial fibrillation. 3. Acute on chronic congestive heart failure exacerbation, systolic dysfunction. 4. End-stage renal disease on hemodialysis. 5. Cardiomyopathy. Ejection fraction of 40-45% 6. Hypertension 7. History of liver cirrhosis. 8. Dysphagia. 9. Normocytic anemia 10. Right pleural effusion. Status post right-sided thoracentesis with drainage of 1 L of fluid on 05/17/2018. 11. Right-sided pneumothorax status post thoracentesis. 12. Pulmonary hypertension. PA systolic pressure of 45 mm Hg. Patient Condition: Stable Consults 1. Jaswant Oleary MD, Cardiology. 2. Andrew Sánchez MD, Pulmonary. 3. George Morales DO, Nephrology. Procedures 2D Echocardiogram Conclusions: 1Normal left ventricular cavity size. Mild concentric left ventricular hypertrophy. Ejection fraction is visually estimated at 40-45 %. Multiple segmental wall motion abnormalities. Mitral valve leaflets appear mildly thickened. Mild mitral annular calcification. Trace mitral regurgitation. No significant aortic stenosis or insufficiency. Aortic cusps appear mildly calcified. Normal appearance of the tricuspid valve. Estimated peak PA systolic pressure 45 mmHg. There is mild tricuspid regurgitation. US Guided Right Thoracentesis. IMPRESSION: 1. Satisfactory ultrasound-guided right thoracentesis with drainage of 1 L of serous fluid. Hx of Present Illness This is a 67-year-old male with comorbidities including paroxysmal atrial fibrillation, hypertension, cirrhosis, end-stage renal disease on hemodialysis, and substance abuse. The patient was transferred from [facility] where he was intubated for respiratory failure. The patient was transferred to [facility] because of insurance reasons. Hospital Course The patient was transferred from [facility] intubated because of acute respiratory failure. Etiology of the patient's acute respiratory failure could have been multifactorial including underlying congestive heart failure exacerbation, pleural effusion, and possible underlying pneumonia. The patient was extubated on 05/16/2018. The patient was maintained on inhaled bron chodilators. The patient also had a right-sided pleural effusion that was treated with thoracentesis with drainage of 1 L of fluid on 05/17/2018. The patient developed a right-sided pneumothorax status post thoracentesis that was improved with conservative management. The patient was maintained on inhaled bronchodilators. The patient had paroxysmal atrial fibrillation. The patient was started on Eliquis for stroke prophylaxis. Cardiology was following the patient. The patient had evidence of acute on chronic congestive heart failure exacerbation, systolic dysfunction. The patient was maintained on ultrafiltration for treating fluid overload. The patient has cardiomyopathy with ejection fraction 40-45%. The patient was maintained on beta-blockers and angiotensin II receptor blockers. The patient is a dialysis patient. The patient was maintained on hemodialysis as per nephrology. The patient was noticed to have normocytic anemia. This could be anemia of chronic kidney disease. The patient's H&H remained stable. The patient did not require any blood transfusions. The patient was also noticed to have dysphagia. The patient was being followed by speech therapy. The patient was maintained on aspiration precautions. The patient was treated for possible underlying pneumonia including coverage for anaerobes because of likely aspiration. The patient was noted to be debilitated. The patient was evaluated by physical therapy. The patient was noncooperative with the physical therapy sessions. The patient had evidence of underlying failure to thrive. Therefore, a clinical decision was made to transfer this patient to a shelter facility upon discharge. At this time I would like to thank all the consultants for seeing the patient, doing the necessary procedures, and providing clinical recommendations. The patient was seen in collaboration with Dr. Medina. Home Meds Active Scripts Carvedilol* (Coreg*) 6.25 Mg Tablet, 6.25 MG PO BID, #60 TAB Prov:PETTY JARAMILLO MD 05/22/18 Amlodipine Besylate* (Amlodipine Besylate*) 2.5 Mg Tablet, 2.5 MG PO DAILY for 10 Days, #10 TAB Prov:PETTY JARAMILLO MD 05/22/18 Thiamine* (Vitamin B-1*) 100 Mg Tablet, 100 MG PO DAILY for 30 Days, TAB Prov:PETTY JARAMILLO MD 05/22/18 Sennosides/Docusate Sodium (Dok Plus Tablet) 1 Each Tablet, 2 TAB PO HS for 7 Days, TAB Prov:PETTY JARAMILLO MD 05/22/18 Lactobacillus Rhamnosus GG (Culturelle) 1 Each Capsule, 1 CAP PO BID for 30 Days, CAP Prov:PETTY JARAMILLO MD 05/22/18 Famotidine* (Famotidine*) 20 Mg Tablet, 20 MG PO HS for 10 Days, TAB Prov:PETTY JARAMILLO MD 05/22/18 Losartan Potassium* (Cozaar*) 25 Mg Tablet, 100 MG PO DAILY for 10 Days, TAB Prov:PETTY JARAMILLO MD 05/22/18 Apixaban* (Eliquis*) 5 Mg Tablet, 2.5 MG PO BID for 30 Days, TAB Prov:PETTY JARAMILLO MD 05/22/18 Levalbuterol Hcl* (Levalbuterol Hcl*) 0.63 Mg/3 Ml Vial.neb, 0.63 MG HHN Q4H RESP THERAPY PRN for WHEEZING AND SOB for 5 Days Prov:PETTY JARAMILLO MD 05/22/18 Tamsulosin Hcl* (Flomax*) 0.4 Mg Cap.er.24h, 0.4 MG PO HS for 30 Days, #30 CAP 2 Refills Prov:JONY CARRION 10/16/16 Follow-up Plan The patient being transferred to a shelter facility. Primary Care Provider Time spent on discharge: > 30 minutes Pending Labs Laboratory Tests Test 05/28/18 05:05 White Blood Count 7.7 10^3/ul (4.8-10.8) Red Blood Count 3.31 10^6/ul (4.70-6.10) Hemoglobin 9.2 g/dl (14.0-18.0) Hematocrit 29.8 % (42.0-52.0) Mean Corpuscular Volume 90.0 fl (82.0-101.0) Mean Corpuscular Hemoglobin 27.8 pg (29.0-33.0) Mean Corpuscular Hemoglobin Concent 30.9 g/dl (32.0-37.0) Red Cell Distribution Width 19.9 % (11.5-14.5) Platelet Count 369 10^3/UL (140-415) Mean Platelet Volume 8.8 fl (7.4-10.4) Immature Granulocytes % 0.500 % (0.001-0.429) Neutrophils % 70.5 % (39.0-77.0) Lymphocytes % 14.4 % (15.0-51.0) Monocytes % 11.1 % (0.0-11.0) Eosinophils % 2.7 % (0.0-7.0) Basophils % 0.8 % (0.0-2.0) Nucleated Red Blood Cells % 0.0 /100WBC (0.0-0.0) Immature Granulocytes # 0.040 10^3/ul (0.0-0.031) Neutrophils # 5.4 10^3/ul (1.6-7.5) Lymphocytes # 1.1 10^3/ul (0.8-2.9) Monocytes # 0.9 10^3/ul (0.3-0.9) Eosinophils # 0.2 10^3/ul (0.0-0.5) Basophils # 0.1 10^3/ul (0.0-0.1) Nucleated Red Blood Cells # 0.0 10^3/ul (0.0-0.0) Sodium Level 136 mmol/L (135-144) Potassium Level 5.5 mmol/L (3.5-5.1) Chloride Level 100 mmol/L (97-110) Carbon Dioxide Level 25 mmol/L (21-31) Anion Gap 11 (5-13) Blood Urea Nitrogen 25 mg/dl (7-20) Creatinine 5.32 mg/dl (0.61-1.24) Est Glomerular Filtrat Rate mL/min 11 mL/min (>60) Glucose Level 76 mg/dl (70-220) Calcium Level 9.0 mg/dl (8.4-10.2) Total Bilirubin 0.0 mg/dl (0.2-1.3) Direct Bilirubin 0.00 mg/dl (0.00-0.20) Indirect Bilirubin 0.0 mg/dl (0-1.1) Aspartate Amino Transf (AST/SGOT) 22 IU/L (15-46) Alanine Aminotransferase (ALT/SGPT) 14 IU/L (13-69) Alkaline Phosphatase 96 IU/L (42-121) Total Protein 7.0 g/dl (6.1-8.1) Albumin 3.3 g/dl (3.3-4.9) Globulin 3.70 g/dl (1.3-3.2) Albumin/Globulin Ratio 0.89 MYRIAM WRAY NP May 28, 2018 18:07
[2018-05-28] MEDS ORDERED: DOCUSATE SODIUM 100 MG CAP PO SCH (21:00)
== END 2018-05-28 20:56 | DRG 871 ==
LOC: MERGE 05-16 04:30 → ICU 05-16 04:30 → 6WM 05-17 18:50 → PP2 05-21 00:05
PROVIDERS: ADMIT Internal Medicine; ATTEND Internal Medicine
PROC: 5A1D70Z Performance of Urinary Filtration, Intermittent, Less than 6 Hours Per Day (ICD-10-PCS; 2018-05-16)
PROC: 5A1935Z Respiratory Ventilation, Less than 24 Consecutive Hours (ICD-10-PCS; 2018-05-16)
PROC: 0W993ZX Drainage of Right Pleural Cavity, Percutaneous Approach, Diagnostic (ICD-10-PCS; principal; 2018-05-17)
DX: A41.9 Sepsis, unspecified organism (principal); I50.23 Acute on chronic systolic (congestive) heart failure; J18.9 Pneumonia, unspecified organism; J96.01 Acute respiratory failure with hypoxia; N18.6 End stage renal disease; G92 Toxic encephalopathy; I13.2 Hypertensive heart and chronic kidney disease with heart failure and with stage 5 chronic kidney disease, or end stage renal disease; J90 Pleural effusion, not elsewhere classified; J95.811 Postprocedural pneumothorax; I48.0 Paroxysmal atrial fibrillation; I25.5 Ischemic cardiomyopathy; E87.70 Fluid overload, unspecified; R62.7 Adult failure to thrive; R13.10 Dysphagia, unspecified; Y84.4 Aspiration of fluid as the cause of abnormal reaction of the patient, or of later complication, without mention of misadventure at the time of the procedure; Y92.238 Other place in hospital as the place of occurrence of the external cause; I27.20 Pulmonary hypertension, unspecified; F03.90 Unspecified dementia, unspecified severity, without behavioral disturbance, psychotic disturbance, mood disturbance, and anxiety; R65.20 Severe sepsis without septic shock; Z99.2 Dependence on renal dialysis; D63.1 Anemia in chronic kidney disease; Z68.23 Body mass index [BMI] 23.0-23.9, adult; Z79.01 Long term (current) use of anticoagulants
CPT/HCPCS: 32555; 36600; 71045; 74230; 80048; 80053; 80061; 80202; 82140; 82607; 82746; 82803; 82945; 83036; 83615; 83690; 83735; 84100; 84157; 84443; 85025; 85610; 85730; 87070; 87081; 87102; 87116; 87340; 88104; 88305; 88341; 88342; 89051; 90935; 92526; 92610; 92611; 93005; 93306; 93971; 94002; 94770; 97110; 97116; 97161; 97530; J0360; J0780; J1170; J1630; J1644; J2060; J2405; J2543; J3370; Q4081

== ENCOUNTER 2018-06-14 18:49 | Inpatient (IN) | payer BC ==
[~2018-06-14] VITALS: Ht 177.8 cm; Wt 56.1 kg
[~2018-06-14 18:49] MED LIST changes: +APIX5TAB PO; -BENA20TA4 PO; +CARV6.25 PO; -CEPH500C PO; -CLON0.1T14 PO; +FAMO20TA18 PO; +LACT1CAP28 PO; +LEVA0.634 HHN; +LOSA25TA2 PO; -NAPR-688 PO; -PANT40TA4 PO; +SENOKOTS PO; +THIA100T56 PO
[2018-06-14 22:40] VITALS: Ht 177.8 cm; Wt 56.1 kg
[2018-06-14] MEDS ORDERED: NACL 0.9% 3 ML SYG IV SCH (23:30)
[2018-06-14] MEDS ORDERED: BISACODYL (EC) 5 MG TAB PO PRN (23:30)
[2018-06-14] MEDS ORDERED: LEVALBUTEROL (NEB) 0.63 MG/3 ML AMP HHN PRN (23:30)
[2018-06-14] MEDS ORDERED: DOCUSATE SODIUM 100 MG CAP PO PRN (23:30)
[2018-06-14] MEDS ORDERED: ACETAMINOPHEN 325 MG TAB PO PRN (23:30)
[2018-06-14] MEDS ORDERED: ONDANSETRON 4 MG TAB PO PRN (23:30)
[2018-06-14] MEDS: APIXABAN 5 MG TABLET PO SCH (23:30)
[2018-06-15] VITALS (24 sets, daily range): BP systolic 118–194; BP diastolic 62–90; PULSE 72–134; RESP 18–20
--- NOTE | 2018-06-15 02:54 | HP ---
Date/Time of Note Date/Time of Note DATE: 06/15/18 TIME: 02:53 Assessment/Plan VTE Prophylaxis Pharmacological prophylaxis: apixaban Lines/Catheters IV Catheter Type (from [facility]): [facility] Assessment/Plan Hospital Course This is a 68-year-old male being admitted to the telemetry floor for: 1. Severe sepsis: Patient had a elevated lactate of 2.2 the transfer facility. Will check stat labs CBC CMP. Will obtain repeat blood cultures. Influenza was negative. Will need to follow-up with blood cultures from [facility]. We will put the patient on vancomycin and Zosyn. IR consultation in the a.m. for exchange of dialysis catheter. Will consult nephrology. check chest xray. 2. Hyponatremia: Labs [facility] showed a sodium of 124. Obtain repeat lab work. Nephrology consultation. Further management as per nephro. Depending on repeat lab work will give gentle fluid hydration in the meantime. 3. Paroxysmal atrial fibrillation: Currently in normal sinus rhythm, continue Eliquis 4. Acute on chronic congestive heart failure exacerbation, systolic dysfunction: Stable at the current time, no signs of decompensation. 5. End-stage renal disease on hemodialysis: We will need to replace permacatheter. Further management as per nephrology. 6. Cardiomyopathy. Ejection fraction of 40-45%: Continue patient's home medications 7. Hypertension: Continue patient's home medications will be mindful of underlying sepsis 8. History of liver cirrhosis: Continue patient's home meds 9. Normocytic anemia further management as per nephrology 10 DVT GI prophylaxis: Eliquis, home H2 max Further treatment strategy will be implemented as per the clinical course HPI/ROS Admit Date/Time Admit Date/Time Jun 14, 2018 at 22:45 Hx of Present Illness Chief complaint: Chills during dialysis This is a 68-year-old male with Past medical history of dementia, ESRD, A Fib, systolic CHF, HTN, pulm htn, hx of pneumothorax, alcoholic cirrhosis who presented to [facility] from [place] convalescent after having chills during dialysis. When patient arrived to the emergency department he reported that he was fine. He stated that he underwent dialysis and there was no problem. Patient was found to have a temperature of 100.3. Patient was subsequently transferred to [facility] secondary to insurance purposes. Prescriptions from the dialysis center did recommend further workup as well as removal and replacement of the dialysis catheter. Patient at the current time of the bedside denies any complaints. He is not sure himself why he has been sent to the hospital. vitals on presentation showed a temperature of 100.3/blood pressure 118/61/pulse 91/respirations 17/97% on room air pertinent laboratory findings from transfer facility showed: White blood cells of 13.4 hemoglobin 8.8 hematocrit 26.2 platelet count 238 Sodium 124/potassium 4.0/chloride 89/bicarb 24 influenza negative lactic acid 2.2 troponin 0 0.01 EKG: Normal sinus rhythm at approximately 80 bpm, first-degree AV block no acute ST or T wave normalities concerning for acute ischemia ROS Const: As per HPI Eyes : No pain discharge or redness or change in visual acuity ENT: No pain, sore throat, congestion, congestion, dysphagia or discharge Respiratory: No shortness of breath, cough, sputum, wheezing, or pleuritic pain Cardiovascular: No chest pain, palpitation, PND, or edema GI : no change in appetite, abdominal pain, nausea, vomiting, diarrhea, constipation, or change in the color his stool Genitourinary: No dysuria, hematuria, flank pain , discharge or CVA tenderness Musculoskeletal: No joint pain, back pain, neck pain, restricted range of motion in neck or joints Skin: No rash, bruising or hives Neuro: No headache, dizziness, syncope, seizure, focal weakness Endocrine: No polyuria, polydipsia, temperature intolerance Psych: No hallucination, depression, anxiety or suicidal ideation PMH/Family/Social Past Medical History dementia, ESRD, A Fib, systolic CHF, HTN, pulm htn, hx of pneumothorax, alcoholic cirrhosis Medications Current Medications IV Flush (NS 3 ml) 3 ml PER PROTOCOL IV ; Start 06/14/18 at 23:30 Ondansetron HCl (Zofran Tab) 4 mg Q6H PRN PO NAUSEA/VOMITING; Start 06/14/18 at 23:30 Acetaminophen (Tylenol Tab) 650 mg Q6H PRN PO .PAIN 1-3 OR TEMP; Start 06/14/18 at 23:30 Docusate Sodium (Colace) 100 mg Q12H PRN PO .CONSTIPATION; Start 06/14/18 at 23:30 Bisacodyl (Dulcolax) 5 mg DAILY PRN PO .CONSTIPATION; Start 06/14/18 at 23:30 Amlodipine Besylate (Norvasc) 2.5 mg DAILY PO ; Start 06/15/18 at 09:00 Apixaban (Eliquis) 2.5 mg BID PO ; Start 06/14/18 at 23:30 Famotidine (Pepcid) 20 mg HS PO ; Start 06/15/18 at 21:00 Lactobacillus Acidophilus/ Rhamnosus (Culturelle) 1 cap BID PO ; Start 06/15/18 at 09:00 Levalbuterol (Xopenex Neb) 0.63 mg Q4H RESP THERAPY PRN HHN WHEEZING AND SOB; Start 06/14/18 at 23:30 Senna/Docusate Sodium (Senokot-S) 2 tab HS PO ; Start 06/15/18 at 21:00 Thiamine HCl (Vitamin B1) 100 mg DAILY PO ; Start 06/15/18 at 09:00 Coded Allergies: No Known Drug Allergies (Verified Allergy, Unknown, 10/13/16) Past Surgical History Left av fistula, back sx, right chest perma cath Family History Significant Family History: no pertinent family hx, other Social History Alcohol Use: other (former drinker) Drug Use: none Exam/Review of Systems Vital Signs Vitals Vital Signs Date Temp Pulse Resp B/P (MAP) Pulse Ox O2 O2 Flow FiO2 Time Delivery Rate 06/15/18 80 00:00 06/15/18 98.6 19 151/75 100 00:00 (100) 06/14/18 Nasal 2.0 22:40 Cannula Exam Exam General: Patient currently lying in bed in no acute distress. HEENT: Atraumatic, normocephalic. The pupils are equal, round and reactive. Extraocular motor are intact Neck: Supple with full range of motion. No rigidity or meningismus Chest: Right chest wall permacatheter Lungs: Clear to auscultation bilaterally no crackles rales or wheezing Heart: Normal S1-S2, Regular rhythm and rate. Currently normal sinus rhythm Abdomen: Soft , nontender, nondistended , bowel sounds are present. No guarding no rebound tenderness , No masses or organomegaly. No costovertebral temporal angle mass Extremities: Normal to inspection, no edema no cyanosis Neurologic: Normal mental status, speech normal, cranial nerves II through XII are intact, motor and sensory are intact, CLIVE,KASEY Jun 15, 2018 02:54
[2018-06-15] MEDS ORDERED: VANCOMYCIN IV PER PHARMACY XX SCH (03:30)
[2018-06-15] MEDS: PIPER-TAZO 2.25 GM (PMX) 50 ML IVPB SCH ×3 (04:24→21:36)
[2018-06-15] MEDS ORDERED: VANCOMYCIN 1 GM 250 ML IVPB ONE (05:00)
[2018-06-15] MEDS: THIAMINE 100 MG TAB PO SCH (08:36)
[2018-06-15] MEDS: LOSARTAN 25 MG TAB PO SCH (08:36)
[2018-06-15] MEDS: LACTOBACILLUS RHAMNOSUS CAP PO SCH ×2 (08:36→21:39)
[2018-06-15] MEDS: AMLODIPINE 2.5 MG TAB PO SCH (08:37)
[2018-06-15] MEDS: APIXABAN 5 MG TABLET PO SCH ×2 (08:37→21:38)
[2018-06-15] MEDS: BALSAM PERU/CASTOR OIL 60 GM TUBE TOP SCH (08:38)
--- NOTE | 2018-06-15 10:01 | CONS ---
DATE OF ADMISSION: 06/14/2018 DATE OF CONSULTATION: 06/15/2018 TYPE OF CONSULTATION: Nephrology. REASON FOR CONSULTATION: End-stage renal disease. PHYSICIAN REQUESTING CONSULT: Dr. Duffy. HISTORY OF PRESENT ILLNESS: This is a 68-year-old male with a past medical history of end-stage ollie l disease on dialysis three times weekly. History of atrial fibrillation, dementia, congestive heart failure, hypertension, pulmonary hypertension, history of alcohol cirrhosis, who initially presented to [facility] from his convalescent facility having chills during dialysis. The grey ent upon arrival was noted to be febrile with temperature of 100.3. The patient was subsequently tra nsferred to [facility] for continued care. Upon my evaluation of the patient at this time, he is currently stable. He denies any fevers, nausea , vomiting, shortness of breath. In terms of patient's renal history, the patient is on dialysis thr ee times weekly. The patient does not know the name of his primary director sales, nor does he know th e name of his dialysis center. PAST MEDICAL HISTORY: As stated above, history of end-stage renal disease, history of hypertension, congestive heart failure, sepsis, history of dementia, history of coronary artery disease. PAST SURGICAL HISTORY: Status post AV fistula placement, status post Perm-A-Cath placement. FAMILY HISTORY: No family history of kidney disease. SOCIAL HISTORY: Lives at a convalescent facility. MEDICATIONS: The patient's medications have been reviewed. REVIEW OF SYSTEMS: A 14-point review of systems was conducted. Pertinent positives stated in HPI, o therwise negative. PHYSICAL EXAMINATION: VITAL SIGNS: Blood pressure is 135/86, respirations 16, pulse 100, temperature 98.6. HEENT: Head is normocephalic. NECK: Supple. HEART: Regular rate. LUNGS: Show diminished breath sounds at the base. The patient's Perm-A-Cath is noted. There is no tenderness to palpation. No obvious erythema. ABDOMEN: Soft, nontender to palpation without rebound or guarding. EXTREMITIES: Negative for clubbing, cyanosis, no edema. DERMATOLOGIC: No rashes. MUSCULOSKELETAL: No joint effusion. NEUROLOGIC: No focal deficits. LABORATORY DATA: Shows sodium 133, potassium 4.1, BUN 31, creatinine 4.73, magnesium 1.6. White cou nt 9.5, hemoglobin 7.8, platelet count is 217. The patient's cultures are pending. ASSESSMENT AND PLAN: This is a 68-year-old male who presents with: 1. End-stage renal disease. The patient is on dialysis 3 times weekly. Last hemodialysis was appro ximately 2 days ago. The patient may have underlying infected Perm-A-Cath. Plan is to have a Perm-A -Cath exchange by interventional radiology. The patient will then have hemodialysis after catheter e xchange. We will monitor closely. 2. Anemia. Monitor hemoglobin and hematocrit levels. We will given Epogen with hemodialysis. 3. Mineral bone disorder, monitor calcium and phosphorus levels. 4. Hypomagnesemia. We will replete with magnesium sulfate. 5. History of congestive heart failure. Continue medical management. Continue ultrafiltration with dialysis. 6. Hypernatremia. The patient will be dialyzed on a 140 sodium bath. 7. History of liver cirrhosis. Continue medical management. 8. Sepsis secondary to line infection. The patient is currently on IV antibiotics, follow up with olga cervantes. A Perm-A-Cath exchange is pending. Thank you, Dr. Duffy, for this interesting consult. It will be a pleasure to follow the patient wi th you throughout the hospital course. Dictated By: SHERRY CONCEPCION DO NR/NTS Conf#: [id number] DID#: [id number] CC: DILIP OSUNA MD; KASEY DUFFY MD;*EndCC*
[2018-06-15] MEDS: traMADol 50 MG TAB PO PRN (10:26)
[2018-06-15] MEDS: MAGNESIUM SULFATE 2 GM/50 ML 50 ML IVPB ONE ×2 (10:59→12:06)
--- NOTE | 2018-06-15 11:18 | PN ---
Date/Time of Note Date/Time of Note DATE: 06/15/18 TIME: 11:13 Assessment/Plan VTE Prophylaxis Risk score (from Nsg)>0 risk: 7 SCD applied (from Nsg): Yes Pharmacological prophylaxis: apixaban Lines/Catheters [facility]ter [facility] (from [facility]): Saline Lock Assessment/Plan Hospital Course SUBJECTIVE: Denies any chest pain or dyspnea. Complains of pain in the right forearm. OBJECTIVE: Physical Exam General: Adequately build 67 year-old male lying in bed in no apparent distress. HEENT: Normocephalic, atraumatic. Eyes: Anicteric sclerae, conjunctivae clear. ENT: Nasal septum midline, oral mucosa is dry. Neck supple. Respiratory: Bilaterally diminished breath sounds. No use of accessory muscles of respiration. No adventitious breath sounds. Cardiovascular: S1, S2 heard. Regular rate and rhythm. Abdomen: Soft, nontender, and nondistended. Bowel sounds positive in all 4 quadrants. Genitourinary: Deferred. Extremities: No cyanosis, no clubbing, no edema. Peripheral pulses palpable. Neurologic: Patient is awake and alert. Moves all 4 extremities. Oriented to self. Labs & Vitals per chart ASSESSMENT & PLAN This is a 67-year-old male with comorbidities including paroxysmal atrial fibrillation, hypertension, cirrhosis, end-stage renal disease on hemodialysis, and substance abuse. The patient was discharged to a custodial facility from [facility] after prolonged hospital stay on 05/28/2018. The patient was transferred to [facility] from his hemodialysis clinic because of fevers and chills during dialysis. The patient was subsequently transferred to [facility] for further management and evaluation because of insurance reasons. At the transferring facility, the patient had a WBC of 13.4 with a lactate level of 2.2, and a temperature of 100.3. 1. Sepsis with leukocytosis, febrile illness, and lactic acidosis, at the transferring facility. -Etiology unclear. -Suspect line sepsis. -Theron catheter replacement has been ordered -Continue antimicrobials. Pending babcock cultures. -Obtain ID consult. 2. Paroxysmal atrial fibrillation. -Currently in sinus rhythm. -Continue apixaban for stroke prophylaxis. 3. Acute on chronic congestive heart failure exacerbation, systolic dysfunction. -Continue ultrafiltration. 4. End-stage renal disease on hemodialysis. -Being followed by nephrology. 5. Cardiomyopathy. Ejection fraction of 40-45%. -Continue beta-blockers and ARBs. 6. Hypertension. -Continue antihypertensives. 7. History of liver cirrhosis. -Stable. 8. Dysphagia (history). -Aspiration precautions. 9. Normocytic anemia. -Monitor H&H closely. 10. Right pleural effusion. -Status post right-sided thoracentesis with drainage of 1 L of fluid on 05/17/2018. 11. Pulmonary hypertension. -PA systolic pressure of 45 mm Hg. -Continue supplemental oxygen. 12. Fluids, electrolytes, and nutrition. -Renal diet. 13. DVT prophylaxis. -Apixaban. 14. Plan. -Continue antimicrobials -Await final cultures. The patient was seen in collaboration with Dr. Medina. Result Diagram: 06/15/18 0611 06/15/18 0611 Results 24hrs Laboratory Tests Test 06/15/18 06:11 White Blood Count 9.5 # Red Blood Count 2.79 L Hemoglobin 7.8 L Hematocrit 25.0 L Mean Corpuscular Volume 89.6 Mean Corpuscular Hemoglobin 28.0 L Mean Corpuscular Hemoglobin Concent 31.2 L Red Cell Distribution Width 17.8 H Platelet Count 217 # Mean Platelet Volume 8.9 Immature Granulocytes % 1.200 H Neutrophils % 80.0 H Lymphocytes % 8.9 L Monocytes % 8.8 Eosinophils % 0.7 Basophils % 0.4 Nucleated Red Blood Cells % 0.0 Immature Granulocytes # 0.110 H Neutrophils # 7.6 H Lymphocytes # 0.9 Monocytes # 0.8 Eosinophils # 0.1 Basophils # 0.0 Nucleated Red Blood Cells # 0.0 Sodium Level 133 L Potassium Level 4.1 Chloride Level 96 L Carbon Dioxide Level 24 Anion Gap 13 Blood Urea Nitrogen 31 H Creatinine 4.73 H Est Glomerular Filtrat Rate mL/min 12 L Glucose Level 79 Lactic Acid Level 1.0 Calcium Level 7.5 L Phosphorus Level 4.0 Magnesium Level 1.6 L Total Bilirubin 0.0 L Direct Bilirubin 0.00 Indirect Bilirubin 0.0 Aspartate Amino Transf (AST/SGOT) 15 Alanine Aminotransferase (ALT/SGPT) 15 Alkaline Phosphatase 77 Total Protein 5.5 L Albumin 2.5 L Globulin 3.00 Albumin/Globulin Ratio 0.83 Exam/Review of Systems Exam Vitals Vital Signs Date Temp Pulse Resp B/P (MAP) Pulse Ox O2 O2 Flow FiO2 Time Delivery Rate 06/15/18 134 08:17 06/15/18 98.2 20 147/79 99 07:54 (101) 06/14/18 Nasal 2.0 22:40 Cannula Results Results 24hrs Laboratory Tests Test 06/15/18 06:11 White Blood Count 9.5 # Red Blood Count 2.79 L Hemoglobin 7.8 L Hematocrit 25.0 L Mean Corpuscular Volume 89.6 Mean Corpuscular Hemoglobin 28.0 L Mean Corpuscular Hemoglobin Concent 31.2 L Red Cell Distribution Width 17.8 H Platelet Count 217 # Mean Platelet Volume 8.9 Immature Granulocytes % 1.200 H Neutrophils % 80.0 H Lymphocytes % 8.9 L Monocytes % 8.8 Eosinophils % 0.7 Basophils % 0.4 Nucleated Red Blood Cells % 0.0 Immature Granulocytes # 0.110 H Neutrophils # 7.6 H Lymphocytes # 0.9 Monocytes # 0.8 Eosinophils # 0.1 Basophils # 0.0 Nucleated Red Blood Cells # 0.0 Sodium Level 133 L Potassium Level 4.1 Chloride Level 96 L Carbon Dioxide Level 24 Anion Gap 13 Blood Urea Nitrogen 31 H Creatinine 4.73 H Est Glomerular Filtrat Rate mL/min 12 L Glucose Level 79 Lactic Acid Level 1.0 Calcium Level 7.5 L Phosphorus Level 4.0 Magnesium Level 1.6 L Total Bilirubin 0.0 L Direct Bilirubin 0.00 Indirect Bilirubin 0.0 Aspartate Amino Transf (AST/SGOT) 15 Alanine Aminotransferase (ALT/SGPT) 15 Alkaline Phosphatase 77 Total Protein 5.5 L Albumin 2.5 L Globulin 3.00 Albumin/Globulin Ratio 0.83 Medications Medication Current Medications IV Flush (NS 3 ml) 3 ml PER PROTOCOL IV ; Start 06/14/18 at 23:30 Ondansetron HCl (Zofran Tab) 4 mg Q6H PRN PO NAUSEA/VOMITING; Start 06/14/18 at 23:30 Acetaminophen (Tylenol Tab) 650 mg Q6H PRN PO .PAIN 1-3 OR TEMP; Start 06/14/18 at 23:30 Docusate Sodium (Colace) 100 mg Q12H PRN PO .CONSTIPATION; Start 06/14/18 at 23:30 Bisacodyl (Dulcolax) 5 mg DAILY PRN PO .CONSTIPATION; Start 06/14/18 at 23:30 Amlodipine Besylate (Norvasc) 2.5 mg DAILY PO Last administered on 06/15/18 08:37; Admin Dose 2.5 MG; Start 06/15/18 at 09:00 Apixaban (Eliquis) 2.5 mg BID PO Last administered on 06/15/18 08:37; Admin Dose 2.5 MG; Start 06/14/18 at 23:30 Famotidine (Pepcid) 20 mg HS PO ; Start 06/15/18 at 21:00 Lactobacillus Acidophilus/ Rhamnosus (Culturelle) 1 cap BID PO Last administered on 06/15/18at 08:36; Admin Dose 1 CAP; Start 06/15/18 at 09:00 Levalbuterol (Xopenex Neb) 0.63 mg Q4H RESP THERAPY PRN HHN WHEEZING AND SOB; Start 06/14/18 at 23:30 Senna/Docusate Sodium (Senokot-S) 2 tab HS PO ; Start 06/15/18 at 21:00 Thiamine HCl (Vitamin B1) 100 mg DAILY PO Last administered on 06/15/18at 08:36; Admin Dose 100 MG; Start 06/15/18 at 09:00 Vancomycin HCl (Vanco Iv Per Pharmacy) VANCOMYCIN PER PHARMACY PER PROTOCOL XX ; Start 06/15/18 at 03:30 Piperacillin Sod/ Tazobactam Sod 50 ml @ 100 mls/hr Q12 IVPB Last administered on 06/15/18at 08:35; Admin Dose 100 MLS/HR; Start 06/15/18 at 03:30 Carvedilol (Coreg) 6.25 mg BID PO Last administered on 06/15/18 08:37; Admin Dose 6.25 MG; Start 06/15/18 at 09:00 Losartan Potassium (Cozaar) 100 mg DAILY PO Last administered on 06/15/18 08:36; Admin Dose 100 MG; Start 06/15/18 at 09:00 Magnesium Sulfate 50 ml @ 25 mls/hr ONCE ONCE IVPB ; Start 06/15/18 at 10:00; Stop 06/15/18 at 11:59 Epoetin Bhupendra (Epogen (Esrd)) 10,000 units MoWeFr@17 SC ; Start 06/15/18 at 17:00 Tramadol HCl (Ultram) 50 mg Q6H PRN PO MODERATE PAIN LEVEL 4-6 Last administered on 06/15/18at 10:26; Admin Dose 50 MG; Start 06/15/18 at 10:00 MYRIAM WRAY NP Jun 15, 2018 11:18
--- NOTE | 2018-06-15 13:54 | CONS ---
DATE OF ADMISSION: 06/14/2018 DATE OF CONSULTATION: 06/15/2018 TYPE OF CONSULTATION: Infectious disease. REASON FOR CONSULTATION: Antibiotic management. HISTORY OF PRESENT ILLNESS: Terry Mendez is a 68-year-old male who was admitted with severe sepsis and is being seen for antibiotic management. His past problems include: 1. End-stage renal disease on hemodialysis. 2. Senile dementia. 3. Atrial fibrillation. 4. Systolic congestive heart failure. 5. Hypertension. 6. Pulmonary hypertension. 7. History of pneumothorax. 8. Alcoholic cirrhosis. The patient was noted to have chills during dialysis. He underwent dialysis without a problem and wa s found to have a temperature of 100.3. He was subsequently sent to [facility] who recommended further workup as well as removal and replacement of the dialysis catheter. PAST SURGICAL HISTORY: Operations as outlined. He has left AV fistula, history of back surgery and right chest PermCath. MEDICAL PROBLEMS: Include as noted end-stage renal disease on dialysis, dementia, atrial fibrillatio n, alcoholic cirrhosis. FAMILY HISTORY: Noncontributory. SOCIAL HISTORY: He is a former drinker. He does not smoke or abuse drugs. ALLERGIES: NONE TO PENICILLIN, SULFA OR FOODS. MEDICATIONS: Per chart. REVIEW OF SYSTEMS: Noncontributory. PHYSICAL EXAMINATION: GENERAL: The patient is lying in bed in no acute distress. VITAL SIGNS: Stable. He is afebrile. SKIN: Without generalized rash. HEENT: Within normal limits. NECK: Supple. LYMPH NODES: None palpable. CHEST: Right chest wall PermCath. Decreased breath sounds at the bases. HEART: Without murmur or gallop. ABDOMEN: Soft, nontender without organosplenomegaly or masses. EXTREMITIES: Without cyanosis, clubbing or edema. RECTAL AND GENITAL: Deferred. NEUROLOGICAL: The patient is demented, has no focal neurological abnormalities. IMPRESSION AND PLAN: The patient presents with severe sepsis with 2.2 lactate. He was transferred f [facility] and placed on vancomycin and Zosyn. IR consultation for exchange of d ialysis catheter. He is hyponatremic with a sodium of 124. The patient was seen in consultation by Dr. Morales in nephrology. BUN and creatinine is 31/4.73. The patient has probable infected PermCat h. Cultures are pending. We will continue vancomycin and Zosyn and I recommend removal of the PermC ath. I will dictate my findings to the hospitalist. Of note is the fact that chest x-ray shows janett lar appearance of right basilar infiltrate concerning for pneumonia, moderate right pleural effusion and associated consolidation unchanged consistent with healthcare-acquired pneumonia. I will dictate my findings to the hospitalist. Dictated By: RED KENNEY MD, JD/SHMUEL Conf#: [id number] DID#: [id number] CC: DILIP OSUNA MD;*EndCC*
[2018-06-15] MEDS ORDERED: hydrALAzine 20 MG INJ IV PRN (19:30)
[2018-06-15] MEDS: HEPARIN 1000 UNITS/ML 10 ML INJ CATHETER PRN (19:37)
[2018-06-15] MEDS: SENNA/DOCUSATE NA (8.6MG/50MG) TAB PO SCH (21:38)
[2018-06-15] MEDS: FAMOTIDINE 20 MG TAB PO SCH (21:38)
[2018-06-15] MEDS: EPOETIN 10000 UNITS/1 ML INJ (ESRD) SC SCH (21:42)
[2018-06-16] VITALS (12 sets, daily range): BP systolic 124–143; BP diastolic 61–86; PULSE 60–83; RESP 18–20
--- NOTE | 2018-06-16 07:58 | PN ---
Date/Time of Note Date/Time of Note DATE: 06/16/18 TIME: 07:58 Assessment/Plan VTE Prophylaxis Risk score (from Nsg)>0 risk: 6 SCD applied (from Nsg): Yes Pharmacological prophylaxis: apixaban Lines/Catheters [facility] Assessment/Plan Hospital Course SUBJECTIVE: Denies any chest pain or dyspnea. Complains of pain in the right forearm. OBJECTIVE: Physical Exam General: Adequately build 67 year-old male lying in bed in no apparent distress. HEENT: Normocephalic, atraumatic. Eyes: Anicteric sclerae, conjunctivae clear. ENT: Nasal septum midline, oral mucosa is dry. Neck supple. Respiratory: Bilaterally diminished breath sounds. No use of accessory muscles of respiration. No adventitious breath sounds. Cardiovascular: S1, S2 heard. Regular rate and rhythm. Abdomen: Soft, nontender, and nondistended. Bowel sounds positive in all 4 quadrants. Genitourinary: Deferred. Extremities: No cyanosis, no clubbing, no edema. Peripheral pulses palpable. Neurologic: Patient is awake and alert. Moves all 4 extremities. Oriented to self. Labs & Vitals per chart ASSESSMENT & PLAN This is a 67-year-old male with comorbidities including paroxysmal atrial fibrillation, hypertension, cirrhosis, end-stage renal disease on hemodialysis, and substance abuse. The patient was discharged to a correction facility from [facility] after prolonged hospital stay on 05/28/2018. The patient was transferred to [facility] from his hemodialysis clinic because of fevers and chills during dialysis. The patient was subsequently transferred to [facility] for further management and evaluation because of insurance reasons. At the transferring facility, the patient had a WBC of 13.4 with a lactate level of 2.2, and a temperature of 100.3. 1. Sepsis with leukocytosis, febrile illness, and lactic acidosis, at the transferring facility. -Etiology unclear. -Suspect line sepsis. -Theron catheter replacement has been ordered -Continue antimicrobials as per ID. -Pending babcock cultures. 2. Paroxysmal atrial fibrillation. -Currently in sinus rhythm. -Continue apixaban for stroke prophylaxis. 3. Acute on chronic congestive heart failure exacerbation, systolic dysfunction. -Continue ultrafiltration. 4. End-stage renal disease on hemodialysis. -Being followed by nephrology. 5. Cardiomyopathy. Ejection fraction of 40-45%. -Continue beta-blockers and ARBs. 6. Hypertension. -Continue antihypertensives. 7. History of liver cirrhosis. -Stable. 8. Dysphagia (history). -Aspiration precautions. 9. Normocytic anemia. -Monitor H&H closely. 10. Right pleural effusion. -Status post right-sided thoracentesis with drainage of 1 L of fluid on 05/17/2018. 11. Pulmonary hypertension. -PA systolic pressure of 45 mm Hg. -Continue supplemental oxygen. 12. Fluids, electrolytes, and nutrition. -Renal diet. 13. DVT prophylaxis. -Apixaban. 14. Plan. -Continue antimicrobials -Await final cultures. -Obtain cultures from [facility]. The patient was seen in collaboration with Dr. Medina. Result Diagram: 06/15/1861006/15/18610 Exam/Review of Systems Exam Vitals Vital Signs Date Temp Pulse Resp B/P (MAP) Pulse Ox O2 O2 Flow FiO2 Time Delivery Rate 06/16/18 98.0 60 20 136/61 95 07:28 (86) 06/15/18 Nasal 2.0 20:45 Cannula Intake and Output 06/15/18 06/15/18 06/16/18 1515:00 23:00 07:00 IntakeIntake Total 600 ml 600 ml OutputOutput Total 2700 ml BalanceBalance 600 ml -2100 ml Medications Medication Current Medications IV Flush (NS 3 ml) 3 ml PER PROTOCOL IV ; Start 06/14/18 at 23:30 Ondansetron HCl (Zofran Tab) 4 mg Q6H PRN PO NAUSEA/VOMITING; Start 06/14/18 at 23:30 Acetaminophen (Tylenol Tab) 650 mg Q6H PRN PO .PAIN 1-3 OR TEMP Last administered on 06/15/18at 22:52; Admin Dose 650 MG; Start 06/14/18 at 23:30 Docusate Sodium (Colace) 100 mg Q12H PRN PO .CONSTIPATION; Start 06/14/18 at 23:30 Bisacodyl (Dulcolax) 5 mg DAILY PRN PO .CONSTIPATION; Start 06/14/18 at 23:30 Amlodipine Besylate (Norvasc) 2.5 mg DAILY PO Last administered on 06/15/18at 08:37; Admin Dose 2.5 MG; Start 06/15/18 at 09:00 Apixaban (Eliquis) 2.5 mg BID PO Last administered on 06/15/18 21:38; Admin Dose 2.5 MG; Start 06/14/18 at 23:30 Famotidine (Pepcid) 20 mg HS PO Last administered on 06/15/18 21:38; Admin Dose 20 MG; Start 06/15/18 at 21:00 Lactobacillus Acidophilus/ Rhamnosus (Culturelle) 1 cap BID PO Last administered on 06/15/18 21:39; Admin Dose 1 CAP; Start 06/15/18 at 09:00 Levalbuterol (Xopenex Neb) 0.63 mg Q4H RESP THERAPY PRN HHN WHEEZING AND SOB; Start 06/14/18 at 23:30 Senna/Docusate Sodium (Senokot-S) 2 tab HS PO Last administered on 06/15/18 21:38; Admin Dose 2 TAB; Start 06/15/18 at 21:00 Thiamine HCl (Vitamin B1) 100 mg DAILY PO Last administered on 06/15/18 08:36; Admin Dose 100 MG; Start 06/15/18 at 09:00 Vancomycin HCl (Vanco Iv Per Pharmacy) VANCOMYCIN PER PHARMACY PER PROTOCOL XX ; Start 06/15/18 at 03:30 Piperacillin Sod/ Tazobactam Sod 50 ml @ 100 mls/hr Q12 IVPB Last administered on 06/15/18 21:36; Admin Dose 100 MLS/HR; Start 06/15/18 at 03:30 Carvedilol (Coreg) 6.25 mg BID PO Last administered on 06/15/18 21:37; Admin Dose 6.25 MG; Start 06/15/18 at 09:00 Losartan Potassium (Cozaar) 100 mg DAILY PO Last administered on 06/15/18 08:36; Admin Dose 100 MG; Start 06/15/18 at 09:00 Epoetin Bhupendra (Epogen (Esrd)) 10,000 units MoWeFr@17 SC Last administered on 06/15/18 21:42; Admin Dose 10,000 UNITS; Start 06/15/18 at 17:00 Tramadol HCl (Ultram) 50 mg Q6H PRN PO MODERATE PAIN LEVEL 4-6 Last administered on 06/15/18 10:26; Admin Dose 50 MG; Start 06/15/18 at 10:00 Heparin Sodium (Porcine) (Heparin (1000 Units/ml)) 4,100 unit PRN PRN CATHETER AFTER HD Last administered on 06/15/18at 19:37; Admin Dose 4,100 UNIT; Start 06/15/18 at 16:00 Hydralazine HCl (Apresoline) 10 mg Q6H PRN IV SBP>160; Start 06/15/18 at 19:30 MYRIAM WRAY NP Jun 16, 2018 07:58
[2018-06-16] MEDS: PIPER-TAZO 2.25 GM (PMX) 50 ML IVPB SCH ×2 (08:24→20:22)
[2018-06-16] MEDS: BALSAM PERU/CASTOR OIL 60 GM TUBE TOP SCH (08:24)
[2018-06-16] MEDS: APIXABAN 5 MG TABLET PO SCH ×2 (08:24→20:22)
[2018-06-16] MEDS: LACTOBACILLUS RHAMNOSUS CAP PO SCH ×2 (08:25→20:22)
[2018-06-16] MEDS: AMLODIPINE 2.5 MG TAB PO SCH (08:26)
[2018-06-16] MEDS: THIAMINE 100 MG TAB PO SCH (08:26)
[2018-06-16] MEDS: LOSARTAN 25 MG TAB PO SCH (08:27)
--- NOTE | 2018-06-16 09:46 | PN ---
DATE: 06/16/2018 SUBJECTIVE: The patient had hemodialysis yesterday, tolerated well. OBJECTIVE: VITAL SIGNS: Blood pressure is 136/61, respiratory rate 20, pulse 60, temperature 98.0. HEENT: Head is normocephalic. NECK: Supple. HEART: Regular rate. LUNGS: Show diminished breath sounds at the base. ABDOMEN: Soft, nontender to palpation without rebound or guarding. EXTREMITIES: Negative for clubbing, cyanosis, no edema. DERMATOLOGIC: No rashes. MUSCULOSKELETAL: No joint effusion. NEUROLOGIC: No change in exam. MEDICATIONS: Reviewed. LABORATORY DATA: Has been reviewed. The patient's blood cultures have been negative to date. ASSESSMENT AND PLAN: 1. End-stage renal disease. The patient had hemodialysis yesterday and tolerated well. Plan is to continue intermittent hemodialysis. Monitor closely. 2. Systemic inflammatory response syndrome, possible sepsis. The patient is being ruled out for ivan e infection. Will hold off on Perm-A-Cath exchange at this time until there is evidence of bacteremi a. Will monitor closely. Continue current antibiotic therapy. Follow up infectious disease. 3. Anemia. Continue to monitor hemoglobin and hematocrit levels. Will give Epogen with dialysis. 4. Mineral bone disorder, monitor calcium and phosphorus levels. 5. History of congestive heart failure. Continue medical management. 6. Hypernatremia. Continue dialysis on a 140 sodium bath. 7. Liver cirrhosis. Dictated By: SHERRY ROMERO/SHMUEL Conf#: [id number] DID#: [id number]
[2018-06-16] MEDS: traMADol 50 MG TAB PO PRN ×2 (10:40→20:28)
--- NOTE | 2018-06-16 15:05 | CONS ---
Assessment/Plan Assessment/Plan Hospital Course (Demo Recall) No acute changes overnight patient is awake looks comfortable. Denies pain. No fevers overnight. WBC 8 platelets 204 neutrophils 72.2 Microbiology: Blood cultures negative MRSA swab negative Chest x-ray from admission revealed similar appearance of right basilar infiltrate concerning for pneumonia. Moderate right pleural effusion and associated consolidation, unchanged Indwelling: Right chest permacath Antimicrobials: Vancomycin Zosyn Physical examination: Cachectic well-developed elderly man who is in no distress. Head atraumatic normocephalic sclera nonicteric vehicle mucosa dry. Neck is supple chest rise symmetrical: Scattered crackles to bases. Heart: S1- S2. Abdomen soft bowel sounds present. Extremities without cyanosis. Assessment: 1. Sepsis with fevers and leukocytosis on admission to another facility, resolving 2. Healthcare associated pneumonia 3. End-stage renal disease, hemodialysis dependent 4. CHF exacerbation 5. Cardiomyopathy with ejection fraction of 40-45% 6. Cachexia 7. History of liver cirrhosis Plan: Patient remains stable, on appropriate antibiotic regimen. We will will repeat blood cultures with next hemodialysis from [place] catheter Consultation Date/Type/Reason Admit Date/Time Jun 14, 2018 at 22:45 Initial Consult Date Type of Consult id Date/Time of Note DATE: 06/16/18 TIME: 15:04 Exam/Review of Systems Exam Vitals Vital Signs Date Temp Pulse Resp B/P (MAP) Pulse Ox O2 O2 Flow FiO2 Time Delivery Rate 06/16/18 83 12:26 06/16/18 98.2 18 130/61 98 11:01 (84) 06/16/18 Nasal 2.0 08:30 Cannula Intake and Output 06/15/18 06/15/18 06/16/18 1515:00 23:00 07:00 IntakeIntake Total 600 ml 600 ml OutputOutput Total 2700 ml BalanceBalance 600 ml -2100 ml Results Result Diagram: 06/16/18 1036 06/16/18 1036 Results 24hrs Laboratory Tests Test 06/16/18 10:36 White Blood Count 8.0 Red Blood Count 2.97 L Hemoglobin 8.2 L Hematocrit 26.9 L Mean Corpuscular Volume 90.6 Mean Corpuscular Hemoglobin 27.6 L Mean Corpuscular Hemoglobin Concent 30.5 L Red Cell Distribution Width 18.3 H Platelet Count 204 Mean Platelet Volume 9.0 Immature Granulocytes % 1.900 H Neutrophils % 72.2 Lymphocytes % 14.1 L Monocytes % 10.3 Eosinophils % 1.0 Basophils % 0.5 Nucleated Red Blood Cells % 0.0 Immature Granulocytes # 0.150 H Neutrophils # 5.8 Lymphocytes # 1.1 Monocytes # 0.8 Eosinophils # 0.1 Basophils # 0.0 Nucleated Red Blood Cells # 0.0 Sodium Level 131 L Potassium Level 3.7 Chloride Level 97 Carbon Dioxide Level 25 Anion Gap 9 Blood Urea Nitrogen 18 # Creatinine 3.24 #H Est Glomerular Filtrat Rate mL/min 19 L Glucose Level 100 Calcium Level 7.7 L Phosphorus Level 3.1 Magnesium Level 2.1 Total Bilirubin 0.0 L Direct Bilirubin 0.00 Indirect Bilirubin 0.0 Aspartate Amino Transf (AST/SGOT) 21 Alanine Aminotransferase (ALT/SGPT) 10 L Alkaline Phosphatase 81 Total Protein 6.0 L Albumin 2.6 L Globulin 3.40 H Albumin/Globulin Ratio 0.76 Medications Medication Current Medications IV Flush (NS 3 ml) 3 ml PER PROTOCOL IV ; Start 06/14/18 at 23:30 Ondansetron HCl (Zofran Tab) 4 mg Q6H PRN PO NAUSEA/VOMITING; Start 06/14/18 at 23:30 Acetaminophen (Tylenol Tab) 650 mg Q6H PRN PO .PAIN 1-3 OR TEMP Last administered on 06/15/18at 22:52; Admin Dose 650 MG; Start 06/14/18 at 23:30 Docusate Sodium (Colace) 100 mg Q12H PRN PO .CONSTIPATION; Start 06/14/18 at 23:30 Bisacodyl (Dulcolax) 5 mg DAILY PRN PO .CONSTIPATION; Start 06/14/18 at 23:30 Amlodipine Besylate (Norvasc) 2.5 mg DAILY PO Last administered on 06/16/18at 08:26; Admin Dose 2.5 MG; Start 06/15/18 at 09:00 Apixaban (Eliquis) 2.5 mg BID PO Last administered on 06/16/18at 08:24; Admin Dose 2.5 MG; Start 06/14/18 at 23:30 Famotidine (Pepcid) 20 mg HS PO Last administered on 06/15/18at 21:38; Admin Dose 20 MG; Start 06/15/18 at 21:00 Lactobacillus Acidophilus/ Rhamnosus (Culturelle) 1 cap BID PO Last administered on 06/16/18 08:25; Admin Dose 1 CAP; Start 06/15/18 at 09:00 Levalbuterol (Xopenex Neb) 0.63 mg Q4H RESP THERAPY PRN HHN WHEEZING AND SOB; Start 06/14/18 at 23:30 Senna/Docusate Sodium (Senokot-S) 2 tab HS PO Last administered on 06/15/18 21:38; Admin Dose 2 TAB; Start 06/15/18 at 21:00 Thiamine HCl (Vitamin B1) 100 mg DAILY PO Last administered on 06/16/18 08:26; Admin Dose 100 MG; Start 06/15/18 at 09:00 Vancomycin HCl (Vanco Iv Per Pharmacy) VANCOMYCIN PER PHARMACY PER PROTOCOL XX ; Start 06/15/18 at 03:30 Piperacillin Sod/ Tazobactam Sod 50 ml @ 100 mls/hr Q12 IVPB Last administered on 06/16/18 08:24; Admin Dose 100 MLS/HR; Start 06/15/18 at 03:30 Carvedilol (Coreg) 6.25 mg BID PO Last administered on 06/16/18 08:26; Admin Dose 6.25 MG; Start 06/15/18 at 09:00 Losartan Potassium (Cozaar) 100 mg DAILY PO Last administered on 06/16/18 08:27; Admin Dose 100 MG; Start 06/15/18 at 09:00 Epoetin Bhupendra (Epogen (Esrd)) 10,000 units MoWeFr@17 SC Last administered on 06/15/18 21:42; Admin Dose 10,000 UNITS; Start 06/15/18 at 17:00 Tramadol HCl (Ultram) 50 mg Q6H PRN PO MODERATE PAIN LEVEL 4-6 Last administered on 06/16/18 10:40; Admin Dose 50 MG; Start 06/15/18 at 10:00 Heparin Sodium (Porcine) (Heparin (1000 Units/ml)) 4,100 unit PRN PRN CATHETER AFTER HD Last administered on 06/15/18 19:37; Admin Dose 4,100 UNIT; Start 06/15/18 at 16:00 Hydralazine HCl (Apresoline) 10 mg Q6H PRN IV SBP>160; Start 06/15/18 at 19:30 FAVIOLA BRANCH NP Jun 16, 2018 15:05
[2018-06-16] MEDS: SENNA/DOCUSATE NA (8.6MG/50MG) TAB PO SCH (20:21)
[2018-06-16] MEDS: FAMOTIDINE 20 MG TAB PO SCH (20:21)
[2018-06-17] VITALS (23 sets, daily range): BP systolic 128–168; BP diastolic 68–78; PULSE 68–90; RESP 16–20
[2018-06-17] MEDS: LACTOBACILLUS RHAMNOSUS CAP PO SCH ×2 (08:55→20:25)
[2018-06-17] MEDS: APIXABAN 5 MG TABLET PO SCH ×2 (08:55→20:25)
[2018-06-17] MEDS: THIAMINE 100 MG TAB PO SCH (08:55)
[2018-06-17] MEDS: PIPER-TAZO 2.25 GM (PMX) 50 ML IVPB SCH ×2 (08:56→21:41)
[2018-06-17] MEDS: LOSARTAN 25 MG TAB PO SCH (09:00)
[2018-06-17] MEDS: BALSAM PERU/CASTOR OIL 60 GM TUBE TOP SCH (09:00)
[2018-06-17] MEDS ORDERED: VANCOMYCIN 1 GM 250 ML IVPB SCH (09:00)
--- NOTE | 2018-06-17 10:43 | PN ---
Date/Time of Note Date/Time of Note DATE: 06/17/18 TIME: 10:42 Assessment/Plan VTE Prophylaxis Risk score (from Nsg)>0 risk: 6 SCD applied (from Nsg): Yes Pharmacological prophylaxis: apixaban Lines/Catheters IV Catheter Type (from Nrsg): Peripheral IV Urinary Cath still in place: No Assessment/Plan Hospital Course SUBJECTIVE: Denies any chest pain or dyspnea. Getting HD. OBJECTIVE: Physical Exam General: Adequately build 67 year-old male lying in bed in no apparent distress. HEENT: Normocephalic, atraumatic. Eyes: Anicteric sclerae, conjunctivae clear. ENT: Nasal septum midline, oral mucosa is dry. Neck supple. Respiratory: Bilaterally diminished breath sounds. No use of accessory muscles of respiration. No adventitious breath sounds. Cardiovascular: S1, S2 heard. Regular rate and rhythm. Abdomen: Soft, nontender, and nondistended. Bowel sounds positive in all 4 quadrants. Genitourinary: Deferred. Extremities: No cyanosis, no clubbing, no edema. Peripheral pulses palpable. Neurologic: Patient is awake and alert. Moves all 4 extremities. Oriented to self. Labs & Vitals per chart ASSESSMENT & PLAN This is a 67-year-old male with comorbidities including paroxysmal atrial fibrillation, hypertension, cirrhosis, end-stage renal disease on hemodialysis, and substance abuse. The patient was discharged to a alf facility from [facility] after prolonged hospital stay on 05/28/2018. The patient was transferred to [facility] from his hemodialysis clinic because of fevers and chills during dialysis. The patient was subsequently transferred to [facility] for further management and evaluation because of insurance reasons. At the transferring facility, the patient had a WBC of 13.4 with a lactate level of 2.2, and a temperature of 100.3. 1. Sepsis with leukocytosis, febrile illness, and lactic acidosis, at the transferring facility. -Etiology unclear. -Suspect line sepsis. -Theron catheter replacement has been ordered -Continue antimicrobials as per ID. -Worrell cultures negative. 2. Paroxysmal atrial fibrillation. -Currently in sinus rhythm. -Continue apixaban for stroke prophylaxis. 3. Acute on chronic congestive heart failure exacerbation, systolic dysfunction. -Continue ultrafiltration. 4. End-stage renal disease on hemodialysis. -Being followed by nephrology. 5. Cardiomyopathy. Ejection fraction of 40-45%. -Continue beta-blockers and ARBs. 6. Hypertension. -Continue antihypertensives. 7. History of liver cirrhosis. -Stable. 8. Dysphagia (history). -Aspiration precautions. 9. Normocytic anemia. -Monitor H&H closely. 10. Right pleural effusion. -Status post right-sided thoracentesis with drainage of 1 L of fluid on 05/17/2018. 11. Pulmonary hypertension. -PA systolic pressure of 45 mm Hg. -Continue supplemental oxygen. 12. Fluids, electrolytes, and nutrition. -Renal diet. 13. DVT prophylaxis. -Apixaban. 14. Plan. -Continue antimicrobials -Obtain cultures from [facility]. The patient was seen in collaboration with Dr. Medina. Result Diagram: 06/17/18 0516 06/17/18 0516 Results 24hrs Laboratory Tests Test 06/17/18 05:16 White Blood Count 7.9 Red Blood Count 2.81 L Hemoglobin 7.7 L Hematocrit 25.4 L Mean Corpuscular Volume 90.4 Mean Corpuscular Hemoglobin 27.4 L Mean Corpuscular Hemoglobin Concent 30.3 L Red Cell Distribution Width 18.1 H Platelet Count 223 Mean Platelet Volume 8.8 Immature Granulocytes % 2.500 H Neutrophils % 68.3 Lymphocytes % 15.3 Monocytes % 10.5 Eosinophils % 2.9 Basophils % 0.5 Nucleated Red Blood Cells % 0.0 Immature Granulocytes # 0.200 H Neutrophils # 5.4 Lymphocytes # 1.2 Monocytes # 0.8 Eosinophils # 0.2 Basophils # 0.0 Nucleated Red Blood Cells # 0.0 Sodium Level 131 L Potassium Level 3.9 Chloride Level 97 Carbon Dioxide Level 25 Anion Gap 9 Blood Urea Nitrogen 22 H Creatinine 3.93 H Est Glomerular Filtrat Rate mL/min 15 L Glucose Level 86 Calcium Level 7.7 L Phosphorus Level 3.7 Magnesium Level 2.0 Total Bilirubin 0.0 L Direct Bilirubin 0.00 Indirect Bilirubin 0.0 Aspartate Amino Transf (AST/SGOT) 17 Alanine Aminotransferase (ALT/SGPT) 17 Alkaline Phosphatase 83 Total Protein 5.6 L Albumin 2.4 L Globulin 3.20 Albumin/Globulin Ratio 0.75 Random Vancomycin Level 5.5 Exam/Review of Systems Exam Vitals Vital Signs Date Temp Pulse Resp B/P (MAP) Pulse Ox O2 O2 Flow FiO2 Time Delivery Rate 06/17/18 87 08:14 06/17/18 98.6 20 141/73 97 08:00 (95) 06/16/18 Nasal 2.0 08:30 Cannula Intake and Output 06/16/18 06/16/18 06/17/18 1515:00 23:00 07:00 IntakeIntake Total 800 ml 700 ml 250 ml BalanceBalance 800 ml 700 ml 250 ml Results Results 24hrs Laboratory Tests Test 06/17/18 05:16 White Blood Count 7.9 Red Blood Count 2.81 L Hemoglobin 7.7 L Hematocrit 25.4 L Mean Corpuscular Volume 90.4 Mean Corpuscular Hemoglobin 27.4 L Mean Corpuscular Hemoglobin Concent 30.3 L Red Cell Distribution Width 18.1 H Platelet Count 223 Mean Platelet Volume 8.8 Immature Granulocytes % 2.500 H Neutrophils % 68.3 Lymphocytes % 15.3 Monocytes % 10.5 Eosinophils % 2.9 Basophils % 0.5 Nucleated Red Blood Cells % 0.0 Immature Granulocytes # 0.200 H Neutrophils # 5.4 Lymphocytes # 1.2 Monocytes # 0.8 Eosinophils # 0.2 Basophils # 0.0 Nucleated Red Blood Cells # 0.0 Sodium Level 131 L Potassium Level 3.9 Chloride Level 97 Carbon Dioxide Level 25 Anion Gap 9 Blood Urea Nitrogen 22 H Creatinine 3.93 H Est Glomerular Filtrat Rate mL/min 15 L Glucose Level 86 Calcium Level 7.7 L Phosphorus Level 3.7 Magnesium Level 2.0 Total Bilirubin 0.0 L Direct Bilirubin 0.00 Indirect Bilirubin 0.0 Aspartate Amino Transf (AST/SGOT) 17 Alanine Aminotransferase (ALT/SGPT) 17 Alkaline Phosphatase 83 Total Protein 5.6 L Albumin 2.4 L Globulin 3.20 Albumin/Globulin Ratio 0.75 Random Vancomycin Level 5.5 Medications Medication Current Medications IV Flush (NS 3 ml) 3 ml PER PROTOCOL IV ; Start 06/14/18 at 23:30 Ondansetron HCl (Zofran Tab) 4 mg Q6H PRN PO NAUSEA/VOMITING; Start 06/14/18 at 23:30 Acetaminophen (Tylenol Tab) 650 mg Q6H PRN PO .PAIN 1-3 OR TEMP Last administered on 06/15/18at 22:52; Admin Dose 650 MG; Start 06/14/18 at 23:30 Docusate Sodium (Colace) 100 mg Q12H PRN PO .CONSTIPATION; Start 06/14/18 at 23:30 Bisacodyl (Dulcolax) 5 mg DAILY PRN PO .CONSTIPATION; Start 06/14/18 at 23:30 Amlodipine Besylate (Norvasc) 2.5 mg DAILY PO Last administered on 06/16/18 08:26; Admin Dose 2.5 MG; Start 06/15/18 at 09:00 Apixaban (Eliquis) 2.5 mg BID PO Last administered on 06/17/18 08:55; Admin Dose 2.5 MG; Start 06/14/18 at 23:30 Famotidine (Pepcid) 20 mg HS PO Last administered on 06/16/18 20:21; Admin Dose 20 MG; Start 06/15/18 at 21:00 Lactobacillus Acidophilus/ Rhamnosus (Culturelle) 1 cap BID PO Last administer ed on 06/17/18 08:55; Admin Dose 1 CAP; Start 06/15/18 at 09:00 Levalbuterol (Xopenex Neb) 0.63 mg Q4H RESP THERAPY PRN HHN WHEEZING AND SOB; Start 06/14/18 at 23:30 Senna/Docusate Sodium (Senokot-S) 2 tab HS PO Last administered on 06/16/18 20:21; Admin Dose 2 TAB; Start 06/15/18 at 21:00 Thiamine HCl (Vitamin B1) 100 mg DAILY PO Last administered on 06/17/18 08:55; Admin Dose 100 MG; Start 06/15/18 at 09:00 Vancomycin HCl (Vanco Iv Per Pharmacy) VANCOMYCIN PER PHARMACY PER PROTOCOL XX ; Start 06/15/18 at 03:30 Piperacillin Sod/ Tazobactam Sod 50 ml @ 100 mls/hr Q12 IVPB Last administered on 06/17/18 08:56; Admin Dose 100 MLS/HR; Start 06/15/18 at 03:30 Carvedilol (Coreg) 6.25 mg BID PO Last administered on 06/16/18 20:22; Admin Dose 6.25 MG; Start 06/15/18 at 09:00 Losartan Potassium (Cozaar) 100 mg DAILY PO Last administered on 06/16/18 08:27; Admin Dose 100 MG; Start 06/15/18 at 09:00 Epoetin Bhupendra (Epogen (Esrd)) 10,000 units MoWeFr@17 SC Last administered on 06/15/18at 21:42; Admin Dose 10,000 UNITS; Start 06/15/18 at 17:00 Tramadol HCl (Ultram) 50 mg Q6H PRN PO MODERATE PAIN LEVEL 4-6 Last administered on 06/16/18at 20:28; Admin Dose 50 MG; Start 06/15/18 at 10:00 Heparin Sodium (Porcine) (Heparin (1000 Units/ml)) 4,100 unit PRN PRN CATHETER AFTER HD Last administered on 06/15/18at 19:37; Admin Dose 4,100 UNIT; Start 06/15/18 at 16:00 Hydralazine HCl (Apresoline) 10 mg Q6H PRN IV SBP>160; Start 06/15/18 at 19:30 Vancomycin HCl 250 ml @ 125 mls/hr 0900 IVPB ; Start 06/17/18 at 09:00; Stop 06/17/18 at 19:00 MYRIAM WRAY NP Jun 17, 2018 10:43
--- NOTE | 2018-06-17 11:02 | PN ---
DATE: 06/17/2018 SUBJECTIVE: The patient is stable, no events overnight. OBJECTIVE: VITAL SIGNS: Blood pressure is 141/73, respiratory rate 20, pulse 72, temperature 98.6. HEENT: Head is normocephalic. NECK: Supple. HEART: Regular rate. LUNGS: Show diminished breath sounds at the base. ABDOMEN: Soft, nontender to palpation without rebound or guarding. EXTREMITIES: Negative for clubbing, cyanosis, no edema. DERMATOLOGIC: No rashes. MUSCULOSKELETAL: No joint effusion. NEUROLOGIC: No change in exam. MEDICATIONS: Reviewed. LABORATORY DATA: Has been reviewed. ASSESSMENT AND PLAN: 1. End-stage renal disease. Plan is for hemodialysis today. We will dialyze 3 hours with a 2K bath , calcium 2.5. 2. SIRS, questionable line infection. The patient's blood cultures are negative to date. Repeat bl ood cultures from Perm-A-Cath pending. Continue antibiotic therapy. Follow up with infectious disea se. 3. Anemia. Monitor hemoglobin and hematocrit levels. 4. Mineral bone disorder. Monitor calcium and phosphorus levels. 5. History of congestive heart failure. Continue medical management. 6. Hyponatremia. The patient will be dialyzed on a 140 sodium bath. 7. Dementia. Dictated By: SHERRY CONCEPCION DO NR/NTS Conf#: [id number] DID#: [id number] CC: DILIP OSUNA MD;*End*
--- NOTE | 2018-06-17 12:49 | CONS ---
Consultation Date/Type/Reason Admit Date/Time Jun 14, 2018 at 22:45 Initial Consult Date SUBJECTIVE: Patient is awake, alert, looks comfortable. Denies pain. No fevers. VS: stable T: 98.6 LABS: Reviewed. WBC- 7.9 Microbiology: Blood cultures negative MRSA swab negative Chest x-ray from admission revealed similar appearance of right basilar infiltrate concerning for pneumonia. Moderate right pleural effusion and associated consolidation, unchanged Indwelling: Right chest permacath Antimicrobials: Vancomycin and Zosyn Physical examination: GEN: Cachectic well-developed elderly man who is in no distress. HENT: Head atraumatic normocephalic, sclera nonicteric vehicle mucosa dry. Neck is supple PULM: chest rise symmetrical: Scattered crackles to bases. Heart: S1-S2. Abdomen soft bowel sounds present. Extremities without cyanosis. Assessment: 1. Sepsis with fevers and leukocytosis on admission to another facility, resolving 2. Healthcare associated pneumonia 3. End-stage renal disease, hemodialysis dependent 4. CHF exacerbation 5. Cardiomyopathy with ejection fraction of 40-45% 6. Cachexia 7. History of liver cirrhosis Plan: Patient remains stable. Continue current antbx. We will will repeat blood cultures with hemodialysis from Theron catheter today. Date/Time of Note DATE: 06/17/18 TIME: 12:46 Exam/Review of Systems Exam Vitals Vital Signs Date Temp Pulse Resp B/P (MAP) Pulse Ox O2 O2 Flow FiO2 Time Delivery Rate 06/17/18 98.0 90 20 131/72 98 12:05 (91) 06/16/18 Nasal 2.0 08:30 Cannula Intake and Output 06/16/18 06/16/18 06/17/18 1515:00 23:00 07:00 IntakeIntake Total 800 ml 700 ml 250 ml BalanceBalance 800 ml 700 ml 250 ml Results Result Diagram: 06/17/18 0516 06/17/18 0516 Results 24hrs Laboratory Tests Test 06/17/18 05:16 White Blood Count 7.9 Red Blood Count 2.81 L Hemoglobin 7.7 L Hematocrit 25.4 L Mean Corpuscular Volume 90.4 Mean Corpuscular Hemoglobin 27.4 L Mean Corpuscular Hemoglobin Concent 30.3 L Red Cell Distribution Width 18.1 H Platelet Count 223 Mean Platelet Volume 8.8 Immature Granulocytes % 2.500 H Neutrophils % 68.3 Lymphocytes % 15.3 Monocytes % 10.5 Eosinophils % 2.9 Basophils % 0.5 Nucleated Red Blood Cells % 0.0 Immature Granulocytes # 0.200 H Neutrophils # 5.4 Lymphocytes # 1.2 Monocytes # 0.8 Eosinophils # 0.2 Basophils # 0.0 Nucleated Red Blood Cells # 0.0 Sodium Level 131 L Potassium Level 3.9 Chloride Level 97 Carbon Dioxide Level 25 Anion Gap 9 Blood Urea Nitrogen 22 H Creatinine 3.93 H Est Glomerular Filtrat Rate mL/min 15 L Glucose Level 86 Calcium Level 7.7 L Phosphorus Level 3.7 Magnesium Level 2.0 Total Bilirubin 0.0 L Direct Bilirubin 0.00 Indirect Bilirubin 0.0 Aspartate Amino Transf (AST/SGOT) 17 Alanine Aminotransferase (ALT/SGPT) 17 Alkaline Phosphatase 83 Total Protein 5.6 L Albumin 2.4 L Globulin 3.20 Albumin/Globulin Ratio 0.75 Random Vancomycin Level 5.5 Medications Medication Current Medications IV Flush (NS 3 ml) 3 ml PER PROTOCOL IV ; Start 06/14/18 at 23:30 Ondansetron HCl (Zofran Tab) 4 mg Q6H PRN PO NAUSEA/VOMITING; Start 06/14/18 at 23:30 Acetaminophen (Tylenol Tab) 650 mg Q6H PRN PO .PAIN 1-3 OR TEMP Last administered on 06/15/18at 22:52; Admin Dose 650 MG; Start 06/14/18 at 23:30 Docusate Sodium (Colace) 100 mg Q12H PRN PO .CONSTIPATION; Start 06/14/18 at 23:30 Bisacodyl (Dulcolax) 5 mg DAILY PRN PO .CONSTIPATION; Start 06/14/18 at 23:30 Amlodipine Besylate (Norvasc) 2.5 mg DAILY PO Last administered on 06/16/18at 08:26; Admin Dose 2.5 MG; Start 06/15/18 at 09:00 Apixaban (Eliquis) 2.5 mg BID PO Last administered on 06/17/18at 08:55; Admin Dose 2.5 MG; Start 06/14/18 at 23:30 Famotidine (Pepcid) 20 mg HS PO Last administered on 06/16/18at 20:21; Admin Dose 20 MG; Start 06/15/18 at 21:00 Lactobacillus Acidophilus/ Rhamnosus (Culturelle) 1 cap BID PO Last administered on 06/17/18 08:55; Admin Dose 1 CAP; Start 06/15/18 at 09:00 Levalbuterol (Xopenex Neb) 0.63 mg Q4H RESP THERAPY PRN HHN WHEEZING AND SOB; Start 06/14/18 at 23:30 Senna/Docusate Sodium (Senokot-S) 2 tab HS PO Last administered on 06/16/18 20:21; Admin Dose 2 TAB; Start 06/15/18 at 21:00 Thiamine HCl (Vitamin B1) 100 mg DAILY PO Last administered on 06/17/18 08:55; Admin Dose 100 MG; Start 06/15/18 at 09:00 Vancomycin HCl (Vanco Iv Per Pharmacy) VANCOMYCIN PER PHARMACY PER PROTOCOL XX ; Start 06/15/18 at 03:30 Piperacillin Sod/ Tazobactam Sod 50 ml @ 100 mls/hr Q12 IVPB Last administered on 06/17/18 08:56; Admin Dose 100 MLS/HR; Start 06/15/18 at 03:30 Carvedilol (Coreg) 6.25 mg BID PO Last administered on 06/16/18 20:22; Admin Dose 6.25 MG; Start 06/15/18 at 09:00 Losartan Potassium (Cozaar) 100 mg DAILY PO Last administered on 06/16/18 08: 27; Admin Dose 100 MG; Start 06/15/18 at 09:00 Epoetin Bhupendra (Epogen (Esrd)) 10,000 units MoWeFr@17 SC Last administered on 06/15/18 21:42; Admin Dose 10,000 UNITS; Start 06/15/18 at 17:00 Tramadol HCl (Ultram) 50 mg Q6H PRN PO MODERATE PAIN LEVEL 4-6 Last administered on 06/16/18 20:28; Admin Dose 50 MG; Start 06/15/18 at 10:00 Heparin Sodium (Porcine) (Heparin (1000 Units/ml)) 4,100 unit PRN PRN CATHETER AFTER HD Last administered on 06/15/18 19:37; Admin Dose 4,100 UNIT; Start 06/15/18 at 16:00 Hydralazine HCl (Apresoline) 10 mg Q6H PRN IV SBP>160; Start 06/15/18 at 19:30 Vancomycin HCl 250 ml @ 125 mls/hr 0900 IVPB ; Start 06/17/18 at 09:00; Stop 06/17/18 at 19:00 MAYA PASCUAL Jun 17, 2018 12:49
[2018-06-17] MEDS: HEPARIN 1000 UNITS/ML 10 ML INJ CATHETER PRN (14:03)
[2018-06-17] MEDS: AMLODIPINE 2.5 MG TAB PO SCH (15:42)
[2018-06-17] MEDS: FAMOTIDINE 20 MG TAB PO SCH (20:25)
[2018-06-17] MEDS: SENNA/DOCUSATE NA (8.6MG/50MG) TAB PO SCH (20:26)
[2018-06-17] MEDS: traMADol 50 MG TAB PO PRN (21:34)
[2018-06-18] VITALS (8 sets, daily range): BP systolic 133–166; BP diastolic 63–78; PULSE 71–88; RESP 16–20
[2018-06-18] MEDS: PIPER-TAZO 2.25 GM (PMX) 50 ML IVPB SCH ×2 (08:14→20:46)
[2018-06-18] MEDS: THIAMINE 100 MG TAB PO SCH (08:17)
[2018-06-18] MEDS: APIXABAN 5 MG TABLET PO SCH ×2 (08:17→20:46)
[2018-06-18] MEDS: LACTOBACILLUS RHAMNOSUS CAP PO SCH ×2 (08:17→20:46)
[2018-06-18] MEDS: AMLODIPINE 2.5 MG TAB PO SCH (08:19)
[2018-06-18] MEDS: BALSAM PERU/CASTOR OIL 60 GM TUBE TOP SCH (08:21)
[2018-06-18] MEDS: LOSARTAN 25 MG TAB PO SCH (09:00)
--- NOTE | 2018-06-18 09:22 | PN ---
DATE: 06/18/2018 SUBJECTIVE: The patient is stable, no events overnight. OBJECTIVE: VITAL SIGNS: Blood pressure is 133/68, pulse 71, respirations 18, temperature 97.8. HEENT: Head is normocephalic. NECK: Supple. HEART: Regular rate. LUNGS: Show diminished breath sounds at the base. ABDOMEN: Soft, nontender to palpation without rebound or guarding. EXTREMITIES: Negative for clubbing, cyanosis, no edema. DERMATOLOGIC: No rashes. MUSCULOSKELETAL: No joint effusion. NEUROLOGIC: No change in exam. MEDICATIONS: Reviewed. LABORATORY DATA: Reviewed. Blood cultures have been negative to date. ASSESSMENT AND PLAN: 1. End-stage renal disease. The patient had dialysis yesterday, tolerated well. Plan is for dialys is again tomorrow. 2. Sepsis secondary to pneumonia. Continue current antibiotic regimen. 3. Questionable line infection. The patient's blood cultures are negative to date. Continue to mon itor. 4. Anemia. Monitor hemoglobin and hematocrit levels. 5. Mineral bone disorder. Monitor calcium and phosphorus levels. 6. History of congestive heart failure. Continue medical management. 7. History of dementia. Dictated By: SHERRY CONCEPCION DO NR/NTS Conf#: [id number] DID#: [id number] CC: DILIP OSUNA MD;*EndCC*
--- NOTE | 2018-06-18 11:39 | PN ---
Date/Time of Note Date/Time of Note DATE: 06/18/18 TIME: 11:35 Assessment/Plan VTE Prophylaxis Risk score (from Nsg)>0 risk: 3 SCD applied (from Ns): Yes SCD contraindicated: low risk/ambulating Pharmacological prophylaxis: heparin Lines/Catheters IV Catheter Type (from Nrs): Saline Lock Urinary Cath still in place: No Assessment/Plan Hospital Course Assessment and plan 1. Suspected severe sepsis. Stable, finish antibiotics 2. Pneumonia, possibly healthcare associated? Stable finish antibiotics 3. Suspected HD Access infection. Follow-up on [facility] cultures. 4. ESRD continue dialysis 5. Nonadherence, will be difficult to manage. Consider palliative hospice 6. Dementia? 7. 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 Pulmonary hypertension 9. Paroxysmal A. fib? Not a candidate for anticoagulation due to nonadherence 10. Failure to thrive may need sniff again 11. Anemia unknown etiology stable Subjective: No distress Objective: Vital signs stable no repeat fever, sinus rhythm Physical exam No pallor JVD Regular no murmur rub gallop Clear; HD access without any erythema tenderness Bs present nt nd; no RRG No edema Result Diagram: 06/18/18 0545 06/18/18 0545 Results 24hrs Laboratory Tests Test 06/18/18 05:45 White Blood Count 7.5 Red Blood Count 2.90 L Hemoglobin 8.1 L Hematocrit 26.0 L Mean Corpuscular Volume 89.7 Mean Corpuscular Hemoglobin 27.9 L Mean Corpuscular Hemoglobin Concent 31.2 L Red Cell Distribution Width 18.2 H Platelet Count 255 Mean Platelet Volume 8.8 Immature Granulocytes % 2.400 H Neutrophils % 68.5 Lymphocytes % 17.9 Monocytes % 8.9 Eosinophils % 1.6 Basophils % 0.7 Nucleated Red Blood Cells % 0.0 Immature Granulocytes # 0.180 H Neutrophils # 5.2 Lymphocytes # 1.4 Monocytes # 0.7 Eosinophils # 0.1 Basophils # 0.1 Nucleated Red Blood Cells # 0.0 Sodium Level 134 L Potassium Level 3.7 Chloride Level 95 L Carbon Dioxide Level 28 Anion Gap 11 Blood Urea Nitrogen 13 # Creatinine 3.03 H Est Glomerular Filtrat Rate mL/min 21 L Glucose Level 79 Calcium Level 8.0 L Phosphorus Level 3.2 Magnesium Level 2.0 Total Bilirubin 0.0 L Direct Bilirubin 0.00 Indirect Bilirubin 0.0 Aspartate Amino Transf (AST/SGOT) 16 Alanine Aminotransferase (ALT/SGPT) 11 L Alkaline Phosphatase 92 Total Protein 6.3 Albumin 2.7 L Globulin 3.60 H Albumin/Globulin Ratio 0.75 Exam/Review of Systems Exam Vitals Vital Signs Date Temp Pulse Resp B/P (MAP) Pulse Ox O2 O2 Flow FiO2 Time Delivery Rate 06/18/18 71 08:54 06/18/18 97.5 18 133/68 96 Room Air 07:38 (89) 06/18/18 2.0 03:54 Intake and Output 06/17/18 06/17/18 06/18/18 1515:00 23:00 07:00 IntakeIntake Total 1100 ml 400 ml OutputOutput Total 2600 ml BalanceBalance -2600 ml 1100 ml 400 ml Results Results 24hrs Laboratory Tests Test 06/18/18 05:45 White Blood Count 7.5 Red Blood Count 2.90 L Hemoglobin 8.1 L Hematocrit 26.0 L Mean Corpuscular Volume 89.7 Mean Corpuscular Hemoglobin 27.9 L Mean Corpuscular Hemoglobin Concent 31.2 L Red Cell Distribution Width 18.2 H Platelet Count 255 Mean Platelet Volume 8.8 Immature Granulocytes % 2.400 H Neutrophils % 68.5 Lymphocytes % 17.9 Monocytes % 8.9 Eosinophils % 1.6 Basophils % 0.7 Nucleated Red Blood Cells % 0.0 Immature Granulocytes # 0.180 H Neutrophils # 5.2 Lymphocytes # 1.4 Monocytes # 0.7 Eosinophils # 0.1 Basophils # 0.1 Nucleated Red Blood Cells # 0.0 Sodium Level 134 L Potassium Level 3.7 Chloride Level 95 L Carbon Dioxide Level 28 Anion Gap 11 Blood Urea Nitrogen 13 # Creatinine 3.03 H Est Glomerular Filtrat Rate mL/min 21 L Glucose Level 79 Calcium Level 8.0 L Phosphorus Level 3.2 Magnesium Level 2.0 Total Bilirubin 0.0 L Direct Bilirubin 0.00 Indirect Bilirubin 0.0 Aspartate Amino Transf (AST/SGOT) 16 Alanine Aminotransferase (ALT/SGPT) 11 L Alkaline Phosphatase 92 Total Protein 6.3 Albumin 2.7 L Globulin 3.60 H Albumin/Globulin Ratio 0.75 Medications Medication Current Medications IV Flush (NS 3 ml) 3 ml PER PROTOCOL IV ; Start 06/14/18 at 23:30 Ondansetron HCl (Zofran Tab) 4 mg Q6H PRN PO NAUSEA/VOMITING; Start 06/14/18 at 23:30 Acetaminophen (Tylenol Tab) 650 mg Q6H PRN PO .PAIN 1-3 OR TEMP Last administered on 06/15/18at 22:52; Admin Dose 650 MG; Start 06/14/18 at 23:30 Docusate Sodium (Colace) 100 mg Q12H PRN PO .CONSTIPATION; Start 06/14/18 at 23:30 Bisacodyl (Dulcolax) 5 mg DAILY PRN PO .CONSTIPATION; Start 06/14/18 at 23:30 Amlodipine Besylate (Norvasc) 2.5 mg DAILY PO Last administered on 06/18/18 08:19; Admin Dose 2.5 MG; Start 06/15/18 at 09:00 Apixaban (Eliquis) 2.5 mg BID PO Last administered on 06/18/18 08:17; Admin Dose 2.5 MG; Start 06/14/18 at 23:30 Famotidine (Pepcid) 20 mg HS PO Last administered on 06/17/18 20:25; Admin Dose 20 MG; Start 06/15/18 at 21:00 Lactobacillus Acidophilus/ Rhamnosus (Culturelle) 1 cap BID PO Last administered on 06/18/18 08:17; Admin Dose 1 CAP; Start 06/15/18 at 09:00 Levalbuterol (Xopenex Neb) 0.63 mg Q4H RESP THERAPY PRN HHN WHEEZING AND SOB; Start 06/14/18 at 23:30 Senna/Docusate Sodium (Senokot-S) 2 tab HS PO Last administered on 06/17/18 20:26; Admin Dose 2 TAB; Start 06/15/18 at 21:00 Thiamine HCl (Vitamin B1) 100 mg DAILY PO Last administered on 06/18/18 08:17; Admin Dose 100 MG; Start 06/15/18 at 09:00 Vancomycin HCl (Vanco Iv Per Pharmacy) VANCOMYCIN PER PHARMACY PER PROTOCOL XX ; Start 06/15/18 at 03:30 Piperacillin Sod/ Tazobactam Sod 50 ml @ 100 mls/hr Q12 IVPB Last administered on 06/18/18 08:14; Admin Dose 100 MLS/HR; Start 06/15/18 at 03:30 Carvedilol (Coreg) 6.25 mg BID PO Last administered on 06/18/18 08:19; Admin Dose 6.25 MG; Start 06/15/18 at 09:00 Losartan Potassium (Cozaar) 100 mg DAILY PO Last administered on 06/16/18 08:2 7; Admin Dose 100 MG; Start 06/15/18 at 09:00 Epoetin Bhupendra (Epogen (Esrd)) 10,000 units MoWeFr@17 SC Last administered on 06/15/18at 21:42; Admin Dose 10,000 UNITS; Start 06/15/18 at 17:00 Tramadol HCl (Ultram) 50 mg Q6H PRN PO MODERATE PAIN LEVEL 4-6 Last administered on 06/17/18 21:34; Admin Dose 50 MG; Start 06/15/18 at 10:00 Heparin Sodium (Porcine) (Heparin (1000 Units/ml)) 4,100 unit PRN PRN CATHETER AFTER HD Last administered on 06/17/18 14:03; Admin Dose 4,100 UNIT; Start 06/15/18 at 16:00 Hydralazine HCl (Apresoline) 10 mg Q6H PRN IV SBP>160; Start 06/15/18 at 19:30 PETTY JARAMILLO MD Jun 18, 2018 11:39
[2018-06-18] MEDS ORDERED: GUAIFENESIN/DM 5ML CUP PO PRN (12:00)
--- NOTE | 2018-06-18 15:08 | CONS ---
Assessment/Plan Assessment/Plan Hospital Course (Demo Recall) Alert feels better, looks comfortable, no fevers overnight Microbiology: Blood cultures negative MRSA swab negative Chest x-ray from admission revealed similar appearance of right basilar infi ltrate concerning for pneumonia. Moderate right pleural effusion and associated consolidation, unchanged Indwelling: Right chest permacath Antimicrobials: Vancomycin Zosyn Physical examination: Cachectic well-developed elderly man who is in no distress. Head atraumatic normocephalic sclera nonicteric vehicle mucosa dry. Neck is supple chest rise symmetrical: Scattered crackles to bases. Heart: S1- S2. Abdomen soft bowel sounds present. Extremities without cyanosis. Assessment: 1. Sepsis with fevers and leukocytosis on admission to another facility, resolving 2. Healthcare associated pneumonia 3. End-stage renal disease, hemodialysis dependent 4. CHF exacerbation 5. Cardiomyopathy with ejection fraction of 40-45% 6. Cachexia 7. History of liver cirrhosis Plan: Patient is improving, continue present care, DC vancomycin Consultation Date/Type/Reason Admit Date/Time Jun 14, 2018 at 22:45 Initial Consult Date Type of Consult id Date/Time of Note DATE: 06/18/18 TIME: 15:07 Exam/Review of Systems Exam Vitals Vital Signs Date Temp Pulse Resp B/P (MAP) Pulse Ox O2 O2 Flow FiO2 Time Delivery Rate 06/18/18 88 12:44 06/18/18 98.1 18 144/73 97 Room Air 12:44 (96) 06/18/18 2.0 03:54 Intake and Output 06/17/18 06/17/18 06/18/18 1515:00 23:00 07:00 IntakeIntake Total 1100 ml 400 ml OutputOutput Total 2600 ml BalanceBalance -2600 ml 1100 ml 400 ml Results Result Diagram: 06/18/18 0545 06/18/18 0545 Results 24hrs Laboratory Tests Test 06/18/18 05:45 White Blood Count 7.5 Red Blood Count 2.90 L Hemoglobin 8.1 L Hematocrit 26.0 L Mean Corpuscular Volume 89.7 Mean Corpuscular Hemoglobin 27.9 L Mean Corpuscular Hemoglobin Concent 31.2 L Red Cell Distribution Width 18.2 H Platelet Count 255 Mean Platelet Volume 8.8 Immature Granulocytes % 2.400 H Neutrophils % 68.5 Lymphocytes % 17.9 Monocytes % 8.9 Eosinophils % 1.6 Basophils % 0.7 Nucleated Red Blood Cells % 0.0 Immature Granulocytes # 0.180 H Neutrophils # 5.2 Lymphocytes # 1.4 Monocytes # 0.7 Eosinophils # 0.1 Basophils # 0.1 Nucleated Red Blood Cells # 0.0 Sodium Level 134 L Potassium Level 3.7 Chloride Level 95 L Carbon Dioxide Level 28 Anion Gap 11 Blood Urea Nitrogen 13 # Creatinine 3.03 H Est Glomerular Filtrat Rate mL/min 21 L Glucose Level 79 Calcium Level 8.0 L Phosphorus Level 3.2 Magnesium Level 2.0 Total Bilirubin 0.0 L Direct Bilirubin 0.00 Indirect Bilirubin 0.0 Aspartate Amino Transf (AST/SGOT) 16 Alanine Aminotransferase (ALT/SGPT) 11 L Alkaline Phosphatase 92 Total Protein 6.3 Albumin 2.7 L Globulin 3.60 H Albumin/Globulin Ratio 0.75 Medications Medication Current Medications IV Flush (NS 3 ml) 3 ml PER PROTOCOL IV ; Start 06/14/18 at 23:30 Ondansetron HCl (Zofran Tab) 4 mg Q6H PRN PO NAUSEA/VOMITING; Start 06/14/18 at 23:30 Acetaminophen (Tylenol Tab) 650 mg Q6H PRN PO .PAIN 1-3 OR TEMP Last administered on 06/15/18at 22:52; Admin Dose 650 MG; Start 06/14/18 at 23:30 Docusate Sodium (Colace) 100 mg Q12H PRN PO .CONSTIPATION; Start 06/14/18 at 23:30 Bisacodyl (Dulcolax) 5 mg DAILY PRN PO .CONSTIPATION; Start 06/14/18 at 23:30 Amlodipine Besylate (Norvasc) 2.5 mg DAILY PO Last administered on 06/18/18at 08:19; Admin Dose 2.5 MG; Start 06/15/18 at 09:00 Apixaban (Eliquis) 2.5 mg BID PO Last administered on 06/18/18 08:17; Admin Dose 2.5 MG; Start 06/14/18 at 23:30 Famotidine (Pepcid) 20 mg HS PO Last administered on 06/17/18at 20:25; Admin Dose 20 MG; Start 06/15/18 at 21:00 Lactobacillus Acidophilus/ Rhamnosus (Culturelle) 1 cap BID PO Last administered on 06/18/18 08:17; Admin Dose 1 CAP; Start 06/15/18 at 09:00 Levalbuterol (Xopenex Neb) 0.63 mg Q4H RESP THERAPY PRN HHN WHEEZING AND SOB; Start 06/14/18 at 23:30 Senna/Docusate Sodium (Senokot-S) 2 tab HS PO Last administered on 06/17/18 20:26; Admin Dose 2 TAB; Start 06/15/18 at 21:00 Thiamine HCl (Vitamin B1) 100 mg DAILY PO Last administered on 06/18/18 08:17; Admin Dose 100 MG; Start 06/15/18 at 09:00 Vancomycin HCl (Vanco Iv Per Pharmacy) VANCOMYCIN PER PHARMACY PER PROTOCOL XX ; Start 06/15/18 at 03:30 Piperacillin Sod/ Tazobactam Sod 50 ml @ 100 mls/hr Q12 IVPB Last administered on 06/18/18 08:14; Admin Dose 100 MLS/HR; Start 06/15/18 at 03:30 Carvedilol (Coreg) 6.25 mg BID PO Last administered on 06/18/18 08:19; Admin Dose 6.25 MG; Start 06/15/18 at 09:00 Losartan Potassium (Cozaar) 100 mg DAILY PO Last administered on 06/16/18 08:27; Admin Dose 100 MG; Start 06/15/18 at 09:00 Epoetin Bhupendra (Epogen (Esrd)) 10,000 units MoWeFr@17 SC Last administered on 06/15/18 21:42; Admin Dose 10,000 UNITS; Start 06/15/18 at 17:00 Tramadol HCl (Ultram) 50 mg Q6H PRN PO MODERATE PAIN LEVEL 4-6 Last administered on 06/17/18 21:34; Admin Dose 50 MG; Start 06/15/18 at 10:00 Heparin Sodium (Porcine) (Heparin (1000 Units/ml)) 4,100 unit PRN PRN CATHETER AFTER HD Last administered on 06/17/18 14:03; Admin Dose 4,100 UNIT; Start 06/15/18 at 16:00 Hydralazine HCl (Apresoline) 10 mg Q6H PRN IV SBP>160; Start 06/15/18 at 19:30 Guaifenesin/ Dextromethorphan (Robitussin Dm Liquid Cup) 10 ml Q4H PRN PO COUGH; Start 06/18/18 at 12:00 FAVIOLA BRANCH NP Jun 18, 2018 15:08
[2018-06-18] MEDS: EPOETIN 10000 UNITS/1 ML INJ (ESRD) SC SCH (17:59)
[2018-06-18] MEDS: SENNA/DOCUSATE NA (8.6MG/50MG) TAB PO SCH (20:46)
[2018-06-18] MEDS: FAMOTIDINE 20 MG TAB PO SCH (20:46)
[2018-06-19] VITALS (25 sets, daily range): BP systolic 133–167; BP diastolic 69–86; PULSE 70–95; RESP 18–22
[2018-06-19] MEDS: traMADol 50 MG TAB PO PRN (00:12)
[2018-06-19] MEDS: PIPER-TAZO 2.25 GM (PMX) 50 ML IVPB SCH (08:47)
[2018-06-19] MEDS: LACTOBACILLUS RHAMNOSUS CAP PO SCH ×2 (08:47→21:19)
[2018-06-19] MEDS: LOSARTAN 25 MG TAB PO SCH (08:48)
[2018-06-19] MEDS: APIXABAN 5 MG TABLET PO SCH ×2 (08:48→21:19)
[2018-06-19] MEDS: THIAMINE 100 MG TAB PO SCH (08:48)
[2018-06-19] MEDS: BALSAM PERU/CASTOR OIL 60 GM TUBE TOP SCH (08:49)
[2018-06-19] MEDS: AMLODIPINE 2.5 MG TAB PO SCH (08:49)
--- NOTE | 2018-06-19 09:55 | PN ---
DATE: 06/19/2018 SUBJECTIVE: The patient is stable. No events overnight. OBJECTIVE: VITAL SIGNS: Blood pressure is 166/77, pulse 82, temperature 97.3. HEENT: Head is normocephalic. NECK: Supple. HEART: Regular rate. LUNGS: Show diminished breath sounds at the base. ABDOMEN: Soft, nontender to palpation without rebound or guarding. EXTREMITIES: Negative for clubbing, cyanosis; no edema. DERMATOLOGIC: No rashes. MUSCULOSKELETAL: No joint effusion. NEUROLOGIC: No change in exam. MEDICATIONS: The patient's medications have been reviewed. LABORATORY DATA: Shows a white count 7.5, hemoglobin 8.1, platelet count 272. Sodium 130, BUN17, cr eatinine 3.75. ASSESSMENT AND PLAN: 1. End-stage renal disease. Plan is for hemodialysis today. We will dialyze for 3 hours 2K bath, c alcium 2.5. 2. Hypernatremia. The patient will be dialyzed on a 140 sodium bath. 3. Anemia. Continue to monitor hemoglobin and hematocrit levels. Continue Epogen. 4. Mineral bone disorder, monitor calcium and phosphorus levels. 5. Sepsis secondary to pneumonia. Continue current antibiotic regimen. The patient's blood culture s has been negative. 7. Seizure. Continue medical management. 8. History of dementia. 9. Liver cirrhosis. Continue medical management. 10. Cardiomyopathy. Continue current treatment plan. Dictated By: SHERRY ROMERO/SHMUEL Conf#: [id number] DID#: [id number] CC: DILIP OSUNA MD;*End*
--- NOTE | 2018-06-19 11:20 | PN ---
Date/Time of Note Date/Time of Note DATE: 06/19/18 TIME: 11:18 Assessment/Plan VTE Prophylaxis Risk score (from Ns)>0 risk: 4 SCD applied (from Ns): No SCD contraindicated: low risk/ambulating Pharmacological prophylaxis: heparin Lines/Catheters IV C[facility]ter Type [facility]from [facility] Saline Lock Urinary Cath still in place: No Assessment/Plan Hospital Course Assessment and plan 1. Severe sepsis. Stable, finish antibiotics 2. Pneumonia, possibly healthcare associated? Stable finish antibiotics 3. Suspected HD Access infection. Follow-up on [facility] cultures 4. ESRD continue HD 5. Nonadherence, will be difficult to manage. Consider palliative hospice 6. Dementia? 7. 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 Pulmonary hypertension 9. Paroxysmal A. fib? Not a candidate for anticoagulation due to nonadherence 10. Failure to thrive may need snf again tomorrow 11. Anemia unknown etiology stable Subjective: 06/18 no distress 06/19: No events overnight. No distress however poor historian. For 2 L HD today Objective: Vital signs stable no repeat fever, sinus rhythm PE No pallor JVD Regular no m/r/g Clear; HD access without any erythema tenderness Bs present nt nd; no r/r/g No edema Result Diagram: 06/19/18 0542 06/19/18 0542 Results 24hrs Laboratory Tests Test 06/19/18 05:42 White Blood Count 7.5 Red Blood Count 2.87 L Hemoglobin 8.1 L Hematocrit 26.0 L Mean Corpuscular Volume 90.6 Mean Corpuscular Hemoglobin 28.2 L Mean Corpuscular Hemoglobin Concent 31.2 L Red Cell Distribution Width 18.3 H Platelet Count 272 Mean Platelet Volume 8.5 Immature Granulocytes % 3.500 H Neutrophils % 67.1 Lymphocytes % 18.7 Monocytes % 7.9 Eosinophils % 2.0 Basophils % 0.8 Nucleated Red Blood Cells % 0.0 Immature Granulocytes # 0.260 H Neutrophils # 5.0 Lymphocytes # 1.4 Monocytes # 0.6 Eosinophils # 0.2 Basophils # 0.1 Nucleated Red Blood Cells # 0.0 Prothrombin Time 17.2 H Prothrombin Time Ratio 1.3 INR International Normalized Ratio 1.39 Sodium Level 130 L Potassium Level 4.1 Chloride Level 97 Carbon Dioxide Level 24 Anion Gap 9 Blood Urea Nitrogen 17 Creatinine 3.75 H Est Glomerular Filtrat Rate mL/min 16 L Glucose Level 79 Calcium Level 8.2 L Phosphorus Level 4.2 Magnesium Level 2.0 Total Bilirubin 0.0 L Direct Bilirubin 0.00 Indirect Bilirubin 0.0 Aspartate Amino Transf (AST/SGOT) 17 Alanine Aminotransferase (ALT/SGPT) 11 L Alkaline Phosphatase 96 Total Protein 6.3 Albumin 2.8 L Globulin 3.50 H Albumin/Globulin Ratio 0.80 Exam/Review of Systems Exam Vitals Vital Signs Date Temp Pulse Resp B/P (MAP) Pulse Ox O2 O2 Flow FiO2 Time Delivery Rate 06/19/18 97.6 75 20 156/77 96 Room Air 11:09 (103) 06/18/18 2.0 03:54 Intake and Output 06/18/18 06/18/18 06/19/18 1515:00 23:00 07:00 IntakeIntake Total 820 ml 300 ml BalanceBalance 820 ml 300 ml Results Results 24hrs Laboratory Tests Test 06/19/18 05:42 White Blood Count 7.5 Red Blood Count 2.87 L Hemoglobin 8.1 L Hematocrit 26.0 L Mean Corpuscular Volume 90.6 Mean Corpuscular Hemoglobin 28.2 L Mean Corpuscular Hemoglobin Concent 31.2 L Red Cell Distribution Width 18.3 H Platelet Count 272 Mean Platelet Volume 8.5 Immature Granulocytes % 3.500 H Neutrophils % 67.1 Lymphocytes % 18.7 Monocytes % 7.9 Eosinophils % 2.0 Basophils % 0.8 Nucleated Red Blood Cells % 0.0 Immature Granulocytes # 0.260 H Neutrophils # 5.0 Lymphocytes # 1.4 Monocytes # 0.6 Eosinophils # 0.2 Basophils # 0.1 Nucleated Red Blood Cells # 0.0 Prothrombin Time 17.2 H Prothrombin Time Ratio 1.3 INR International Normalized Ratio 1.39 Sodium Level 130 L Potassium Level 4.1 Chloride Level 97 Carbon Dioxide Level 24 Anion Gap 9 Blood Urea Nitrogen 17 Creatinine 3.75 H Est Glomerular Filtrat Rate mL/min 16 L Glucose Level 79 Calcium Level 8.2 L Phosphorus Level 4.2 Magnesium Level 2.0 Total Bilirubin 0.0 L Direct Bilirubin 0.00 Indirect Bilirubin 0.0 Aspartate Amino Transf (AST/SGOT) 17 Alanine Aminotransferase (ALT/SGPT) 11 L Alkaline Phosphatase 96 Total Protein 6.3 Albumin 2.8 L Globulin 3.50 H Albumin/Globulin Ratio 0.80 Medications Medication Current Medications IV Flush (NS 3 ml) 3 ml PER PROTOCOL IV ; Start 06/14/18 at 23:30 Ondansetron HCl (Zofran Tab) 4 mg Q6H PRN PO NAUSEA/VOMITING; Start 06/14/18 at 23:30 Acetaminophen (Tylenol Tab) 650 mg Q6H PRN PO .PAIN 1-3 OR TEMP Last administered on 06/15/18 22:52; Admin Dose 650 MG; Start 06/14/18 at 23:30 Docusate Sodium (Colace) 100 mg Q12H PRN PO .CONSTIPATION; Start 06/14/18 at 23:30 Bisacodyl (Dulcolax) 5 mg DAILY PRN PO .CONSTIPATION; Start 06/14/18 at 23:30 Amlodipine Besylate (Norvasc) 2.5 mg DAILY PO Last administered on 06/19/18 08:49; Admin Dose 2.5 MG; Start 06/15/18 at 09:00 Apixaban (Eliquis) 2.5 mg BID PO Last administered on 06/19/18 08:48; Admin Dose 2.5 MG; Start 06/14/18 at 23:30 Famotidine (Pepcid) 20 mg HS PO Last administered on 06/18/18 20:46; Admin Dose 20 MG; Start 06/15/18 at 21:00 Lactobacillus Acidophilus/ Rhamnosus (Culturelle) 1 cap BID PO Last administered on 06/19/18 08:47; Admin Dose 1 CAP; Start 06/15/18 at 09:00 Levalbuterol (Xopenex Neb) 0.63 mg Q4H RESP THERAPY PRN HHN WHEEZING AND SOB; Start 06/14/18 at 23:30 Senna/Docusate Sodium (Senokot-S) 2 tab HS PO Last administered on 06/18/18 20:46; Admin Dose 2 TAB; Start 06/15/18 at 21:00 Thiamine HCl (Vitamin B1) 100 mg DAILY PO Last administered on 06/19/18 08:48; Admin Dose 100 MG; Start 06/15/18 at 09:00 Piperacillin Sod/ Tazobactam Sod 50 ml @ 100 mls/hr Q12 IVPB Last administered on 06/19/18 08:47; Admin Dose 100 MLS/HR; Start 06/15/18 at 03:30 Carvedilol (Coreg) 6.25 mg BID PO Last administered on 06/19/18 08:48; Admin Dose 6.25 MG; Start 06/15/18 at 09:00 Losartan Potassium (Cozaar) 100 mg DAILY PO Last administered on 06/19/18 08:48; Admin Dose 100 MG; Start 06/15/18 at 09:00 Epoetin Bhupendra (Epogen (Esrd)) 10,000 units MoWeFr@17 SC Last administered on 06/18/18at 17:59; Admin Dose 10,000 UNITS; Start 06/15/18 at 17:00 Tramadol HCl (Ultram) 50 mg Q6H PRN PO MODERATE PAIN LEVEL 4-6 Last administered on 06/19/18at 00:12; Admin Dose 50 MG; Start 06/15/18 at 10:00 Heparin Sodium (Porcine) (Heparin (1000 Units/ml)) 4,100 unit PRN PRN CATHETER AFTER HD Last administered on 06/17/18at 14:03; Admin Dose 4,100 UNIT; Start 06/15/18 at 16:00 Hydralazine HCl (Apresoline) 10 mg Q6H PRN IV SBP>160; Start 06/15/18 at 19:30 Guaifenesin/ Dextromethorphan (Robitussin Dm Liquid Cup) 10 ml Q4H PRN PO COUGH; Start 06/18/18 at 12:00 PETTY JARAMILLO MD Jun 19, 2018 11:20
[2018-06-19] MEDS ORDERED: GUAIFENESIN/DM 5ML CUP PO PRN (11:30)
[2018-06-19] MEDS: HEPARIN 1000 UNITS/ML 10 ML INJ CATHETER PRN (13:44)
--- NOTE | 2018-06-19 15:07 | CONS ---
Assessment/Plan Assessment/Plan Hospital Course (Demo Recall) Patient is alert ambulating with PT looks comfortable, no fevers overnight WBC 7.5, no shift no bands Chest x-ray this morning revealed interval increase in left basilar opacity Microbiology: Blood cultures negative MRSA swab negative Indwelling: Right chest permacath Antimicrobials: Zosyn Physical examination: Cachectic well-developed elderly man who is in no distress. Head atraumatic normocephalic sclera nonicteric vehicle mucosa dry. Neck is supple chest rise symmetrical: Scattered crackles to bases. Heart: S1- S2. Abdomen soft bowel sounds present. Extremities without cyanosis. Assessment: 1. S/p sepsis with fevers and leukocytosis on admission to another facility, resolving 2. Healthcare associated pneumonia 3. End-stage renal disease, hemodialysis dependent 4. CHF exacerbation 5. Cardiomyopathy with ejection fraction of 40-45% 6. Cachexia 7. History of liver cirrhosis Plan: Remains stable, will change antibiotics to oral Levaquin Consultation Date/Type/Reason Admit Date/Time Jun 14, 2018 at 22:45 Initial Consult Date Type of Consult id Date/Time of Note DATE: 06/19/18 TIME: 15:06 Exam/Review of Systems Exam Vitals Vital Signs Date Temp Pulse Resp B/P (MAP) Pulse Ox O2 O2 Flow FiO2 Time Delivery Rate 06/19/18 76 18 140/72 97 Room Air 14:02 (94) 06/19/18 97.6 11:09 06/18/18 2.0 03:54 Intake and Output 06/18/18 06/18/18 06/19/18 1515:00 23:00 07:00 IntakeIntake Total 820 ml 300 ml BalanceBalance 820 ml 300 ml Results Result Diagram: 06/19/18 0542 06/19/18 0542 Results 24hrs Laboratory Tests Test 06/19/18 05:42 White Blood Count 7.5 Red Blood Count 2.87 L Hemoglobin 8.1 L Hematocrit 26.0 L Mean Corpuscular Volume 90.6 Mean Corpuscular Hemoglobin 28.2 L Mean Corpuscular Hemoglobin Concent 31.2 L Red Cell Distribution Width 18.3 H Platelet Count 272 Mean Platelet Volume 8.5 Immature Granulocytes % 3.500 H Neutrophils % 67.1 Lymphocytes % 18.7 Monocytes % 7.9 Eosinophils % 2.0 Basophils % 0.8 Nucleated Red Blood Cells % 0.0 Immature Granulocytes # 0.260 H Neutrophils # 5.0 Lymphocytes # 1.4 Monocytes # 0.6 Eosinophils # 0.2 Basophils # 0.1 Nucleated Red Blood Cells # 0.0 Prothrombin Time 17.2 H Prothrombin Time Ratio 1.3 INR International Normalized Ratio 1.39 Sodium Level 130 L Potassium Level 4.1 Chloride Level 97 Carbon Dioxide Level 24 Anion Gap 9 Blood Urea Nitrogen 17 Creatinine 3.75 H Est Glomerular Filtrat Rate mL/min 16 L Glucose Level 79 Calcium Level 8.2 L Phosphorus Level 4.2 Magnesium Level 2.0 Total Bilirubin 0.0 L Direct Bilirubin 0.00 Indirect Bilirubin 0.0 Aspartate Amino Transf (AST/SGOT) 17 Alanine Aminotransferase (ALT/SGPT) 11 L Alkaline Phosphatase 96 Total Protein 6.3 Albumin 2.8 L Globulin 3.50 H Albumin/Globulin Ratio 0.80 Medications Medication Current Medications IV Flush (NS 3 ml) 3 ml PER PROTOCOL IV ; Start 06/14/18 at 23:30 Ondansetron HCl (Zofran Tab) 4 mg Q6H PRN PO NAUSEA/VOMITING; Start 06/14/18 at 23:30 Acetaminophen (Tylenol Tab) 650 mg Q6H PRN PO .PAIN 1-3 OR TEMP Last administered on 06/15/18at 22:52; Admin Dose 650 MG; Start 06/14/18 at 23:30 Docusate Sodium (Colace) 100 mg Q12H PRN PO .CONSTIPATION; Start 06/14/18 at 23:30 Bisacodyl (Dulcolax) 5 mg DAILY PRN PO .CONSTIPATION; Start 06/14/18 at 23:30 Apixaban (Eliquis) 2.5 mg BID PO Last administered on 06/19/18at 08:48; Admin Dose 2.5 MG; Start 06/14/18 at 23:30 Famotidine (Pepcid) 20 mg HS PO Last administered on 06/18/18at 20:46; Admin Dose 20 MG; Start 06/15/18 at 21:00 Lactobacillus Acidophilus/ Rhamnosus (Culturelle) 1 cap BID PO Last administered on 06/19/18at 08:47; Admin Dose 1 CAP; Start 06/15/18 at 09:00 Levalbuterol (Xopenex Neb) 0.63 mg Q4H RESP THERAPY PRN HHN WHEEZING AND SOB; Start 06/14/18 at 23:30 Senna/Docusate Sodium (Senokot-S) 2 tab HS PO Last administered on 06/18/18 20:46; Admin Dose 2 TAB; Start 06/15/18 at 21:00 Thiamine HCl (Vitamin B1) 100 mg DAILY PO Last administered on 06/19/18 08:48; Admin Dose 100 MG; Start 06/15/18 at 09:00 Piperacillin Sod/ Tazobactam Sod 50 ml @ 100 mls/hr Q12 IVPB Last administered on 06/19/18 08:47; Admin Dose 100 MLS/HR; Start 06/15/18 at 03:30 Carvedilol (Coreg) 6.25 mg BID PO Last administered on 06/19/18 08:48; Admin Dose 6.25 MG; Start 06/15/18 at 09:00 Losartan Potassium (Cozaar) 100 mg DAILY PO Last administered on 06/19/18 08:48; Admin Dose 100 MG; Start 06/15/18 at 09:00 Epoetin Bhupendra (Epogen (Esrd)) 10,000 units MoWeFr@17 SC Last administered on 06/18/18 17:59; Admin Dose 10,000 UNITS; Start 06/15/18 at 17:00 Tramadol HCl (Ultram) 50 mg Q6H PRN PO MODERATE PAIN LEVEL 4-6 Last administered on 06/19/18at 00:12; Admin Dose 50 MG; Start 06/15/18 at 10:00 Heparin Sodium (Porcine) (Heparin (1000 Units/ml)) 4,100 unit PRN PRN CATHETER AFTER HD Last administered on 06/19/18at 13:44; Admin Dose 4,100 UNIT; Start 06/15/18 at 16:00 Hydralazine HCl (Apresoline) 10 mg Q6H PRN IV SBP>160; Start 06/15/18 at 19:30 Guaifenesin/ Dextromethorphan (Robitussin Dm Liquid Cup) 10 ml Q4H PRN PO COUGH; Start 06/18/18 at 12:00 Amlodipine Besylate (Norvasc) 5 mg DAILY PO ; Start 06/20/18 at 09:00 Guaifenesin/ Dextromethorphan (Robitussin Dm Liquid Cup) 10 ml Q4H PRN PO COUGH; Start 06/19/18 at 11:30 FAVIOLA BRANCH NP Jun 19, 2018 15:07
[2018-06-19] MEDS ORDERED: LEVOFLOXACIN 250 MG TAB PO SCH (15:30)
[2018-06-19] MEDS: FAMOTIDINE 20 MG TAB PO SCH (21:19)
[2018-06-19] MEDS: SENNA/DOCUSATE NA (8.6MG/50MG) TAB PO SCH (21:20)
[2018-06-20] VITALS (8 sets, daily range): BP systolic 145–172; BP diastolic 67–81; PULSE 74–84; RESP 18–22
[2018-06-20] MEDS: traMADol 50 MG TAB PO PRN (03:53)
[2018-06-20] MEDS ORDERED: AMLODIPINE 5 MG TAB PO SCH (09:00)
--- NOTE | 2018-06-20 09:01 | PN ---
DATE: 06/20/2018 SUBJECTIVE: The patient had hemodialysis yesterday, tolerated well. No other events noted. OBJECTIVE: VITAL SIGNS: Blood pressure is 145/67, respirations 18, pulse 78, temperature 98.5. HEENT: Head is normocephalic. NECK: Supple. HEART: Regular rate. LUNGS: Show diminished breath sounds at the base. ABDOMEN: Soft, nontender to palpation without rebound or guarding. EXTREMITIES: Negative for clubbing, cyanosis, no edema. DERMATOLOGIC: No rashes. MUSCULOSKELETAL: No joint effusion. NEUROLOGIC: No change in exam. MEDICATIONS: Reviewed. LABORATORY DATA: Reviewed. ASSESSMENT AND PLAN: 1. End-stage renal disease. The patient had hemodialysis yesterday, tolerated well. Plan is for di alysis tomorrow. 2. Hyponatremia. Continue dialysis on a 140 sodium bath. We will limit free water intake. 3. Anemia. Continue to monitor hemoglobin and hematocrit levels. Continue Epogen. 4. Mineral bone disorder, monitor calcium and phosphorus levels. 5. Sepsis secondary to pneumonia. Continue current antibiotic regimen. The patient's blood culture s have been negative. 6. History of dementia. 7. Liver cirrhosis. Continue medical management. 8. Cardiomyopathy. Continue current treatment plan. Dictated By: SHERRY CONCEPCION DO NR/NTS Conf#: [id number] DID#: [id number] CC: DILIP OSUNA MD; PETTY JARAMILLO MD;*EndCC*
[2018-06-20] MEDS: LACTOBACILLUS RHAMNOSUS CAP PO SCH (09:11)
[2018-06-20] MEDS: APIXABAN 5 MG TABLET PO SCH (09:11)
[2018-06-20] MEDS: THIAMINE 100 MG TAB PO SCH (09:12)
[2018-06-20] MEDS: LOSARTAN 25 MG TAB PO SCH (09:12)
[2018-06-20] MEDS: BALSAM PERU/CASTOR OIL 60 GM TUBE TOP SCH (09:13)
--- NOTE | 2018-06-20 10:29 | DS ---
Date/Time of Note Date/Time of Note DATE: 06/20/18 TIME: 10:22 Discharge Summary Admission/Discharge Info Admit Date/Time Jun 14, 2018 at 22:45 Discharge Date/Time Patient Condition: Stable Consults Dr Carmen Rivera Procedures CXR #3 IMPRESSION: 1. Interval increase in left basilar opacity representing atelectasis/airspace disease and a small to moderate left pleural effusion. 2. Unchanged right mid to lower lung airspace opacity and moderate right pleural effusion. Hx of Present Illness admitted from snf w concern of sepsis. Hospital Course Hospitalist Coverage/ Hospital Course -Evaluated and managed for severe sepsis. Source pneumonia. Does not appear to be any MRSA etc. Stable, resolving. Will finish Levaquin at [facility]. Unfortunately has effusion and atelectasis which will be challenging to resolve. Continue dialysis, blood pressure therapy medications adjusted. Unfortunately due to nonadherence the risk of progression and repeat hospitalization will be likely. Consider palliative care eval. We will asked patient to follow-up with nephrology. Consider vascular referral for a new axisfistula. Referral cardiology 2 weeks 1. Severe sepsis. Stable, finish antibiotics at snf 2. Pneumonia, possibly healthcare associated. stable finish antibiotics 3. Suspected HD Access infection; follow-up unremarkable/negative. 4. ESRD continue HD 5. Nonadherence, will be difficult to manage. Consider palliative hospice 6. Dementia? 7. 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 Pulmonary hypertension 9. Paroxysmal A. fib? Not a candidate for anticoagulation due to nonadherence. stroke risk noted. Recommend palliative care. 10. Failure to thrive may need snf again tomorrow 11. Anemia unknown etiology stable 12. Chronic pleural effusion. No evidence of empyema etc. Subjective: 06/18 no distress 06/19: No events overnight. No distress however poor historian. For 2 L HD today 06/20 no distress Objective: Vital signs stable no repeat fever, sinus rhythm PE No pallor JVD Regular no m/r/g Clear; HD access without any erythema tenderness Bs present nt nd; no r/r/g No edema Home Meds Active Scripts Carvedilol* (Coreg*) 6.25 Mg Tablet, 6.25 MG PO BID, #60 TAB Prov:PETTY JARAMILLO MD 05/22/18 Amlodipine Besylate* (Amlodipine Besylate*) 2.5 Mg Tablet, 2.5 MG PO DAILY for 10 Days, #10 TAB Prov:PETTY JARAMILLO MD 05/22/18 Thiamine* (Vitamin B-1*) 100 Mg Tablet, 100 MG PO DAILY for 30 Days, TAB Prov:PETTY JARAMILLO MD 05/22/18 Sennosides/Docusate Sodium (Dok Plus Tablet) 1 Each Tablet, 2 TAB PO HS for 7 Days, TAB Prov:PETTY JARAMILLO MD 05/22/18 Lactobacillus Rhamnosus GG (Culturelle) 1 Each Capsule, 1 CAP PO BID for 30 Days, CAP Prov:PETTY JARAMILLO MD 05/22/18 Famotidine* (Famotidine*) 20 Mg Tablet, 20 MG PO HS for 10 Days, TAB Prov:PETTY JARAMILLO MD 05/22/18 Losartan Potassium* (Cozaar*) 25 Mg Tablet, 100 MG PO DAILY for 10 Days, TAB Prov:PETTY JARAMILLO MD 05/22/18 Apixaban* (Eliquis*) 5 Mg Tablet, 2.5 MG PO BID for 30 Days, TAB Prov:PETTY JARAMILLO MD 05/22/18 Levalbuterol Hcl* (Levalbuterol Hcl*) 0.63 Mg/3 Ml Vial.neb, 0.63 MG HHN Q4H RESP THERAPY PRN for WHEEZING AND SOB for 5 Days Prov:PETTY JARAMILLO MD 05/22/18 [place] Oil (Venelex Ointment) 60 Gm Oint..gm., 1 APPLIC TOP DAILY, #1 TUB Prov:PABLO JULES 04/10/18 [Vancomycin Oral Syringe] 50 MG/ML SOLN No Conflict Check, 250 MG PO Q6 for 5 Days Prov:PABLO JULES 04/10/18 Tamsulosin Hcl* (Flomax*) 0.4 Mg Cap.er.24h, 0.4 MG PO HS for 30 Days, #30 CAP 2 Refills Prov:JONY CARRION 10/16/16 Primary Care Provider Care Physician No Primary Time spent on discharge: > 30 minutes PETTY JARAMILLO MD Jun 20, 2018 10:29
--- NOTE | 2018-06-20 10:30 | PDOCDIS ---
Discharge Instructions CONDITION [id number] Patient Condition: [id number] Stable HOME CARE INSTRUCTIONS: [id number] Diet Instructions: [id number] Low Fat /Cholesterol ACTIVITY: [id number] Activity Restrictions: Metou3v Slowly Increase Activity Do not Drive FOLLOW UP/APPOINTMENTS Follow-up Plan Appointment primary nephrology cardiology 1-3 weeks. Continue dialysis as instructed Appointment ID 2 weeks PETTY JARAMILLO MD Jun 20, 2018 10:30
[2018-06-20] MEDS ORDERED: LEVO250T9 PO (10:33)
[2018-06-20] MEDS ORDERED: AMLO-145 PO (10:33)
[2018-06-20] MEDS ORDERED: ACET325T33 PO (10:33)
[2018-06-20] MEDS ORDERED: GUAI120S26 PO (10:33)
--- NOTE | 2018-06-20 13:40 | CONS ---
Assessment/Plan Assessment/Plan Hospital Course (Demo Recall) no events, looks comfortable, no fevers Microbiology: Blood cultures negative MRSA swab negative Indwelling: Right chest permacath Antimicrobials: Levaquin Physical examination: Cachectic well-developed elderly man who is in no distress. Head atraumatic normocephalic sclera nonicteric vehicle mucosa dry. Neck is supple chest rise symmetrical: Scattered crackles to bases. Heart: S1- S2. Abdomen soft bowel sounds present. Extremities without cyanosis. Assessment: 1. S/p sepsis with fevers and leukocytosis on admission to another facility, resolving 2. Healthcare associated pneumonia 3. End-stage renal disease, hemodialysis dependent 4. CHF exacerbation 5. Cardiomyopathy with ejection fraction of 40-45% 6. Cachexia 7. History of liver cirrhosis Plan: Remains stable, ok dc on oral Levaquin for 4 more days Consultation Date/Type/Reason Admit Date/Time Jun 14, 2018 at 22:45 Initial Consult Date Type of Consult id Date/Time of Note DATE: 06/20/18 TIME: 13:39 Exam/Review of Systems Exam Vitals Vital Signs Date Temp Pulse Resp B/P (MAP) Pulse Ox O2 O2 Flow FiO2 Time Delivery Rate 06/20/18 97.8 79 22 154/76 96 Room Air 12:00 (102) 06/18/18 2.0 03:54 Intake and Output 06/19/18 06/19/18 06/20/18 1515:00 23:00 07:00 IntakeIntake Total 850 ml 400 ml OutputOutput Total 2400 ml 2000 ml BalanceBalance -2400 ml -1150 ml 400 ml Results Result Diagram: 06/19/18 0542 06/19/18 0542 Medications Medication Current Medications IV Flush (NS 3 ml) 3 ml PER PROTOCOL IV ; Start 06/14/18 at 23:30 Ondansetron HCl (Zofran Tab) 4 mg Q6H PRN PO NAUSEA/VOMITING; Start 06/14/18 at 23:30 Acetaminophen (Tylenol Tab) 650 mg Q6H PRN PO .PAIN 1-3 OR TEMP Last administered on 06/15/18at 22:52; Admin Dose 650 MG; Start 06/14/18 at 23:30 Docusate Sodium (Colace) 100 mg Q12H PRN PO .CONSTIPATION; Start 06/14/18 at 23:30 Bisacodyl (Dulcolax) 5 mg DAILY PRN PO .CONSTIPATION; Start 06/14/18 at 23:30 Apixaban (Eliquis) 2.5 mg BID PO Last administered on 06/20/18 09:11; Admin Dose 2.5 MG; Start 06/14/18 at 23:30 Famotidine (Pepcid) 20 mg HS PO Last administered on 06/19/18 21:19; Admin Dose 20 MG; Start 06/15/18 at 21:00 Lactobacillus Acidophilus/ Rhamnosus (Culturelle) 1 cap BID PO Last admi nistered on 06/20/18 09:11; Admin Dose 1 CAP; Start 06/15/18 at 09:00 Levalbuterol (Xopenex Neb) 0.63 mg Q4H RESP THERAPY PRN HHN WHEEZING AND SOB; Start 06/14/18 at 23:30 Senna/Docusate Sodium (Senokot-S) 2 tab HS PO Last administered on 06/19/18 21:20; Admin Dose 2 TAB; Start 06/15/18 at 21:00 Thiamine HCl (Vitamin B1) 100 mg DAILY PO Last administered on 06/20/18 09:12; Admin Dose 100 MG; Start 06/15/18 at 09:00 Carvedilol (Coreg) 6.25 mg BID PO Last administered on 06/20/18 09:11; Admin Dose 6.25 MG; Start 06/15/18 at 09:00 Losartan Potassium (Cozaar) 100 mg DAILY PO Last administered on 06/20/18 09:12; Admin Dose 100 MG; Start 06/15/18 at 09:00 Epoetin Bhupendra (Epogen (Esrd)) 10,000 units MoWeFr@17 SC Last administered on 06/18/18 17:59; Admin Dose 10,000 UNITS; Start 06/15/18 at 17:00 Tramadol HCl (Ultram) 50 mg Q6H PRN PO MODERATE PAIN LEVEL 4-6 Last administered on 06/20/18 03:53; Admin Dose 50 MG; Start 06/15/18 at 10:00 Heparin Sodium (Porcine) (Heparin (1000 Units/ml)) 4,100 unit PRN PRN CATHETER AFTER HD Last administered on 3/26/19at 13:44; Admin Dose 4,100 UNIT; Start 06/15/18 at 16:00 Hydralazine HCl (Apresoline) 10 mg Q6H PRN IV SBP>160; Start 06/15/18 at 19:30 Guaifenesin/ Dextromethorphan (Robitussin Dm Liquid Cup) 10 ml Q4H PRN PO COUGH; Start 06/18/18 at 12:00 Amlodipine Besylate (Norvasc) 5 mg DAILY PO Last administered on 06/20/18at 09:12; Admin Dose 5 MG; Start 06/20/18 at 09:00 Guaifenesin/ Dextromethorphan (Robitussin Dm Liquid Cup) 10 ml Q4H PRN PO COUGH; Start 06/19/18 at 11:30 Levofloxacin (Levaquin) 250 mg Q48H PO Last administered on 06/19/18at 17:52; Admin Dose 250 MG; Start 06/19/18 at 15:30 FAVIOLA BRANCH NP Jun 20, 2018 13:40
== END 2018-06-20 16:15 | DRG 314 ==
LOC: 6WM 22:45
PROVIDERS: ADMIT Internal Medicine; ATTEND Internal Medicine
PROC: 5A1D70Z Performance of Urinary Filtration, Intermittent, Less than 6 Hours Per Day (ICD-10-PCS; 2018-06-15)
PROC: 5A1D70Z Performance of Urinary Filtration, Intermittent, Less than 6 Hours Per Day (ICD-10-PCS; 2018-06-16)
PROC: 5A1D70Z Performance of Urinary Filtration, Intermittent, Less than 6 Hours Per Day (ICD-10-PCS; 2018-06-18)
PROC: 5A1D70Z Performance of Urinary Filtration, Intermittent, Less than 6 Hours Per Day (ICD-10-PCS; principal; 2018-06-20)
DX: T82.7XXA Infection and inflammatory reaction due to other cardiac and vascular devices, implants and grafts, initial encounter (principal); A41.9 Sepsis, unspecified organism; N18.6 End stage renal disease; I50.23 Acute on chronic systolic (congestive) heart failure; J18.9 Pneumonia, unspecified organism; R65.20 Severe sepsis without septic shock; I13.2 Hypertensive heart and chronic kidney disease with heart failure and with stage 5 chronic kidney disease, or end stage renal disease; I42.9 Cardiomyopathy, unspecified; E87.1 Hypo-osmolality and hyponatremia; E87.0 Hyperosmolality and hypernatremia; J90 Pleural effusion, not elsewhere classified; Z68.1 Body mass index [BMI] 19.9 or less, adult; I48.0 Paroxysmal atrial fibrillation; E83.42 Hypomagnesemia; R13.10 Dysphagia, unspecified; R62.7 Adult failure to thrive; Y95 Nosocomial condition; Y84.8 Other medical procedures as the cause of abnormal reaction of the patient, or of later complication, without mention of misadventure at the time of the procedure; Y92.89 Other specified places as the place of occurrence of the external cause; Z79.01 Long term (current) use of anticoagulants; Z99.2 Dependence on renal dialysis
CPT/HCPCS: 71045; 80053; 80202; 83605; 83735; 84100; 84145; 85025; 85610; 87040; 87081; 87340; 90935; 97116; 97162; 97530; J1644; J2543; J3370; J3475; Q4081